=== PATIENT | female | born 1940 | race Caucasian/White ===

== ENCOUNTER 2017-05-07 03:33 | Inpatient (IN) | payer BC, OTHER ==
--- NOTE | 2017-05-07 04:08 | PDOC ---
History of Present Illness <Ladi Pat - Last Filed: 05/07/17 04:48> - General History Source: Patient Exam Limitations: Dementia - History of Present Illness Initial Comments: 05/07/17 04:01 Patient is a 76F with history of COPD on home oxygen, afib on diltiazem and xarelto, and HTN arriving via EMS complaining of anxiety. Her states that she has been getting more anxious, agitated and confused at night time. She states that she has not been confused and just can't sleep overnight. She states that she woke up in the middle of the night feeling short of breath and extremely anxious. EMS reports that she was in afib at the scene. She denies nausea, vomiting, fevers and chills. She denies dysuria and increased frequency in urination. <Doc Jerez - Last Filed: 05/07/17 06:01> - General Chief Complaint: Psychiatric Stated Complaint: ANXIETY Time Seen by Provider: 05/07/17 03:51 Past History <Ladi Pat - Last Filed: 05/07/17 04:48> - Past Medical History COPD: Yes HTN: Yes Hypercholesterolemia: Yes Suicide Attempt (Hx): No - Psycho/Social/Smoking Cessation Hx Anxiety: No Suicidal Ideation: No Smoking History: Former smoker Have you smoked in the past 12 months: No Number of Cigarettes Smoked Daily: 10 If you are a former smoker, when did you quit?: 2 months Information on smoking cessation initiated: No 'Breaking Loose' booklet given: 10/05/14 Hx Alcohol Use: No Drug/Substance Use Hx: No Substance Use Type: None <Doc Jerez - Last Filed: 05/07/17 06:01> - Past Medical History Allergies/Adverse Reactions: Allergies Allergy/AdvReac Type Severity Reaction Status Date / Time codeine Allergy Verified 01/19/15 18:59 diazepam [From Valium] Allergy Verified 01/19/15 18:59 Penicillins Allergy Verified 01/19/15 18:59 Home Medications: Ambulatory Orders Bimatoprost [Lumigan] 1 drop IO DAILY 01/19/15 Diltiazem Cd [Cardizem Cd -] 120 mg PO DAILY 01/19/15 Dorzolamide HCl [Trusopt 2% -] 1 drop OU DAILY 01/19/15 Levothyroxine [Synthroid -] 25 mg PO DAILY 01/19/15 Pravastatin Sodium [Pravachol -] 20 mg PO DAILY 01/19/15 Rivaroxaban [Xarelto -] 20 mg PO DAILY 01/19/15 Albuterol 0.083% Nebulizer Michelle [Ventolin 0.083% Nebulizer Soln -] 1 neb NEB Q6H #60 vial 01/21/15 Budesonide/Formeterol Fumarate [SYMBICORT 80/4.5mcg -] 2 inh IH BID #1 inhaler 01/21/15 Meclizine HCl [Antivert -] 25 mg PO TID #90 tablet 01/21/15 Review of Systems - Review of Systems Comments:: 05/07/17 04:08 GENERAL/CONSTITUTIONAL: No fever or chills. No weakness. HEAD, EYES, EARS, NOSE AND THROAT: No change in vision. No sore throat. CARDIOVASCULAR: No chest pain. Positive for shortness of breath RESPIRATORY: No cough, wheezing GASTROINTESTINAL: No nausea, vomiting, diarrhea or constipation. GENITOURINARY: No dysuria, frequency, or change in urination. MUSCULOSKELETAL: No joint or muscle swelling or pain. No neck or back pain. SKIN: No rash NEUROLOGIC: No headache, vertigo, loss of consciousness, or change in strength/ sensation. Positive for increased confusion <Doc Jerez - Last Filed: 05/07/17 06:01> *Physical Exam - Vital Signs Last Vital Signs Temp Pulse Resp BP Pulse Ox 98.6 F 106 H 15 123/78 100 05/07/17 03:49 05/07/17 03:49 05/07/17 03:49 05/07/17 03:49 05/07/17 03:49 <Ladi Pat - Last Filed: 05/07/17 04:48> - Vital Signs Last Vital Signs Temp Pulse Resp BP Pulse Ox 98.6 F 106 H 15 123/78 100 05/07/17 03:49 05/07/17 03:49 05/07/17 03:49 05/07/17 03:49 05/07/17 03:49 - Physical Exam Comments: 05/07/17 04:10 GENERAL: Awake, alert, and oriented x 4, frail, elderly, anxious HEAD: No signs of trauma, normocephalic, atraumatic EYES: PERRLA, EOMI, sclera anicteric, conjunctiva clear ENT: Auricles normal inspection, hearing grossly normal, nares patent. Moist mucosa LUNGS: In moderate distress, speaks full sentences, decreased breath sounds in bases, less sounds right base HEART: Regular rate, irregular rhythm, normal S1 and S2, no murmurs, rubs or gallops ABDOMEN: Soft, nontender, normoactive bowel sounds. No guarding, no rebound. No masses EXTREMITIES: Normal inspection, Normal range of motion, no edema. Small bruising in legs bilaterally. No clubbing or cyanosis. NEUROLOGICAL: Cranial nerves II through XII grossly intact. Normal speech, no focal sensorimotor deficits SKIN: Warm, Dry, normal turgor, no rashes or lesions noted. <Doc Jerez - Last Filed: 05/07/17 06:01> ED Treatment Course - LABORATORY CBC & Chemistry Diagram: 05/07/17 04:10 05/07/17 04:10 - ADDITIONAL ORDERS Additional order review: Laboratory Results 05/07/17 04:10 INR 1.73 H D 05/07/17 04:10 RBC 3.33 L MCV 63.0 L D MCHC 27.1 L RDW 19.2 H D MPV 7.7 Neutrophils % 76.7 D Lymphocytes % 13.7 D Monocytes % 8.3 Eosinophils % 0.1 D Basophils % 1.2 - Medications Given in the ED: ED Medications Discontinued Medications Generic Name Dose Route Start Last Admin Trade Name Freq PRN Reason Stop Dose Admin Albuterol/Ipratropium 1 amp 05/07/17 04:23 05/07/17 04:36 Duoneb - NEB 05/07/17 04:24 1 amp ONCE ONE Administration <Ladi Pat - Last Filed: 05/07/17 04:48> - LABORATORY CBC & Chemistry Diagram: 05/07/17 04:10 05/07/17 04:10 - RADIOLOGY Radiology Studies Ordered: Category Date Time Status CHEST X-RAY PORTABLE* [RAD] Stat Radiology 05/07/17 03:53 Ordered <Doc Jerez - Last Filed: 05/07/17 06:01> Medical Decision Making - Medical Decision Making Paged Dr. High @ 4:48. Awaiting call back. <Ladi Pat - Last Filed: 05/07/17 04:48> - Medical Decision Making 05/07/17 04:12 Patient is a 76F with history of COPD, aFib, HTN here today complaining of anxiety. Tachycardic, satting 100% on 5L. Differential diagnosis includes, but is not limited to: anxiety, afib, UTI, dementia, COPD exacerbation 05/07/17 04:54 Patient's respiratory status declined, with a desat down to 82%. Patient put on non-rebreather, which was not tolerated well. Patient put on BIPAP, status improved until no longer tolerated. Given duoneb inhaler, oxygen status improved to 98-100%. Physical exam now shows markedly decreased breath sounds bilaterally, patient not able to speak in full sentences. Hgb 5.7, 2 units ordered. ICU consulted. 05/07/17 05:35 Trop positive to 1.38. Rectal exam showed no maya blood. With increased RDW and decreased MCV believe anemia is the result of a chronic process, not an acute bleed. Given aspirin 162 and plavix 300. 05/07/17 06:01 Patient discussed with ICU and Dr High. Accepted for admission to ICU. <Doc Jerez - Last Filed: 05/07/17 06:01> *DC/Admit/Observation/Transfer <Ladi Pat - Last Filed: 05/07/17 04:48> - Discharge Dispostion Admit: Yes - Transfer to Acute Care Facility Accepting Physician:: Lennox - Attestations Physician Attestion: 05/07/17 05:43 I, Dr. Doc Jerez, attest that this document has been prepared under my direction and personally reviewed by me in its entirety. I further attest, that it accurately reflects all work, treatment, procedures and medical decision -making performed by me. <Doc Jerez - Last Filed: 05/07/17 06:01> Diagnosis at time of Disposition: NSTEMI (non-ST elevated myocardial infarction), COPD (chronic obstructive pulmonary disease) - Discharge Dispostion Condition at time of disposition: Critical - Referrals Referrals: Lux Littlejohn MD [Primary Care Provider] -
[2017-05-07] MEDS ORDERED: ALBUTEROL SO4 2.5/IPRATROPIUM 0.5 INH SOL 3 ML VIAL.NEB. NEB ONE (04:23)
[2017-05-07 04:28] LABS: INR 1.73 (0.82-1.09); PROTHROMBIN TIME (PATIENT) 19.2 SEC (9.98-11.88)
[2017-05-07 04:30] LABS: BASOPHIL 1.2 % (0-2.0); EOSINOPHIL 0.1 % (0-4.5); MCHC 27.1 g/dl (32.0-36.0); MEAN PLT VOLUME 7.7 fl (7.5-11.1); NEUTROPHILS 76.7 % (42.8-82.8); PLATELET COUNT 418 K/MM3 (134-434); RDW 19.2 % (11.6-15.6)
[2017-05-07 04:31] LABS: MCH 17.1 pg (25.7-33.7)
[2017-05-07] MEDS ORDERED: methylPREDNISolone NA SUCC 125 MG/2 ML VIAL ONE ×2 (04:31→12:12)
[2017-05-07 04:41] LABS: ALBUMIN 3.2 g/dl (3.4-5.0); ANION GAP 7 (8-16); BILIRUBIN,TOTAL 0.5 mg/dL (0.2-1.0); CO2 28 mmol/L (21-32); CREATININE 0.4 mg/dL (0.55-1.02); GLUCOSE,RANDOM 114 mg/dL (74-106); SGOT/AST 18 U/L (15-37); SGPT/ALT 11 U/L (12-78); TOT PROT 6.8 g/dl (6.4-8.2)
[2017-05-07 04:49] LABS: ALK PHOS 63 U/L (45-117); THYROID STIMULATING HORMONE 2.29 uIU/ml (0.358-3.74)
[2017-05-07 05:10] LABS: TROPONIN I 1.38 ng/ml (0.00-0.05)
[2017-05-07] MEDS ORDERED: ENOXAPARIN NA (PORCINE) 40 MG/0.4 ML DISP.SYRIN SQ ONE (05:10)
[2017-05-07] MEDS ORDERED: CLOPIDOGREL BISULFATE 300 MG TABLET PO ONE (05:12)
[2017-05-07] MEDS ORDERED: ASPIRIN 81 MG CHEWABLE TABLETS PO ONE (05:12)
[2017-05-07] MEDS ORDERED: morphine CARPU-JECT 2 MG/1 ML DISP.SYRIN IVPUSH ONE (05:21)
[2017-05-07] MEDS ORDERED: morphine CARPU-JECT 4 MG/1 ML DISP.SYRIN ONE (05:33)
[2017-05-07] MEDS ORDERED: ASPIRIN 81 MG CHEWABLE TABLETS ONE (05:34)
[2017-05-07] MEDS ORDERED: CLOPIDOGREL BISULFATE 300 MG TABLET ONE (05:34)
--- NOTE | 2017-05-07 06:17 | PDOC ---
Attending Attestation - Resident Resident Name: Doc Jerez - HPI HPI: 05/07/17 06:19 Pt can't breathe; anxious and hx of COPD emphysema. - Physicial Exam PE: 05/07/17 06:19 Pale and thin and anxious. No pulsox registering, as her hands are thin and cold. Once NRB was on, she had pulsox of 100% Pt is afebrile. Stool guaiac negative. Abd soft. Lungs decreased Breath sounds bilaterally. Pt has rales at the bases. - Critical Care Time Total Critical Care Time: 45 Critical Care Statement: The care of this patient involved high complexity decision making to prevent further life threatening deterioration of the patient 's condition and/or to evalute & treat vital organ system(s) failure or risk of failure. - Medical Decision Making 05/07/17 06:21 Pt has decreased Hb 5.7; down from 11 two years ago (last one on file here) Pt has pleural effusion. Pt refusing BiPAP, so she was given duonebs as well as NRB 100% Pt has positive troponin, so she was treated with asa and plavix, She is on xarelto so we will not give lovenox. Pt given morphine 1g for anxiety and for CP. EKG poor baseline, but no tachycardia. Pt admitted to Dr. High who is covering Dr. Vazquez.
[2017-05-07 06:50] VITALS: BMI 17.9
[2017-05-07 07:13] LABS: ANISOCYTOSIS 2+; HYPOCHROMIA 3+; MICROCYTOSIS 2+
--- NOTE | 2017-05-07 09:50 | EKG ---
Test Reason : Blood Pressure : / mmHG Vent. Rate : 100 BPM Atrial Rate : 100 BPM P-R Int : 176 ms QRS Dur : 090 ms QT Int : 350 ms P-R-T Axes : 074 -11 047 degrees QTc Int : 451 ms SINUS RHYTHM WITH PREMATURE VENTRICULAR COMPLEXES WITH ABERRANT CONDUCTION CANNOT RULE OUT SEPTAL INFARCT (CITED ON OR BEFORE 19-JAN-2015) ABNORMAL ECG WHEN COMPARED WITH ECG OF 19-JAN-2015 17:37, ABERRANT CONDUCTION IS NOW PRESENT Confirmed by EMIL VANCE MD ([id number]) on 05/07/2017 9:49:35 AM Referred By: Confirmed By:EMIL VANCE MD
--- NOTE | 2017-05-07 11:11 | HP ---
Admitting History and Physical - Primary Care Physician PCP: Edmundo Hendrix - Admission Chief Complaint: I couldnt breathe History of Present Illness: Ms Carmona is a pleasant 76 year old female who comes in with anxiety and shortness of breath. I obtained the history from both her and her who is at the bedside. Per her , she has been having difficulty breathing for about two weeks. It mainly occurred on exertion and she was having anxiety associated with it. Per her, she says that she was feeling fine until last night. She said she went to bed and woke up with acute shortness of breath and anxiety. Because of this she came in. She says she has fatigue for the past two weeks. She denies lightheadedness, dizziness, passing out, chest pain, abdominal pain, nausea, vomiting, diarrhea, constipation, melena, hematochezia, pain or difficulty urinating, blood in the urine, or swelling. History Source: Patient Limitations to Obtaining History: No Limitations - Past Medical History Cardiovascular: Yes: HTN, Hyperlipdemia - Past Surgical History Past Surgical History: Yes: None - Smoking History Smoking history: Former smoker Have you smoked in the past 12 months: No Aproximately how many cigarettes per day: 10 If you are a former smoker, when did you quit?: 2 months - Alcohol/Substance Use Hx Alcohol Use: No History of Substance Use: reports: None - Social History Usual Living Arrangement: Yes: With Spouse ADL: Independent History of Recent Travel: No Home Medications - Allergies Allergies/Adverse Reactions: Allergies Allergy/AdvReac Type Severity Reaction Status Date / Time codeine Allergy Verified 01/19/15 18:59 diazepam [From Valium] Allergy Verified 01/19/15 18:59 Penicillins Allergy Verified 01/19/15 18:59 - Home Medications Home Medications: Ambulatory Orders Bimatoprost [Lumigan] 1 drop IO DAILY 01/19/15 Diltiazem Cd [Cardizem Cd -] 120 mg PO DAILY 01/19/15 Dorzolamide HCl [Trusopt 2% -] 1 drop OU DAILY 01/19/15 Levothyroxine [Synthroid -] 25 mg PO DAILY 01/19/15 Pravastatin Sodium [Pravachol -] 20 mg PO DAILY 01/19/15 Rivaroxaban [Xarelto -] 20 mg PO DAILY 01/19/15 Albuterol 0.083% Nebulizer Michelle [Ventolin 0.083% Nebulizer Soln -] 1 neb NEB Q6H #60 vial 01/21/15 Budesonide/Formeterol Fumarate [SYMBICORT 80/4.5mcg -] 2 inh IH BID #1 inhaler 01/21/15 Meclizine HCl [Antivert -] 25 mg PO TID #90 tablet 01/21/15 Family Disease History - Family Disease History Family History: Unremarkable Review of Systems Findings/Remarks: Full review of systems obtained, as per HPI and otherwise negative Physical Examination Vital Signs: Vital Signs Temperature 98.5 F 05/07/17 08:00 Pulse Rate 90 05/07/17 08:00 Respiratory Rate 24 05/07/17 08:00 Blood Pressure 107/52 05/07/17 08:00 O2 Sat by Pulse Oximetry (%) 97 05/07/17 09:00 Constitutional: Yes: No Distress, Pallor Eyes: Yes: Conjunctiva Clear, EOM Intact, PERRL HENT: Yes: Atraumatic, Normocephalic Cardiovascular: Yes: Tachycardia. No: Gallop, Murmur, Rub Respiratory: Yes: CTA Bilaterally, On Nasal O2, Tachypnea. No: Rales, Rhonchi, Wheezes Gastrointestinal: Yes: Normal Bowel Sounds, Soft. No: Distention, Tenderness Extremities: Yes: WNL Edema: No Labs: Laboratory Results - last 24 hr 05/07/17 05/07/17 05/07/17 04:10 04:10 04:10 WBC 7.0 RBC 3.33 L Hgb 5.7 L* D Hct 21.0 L D MCV 63.0 L D MCH 17.1 L MCHC 27.1 L RDW 19.2 H D Plt Count 418 D MPV 7.7 Neutrophils % 76.7 D Lymphocytes % 13.7 D Monocytes % 8.3 Eosinophils % 0.1 D Basophils % 1.2 Differential Comment Slide scanned Hypochromic-Microcytic 3+ Anisocytosis 2+ Microcytosis 2+ Retic Count INR Sodium 136 Potassium 3.6 Chloride 101 Carbon Dioxide 28 Anion Gap 7 L BUN 9 Creatinine 0.4 L D Creat Clearance w eGFR > 60 Random Glucose 114 H Lactic Acid Calcium 9.0 Ferritin Total Bilirubin 0.5 D AST 18 D ALT 11 L Alkaline Phosphatase 63 D LD Total Creatine Kinase 63 Troponin I 1.38 H* B-Natriuretic Peptide Total Protein 6.8 Albumin 3.2 L Vitamin B12 Serum Folate TSH 2.29 Stool Occult Blood Blood Type Antibody Screen Crossmatch 05/07/17 05/07/17 05/07/17 04:10 04:10 05:05 WBC RBC Hgb Hct MCV MCH MCHC RDW Plt Count MPV Neutrophils % Lymphocytes % Monocytes % Eosinophils % Basophils % Differential Comment Hypochromic-Microcytic Anisocytosis Microcytosis Retic Count INR 1.73 H D Sodium Potassium Chloride Carbon Dioxide Anion Gap BUN Creatinine Creat Clearance w eGFR Random Glucose Lactic Acid Calcium Ferritin 6.047 L Total Bilirubin AST ALT Alkaline Phosphatase LD Total 167 Creatine Kinase Troponin I B-Natriuretic Peptide 4912.88 H Total Protein Albumin Vitamin B12 586 Serum Folate 13 TSH 2.20 D Stool Occult Blood Blood Type O POSITIVE Antibody Screen Negative Crossmatch See Detail 05/07/17 05/07/17 05/07/17 05:05 05:18 05:30 WBC RBC Hgb Hct MCV MCH MCHC RDW Plt Count MPV Neutrophils % Lymphocytes % Monocytes % Eosinophils % Basophils % Differential Comment Hypochromic-Microcytic Anisocytosis Microcytosis Retic Count INR Sodium Potassium Chloride Carbon Dioxide Anion Gap BUN Creatinine Creat Clearance w eGFR Random Glucose Lactic Acid 6.1 H* Calcium Ferritin Total Bilirubin AST ALT Alkaline Phosphatase LD Total Creatine Kinase Troponin I B-Natriuretic Peptide Total Protein Albumin Vitamin B12 Serum Folate TSH Stool Occult Blood Negative Blood Type O POSITIVE Antibody Screen Crossmatch 05/07/17 05/07/17 16:00 16:00 WBC 12.8 H D RBC 4.51 D Hgb 9.7 L D Hct 31.9 L D MCV 70.7 L MCH 21.5 L MCHC 30.4 L RDW 25.5 H Plt Count 325 D MPV 7.6 Neutrophils % 90.2 H Lymphocytes % 2.2 L D Monocytes % 7.5 Eosinophils % 0.0 D Basophils % 0.1 Differential Comment Hypochromic-Microcytic Anisocytosis Microcytosis Retic Count 1.80 H INR Sodium Potassium Chloride Carbon Dioxide Anion Gap BUN Creatinine Creat Clearance w eGFR Random Glucose Lactic Acid Calcium Ferritin Total Bilirubin AST ALT Alkaline Phosphatase LD Total Creatine Kinase Troponin I B-Natriuretic Peptide Total Protein Albumin Vitamin B12 Serum Folate TSH Stool Occult Blood Blood Type Antibody Screen Crossmatch Imaging - Results Chest X-ray: Report Reviewed, Image Reviewed Problem List - Problems (1) Anemia Assessment/Plan: -patient presents with symptomatic anemia -reviewed ER note, concerned that low MCV and high RDW is more from iron deficiency -while iron deficiency can be chronic, must consider acute GI bleed even with negative occult stool x1 -will not give further anticoagulation, hold xarelto -agree with transfusion -check anemia labs including haptoglobin and LDH for possible destruction -consult hematology for anemia -consult GI for possible GI bleed Code(s): D64.9 - ANEMIA, UNSPECIFIED (2) NSTEMI (non-ST elevated myocardial infarction) Assessment/Plan: -with elevated troponin -cardiology not consulted in ICU, consult placed upon seeing -possible stress induced but still concerning considering symptoms -given aspirin 162mg and plavix 300mg in the ED -will not continue this secondary to severe anemia -order second set of cardiac enzymes Code(s): I21.4 - NON-ST ELEVATION (NSTEMI) MYOCARDIAL INFARCTION (3) COPD (chronic obstructive pulmonary disease) Assessment/Plan: -pulmonary following -suspect shortness of breath secondary to anemia -will continue home regimen -if does not improve, may need intubation -continue ICU management Code(s): J44.9 - CHRONIC OBSTRUCTIVE PULMONARY DISEASE, UNSPECIFIED (4) Hyperlipidemia Assessment/Plan: -continue statin Code(s): E78.5 - HYPERLIPIDEMIA, UNSPECIFIED (5) Hypertension Assessment/Plan: -low normal -monitor Code(s): I10 - ESSENTIAL (PRIMARY) HYPERTENSION (6) Paroxysmal atrial fibrillation Assessment/Plan: -cardiology consulted -holding anticoagulation Code(s): I48.0 - PAROXYSMAL ATRIAL FIBRILLATION Assessment/Plan 62 minutes in critical care time spent in care of this patient
[2017-05-07] MEDS ORDERED: ALBUTEROL SO4 2.5/IPRATROPIUM 0.5 INH SOL 3 ML VIAL.NEB. NEB PRN (11:42)
[2017-05-07] MEDS ORDERED: methylPREDNISolone NA SUCC 125 MG/2 ML VIAL IVPB ONE (11:46)
[2017-05-07] MEDS: ALBUTEROL SO4 0.083% IH SOL 2.5 MG/3 ML VIAL.NEB. NEB SCH ×2 (11:50→18:43)
--- NOTE | 2017-05-07 11:58 | CON.CARD ---
Consult Consult Specialty:: cardio Referred by:: royal Reason for Consultation:: MD - History of Present Illness Chief Complaint: weak, sob History of Present Illness: pt cannot communicate at length due to severe sob and FM oxygen on. states she felt extremely weak yest and today so came to ER. says she's been noticing incr sob past 2 wks but became severe last night, felt like could not catch her breath, so came to ER. denies any c/o chest pain/pressure/heaviness/tightness (pt confirms as well, shakes head "no"). pt and deny melena or BRBPR denies wheezing says no prior h/o anemia, PUD or GIB--sees schirripa regularly PMH: copd AFib HTN - Past Medical History Cardio/Vascular: Yes: HTN, Hyperlipdemia - Alcohol/Substance Use Hx Alcohol Use: No - Smoking History Smoking history: Former smoker Have you smoked in the past 12 months: No Aproximately how many cigarettes per day: 10 If you are a former smoker, when did you quit?: 2 months Home Medications - Allergies Allergies/Adverse Reactions: Allergies Allergy/AdvReac Type Severity Reaction Status Date / Time codeine Allergy Verified 01/19/15 18:59 diazepam [From Valium] Allergy Verified 01/19/15 18:59 Penicillins Allergy Verified 01/19/15 18:59 - Home Medications Home Medications: Ambulatory Orders Bimatoprost [Lumigan] 1 drop IO DAILY 01/19/15 Diltiazem Cd [Cardizem Cd -] 120 mg PO DAILY 01/19/15 Dorzolamide HCl [Trusopt 2% -] 1 drop OU DAILY 01/19/15 Levothyroxine [Synthroid -] 25 mg PO DAILY 01/19/15 Pravastatin Sodium [Pravachol -] 20 mg PO DAILY 01/19/15 Rivaroxaban [Xarelto -] 20 mg PO DAILY 01/19/15 Albuterol 0.083% Nebulizer Michelle [Ventolin 0.083% Nebulizer Soln -] 1 neb NEB Q6H #60 vial 01/21/15 Budesonide/Formeterol Fumarate [SYMBICORT 80/4.5mcg -] 2 inh IH BID #1 inhaler 01/21/15 Meclizine HCl [Antivert -] 25 mg PO TID #90 tablet 01/21/15 Family Disease History - Family Disease History Family History: Denies (no cmp) Review of Systems - Review of Systems Constitutional: reports: Weakness. denies: Chills, Fever Eyes: denies: Eye Pain HENT: denies: Nasal Congestion Neck: denies: Stiffness Cardiovascular: denies: Palpitations Respiratory: denies: Orthopnea, PND Gastrointestinal: denies: Diarrhea, Rectal Bleeding Genitourinary: denies: Burning, Hematuria Musculoskeletal: denies: Muscle Pain Integumentary: denies: Rash Neurological: denies: Numbness, Seizure, Syncope Endocrine: denies: Excessive Sweating Hematology/Lymphatic: denies: Excessive Bleeding Vital Signs: Vital Signs Temperature 98.5 F 05/07/17 08:00 Pulse Rate 90 05/07/17 08:00 Respiratory Rate 24 05/07/17 08:00 Blood Pressure 107/52 05/07/17 08:00 O2 Sat by Pulse Oximetry (%) 97 05/07/17 09:00 Constitutional: Yes: Well Nourished, No Distress Eyes: No: Sclera Icterus HENT: No: Nasal Congestion Neck: No: Decreased ROM Respiratory: Yes: Diminished (diffusely), Wheezes (bilat). No: Accessory Muscle Use Gastrointestinal: Yes: Normal Bowel Sounds. No: Distention, Hepatomegaly, Palpable Mass, Tenderness Cardiovascular: Yes: Regular Rate and Rhythm JVD: No Carotid Bruit: No PMI: Non-Displaced Heart Sounds: Yes: S1, S2. No: Gallop Murmur: No: Systolic Murmur, Diastolic Murmur Musculoskeletal: Yes: Other (No kyphosis) Extremities: No: Cold, Cyanosis Edema: No Peripheral Pulses: 2+ Left Carotid, 2+ Right Carotid, 2+ Left Doralis Pedis, 2+ Right Dorsalis Pedis Integumentary: No: Jaundice Neurological: Yes: Alert. No: Seizure Psychiatric: No: Agitated - Other Data Labs, Other Data: INR, PTT INR 1.73 (0.82-1.09) H D 05/07/17 04:10 Laboratory Tests 01/19/15 05/07/17 05/07/17 18:05 04:10 04:10 WBC 7.0 Hgb 11.1 D 5.7 L* D Plt Count 418 D INR Sodium 136 Potassium 3.6 Carbon Dioxide 28 BUN 9 Creatinine 0.4 L D Lactic Acid AST 18 D ALT 11 L Creatine Kinase Troponin I B-Natriuretic Peptide TSH 2.29 05/07/17 05/07/17 05/07/17 04:10 04:10 04:10 WBC Hgb Plt Count INR 1.73 H D Sodium Potassium Carbon Dioxide BUN Creatinine Lactic Acid AST ALT Creatine Kinase 63 Troponin I 1.38 H* B-Natriuretic Peptide 4912.88 H TSH 05/07/17 05:05 WBC Hgb Plt Count INR Sodium Potassium Carbon Dioxide BUN Creatinine Lactic Acid 6.1 H* AST ALT Creatine Kinase Troponin I B-Natriuretic Peptide TSH tele: NSR Assessment/Plan Echo 2013: nl lv, nl rv, mild mr, mild tr, rvsp 30-40 Dobut mibi 2014: no ischemia ECG: sinus tach (100 bpm), + PVC; normal axis; ? old ASMI (no change vs 2015 prior); nonsp STs lateral leads new vs prior CXR: new effusions and chf findings--reviewed by me: vs 2014, there are small effusions and vascular redistribution anemia: -hgb 5.7 here, was 11 when here 2015, ? recent outpt values -? GIB--will hold xarelto for now -rec PRBCs transufsion -await GI eval NSTEMI: -ck normal, trop 1.3 in ER-->2nd set pending -ecg nonspecific though changed vs prior -this could all be secondary to acute anemia given severity of reduced Hgb, gil if underlying fixed obstructive CAD -will check echo for LV fxn -will defer stress testing for now, but will need this for risk stratification prior to discharge, once clinically stabilized -will not be a candidate for invasive treatment strategy (i.e. cath/PCI) regardless until etiology of anemia is clarified, and risk-stratified as low risk for bleed on DAPT with premature discontinuation) -defer ASA, plavix, heparin -defer BB until observe BP trend given ? acute bleeding (lactate very elevated) -on pravastatin at home-atorva 10 here, per formulary (defer intensive statin unless becomes evident this was Type I MD) acute CHF: -no prior hx, echo WNL 2013. -CXR c/w chf, BNP 4K -pt with severe respiratory compromise at present--IV lasix 40mg x 1 now -ICU monitoring with supportive care +/- intubation consideration per critical care afib: -episode here when admitted 2014 with a.e. copd/resp failure -CHADS VASC 4--started on xarelto 20 at that time -holding AC at present given severe anemia -has not f/u'd with us since (sees dr larsen PMD)--remains on xarelto per home med list COPD: -h/o acute resp failure 2015 here -? a.e.--per pulm/crit care htn: -well controlled -hold home diltiazem for now while observe BP trend (? acute bleeding--as disc' d above) lactic acidosis: -? acute anemia with hypoperfusion -? sec to MD -? sec to chf est'd time in mgmt of this critically ill pt with mult life-threatening medical problems = 35-40min prognosis guarded
[2017-05-07] MEDS ORDERED: FUROSEMIDE 40 MG/4 ML INJECTABLE VIAL IVPUSH ONE (12:38)
[2017-05-07] MEDS ORDERED: FUROSEMIDE 40 MG/4 ML INJECTABLE VIAL ONE (12:43)
--- NOTE | 2017-05-07 12:55 | CONSULT ---
Consult Consult Specialty:: ICU Referred by:: ED Reason for Consultation:: Symptomatic anemia - History of Present Illness Chief Complaint: anxiety insomnia History of Present Illness: 76F history of A fib on xarelto HTN HLD presents to the ED with her . Per she has been getting anxious and agitated especially at night along with insomnia. Patient was noted to be in A fib with RVR at the scene by EMS. In the ED she was noted to have a Hb of 5.7. She denies halley tarry stools or GI bleed. Stool for hemoccult blood was negative. She deneis ever having a GI bleed. Patient states she does not have a history of anemia but upon further questioning she states she was on iron 3 times a day but cold not tolerate the constipation and stopped it a long time ago. She denies nausea vomiting fevers chills chest pain or shortness of breath. Denies any urinary symptoms. Patient also noted to have troponinemia without EKG changes. - History Source History Provided By: Patient, Significant Other Limitations to Obtaining History: Clinical Condition - Past Medical History Cardio/Vascular: Yes: AFIB, HTN, Hyperlipdemia Pulmonary: Yes: COPD, O2 Dependent (2L NC at home ) Endocrine: Yes: Hypothyroidism - Past Surgical History Past Surgical History: Yes: Carotid Endarterectomy - Alcohol/Substance Use Hx Alcohol Use: No - Smoking History Smoking history: Former smoker Have you smoked in the past 12 months: No Aproximately how many cigarettes per day: 10 If you are a former smoker, when did you quit?: 2 months - Social History Usual Living Arrangement: With Spouse Home Medications - Allergies Allergies/Adverse Reactions: Allergies Allergy/AdvReac Type Severity Reaction Status Date / Time codeine Allergy Verified 01/19/15 18:59 diazepam [From Valium] Allergy Verified 01/19/15 18:59 Penicillins Allergy Verified 01/19/15 18:59 - Home Medications Home Medications: Ambulatory Orders Bimatoprost [Lumigan] 1 drop IO DAILY 01/19/15 Diltiazem Cd [Cardizem Cd -] 120 mg PO DAILY 01/19/15 Dorzolamide HCl [Trusopt 2% -] 1 drop OU DAILY 01/19/15 Levothyroxine [Synthroid -] 25 mg PO DAILY 01/19/15 Pravastatin Sodium [Pravachol -] 20 mg PO DAILY 01/19/15 Rivaroxaban [Xarelto -] 20 mg PO DAILY 01/19/15 Albuterol 0.083% Nebulizer Michelle [Ventolin 0.083% Nebulizer Soln -] 1 neb NEB Q6H #60 vial 01/21/15 Budesonide/Formeterol Fumarate [SYMBICORT 80/4.5mcg -] 2 inh IH BID #1 inhaler 01/21/15 Meclizine HCl [Antivert -] 25 mg PO TID #90 tablet 01/21/15 Review of Systems - Review of Systems Constitutional: reports: No Symptoms Eyes: reports: No Symptoms HENT: reports: No Symptoms Neck: reports: No Symptoms Cardiovascular: reports: No Symptoms Respiratory: reports: SOB (occasional), Wheezing Gastrointestinal: reports: No Symptoms, Vomiting Blood Musculoskeletal: reports: No Symptoms Psychiatric: reports: Anxiety, Other (agitation at night insomnia) Physical Exam Vital Signs: Vital Signs Temperature 98.5 F 05/07/17 08:00 Pulse Rate 90 05/07/17 08:00 Respiratory Rate 24 05/07/17 08:00 Blood Pressure 107/52 05/07/17 08:00 O2 Sat by Pulse Oximetry (%) 97 05/07/17 09:00 Constitutional: Yes: No Distress, Calm, Cachectic, Thin Eyes: Yes: Conjunctiva Clear HENT: Yes: Atraumatic, Normocephalic Neck: Yes: Supple, Trachea Midline Cardiovascular: Yes: Tachycardia, Pulse Irregular, S1, S2 Respiratory: Yes: Diminished, Wheezes Gastrointestinal: Yes: Normal Bowel Sounds, Soft ...Rectal Exam: Yes: Deferred (patient refused stated was done already in ED) Extremities: Yes: WNL Edema: No Neurological: Yes: Alert, Oriented Psychiatric: Yes: Alert, Oriented Imaging - Results Chest X-ray: Report Reviewed, Image Reviewed Assessment/Plan 76F with multiple medical problems presented to the ED with non sepcific complaints of anxiety, agitation, and insomnia found to be severely anemia. symptomatic anemia: patient was tachycardic. this is likely a chronic process which has progressively worsened sine she has stopped taking iron pills. patient denies GI bleeding history hold xarelto for now transfuse 2 units PRBCs and trend CBC post transfusion CBC transfuse for Hb <7 GI consult Hematology consult lactic acidosis:likely from hypovolemia from blood loss lactate 6.1 will repeat and trend Troponinemia: NSTEMI unlikely. troponin leak likely from demand ischemia from hypovolemia gievn plavix 300mg and aspirin 162mg in ED Cardiology consulted Echo Shortness of breath: could be from CHF-like symptoms from high output cardiac failure cardiology consult appreciated symptoms improved with 40mg IV lasix repeat CXR in AM COPD: on Home O2 put back on 2L NC with venti mask PRN Duonebs albuterol CXR Given solu-medrol for an episode of respiratory distress with wheezing Afib: Needs better rate control currently in 110's which is improved will likely improve with transfusion as she was likely tachycardic from hypovolemia continue cardizem Hold Xarelto for now given anemia cardiology consult Hypothyroidism: continue synthroid HLD: continue statin FEN: no IVF will give fluids PRN no electrolyte issues NPO for now pending GI consult PPx: SCDs no GI PPx needed at this time PT consult when able to participate Case discussed with attending and patient and her family at bedside
[2017-05-07 15:15] LABS: FERRITIN 6.047 ng/ml (6.9-282.5); THYROID STIMULATING HORMONE 2.2 uIU/ml (0.358-3.74)
--- NOTE | 2017-05-07 15:58 | PN ---
Teaching Attending Note Name of Resident: Truman Pitt ATTENDING PHYSICIAN STATEMENT I saw and evaluated the patient. I reviewed the resident's note and discussed the case with the resident. I agree with the resident's findings and plan as documented. SUBJECTIVE: Patient seen and examined in the ICU. Awake and alert. Anxious about her condition. Receiving pRBCs. Denies CP or SOB, but tachypneic at rest. Intake & Output 05/04/17 05/05/17 05/06/17 05/07/17 23:59 23:59 23:59 23:59 Weight 92 lb Last Vital Signs Temp Pulse Resp BP Pulse Ox 98.5 F 90 24 107/52 97 05/07/17 08:00 05/07/17 08:00 05/07/17 08:00 05/07/17 08:00 05/07/17 09:00 Active Medications Albuterol Sulfate (Ventolin 0.083% Nebulizer Soln -) 1 amp NEB QIDR [facility] Last Admin: 05/07/17 11:50 Dose: 1 amp Albuterol/Ipratropium (Duoneb -) 1 amp NEB Q6H PRN PRN Reason: SHORTNESS OF BREATH Atorvastatin Calcium (Lipitor -) 10 mg PO HS [facility] Brimonidine Tartrate (Alphagan 0.2% -) 1 drop OU BID [facility] Diltiazem HCl (Cardizem Cd -) 120 mg PO DAILY [facility] Levothyroxine Sodium (Synthroid -) 25 mcg PO DAILY@0700 [facility] Constitutional: Yes: Awake and alert, Mildly tachypneic at rest Eyes: No: Sclera Icterus HENT: No: Nasal Congestion Neck: No: Decreased ROM Respiratory: Yes: Diminished at the bases, Mild scattered expiratory wheezes. No: Accessory Muscle Use Gastrointestinal: Yes: Normal Bowel Sounds. No: Distention, Hepatomegaly, Palpable Mass, Tenderness Cardiovascular: Yes: Regular Rate and Rhythm JVD: No Carotid Bruit: No PMI: Non-Displaced Heart Sounds: Yes: S1, S2. No: Gallop Murmur: No: Systolic Murmur, Diastolic Murmur Musculoskeletal: Yes: Other (No kyphosis) Extremities: No: Cold, Cyanosis Edema: No Peripheral Pulses: 2+ Left Carotid, 2+ Right Carotid, 2+ Left Doralis Pedis, 2+ Right Dorsalis Pedis Integumentary: No: Jaundice Neurological: Yes: Alert. No: Seizure Psychiatric: No: Agitated Laboratory Results - last 24 hr 05/07/17 05/07/17 05/07/17 04:10 04:10 04:10 WBC 7.0 RBC 3.33 L Hgb 5.7 L* D Hct 21.0 L D MCV 63.0 L D MCH 17.1 L MCHC 27.1 L RDW 19.2 H D Plt Count 418 D MPV 7.7 Neutrophils % 76.7 D Lymphocytes % 13.7 D Monocytes % 8.3 Eosinophils % 0.1 D Basophils % 1.2 Differential Comment Slide scanned Hypochromic-Microcytic 3+ Anisocytosis 2+ Microcytosis 2+ INR Sodium 136 Potassium 3.6 Chloride 101 Carbon Dioxide 28 Anion Gap 7 L BUN 9 Creatinine 0.4 L D Creat Clearance w eGFR > 60 Random Glucose 114 H Lactic Acid Calcium 9.0 Ferritin Total Bilirubin 0.5 D AST 18 D ALT 11 L Alkaline Phosphatase 63 D LD Total Creatine Kinase 63 Troponin I 1.38 H* B-Natriuretic Peptide Total Protein 6.8 Albumin 3.2 L Vitamin B12 Serum Folate TSH 2.29 Stool Occult Blood Blood Type Antibody Screen Crossmatch 05/07/17 05/07/17 05/07/17 04:10 04:10 05:05 WBC RBC Hgb Hct MCV MCH MCHC RDW Plt Count MPV Neutrophils % Lymphocytes % Monocytes % Eosinophils % Basophils % Differential Comment Hypochromic-Microcytic Anisocytosis Microcytosis INR 1.73 H D Sodium Potassium Chloride Carbon Dioxide Anion Gap BUN Creatinine Creat Clearance w eGFR Random Glucose Lactic Acid Calcium Ferritin 6.047 L Total Bilirubin AST ALT Alkaline Phosphatase LD Total 167 Creatine Kinase Troponin I B-Natriuretic Peptide 4912.88 H Total Protein Albumin Vitamin B12 586 Serum Folate 13 TSH 2.20 D Stool Occult Blood Blood Type O POSITIVE Antibody Screen Negative Crossmatch See Detail 05/07/17 05/07/17 05/07/17 05:05 05:18 05:30 WBC RBC Hgb Hct MCV MCH MCHC RDW Plt Count MPV Neutrophils % Lymphocytes % Monocytes % Eosinophils % Basophils % Differential Comment Hypochromic-Microcytic Anisocytosis Microcytosis INR Sodium Potassium Chloride Carbon Dioxide Anion Gap BUN Creatinine Creat Clearance w eGFR Random Glucose Lactic Acid 6.1 H* Calcium Ferritin Total Bilirubin AST ALT Alkaline Phosphatase LD Total Creatine Kinase Troponin I B-Natriuretic Peptide Total Protein Albumin Vitamin B12 Serum Folate TSH Stool Occult Blood Negative Blood Type O POSITIVE Antibody Screen Crossmatch Assessment/Plan Severe symptomatic anemia (?) GI Bleed Lactic acidosis Severe/Advanced COPD (?) component of high output failure Pleural effusions Suspected demand ischemia Hold AC Transfusional support O2 as needed Hold on ASA/Plavix Follow lactic acid Low threshold for intubation Rate control BD TX ICU monitoring Dr Arreaga Critical Care Time/MDM Note Total Critical Care Time: 35 Critical Care Statement: The care of this patient involved high complexity decision making to prevent further life threatening deterioration of the patient 's condition and/or to evalute & treat vital organ system(s) failure or risk of failure.
[2017-05-07 16:18] LABS: BASOPHIL 0.1 % (0-2.0); MCH 21.5 pg (25.7-33.7); MCHC 30.4 g/dl (32.0-36.0); MEAN CELL VOLUME 70.7 fl (80-96); MEAN PLT VOLUME 7.6 fl (7.5-11.1); NEUTROPHILS 90.2 % (42.8-82.8); PLATELET COUNT 325 K/MM3 (134-434); RDW 25.5 % (11.6-15.6); WHITE BLOOD COUNT 12.8 K/mm3 (4.0-10.0)
--- NOTE | 2017-05-07 18:06 | CONSULT ---
Consult Consult Specialty:: Hematology/Oncology Reason for Consultation:: anemia - History of Present Illness Chief Complaint: difficulty breathing History of Present Illness: Most of the history obtained from /Chart: Seen and examined in the ICU. Ms. Carmona is a 76 year old white woman who is now admitted in ICU for severe anemia , SOB , AMS. Patient with history of Iron deficiency as per and she was prescribed iron pills three times a day , she stopped taking them as they were causing severe constipation. As per her from the past few days , she was complaing of not able to breathe, and which was worse yesterday and was brought to the ER. She denies lightheadedness, dizziness, passing out, chest pain, abdominal pain, nausea, vomiting, diarrhea, constipation, melena, hematochezia, pain or difficulty urinating, blood in the urine, or swelling. - History Source History Provided By: Family Member Limitations to Obtaining History: Clinical Condition - Past Medical History Cardio/Vascular: Yes: HTN, Hyperlipdemia Pulmonary: Yes: COPD, O2 Dependent (2L NC at home ) Endocrine: Yes: Hypothyroidism - Past Surgical History Past Surgical History: Yes: None - Alcohol/Substance Use Hx Alcohol Use: No History of Substance Use: reports: None - Smoking History Smoking history: Former smoker Have you smoked in the past 12 months: No Aproximately how many cigarettes per day: 10 If you are a former smoker, when did you quit?: 2 months - Social History Usual Living Arrangement: With Spouse ADL: Independent History of Recent Travel: No Home Medications - Allergies Allergies/Adverse Reactions: Allergies Allergy/AdvReac Type Severity Reaction Status Date / Time codeine Allergy Verified 01/19/15 18:59 diazepam [From Valium] Allergy Verified 01/19/15 18:59 Penicillins Allergy Verified 01/19/15 18:59 - Home Medications Home Medications: Ambulatory Orders Bimatoprost [Lumigan] 1 drop IO DAILY 01/19/15 Diltiazem Cd [Cardizem Cd -] 120 mg PO DAILY 01/19/15 Dorzolamide HCl [Trusopt 2% -] 1 drop OU DAILY 01/19/15 Levothyroxine [Synthroid -] 25 mg PO DAILY 01/19/15 Pravastatin Sodium [Pravachol -] 20 mg PO DAILY 01/19/15 Rivaroxaban [Xarelto -] 20 mg PO DAILY 01/19/15 Albuterol 0.083% Nebulizer Michelle [Ventolin 0.083% Nebulizer Soln -] 1 neb NEB Q6H #60 vial 01/21/15 Budesonide/Formeterol Fumarate [SYMBICORT 80/4.5mcg -] 2 inh IH BID #1 inhaler 01/21/15 Meclizine HCl [Antivert -] 25 mg PO TID #90 tablet 01/21/15 Family Disease History - Family Disease History Family History: Denies Review of Systems - Review of Systems Constitutional: reports: Diaphoresis. denies: Fever, Lethargy, Loss of Appetite , Night Sweats, Unintentional Wgt. Loss Neck: denies: Lumps Cardiovascular: reports: Palpitations, Shortness of Breath Respiratory: reports: SOB, SOB on Exertion Gastrointestinal: denies: Abdominal Pain, Melena, Nausea, Vomiting Blood Genitourinary: denies: Burning, Discharge Musculoskeletal: denies: Back Pain, Decreased ROM, Muscle Pain, Muscle Cramps Neurological: reports: Confusion, Dizziness, Weakness Psychiatric: reports: Anxiety Physical Exam Vital Signs: Vital Signs Temperature 98.5 F 05/07/17 08:00 Pulse Rate 90 05/07/17 08:00 Respiratory Rate 24 05/07/17 08:00 Blood Pressure 107/52 05/07/17 08:00 O2 Sat by Pulse Oximetry (%) 97 05/07/17 09:00 Constitutional: Yes: Moderate Distress, Thin Eyes: Yes: Other (sub conjunctoval hemorrhage seen in the right eye.) Neck: Yes: Supple, Trachea Midline. No: Lymphadenopathy Cardiovascular: Yes: Regular Rate and Rhythm Respiratory: Yes: Diminished, On Venti-Mask, Other Gastrointestinal: Yes: Normal Bowel Sounds, Soft. No: Tenderness Edema: No Integumentary: Yes: Bruising, Other (right forearm) Psychiatric: Yes: Alert Labs: CBC, BMP 05/07/17 16:00 Imaging - Results Chest X-ray: Report Reviewed Problem List - Problems (1) Anemia Code(s): D64.9 - ANEMIA, UNSPECIFIED Qualifiers: Anemia type: iron deficiency Iron deficiency anemia type: unspecified iron deficiency Qualified Code(s): D50.9 - Iron deficiency anemia, unspecified (2) COPD (chronic obstructive pulmonary disease) Code(s): J44.9 - CHRONIC OBSTRUCTIVE PULMONARY DISEASE, UNSPECIFIED (3) NSTEMI (non-ST elevated myocardial infarction) Code(s): I21.4 - NON-ST ELEVATION (NSTEMI) MYOCARDIAL INFARCTION (4) Paroxysmal atrial fibrillation Code(s): I48.0 - PAROXYSMAL ATRIAL FIBRILLATION (5) Altered mental status Code(s): R41.82 - ALTERED MENTAL STATUS, UNSPECIFIED Assessment/Plan is a 76 year old White female who is admitted with AMS/SOB. hematology consulted for anemia. Severe Microcytic anemia: -patient with very low MCGV, high RDW, likely chronic Fe deficiency, but Now causing multi-organ involvement (demand ischemia/Hypoxemia/AMS ) -?Etiology: ??Chronic GI loss ( eg: AVMs) vs Hemolysis ( less likely). -screening anemia w/u ordered -s/p 2 U of PRBC -active type/screen -repeat CBC q6-8 hours -GI f/u -can consider IV iron . Paroxysmal afib:(High CHADSVASC score) -continue holding ac due to suspicion of bleeding. NSTEMI -troponinemia likely in the setting of low Hgb -cardiology consultation noted. Will follow Discussed with and also the resident team taking care of . Patient in ICU. Critically ill.
[2017-05-07] MEDS: BRIMONIDINE TARTRATE 0.2% OPHTHALMIC 5 ML BOTTLE OU SCH ×2 (18:15→21:25)
[2017-05-07 21:25] LABS: TROPONIN I 2.72 ng/ml (0.00-0.05)
[2017-05-08] MEDS: ALBUTEROL SO4 0.083% IH SOL 2.5 MG/3 ML VIAL.NEB. NEB SCH ×5 (00:29→23:04)
[2017-05-08 06:06] LABS: HAPTOGLOBIN 215 mg/dL (34-200); SERUM IRON 10 ug/dL (27-139); TOTAL IRON BINDING CAPACITY 398 ug/dL (250-450); TRANSFERRIN 343 mg/dL (200-370); UIBC 388 ug/dL (118-369)
[2017-05-08] MEDS: LEVOTHYROXINE NA 25 MCG TABLET (FP) PO SCH (06:27)
[2017-05-08 06:28] LABS: MCH 21.4 pg (25.7-33.7); MCHC 30.9 g/dl (32.0-36.0); MEAN CELL VOLUME 69.2 fl (80-96); MEAN PLT VOLUME 8.1 fl (7.5-11.1); PLATELET COUNT 305 K/MM3 (134-434)
[2017-05-08 06:36] LABS: INR 1.62 (0.82-1.09)
[2017-05-08 06:38] LABS: ACTIVATED PTT 29.9 SECONDS (26.9-34.4)
[2017-05-08 06:53] LABS: ALBUMIN 2.8 g/dl (3.4-5.0); ANION GAP 11 (8-16); CALCIUM 8.9 mg/dL (8.5-10.1); CO2 32 mmol/L (21-32); CREATININE 0.4 mg/dL (0.55-1.02); GLUCOSE,RANDOM 106 mg/dL (74-106); MAGNESIUM 1.8 mg/dL (1.8-2.4); PHOSPHOROUS 2.5 mg/dL (2.5-4.9); SGOT/AST 48 U/L (15-37); SGPT/ALT 21 U/L (12-78)
[2017-05-08 06:55] LABS: ALK PHOS 58 U/L (45-117); TOT PROT 5.6 g/dl (6.4-8.2)
[2017-05-08 08:42] LABS: CPK 182 IU/L (26-192)
[2017-05-08 09:03] LABS: TROPONIN I 4.56 ng/ml (0.00-0.05)
[2017-05-08] MEDS: POTASSIUM CHLORIDE ORAL LIQUID 20 MEQ/15 ML PO SCH ×2 (09:05→21:18)
[2017-05-08] MEDS: BRIMONIDINE TARTRATE 0.2% OPHTHALMIC 5 ML BOTTLE OU SCH ×2 (09:36→21:18)
--- NOTE | 2017-05-08 11:09 | PN ---
Progress Note, Physician Chief Complaint: Mrs Carmona says she is feeling much better. Says her breathing is improved and she is not feeling anxious. No cp or n/v. - Current Medication List Current Medications: Active Medications Albuterol Sulfate (Ventolin 0.083% Nebulizer Soln -) 1 amp NEB QIDR [facility] Last Admin: 05/08/17 06:15 Dose: 1 amp Albuterol/Ipratropium (Duoneb -) 1 amp NEB Q6H PRN PRN Reason: SHORTNESS OF BREATH Atorvastatin Calcium (Lipitor -) 10 mg PO HS [facility] Brimonidine Tartrate (Alphagan 0.2% -) 1 drop OU BID [facility] Last Admin: 05/08/17 09:36 Dose: 1 drop Diltiazem HCl (Cardizem Cd -) 120 mg PO DAILY [facility] Last Admin: 05/08/17 09:23 Dose: 120 mg Levothyroxine Sodium (Synthroid -) 25 mcg PO DAILY@0700 [facility] Last Admin: 05/08/17 06:27 Dose: 25 mcg Potassium Chloride (Potassium Chloride Oral Liquid) 40 meq PO BID [facility] Stop: 05/08/17 22:01 Last Admin: 05/08/17 09:05 Dose: 40 meq - Objective Vital Signs: Vital Signs Temperature 98.7 F 05/08/17 06:00 Pulse Rate 86 05/08/17 09:15 Respiratory Rate 20 05/08/17 09:15 Blood Pressure 105/52 05/08/17 09:15 O2 Sat by Pulse Oximetry (%) 96 05/07/17 20:06 Constitutional: Yes: Well Nourished, No Distress, Calm, Pallor (improving) Cardiovascular: Yes: Regular Rate and Rhythm. No: Gallop, Murmur, Rub Respiratory: Yes: Regular, CTA Bilaterally. No: Rales, Rhonchi, Wheezes Gastrointestinal: Yes: Normal Bowel Sounds, Soft. No: Distention, Tenderness Extremities: Yes: WNL Edema: No Labs: CBC, BMP 05/08/17 05:20 05/08/17 05:20 INR, PTT INR 1.62 (0.82-1.09) H 05/08/17 05:20 Problem List - Problems (1) Anemia Code(s): D64.9 - ANEMIA, UNSPECIFIED Qualifiers: Anemia type: iron deficiency Iron deficiency anemia type: unspecified iron deficiency Qualified Code(s): D50.9 - Iron deficiency anemia, unspecified (2) NSTEMI (non-ST elevated myocardial infarction) Code(s): I21.4 - NON-ST ELEVATION (NSTEMI) MYOCARDIAL INFARCTION (3) COPD (chronic obstructive pulmonary disease) Code(s): J44.9 - CHRONIC OBSTRUCTIVE PULMONARY DISEASE, UNSPECIFIED (4) Hyperlipidemia Code(s): E78.5 - HYPERLIPIDEMIA, UNSPECIFIED (5) Hypertension Code(s): I10 - ESSENTIAL (PRIMARY) HYPERTENSION (6) Paroxysmal atrial fibrillation Code(s): I48.0 - PAROXYSMAL ATRIAL FIBRILLATION Assessment/Plan (1) Anemia Assessment/Plan: -patient s/p 3 units pRBCs -decreased from post transfusion cbc, but up from original -severely iron deficient -case d/w hematology, may benefit from IV iron -continue to monitor H/H -low suspicion for GI bleed but awaiting GI recommendations Code(s): D64.9 - ANEMIA, UNSPECIFIED (2) NSTEMI (non-ST elevated myocardial infarction) Assessment/Plan: -troponin continues to elevate -cardiology following -? if anemia caused global hypoxia vs localized lesion -cardiology to see and decide best medical treatment and possibility of cardiac catheterization (if needed) Code(s): I21.4 - NON-ST ELEVATION (NSTEMI) MYOCARDIAL INFARCTION (3) COPD (chronic obstructive pulmonary disease) Assessment/Plan: -much improved with transfusion -agree with stopping steroids -continue bronchdilators Code(s): J44.9 - CHRONIC OBSTRUCTIVE PULMONARY DISEASE, UNSPECIFIED (4) Hyperlipidemia Assessment/Plan: -continue statin Code(s): E78.5 - HYPERLIPIDEMIA, UNSPECIFIED (5) Hypertension Assessment/Plan: -low normal -monitor Code(s): I10 - ESSENTIAL (PRIMARY) HYPERTENSION (6) Paroxysmal atrial fibrillation Assessment/Plan: -sounds in sinus rhythm -holding anticoagulation until anemia fully worked up Code(s): I48.0 - PAROXYSMAL ATRIAL FIBRILLATION
--- NOTE | 2017-05-08 12:02 | PN ---
Progress Note (short form) - Note Progress Note: CC: nstemi S: SOB significnatly improved. no cp, palps, dizziness. HR has gradually normalized. Echo results reviewed. Former smoker Current Medications Albuterol Sulfate (Ventolin 0.083% Nebulizer Soln -) 1 amp NEB QIDR [facility] Last Admin: 05/08/17 06:15 Dose: 1 amp Albuterol/Ipratropium (Duoneb -) 1 amp NEB Q6H PRN PRN Reason: SHORTNESS OF BREATH Atorvastatin Calcium (Lipitor -) 10 mg PO [facility] Brimonidine Tartrate (Alphagan 0.2% -) 1 drop OU BID [facility] Last Admin: 05/08/17 09:36 Dose: 1 drop Diltiazem HCl (Cardizem Cd -) 120 mg PO DAILY [facility] Last Admin: 05/08/17 09:23 Dose: 120 mg Levothyroxine Sodium (Synthroid -) 25 mcg PO DAILY@0700 [facility] Last Admin: 05/08/17 06:27 Dose: 25 mcg Potassium Chloride (Potassium Chloride Oral Liquid) 40 meq PO BID [facility] Stop: 05/08/17 22:01 Last Admin: 05/08/17 09:05 Dose: 40 meq Vital Signs - 24 hr 05/07/17 05/07/17 05/07/17 12:15 13:00 14:00 Temperature 98 F Pulse Rate 122 H 120 H Respiratory 28 H 26 H Rate Blood Pressure 164/98 128/79 O2 Sat by Pulse 99 Oximetry (%) 05/07/17 05/07/17 05/07/17 16:00 18:00 19:42 Temperature 98.6 F 98.8 F Pulse Rate 108 H 105 H Respiratory 24 20 Rate Blood Pressure 118/67 107/64 O2 Sat by Pulse 94 L Oximetry (%) 05/07/17 05/07/17 05/07/17 20:00 20:06 22:00 Temperature Pulse Rate 97 H 87 Respiratory 18 17 Rate Blood Pressure 99/50 115/75 O2 Sat by Pulse 96 Oximetry (%) 05/08/17 05/08/17 05/08/17 00:00 02:00 04:00 Temperature 98.8 F Pulse Rate 86 86 84 Respiratory 18 14 13 Rate Blood Pressure 92/45 100/52 105/50 O2 Sat by Pulse Oximetry (%) 0805/08/17 05/08/17 06:00 09:00 09:15 Temperature 98.7 F Pulse Rate 85 86 Respiratory 20 20 Rate Blood Pressure 105/53 105/52 O2 Sat by Pulse 97 Oximetry (%) Intake & Output 05/06/17 05/07/17 05/08/17 05/09/17 07:59 07:59 07:59 07:59 Intake Total 900 Output Total 400 Balance 500 Weight 92 lb Constitutional: Yes: Well Nourished, No Distress Eyes: No: Sclera Icterus HENT: No: Nasal Congestion Neck: No: Decreased ROM Respiratory: Yes: Diminished (diffusely), bibasilar crackles. No: Accessory Muscle Use Gastrointestinal: Yes: Normal Bowel Sounds. No: Distention, Hepatomegaly, Palpable Mass, Tenderness Cardiovascular: Yes: Regular Rate and Rhythm JVD: No Carotid Bruit: No PMI: Non-Displaced Heart Sounds: Yes: S1, S2. No: Gallop Murmur: No: Systolic Murmur, Diastolic Murmur Musculoskeletal: Yes: Other (No kyphosis) Extremities: No: Cold, Cyanosis Edema: No Peripheral Pulses: 2+ Left Carotid, 2+ Right Carotid, 2+ Left Doralis Pedis, 2+ Right Dorsalis Pedis Integumentary: No: Jaundice Neurological: Yes: Alert. No: Seizure Psychiatric: No: Agitated - Other Data Labs, Other Data: CBC, BMP 05/08/17 05:20 05/08/17 05:20 Laboratory Tests 05/08/17 05/08/17 05:20 14:05 Magnesium 1.8 Creatine Kinase 182 173 Creatine Kinase Index 8.6 H* 6.7 H* CK-MB (CK-2) 15.672 H 11.728 H Troponin I 4.56 H* 4.47 H* Albumin 2.8 L tele: NSR, occ pvc's Assessment/Plan Echo 05/2017: Mildly reduced LV function. (No RWMA described). RV not well seen 1+ lae. mod mr, mod tr Echo 2013: nl lv, nl rv, mild mr, mild tr, rvsp 30-40 Dobut mibi 2014: no ischemia ECG: sinus tach (100 bpm), + PVC; normal axis; ? old ASMI (no change vs 2015 prior); nonsp STs lateral leads new vs prior CXR: new effusions and chf findings--reviewed by me: vs 2015, there are small effusions and vascular redistribution 76 yo with h/o afib on xarelto, htn, hl,l copd p/w sob and noted to have anemia (hgb 5.7), hospital course complicated by nstemi. anemia: -hgb 5.7 on admit. Hgb 12.1 at office in October 2016. Has known iron deficiency on iron supplementation. -? GIB--will hold xarelto for now -rec PRBCs transufsion -await GI eval NSTEMI: -ck normal, trop elevated with peak today at 4.5. -ecg nonspecific though changed vs prior -this could all be secondary to acute anemia given severity of reduced Hgb, gil if underlying fixed obstructive CAD -will check echo for LV fxn --> mildy reduced EF, but no comment made on regional wall motion. -will defer stress testing for now, but will need this for risk stratification prior to discharge, once clinically stabilized. -will not be a candidate for invasive treatment strategy (i.e. cath/PCI) regardless until etiology of anemia is clarified, and risk-stratified as low risk for bleed on DAPT with premature discontinuation). If no high risk findings on stress than can proceed with GI evaluation as outpatient in a few weeks while on medical management. -defer ASA, plavix, heparin -defer BB until observe BP trend given ? acute bleeding (lactate very elevated) . BP remains low. -on pravastatin at home-atorva 10 here, per formulary (defer intensive statin unless becomes evident this was Type I CO) acute CHF: -no prior hx, echo WNL 2013. -CXR c/w chf, BNP 4K -pt with severe respiratory compromise on eval which responded to transfusion and IV lasix 40mg. - 05/08 IV BP low after IV lasix. respiratory status improved, will hold off on further diuresis for now. echo with some degree of increase in mr/tr, unclear if acute or chronic. con't to monitor volume status.. afib: -episode here when admitted 2014 with a.e. copd/resp failure -CHADS VASC 4--started on xarelto 20 at that time -holding AC at present given severe anemia. Per GI notes anemia may be due to non-compliance with iron supplementation. will need to discuss with them regarding whether safe to resume AC prior to endocsopy and whether patient would ultimately be a candidate for additional anti-platelet (? brief ASA monotherapy) COPD: -h/o acute resp failure 2015 here -? a.e.--per pulm/crit care htn: -well controlled -hold home diltiazem for now while observe BP trend (? acute bleeding--as disc' d above) lactic acidosis: -? acute anemia with hypoperfusion -? sec to CO -? sec to chf - 05/08: now resolved. cct: 35 minutes.
--- NOTE | 2017-05-08 13:04 | PN ---
Progress Note, Physician History of Present Illness: patient seen and examined at bedside no complaints feels better - Current Medication List Current Medications: Active Medications Albuterol Sulfate (Ventolin 0.083% Nebulizer Soln -) 1 amp NEB QIDR [facility] Last Admin: 05/08/17 06:15 Dose: 1 amp Albuterol/Ipratropium (Duoneb -) 1 amp NEB Q6H PRN PRN Reason: SHORTNESS OF BREATH Atorvastatin Calcium (Lipitor -) 10 mg PO HS [facility] Brimonidine Tartrate (Alphagan 0.2% -) 1 drop OU BID [facility] Last Admin: 05/08/17 09:36 Dose: 1 drop Diltiazem HCl (Cardizem Cd -) 120 mg PO DAILY [facility] Last Admin: 05/08/17 09:23 Dose: 120 mg Levothyroxine Sodium (Synthroid -) 25 mcg PO DAILY@0700 [facility] Last Admin: 05/08/17 06:27 Dose: 25 mcg Potassium Chloride (Potassium Chloride Oral Liquid) 40 meq PO BID [facility] Stop: 05/08/17 22:01 Last Admin: 05/08/17 09:05 Dose: 40 meq - Objective Vital Signs: Vital Signs Temperature 98.7 F 05/08/17 06:00 Pulse Rate 86 05/08/17 09:15 Respiratory Rate 20 05/08/17 09:15 Blood Pressure 105/52 05/08/17 09:15 O2 Sat by Pulse Oximetry (%) 97 05/08/17 11:19 PE: Constitutional: Yes: No Distress, Calm, Cachectic, Thin Eyes: Yes: Conjunctiva Clear HENT: Yes: Atraumatic, Normocephalic Neck: Yes: Supple, Trachea Midline Cardiovascular: Yes: Tachycardia, Pulse Irregular, S1, S2 Respiratory: Yes: Diminished, Wheezes Gastrointestinal: Yes: Normal Bowel Sounds, Soft Extremities: Yes: WNL Edema: No Neurological: Yes: Alert, Oriented Psychiatric: Yes: Alert, Oriented Labs: CBC, BMP 05/08/17 05:20 05/08/17 05:20 INR, PTT INR 1.62 (0.82-1.09) H 05/08/17 05:20 Assessment/Plan 76F with multiple medical problems presented to the ED with non sepcific complaints of anxiety, agitation, and insomnia found to be severely anemia. symptomatic anemia: patient was tachycardic. this is likely a chronic process which has progressively worsened sine she has stopped taking iron pills. patient denies GI bleeding history hold xarelto for now s/p 2 units PRBCs with good response trend CBC transfuse for Hb <7 GI consult Hematology consult appreciated work up i progres follow up as outpatient lactic acidosis:likely from hypovolemia from blood loss resolved Troponinemia: NSTEMI unlikely. troponin leak likely from demand ischemia from hypovolemia gievn plavix 300mg and aspirin 162mg in ED Cardiology consulted Echo reviewed Shortness of breath: could be from CHF-like symptoms from high output cardiac failure cardiology consult appreciated COPD: on Home O2 put back on 2L NC with venti mask PRN Duonebs albuterol CXR Given solu-medrol for an episode of respiratory distress with wheezing Afib: Better controlled continue cardizem Hold Xarelto for now given anemia cardiology consult Hypothyroidism: continue synthroid HLD: continue statin FEN: no IVF will give fluids PRN replete potassium replete phosphorus NPO for now pending GI consult PPx: SCDs no GI PPx needed at this time PT consult when able to participate Case discussed with attending and patient and her family at bedside Transfer to telemetry
--- NOTE | 2017-05-08 14:11 | PN ---
Teaching Attending Note Name of Resident: Truman Pitt ATTENDING PHYSICIAN STATEMENT I saw and evaluated the patient. I reviewed the resident's note and discussed the case with the resident. I agree with the resident's findings and plan as documented. SUBJECTIVE: Patient seen and examined in the ICU. Awake and alert. H&H stable. No CP. Mildly tachypneic at rest. Intake & Output 05/05/17 05/06/17 05/07/17 05/08/17 23:59 23:59 23:59 23:59 Intake Total 850 50 Output Total 400 Balance 450 50 Weight 92 lb Last Vital Signs Temp Pulse Resp BP Pulse Ox 98.7 F 86 20 105/52 97 05/08/17 06:00 05/08/17 09:15 05/08/17 09:15 05/08/17 09:15 05/08/17 11:19 Active Medications Albuterol Sulfate (Ventolin 0.083% Nebulizer Soln -) 1 amp NEB QIDR [facility] Last Admin: 05/08/17 12:05 Dose: 1 amp Albuterol/Ipratropium (Duoneb -) 1 amp NEB Q6H PRN PRN Reason: SHORTNESS OF BREATH Atorvastatin Calcium (Lipitor -) 10 mg PO HS [facility] Brimonidine Tartrate (Alphagan 0.2% -) 1 drop OU BID [facility] Last Admin: 05/08/17 09:36 Dose: 1 drop Diltiazem HCl (Cardizem Cd -) 120 mg PO DAILY [facility] Last Admin: 05/08/17 09:23 Dose: 120 mg Levothyroxine Sodium (Synthroid -) 25 mcg PO DAILY@0700 [facility] Last Admin: 05/08/17 06:27 Dose: 25 mcg Magnesium Oxide (Mag-Ox -) 400 mg PO ONCE ONE Stop: 05/08/17 14:16 Potassium Chloride (Potassium Chloride Oral Liquid) 40 meq PO BID [facility] Stop: 05/08/17 22:01 Last Admin: 05/08/17 09:05 Dose: 40 meq Constitutional: Yes: Awake and alert, Mildly tachypneic at rest Eyes: No: Sclera Icterus HENT: No: Nasal Congestion Neck: No: Decreased ROM Respiratory: Yes: Diminished at the bases, Mild scattered expiratory wheezes. No: Accessory Muscle Use Gastrointestinal: Yes: Normal Bowel Sounds. No: Distention, Hepatomegaly, Palpable Mass, Tenderness Cardiovascular: Yes: Regular Rate and Rhythm JVD: No Carotid Bruit: No PMI: Non-Displaced Heart Sounds: Yes: S1, S2. No: Gallop Murmur: No: Systolic Murmur, Diastolic Murmur Musculoskeletal: Yes: Other (No kyphosis) Extremities: No: Cold, Cyanosis Edema: No Peripheral Pulses: 2+ Left Carotid, 2+ Right Carotid, 2+ Left Doralis Pedis, 2+ Right Dorsalis Pedis Integumentary: No: Jaundice Neurological: Yes: Alert. No: Seizure Psychiatric: No: Agitated Laboratory Results - last 24 hr 05/07/17 05/07/17 05/07/17 04:10 14:59 16:00 WBC RBC Hgb Hct MCV MCH MCHC RDW Plt Count MPV Neutrophils % Lymphocytes % Monocytes % Eosinophils % Basophils % Retic Count 1.80 H Haptoglobin 215 H INR PTT (Actin FS) Sodium Potassium Chloride Carbon Dioxide Anion Gap BUN Creatinine Creat Clearance w eGFR Random Glucose Lactic Acid Calcium Phosphorus Magnesium Iron 10 L TIBC 398 Iron Saturation 3 L Transferrin 343 Ferritin 6.047 L Total Bilirubin AST ALT Alkaline Phosphatase LD Total 167 Creatine Kinase Creatine Kinase Index CK-MB (CK-2) Troponin I B-Natriuretic Peptide 4912.88 H Total Protein Albumin Vitamin B12 586 Serum Folate 13 TSH 2.20 D 05/07/17 05/07/17 05/07/17 16:00 16:00 16:00 WBC 12.8 H D RBC 4.51 D Hgb 9.7 L D Hct 31.9 L D MCV 70.7 L MCH 21.5 L MCHC 30.4 L RDW 25.5 H Plt Count 325 D MPV 7.6 Neutrophils % 90.2 H Lymphocytes % 2.2 L D Monocytes % 7.5 Eosinophils % 0.0 D Basophils % 0.1 Retic Count Haptoglobin INR PTT (Actin FS) Sodium Potassium Chloride Carbon Dioxide Anion Gap BUN Creatinine Creat Clearance w eGFR Random Glucose Lactic Acid 2.2 H* Calcium Phosphorus Magnesium Iron TIBC Iron Saturation Transferrin Ferritin Total Bilirubin AST ALT Alkaline Phosphatase LD Total Creatine Kinase 299 H Creatine Kinase Index 8.0 H* CK-MB (CK-2) 24 H Troponin I 2.72 H* B-Natriuretic Peptide Total Protein Albumin Vitamin B12 Serum Folate TSH 05/07/17 05/08/17 05/08/17 19:26 05:20 05:20 WBC 16.0 H RBC 3.79 Hgb 8.1 L D Hct 26.2 L D MCV 69.2 L MCH 21.4 L MCHC 30.9 L RDW 25.0 H Plt Count 305 MPV 8.1 Neutrophils % Lymphocytes % Monocytes % Eosinophils % Basophils % Retic Count Haptoglobin INR 1.62 H PTT (Actin FS) 29.9 Sodium Potassium Chloride Carbon Dioxide Anion Gap BUN Creatinine Creat Clearance w eGFR Random Glucose Lactic Acid 1.4 Calcium Phosphorus Magnesium Iron TIBC Iron Saturation Transferrin Ferritin Total Bilirubin AST ALT Alkaline Phosphatase LD Total Creatine Kinase Creatine Kinase Index CK-MB (CK-2) Troponin I B-Natriuretic Peptide Total Protein Albumin Vitamin B12 Serum Folate TSH 05/08/17 05:20 WBC RBC Hgb Hct MCV MCH MCHC RDW Plt Count MPV Neutrophils % Lymphocytes % Monocytes % Eosinophils % Basophils % Retic Count Haptoglobin INR PTT (Actin FS) Sodium 143 Potassium 3.1 L Chloride 100 Carbon Dioxide 32 Anion Gap 11 BUN 14 D Creatinine 0.4 L Creat Clearance w eGFR > 60 Random Glucose 106 Lactic Acid Calcium 8.9 Phosphorus 2.5 Magnesium 1.8 Iron TIBC Iron Saturation Transferrin Ferritin Total Bilirubin 1.0 D AST 48 H D ALT 21 D Alkaline Phosphatase 58 LD Total Creatine Kinase 182 Creatine Kinase Index 8.6 H* CK-MB (CK-2) 15.672 H Troponin I 4.56 H* B-Natriuretic Peptide Total Protein 5.6 L Albumin 2.8 L Vitamin B12 Serum Folate TSH Assessment/Plan Severe symptomatic anemia (?) GI Bleed Lactic acidosis Severe/Advanced COPD (?) component of high output failure Pleural effusions Suspected demand ischemia Hold AC Transfusional support O2 as needed Follow lactic acid Rate control BD TX High risk for anesthesia Dr Arreaga Critical Care Time/MDM Note Total Critical Care Time: 35 Critical Care Statement: The care of this patient involved high complexity decision making to prevent further life threatening deterioration of the patient 's condition and/or to evalute & treat vital organ system(s) failure or risk of failure.
[2017-05-08] MEDS ORDERED: MAGNESIUM OXIDE 400 MG TABLET (FP) PO ONE (14:15)
[2017-05-08 14:28] LABS: MCH 21.1 pg (25.7-33.7); MCHC 30.3 g/dl (32.0-36.0); MEAN CELL VOLUME 69.7 fl (80-96); MEAN PLT VOLUME 7.8 fl (7.5-11.1); PLATELET COUNT 319 K/MM3 (134-434); RDW 25.5 % (11.6-15.6); WHITE BLOOD COUNT 22.2 K/mm3 (4.0-10.0)
[2017-05-08 15:08] LABS: TROPONIN I 4.47 ng/ml (0.00-0.05)
[2017-05-08] MEDS ORDERED: IRON SUCROSE INJECTION 100 MG in SODIUM CHLORIDE 95 ML IVPB ONE (15:45)
--- NOTE | 2017-05-08 16:57 | PN ---
Progress Note (short form) - Note Progress Note: Patient seen and examined. Pt is transferred out of the ICU to the floor. at bedside. She mentioned that she feels much better than yesterday. Her breathing is better, no chest pain.She denies any bleeding. O/E: General: In No acute distress, able to talk in full sentences HEENT: +mild improvement in the subconjunctival hge Abdomen: No organomgealy Skin: +bruises present No LE swelling AAOx3 Vitals: Temp Pulse Resp BP Pulse Ox 98.1 F 82 18 107/58 97 05/08/17 15:19 05/08/17 15:19 05/08/17 15:19 05/08/17 15:19 05/08/17 11:19 Current Medications Generic Name Dose Route Start Last Admin Trade Name Freq PRN Reason Stop Dose Admin Albuterol Sulfate 1 amp 05/07/17 11:45 05/08/17 12:05 Ventolin 0.083% Nebulizer Soln - NEB 1 amp QIDR [facility] Administration Albuterol/Ipratropium 1 amp 05/07/17 11:42 Duoneb - NEB Q6H PRN SHORTNESS OF BREATH Atorvastatin Calcium 10 mg 05/08/17 22:00 Lipitor - PO HS [facility] Brimonidine Tartrate 1 drop 05/07/17 11:45 05/08/17 09:36 Alphagan 0.2% - OU 1 drop BID [facility] Administration Diltiazem HCl 120 mg 05/08/17 10:00 05/08/17 09:23 Cardizem Cd - PO 120 mg DAILY [facility] Administration Levothyroxine Sodium 25 mcg 05/08/17 07:00 05/08/17 06:27 Synthroid - PO 25 mcg DAILY@0700 [facility] Administration Potassium Chloride 40 meq 05/08/17 10:00 05/08/17 09:05 Potassium Chloride Oral Liquid PO 05/08/17 22:01 40 meq BID [facility] Administration CBC, BMP 05/08/17 14:05 05/08/17 05:20 Assessment/Plan: is a 76 year old White female who is admitted with AMS/SOB. hematology consulted for anemia. Severe Microcytic anemia in the setting severe Iron deficiency anemia: -?etiology -No evidence of hemolysis -s/p three units of PRBC -Could give IV iron Venofer, Length of stay. 100mg daily, ( her calculated Iron deficit is >1000mg) Leuckocytosis: -likely from the high dose of steroids -no evidence of infection Paroxysmal afib:(High CHADSVASC score) -continue holding ac due to suspicion of bleeding. -need to plan to resume her xarelto once stabilized/bleeding ruled out NSTEMI -troponinemia likely in the setting of low Hgb -cardiology f/u. Will follow Problem List - Problems (1) Anemia Code(s): D64.9 - ANEMIA, UNSPECIFIED Qualifiers: Anemia type: iron deficiency Iron deficiency anemia type: unspecified iron deficiency Qualified Code(s): D50.9 - Iron deficiency anemia, unspecified (2) COPD (chronic obstructive pulmonary disease) Code(s): J44.9 - CHRONIC OBSTRUCTIVE PULMONARY DISEASE, UNSPECIFIED (3) NSTEMI (non-ST elevated myocardial infarction) Code(s): I21.4 - NON-ST ELEVATION (NSTEMI) MYOCARDIAL INFARCTION (4) Paroxysmal atrial fibrillation Code(s): I48.0 - PAROXYSMAL ATRIAL FIBRILLATION
[2017-05-08 18:28] LABS: ANISOCYTOSIS 3+; HYPOCHROMIA 2+; MICROCYTOSIS 1+; OVALOCYTES 2+; TEAR DROP CELLS 1+
--- NOTE | 2017-05-08 18:55 | CON.GI ---
Consult Consult Specialty:: GASTROENTEROLOGY Reason for Consultation:: ANEMIA - History of Present Illness Chief Complaint: SOB ANEMIA History of Present Illness: 76 YEAR OLD FEMALE WITH HISTORY OF IRON DEFICIENCY ANEMIA STOPPED HER IRON AND NOW ADMITTED WITH SEVERE GUAIAC NEGATIVE HYPOCHROMIC/MICROCYTIC ANEMIA. SHE DENIES RECTAL BLEEDING, MELENA, ABDOMINAL PAIN, NAUSEA ND VOMITING. IT APPEARS SHE HASD A COLONOSCOPY IN THE PAST THAT SHE SAYS WAS NEGATIVE. SHE DOES NOT RECALL WHEN IT WAS DONE. I BELIEVE SHE HAS SEEN DR IVEY IN THE PAST. SHE STATES THAT SHE WAS ON IRON SUPPLEMENTS THREE TIMES A DAY BUT GOT CONSTIPATED SO STOPPED. SHE TAKES XARELTO FOR A FIB. SHE WAS TRANSFUSED ON ADMISSION BUT HAS PROGRESSIVELY HAD INCREASING ELEVATIONS IN TROPONINS DESPITE ADEQUATE HGB. SHE GOT A IRON TRANSFUSION TODAY. SHE STILL COMPLAINS OF CONSTIPATION. SHE STATES THAT SHE IS ALLERGIC TO COLONOSCOPY THE LAST TIME SHE TOOK THE PREP SHE GOT SICK AND NEEDED TO COME TO THE HOSPITAL FOR IV FLUIDS. - History Source History Provided By: Patient, Medical Record Limitations to Obtaining History: Other (GUARDED) - Past Medical History Cardio/Vascular: Yes: HTN, Hyperlipdemia Pulmonary: Yes: COPD, O2 Dependent (2L NC at home ) Gastrointestinal: Yes: Other (IRON DEF) Heme/Onc: Yes: Anemia, Other (IRON DEF) Endocrine: Yes: Hypothyroidism - Past Surgical History Past Surgical History: Yes: None, Colonoscopy - Alcohol/Substance Use Hx Alcohol Use: No History of Substance Use: reports: None - Smoking History Smoking history: Former smoker Have you smoked in the past 12 months: No Aproximately how many cigarettes per day: 10 If you are a former smoker, when did you quit?: 2 months - Social History Usual Living Arrangement: With Spouse ADL: Independent History of Recent Travel: No Home Medications - Allergies Allergies/Adverse Reactions: Allergies Allergy/AdvReac Type Severity Reaction Status Date / Time codeine Allergy Verified 01/19/15 18:59 diazepam [From Valium] Allergy Verified 01/19/15 18:59 Penicillins Allergy Verified 01/19/15 18:59 - Home Medications Home Medications: Ambulatory Orders Bimatoprost [Lumigan] 1 drop IO DAILY 01/19/15 Diltiazem Cd [Cardizem Cd -] 120 mg PO DAILY 01/19/15 Dorzolamide HCl [Trusopt 2% -] 1 drop OU DAILY 01/19/15 Levothyroxine [Synthroid -] 25 mg PO DAILY 01/19/15 Pravastatin Sodium [Pravachol -] 20 mg PO DAILY 01/19/15 Rivaroxaban [Xarelto -] 20 mg PO DAILY 01/19/15 Albuterol 0.083% Nebulizer Michelle [Ventolin 0.083% Nebulizer Soln -] 1 neb NEB Q6H #60 vial 01/21/15 Budesonide/Formeterol Fumarate [SYMBICORT 80/4.5mcg -] 2 inh IH BID #1 inhaler 01/21/15 Meclizine HCl [Antivert -] 25 mg PO TID #90 tablet 01/21/15 Family Disease History - Family Disease History Family History: Unable to Obtain Review of Systems - Review of Systems Constitutional: reports: Weakness Eyes: reports: No Symptoms HENT: reports: No Symptoms Neck: reports: No Symptoms Cardiovascular: reports: Palpitations, Shortness of Breath Respiratory: reports: SOB Gastrointestinal: reports: No Symptoms Musculoskeletal: reports: No Symptoms Integumentary: reports: Bruising Neurological: reports: Change in LOC Hematology/Lymphatic: reports: Easily Bruised Physical Exam-GI Vital Signs: Vital Signs Temperature 98.1 F 05/08/17 15:19 Pulse Rate 82 05/08/17 15:19 Respiratory Rate 18 05/08/17 15:19 Blood Pressure 107/58 05/08/17 15:19 O2 Sat by Pulse Oximetry (%) 97 05/08/17 11:19 Constitutional: Yes: Thin Eyes: Yes: Other (CONJUNCTIVITIS) HENT: Yes: WNL Neck: Yes: WNL Cardiovascular: Yes: Pulse Irregular Respiratory: Yes: Regular Gastrointestinal Inspection: Yes: WNL ...Auscultate: Yes: Normoactive Bowel Sounds ...Rectal Exam: Yes: Guaiac Negative Extremities: Yes: WNL Labs: CBC, BMP 05/08/17 14:05 05/08/17 05:20 INR, PTT INR 1.62 (0.82-1.09) H 05/08/17 05:20 Laboratory Tests 05/07/17 05/07/17 05/07/17 04:10 04:10 14:59 WBC 7.0 RBC 3.33 L Hgb 5.7 L* D Hct 21.0 L D MCV 63.0 L D MCH 17.1 L MCHC 27.1 L RDW 19.2 H D Plt Count 418 D MPV Neutrophils % Lymphocytes % Monocytes % Eosinophils % Retic Count Haptoglobin 215 H Sodium Potassium Chloride Anion Gap BUN Creatinine Creat Clearance w eGFR Random Glucose Calcium Phosphorus Magnesium Total Bilirubin AST ALT Alkaline Phosphatase Creatine Kinase Index CK-MB (CK-2) Troponin I Vitamin B12 586 Serum Folate 13 05/07/17 05/07/17 05/08/17 16:00 16:00 05:20 WBC RBC Hgb Hct MCV MCH MCHC RDW Plt Count MPV Neutrophils % Lymphocytes % Monocytes % Eosinophils % Retic Count 1.80 H Haptoglobin Sodium 143 Potassium 3.1 L Chloride 100 Anion Gap 11 BUN 14 D Creatinine 0.4 L Creat Clearance w eGFR > 60 Random Glucose 106 Calcium 8.9 Phosphorus 2.5 Magnesium 1.8 Total Bilirubin 1.0 D AST 48 H D ALT 21 D Alkaline Phosphatase 58 Creatine Kinase Index 8.0 H* 8.6 H* CK-MB (CK-2) 24 H 15.672 H Troponin I 2.72 H* 4.56 H* Vitamin B12 Serum Folate 05/08/17 05/08/17 14:05 14:05 WBC 22.2 H D RBC 4.18 Hgb 8.8 L Hct 29.1 L MCV 69.7 L MCH 21.1 L MCHC 30.3 L RDW 25.5 H Plt Count 319 MPV 7.8 Neutrophils % 91.0 H Lymphocytes % 6.0 L D Monocytes % 3.0 L Eosinophils % 0.0 Retic Count Haptoglobin Sodium Potassium Chloride Anion Gap BUN Creatinine Creat Clearance w eGFR Random Glucose Calcium Phosphorus Magnesium Total Bilirubin AST ALT Alkaline Phosphatase Creatine Kinase Index 6.7 H* CK-MB (CK-2) 11.728 H Troponin I 4.47 H* Vitamin B12 Serum Folate Problem List - Problems (1) Anemia Assessment/Plan: DIAGNOSED BY HEMATOLOGY IRON DEF. THIS IS NOT A NEW DIAGNOSIS. SHE IS NOT BLEEDING. SHE STOPPED TAKING HER MEDS. I WOULD ASSUME THAT SHE HAS HAD SOME KIND OF WORK UP BY GI. I WOULD ASK DR WILLINGHAM TO CHECK OFFICE RECORD OF THE ETIOLOGY OF CHRONIC IRON DEF. AGREE WITH THE IV IRON. INCREASING TROPONOINS DESPITE GOOD HGB PLUS PATIENT MULTIPLE COMORBIDITIES DO NOT MAKE HER IDEAL CANDIDATE FOR INVASIVE PROCEDURES. Code(s): D64.9 - ANEMIA, UNSPECIFIED Qualifiers: Anemia type: iron deficiency Iron deficiency anemia type: unspecified iron deficiency Qualified Code(s): D50.9 - Iron deficiency anemia, unspecified (2) COPD (chronic obstructive pulmonary disease) Code(s): J44.9 - CHRONIC OBSTRUCTIVE PULMONARY DISEASE, UNSPECIFIED (3) NSTEMI (non-ST elevated myocardial infarction) Code(s): I21.4 - NON-ST ELEVATION (NSTEMI) MYOCARDIAL INFARCTION (4) Altered mental status Code(s): R41.82 - ALTERED MENTAL STATUS, UNSPECIFIED (5) Paroxysmal atrial fibrillation Code(s): I48.0 - PAROXYSMAL ATRIAL FIBRILLATION
[2017-05-08] MEDS ORDERED: MAGNESIUM HYDROX 2400MG/30ML ORAL SUSPENSION 30 ML CUP PO ONE (19:06)
[2017-05-08] MEDS: ATORVASTATIN CA 10 MG TABLET (FP) PO SCH (21:17)
[2017-05-08] MEDS ORDERED: ALPRAZolam 0.25 MG TABLET PO ONE (23:45)
[2017-05-09] MEDS: LEVOTHYROXINE NA 25 MCG TABLET (FP) PO SCH (06:04)
[2017-05-09] MEDS: ALBUTEROL SO4 0.083% IH SOL 2.5 MG/3 ML VIAL.NEB. NEB SCH ×2 (06:39→12:14)
[2017-05-09 07:01] LABS: BASOPHIL 0.3 % (0-2.0); MCH 21.2 pg (25.7-33.7); MCHC 30.3 g/dl (32.0-36.0); MEAN CELL VOLUME 70.2 fl (80-96); NEUTROPHILS 89.4 % (42.8-82.8); PLATELET COUNT 282 K/MM3 (134-434); RDW 25.5 % (11.6-15.6); WHITE BLOOD COUNT 20.7 K/mm3 (4.0-10.0)
[2017-05-09 07:25] LABS: ANION GAP 6 (8-16); CALCIUM 9.4 mg/dL (8.5-10.1); CO2 32 mmol/L (21-32); CREATININE 0.5 mg/dL (0.55-1.02); GLUCOSE,RANDOM 94 mg/dL (74-106); MAGNESIUM 2.5 mg/dL (1.8-2.4); PHOSPHOROUS 2.2 mg/dL (2.5-4.9)
[2017-05-09 07:35] LABS: INR 1.5 (0.82-1.09); PROTHROMBIN TIME (PATIENT) 16.6 SEC (9.98-11.88)
[2017-05-09 07:38] LABS: ACTIVATED PTT 29.5 SECONDS (26.9-34.4)
[2017-05-09 08:53] LABS: ANISOCYTOSIS 2+; HYPOCHROMIA 2+; PLATELET ESTIMATE ADEQUATE (NORMAL); POLYCHROMASIA 1+; TARGET CELLS 1+
[2017-05-09] MEDS: BRIMONIDINE TARTRATE 0.2% OPHTHALMIC 5 ML BOTTLE OU SCH ×2 (09:39→22:01)
--- NOTE | 2017-05-09 11:21 | PN ---
Progress Note (short form) - Note Progress Note: CC: nstemi S: no cp, sob, palps, dizziness, no overnight events Former smoker Current Medications Generic Name Dose Route Start Last Admin Trade Name Freq PRN Reason Stop Dose Admin Albuterol Sulfate 1 amp 05/07/17 11:45 05/09/17 06:39 Ventolin 0.083% Nebulizer Soln - NEB 1 amp QIDR [facility] Administration Albuterol/Ipratropium 1 amp 05/07/17 11:42 05/09/17 00:18 Duoneb - NEB 1 amp Q6H PRN Administration SHORTNESS OF BREATH Atorvastatin Calcium 10 mg 05/08/17 22:00 05/08/17 21:17 Lipitor - PO 10 mg HS [facility] Administration Brimonidine Tartrate 1 drop 05/07/17 11:45 05/09/17 09:39 Alphagan 0.2% - OU 1 drop BID [facility] Administration Diltiazem HCl 120 mg 05/08/17 10:00 05/09/17 09:28 Cardizem Cd - PO 120 mg DAILY [facility] Administration Levothyroxine Sodium 25 mcg 05/08/17 07:00 05/09/17 06:04 Synthroid - PO 25 mcg DAILY@0700 [facility] Administration Vital Signs Period Temp Pulse Resp BP Sys/[facility] Pulse Ox Last 24 Hr 98.0 F-99.5 F 82-95 18-18 92-145/50-82 96-97 Constitutional: Yes: Well Nourished, No Distress Eyes: No: Sclera Icterus HENT: No: Nasal Congestion Neck: No: Decreased ROM Respiratory: Yes: Diminished (diffusely), bibasilar crackles. No: Accessory Muscle Use Gastrointestinal: Yes: Normal Bowel Sounds. No: Distention, Hepatomegaly, Palpable Mass, Tenderness Cardiovascular: Yes: Regular Rate and Rhythm JVD: No Heart Sounds: Yes: S1, S2. No: Gallop Murmur: No: Systolic Murmur, Diastolic Murmur Extremities: No: Cold, Cyanosis Edema: No Integumentary: No: Jaundice Neurological: Yes: Alert. No: Seizure Psychiatric: No: Agitated - Other Data Labs, Other Data: CBC, BMP 05/09/17 05:43 05/09/17 05:43 tele: NSR Echo 05/2017: Mildly reduced LV function. (No RWMA described). RV not well seen 1+ lae. mod mr, mod tr Echo 2013: nl lv, nl rv, mild mr, mild tr, rvsp 30-40 Dobut mibi 2014: no ischemia ECG: sinus tach (100 bpm), + PVC; normal axis; ? old ASMI (no change vs 2015 prior); nonsp STs lateral leads new vs prior CXR: new effusions and chf findings--reviewed by me: vs 2015, there are small effusions and vascular redistribution a/p: 76 yo with h/o afib on xarelto, htn, hl,l copd p/w sob and noted to have anemia (hgb 5.7), hospital course complicated by nstemi. anemia: -hgb 5.7 on admit. Hgb 12.1 at office in October 2016. Has known iron deficiency on iron supplementation. -seen by GI, bleeding not suspected, thought to be anemic due to noncompliance with her iron -iron per Heme NSTEMI: -trop peak at 4.5. -ecg nonspecific though changed vs prior -this could all be secondary to acute anemia given severity of reduced Hgb, gil if underlying fixed obstructive CAD -will check echo for LV fxn --> mildy reduced EF, but no comment made on regional wall motion. -will defer stress testing for now, but will need this for risk stratification prior to discharge, once clinically stabilized-->likely sunday -will not be a candidate for invasive treatment strategy (i.e. cath/PCI) regardless until etiology of anemia is clarified, and risk-stratified as low risk for bleed on DAPT with premature discontinuation). If no high risk findings on stress than can proceed with GI evaluation as outpatient in a few weeks while on medical management. -defer ASA, plavix, heparin -cont dilt -cont statin acute diastolic CHF: -no prior hx, echo WNL 2013. -CXR c/w chf, BNP 4K -pt with severe respiratory compromise on eval which responded to transfusion and IV lasix 40mg. - 05/08-05/09: BP low after IV lasix. respiratory status improved, will hold off on further diuresis for now. echo with some degree of increase in mr/tr, unclear if acute or chronic. con't to monitor volume status. afib: -episode here when admitted 2014 with a.e. copd/resp failure -CHADS VASC 4--started on xarelto 20 at that time -holding AC at present given severe anemia. Per GI notes anemia may be due to non-compliance with iron supplementation. Resume ac if acceptable per GI/Heme. COPD: -h/o acute resp failure 2015 here -? a.e.--per pulm htn: -controlled
--- NOTE | 2017-05-09 12:23 | PN ---
Progress Note, Physician History of Present Illness: pulmonary alert,anxious,mildly dyspneic - Current Medication List Current Medications: Active Medications Albuterol Sulfate (Ventolin 0.083% Nebulizer Soln -) 1 amp NEB QIDR [facility] Last Admin: 05/09/17 12:14 Dose: 1 amp Albuterol/Ipratropium (Duoneb -) 1 amp NEB Q6H PRN PRN Reason: SHORTNESS OF BREATH Last Admin: 05/09/17 00:18 Dose: 1 amp Atorvastatin Calcium (Lipitor -) 10 mg PO HS [facility] Last Admin: 05/08/17 21:17 Dose: 10 mg Brimonidine Tartrate (Alphagan 0.2% -) 1 drop OU BID [facility] Last Admin: 05/09/17 09:39 Dose: 1 drop Diltiazem HCl (Cardizem Cd -) 120 mg PO DAILY [facility] Last Admin: 05/09/17 09:28 Dose: 120 mg Levothyroxine Sodium (Synthroid -) 25 mcg PO DAILY@0700 [facility] Last Admin: 05/09/17 06:04 Dose: 25 mcg - Objective Vital Signs: Vital Signs Temperature 98.3 F 05/09/17 09:00 Pulse Rate 93 H 05/09/17 09:00 Respiratory Rate 18 05/09/17 09:00 Blood Pressure 109/71 05/09/17 09:00 O2 Sat by Pulse Oximetry (%) 96 05/09/17 09:00 Constitutional: Yes: Anxious, Thin Eyes: Yes: WNL HENT: Yes: WNL Neck: Yes: WNL Cardiovascular: Yes: Pulse Irregular, S1, S2 Respiratory: Yes: Diminished, Rales (bibasilar crackles) Gastrointestinal: Yes: Normal Bowel Sounds, Soft Extremities: Yes: WNL Edema: No Labs: CBC, BMP 05/09/17 05:43 05/09/17 05:43 INR, PTT INR 1.50 (0.82-1.09) H 05/09/17 05:43 Problem List - Problems (1) Anemia Code(s): D64.9 - ANEMIA, UNSPECIFIED Qualifiers: Anemia type: iron deficiency Iron deficiency anemia type: unspecified iron deficiency Qualified Code(s): D50.9 - Iron deficiency anemia, unspecified (2) COPD (chronic obstructive pulmonary disease) Code(s): J44.9 - CHRONIC OBSTRUCTIVE PULMONARY DISEASE, UNSPECIFIED (3) NSTEMI (non-ST elevated myocardial infarction) Code(s): I21.4 - NON-ST ELEVATION (NSTEMI) MYOCARDIAL INFARCTION (4) Hypertension Code(s): I10 - ESSENTIAL (PRIMARY) HYPERTENSION (5) Paroxysmal atrial fibrillation Code(s): I48.0 - PAROXYSMAL ATRIAL FIBRILLATION Assessment/Plan Assessment/Plan Severe symptomatic anemia (?) GI Bleed Lactic acidosis resolved Severe/Advanced COPD Chf Pleural effusions ASHD Hold AC Transfusional support O2 as needed Rate control BD TX High risk for anesthesia Xanax MONITOR CBC,LYTES DR GUPTA
[2017-05-09 13:38] LABS: CPK 71 IU/L (26-192)
--- NOTE | 2017-05-09 13:48 | PN ---
Progress Note, Physician Chief Complaint: Mrs Carmona complains of being very anxious,had an anxiety attack last night. Denies current anxiety, cp, sob, n/v. - Current Medication List Current Medications: Active Medications Albuterol Sulfate (Ventolin 0.083% Nebulizer Soln -) 1 amp NEB QIDR [facility] Last Admin: 05/09/17 12:14 Dose: 1 amp Albuterol/Ipratropium (Duoneb -) 1 amp NEB Q6H PRN PRN Reason: SHORTNESS OF BREATH Last Admin: 05/09/17 00:18 Dose: 1 amp Alprazolam (Xanax -) 0.25 mg PO Q8H PRN PRN Reason: ANXIETY Atorvastatin Calcium (Lipitor -) 10 mg PO HS [facility] Last Admin: 05/08/17 21:17 Dose: 10 mg Brimonidine Tartrate (Alphagan 0.2% -) 1 drop OU BID [facility] Last Admin: 05/09/17 09:39 Dose: 1 drop Diltiazem HCl (Cardizem Cd -) 120 mg PO DAILY [facility] Last Admin: 05/09/17 09:28 Dose: 120 mg Iron Sucrose 100 mg/ Sodium (Chloride) 100 mls @ 200 mls/hr IVPB ONCE ONE Stop: 05/09/17 14:16 Levothyroxine Sodium (Synthroid -) 25 mcg PO DAILY@0700 [facility] Last Admin: 05/09/17 06:04 Dose: 25 mcg - Objective Vital Signs: Vital Signs Temperature 98.3 F 05/09/17 09:00 Pulse Rate 93 H 05/09/17 09:00 Respiratory Rate 18 05/09/17 09:00 Blood Pressure 109/71 05/09/17 09:00 O2 Sat by Pulse Oximetry (%) 96 05/09/17 09:00 Constitutional: Yes: Anxious, Thin Cardiovascular: Yes: Regular Rate and Rhythm. No: Gallop, Murmur, Rub Respiratory: Yes: Regular, CTA Bilaterally. No: Rales, Rhonchi, Wheezes Gastrointestinal: Yes: Normal Bowel Sounds, Soft. No: Distention, Tenderness Extremities: Yes: WNL Edema: No Labs: CBC, BMP 05/09/17 05:43 05/09/17 05:43 INR, PTT INR 1.50 (0.82-1.09) H 05/09/17 05:43 Problem List - Problems (1) Anemia Code(s): D64.9 - ANEMIA, UNSPECIFIED Qualifiers: Anemia type: iron deficiency Iron deficiency anemia type: unspecified iron deficiency Qualified Code(s): D50.9 - Iron deficiency anemia, unspecified (2) NSTEMI (non-ST elevated myocardial infarction) Code(s): I21.4 - NON-ST ELEVATION (NSTEMI) MYOCARDIAL INFARCTION (3) COPD (chronic obstructive pulmonary disease) Code(s): J44.9 - CHRONIC OBSTRUCTIVE PULMONARY DISEASE, UNSPECIFIED (4) Hyperlipidemia Code(s): E78.5 - HYPERLIPIDEMIA, UNSPECIFIED (5) Hypertension Code(s): I10 - ESSENTIAL (PRIMARY) HYPERTENSION (6) Paroxysmal atrial fibrillation Code(s): I48.0 - PAROXYSMAL ATRIAL FIBRILLATION Assessment/Plan (1) Anemia Assessment/Plan: -patient s/p 3 units pRBCs -H/H stabilized -appreciate GI recommendations, currently does not appear to be a GI bleed -will continue IV iron, day 2/3 Code(s): D64.9 - ANEMIA, UNSPECIFIED (2) NSTEMI (non-ST elevated myocardial infarction) Assessment/Plan: -troponin's decreasing -cardiology following and note reviewed -currently cardiac catheterization is not emergently indicated -will need stress test, possibly sunday -chest pain free Code(s): I21.4 - NON-ST ELEVATION (NSTEMI) MYOCARDIAL INFARCTION (3) COPD (chronic obstructive pulmonary disease) Assessment/Plan: -much improved with transfusion -agree with stopping steroids -continue bronchdilators Code(s): J44.9 - CHRONIC OBSTRUCTIVE PULMONARY DISEASE, UNSPECIFIED (4) Hyperlipidemia Assessment/Plan: -continue statin Code(s): E78.5 - HYPERLIPIDEMIA, UNSPECIFIED (5) Hypertension Assessment/Plan: -low normal -monitor Code(s): I10 - ESSENTIAL (PRIMARY) HYPERTENSION (6) Paroxysmal atrial fibrillation Assessment/Plan: -sounds in sinus rhythm -defer to GI and hematology about timing of restarting xarelto Code(s): I48.0 - PAROXYSMAL ATRIAL FIBRILLATION (7) Depression/anxiety -patient very anxious today upon seeing -has remained anxious this hospital stay -suspect underlying anxiety, unmasked by hospitalization -will start on low dose prn xanax -will need to follow up with Dr Littlejohn as an outpatient for evaluation and treatment (if needed)
[2017-05-09 14:56] LABS: TROPONIN I 3.09 ng/ml (0.00-0.05)
[2017-05-09] MEDS ORDERED: IRON SUCROSE INJECTION 100 MG in SODIUM CHLORIDE 95 ML IVPB ONE (15:00)
--- NOTE | 2017-05-09 17:52 | PN ---
Progress Note (short form) - Note Progress Note: Patient seen and examined. she mentioned to me about the anxiety episode she had last night and she is very worried. now she is being prepared for being catheterized as she was not able to use the bathroom. O/E: General: In No acute distress, resting quietly HEENT: improvement in the subconjunctival hge Abdomen: No organomgealy Skin: +bruises present, well healing. No LE swelling AAOx3 Vitals: Last Vital Signs Temp Pulse Resp BP Pulse Ox 98.0 F 82 18 108/70 96 05/09/17 14:00 05/09/17 14:00 05/09/17 14:00 05/09/17 14:00 05/09/17 09:00 Current Medications Generic Name Dose Route Start Last Admin Trade Name Freq PRN Reason Stop Dose Admin Albuterol Sulfate 1 amp 05/07/17 11:45 05/09/17 12:14 Ventolin 0.083% Nebulizer Soln - NEB 1 amp QIDR [facility] Administration Albuterol/Ipratropium 1 amp 05/07/17 11:42 05/09/17 00:18 Duoneb - NEB 1 amp Q6H PRN Administration SHORTNESS OF BREATH Alprazolam 0.25 mg 05/09/17 13:05 Xanax - PO Q8H PRN ANXIETY Atorvastatin Calcium 10 mg 05/08/17 22:00 05/08/17 21:17 Lipitor - PO 10 mg HS [facility] Administration Brimonidine Tartrate 1 drop 05/07/17 11:45 05/09/17 09:39 Alphagan 0.2% - OU 1 drop BID [facility] Administration Diltiazem HCl 120 mg 05/08/17 10:00 05/09/17 09:28 Cardizem Cd - PO 120 mg DAILY [facility] Administration Enoxaparin Sodium 40 mg 05/10/17 10:00 Lovenox - SQ DAILY [facility] Levothyroxine Sodium 25 mcg 05/08/17 07:00 05/09/17 06:04 Synthroid - PO 25 mcg DAILY@0700 [facility] Administration Potassium Phos/Sodium Phos 1 packet 05/09/17 22:00 Phos-Nak Packet - PO BID [facility] CBC, BMP 05/09/17 05:43 05/09/17 05:43 Assessment/Plan: is a 76 year old White female who is admitted with AMS/SOB. hematology consulted for anemia. Microcytic anemia in the setting severe Iron deficiency anemia: -s/p three units of PRBC, now stable -receiving IV iron Venofer( could be given Length of stay), 100mg daily, ( her calculated Iron deficit is >1000mg). Tolerating well. -seen by GI, felt not to be bleeding. -Out patient follow-up Elevated INR: -likely in the setting of poor PO intake -trending down, will follow-up , repeat in the am. Leuckocytosis: -likely from the high dose of steroids -no evidence of infection -being catheterized for urine analysis, will need to f/u Paroxysmal afib:(High CHADSVASC score) -as no bleeding was suspected, ok per heme to re-start ac ( need to follow the usual guidelines if any invasive procedures being planned) -for Xarelto, no bridging or no loading dose required when resuming. NSTEMI -troponinemia likely in the setting of low Hgb -cardiology f/u , noted. Will follow Problem List - Problems (1) Anemia Code(s): D64.9 - ANEMIA, UNSPECIFIED Qualifiers: Anemia type: iron deficiency Iron deficiency anemia type: unspecified iron deficiency Qualified Code(s): D50.9 - Iron deficiency anemia, unspecified (2) COPD (chronic obstructive pulmonary disease) Code(s): J44.9 - CHRONIC OBSTRUCTIVE PULMONARY DISEASE, UNSPECIFIED (3) NSTEMI (non-ST elevated myocardial infarction) Code(s): I21.4 - NON-ST ELEVATION (NSTEMI) MYOCARDIAL INFARCTION (4) Paroxysmal atrial fibrillation Code(s): I48.0 - PAROXYSMAL ATRIAL FIBRILLATION
[2017-05-09 18:36] LABS: URINE APPEARANCE SLCLOUDY; URINE BILIRUBIN NEGATIVE (NEGATIVE); URINE BLOOD NEGATIVE (NEGATIVE); URINE COLOR YELLOW; URINE GLUCOSE (UA) NEGATIVE (NEGATIVE); URINE KETONE NEGATIVE (NEGATIVE); URINE LEUK ESTERASE NEGATIVE (NEGATIVE); URINE NITRITE NEGATIVE (NEGATIVE); URINE PROTEIN NEGATIVE (NEGATIVE); URINE UROBILINOGEN NEGATIVE mg/dL (0.2-1.0)
[2017-05-09] MEDS ORDERED: PT OWN MED DRAWER 7, Y5N ONE (21:57)
[2017-05-09] MEDS: ATORVASTATIN CA 10 MG TABLET (FP) PO SCH (22:01)
[2017-05-09] MEDS: NAPH,MB-DB/K PH,MBDB POWDER PACKET PO SCH (22:01)
[2017-05-09] MEDS: ALPRAZolam 0.25 MG TABLET PO PRN (22:01)
[2017-05-10 00:08] LABS: A/G RATIO 1.1 (0.7-1.7); ALBUMIN 3.5 g/dL (2.9-4.4); ALPHA-1-GLOBULIN 0.4 g/dL (0.0-0.4); BETA GLOBULIN 1.1 g/dL (0.7-1.3); GAMMA GLOBULIN 1.1 g/dL (0.4-1.8); GLOBULIN, TOTAL 3.3 g/dL (2.2-3.9); M-SPIKE Not Observed g/dL (Not Observed); TOTAL PROTEIN 6.8 g/dL (6.0-8.5)
[2017-05-10] MEDS: ALBUTEROL SO4 0.083% IH SOL 2.5 MG/3 ML VIAL.NEB. NEB SCH ×5 (00:20→23:01)
[2017-05-10] MEDS: LEVOTHYROXINE NA 25 MCG TABLET (FP) PO SCH ×2 (05:42→06:32)
[2017-05-10] MEDS: ALPRAZolam 0.25 MG TABLET PO PRN ×2 (05:42→23:11)
[2017-05-10 07:35] LABS: BASOPHIL 0.1 % (0-2.0); EOSINOPHIL 0.3 % (0-4.5); MCH 21.7 pg (25.7-33.7); MCHC 30.1 g/dl (32.0-36.0); MEAN CELL VOLUME 72.1 fl (80-96); MEAN PLT VOLUME 7.9 fl (7.5-11.1); NEUTROPHILS 85.1 % (42.8-82.8); PLATELET COUNT 260 K/MM3 (134-434); RDW 26.8 % (11.6-15.6); WHITE BLOOD COUNT 10.8 K/mm3 (4.0-10.0)
[2017-05-10 07:37] LABS: INR 1.27 (0.82-1.09)
[2017-05-10] MEDS ORDERED: PT OWN MED DRAWER 7, Y5N ONE (07:42)
[2017-05-10 08:34] LABS: ANION GAP 9 (8-16); CALCIUM 9.4 mg/dL (8.5-10.1); CO2 29 mmol/L (21-32); CREATININE 0.2 mg/dL (0.55-1.02); GLUCOSE,RANDOM 87 mg/dL (74-106); MAGNESIUM 2.2 mg/dL (1.8-2.4); PHOSPHOROUS 3.2 mg/dL (2.5-4.9)
[2017-05-10] MEDS: BRIMONIDINE TARTRATE 0.2% OPHTHALMIC 5 ML BOTTLE OU SCH ×2 (09:51→22:06)
[2017-05-10] MEDS: NAPH,MB-DB/K PH,MBDB POWDER PACKET PO SCH ×2 (09:51→22:06)
--- NOTE | 2017-05-10 09:59 | PN ---
Progress Note (short form) - Note Progress Note: CC: nstemi S: no cp, sob, palps, dizziness, no overnight events Former smoker Current Medications Generic Name Dose Route Start Last Admin Trade Name Freq PRN Reason Stop Dose Admin Albuterol Sulfate 1 amp 05/07/17 11:45 05/10/17 06:44 Ventolin 0.083% Nebulizer Soln - NEB 1 amp QIDR MAHSA Administration Albuterol/Ipratropium 1 amp 05/07/17 11:42 05/09/17 00:18 Duoneb - NEB 1 amp Q6H PRN Administration SHORTNESS OF BREATH Alprazolam 0.25 mg 05/09/17 13:05 05/10/17 05:42 Xanax - PO 0.25 mg Q8H PRN Administration ANXIETY Atorvastatin Calcium 10 mg 05/08/17 22:00 05/09/17 22:01 Lipitor - PO 10 mg HS MAHAS Administration Brimonidine Tartrate 1 drop 05/07/17 11:45 05/10/17 09:51 Alphagan 0.2% - OU 1 drop BID MAHSA Administration Diltiazem HCl 120 mg 05/08/17 10:00 05/09/17 09:28 Cardizem Cd - PO 120 mg DAILY MAHSA Administration Iron Sucrose 100 mg/ Sodium 100 mls @ 200 mls/hr 05/10/17 11:00 Chloride IVPB 05/10/17 11:29 ONCE ONE Levothyroxine Sodium 25 mcg 05/08/17 07:00 05/10/17 06:32 Synthroid - PO Not Given DAILY@0700 MA[facility]SA Potassium Phos/Sodium Phos 1 packet 05/09/17 22:00 05/10/17 09:51 Phos-Nak Packet - PO 1 packet BID MA[facility]SA Administration Rivaroxaban 20 mg 05/10/17 10:00 Xarelto - PO DAILY [facility] Vital Signs Period Temp Pulse Resp BP Sys/[facility] Pulse Ox Last 24 Hr 97.9 F-99.0 F 82-89 16-18 105-119/55-70 98 Constitutional: Yes: Well Nourished, No Distress Eyes: No: Sclera Icterus HENT: No: Nasal Congestion Neck: No: Decreased ROM Respiratory: Yes: Diminished (diffusely), bibasilar crackles. No: Accessory Muscle Use Gastrointestinal: Yes: Normal Bowel Sounds. No: Distention, Hepatomegaly, Palpable Mass, Tenderness Cardiovascular: Yes: Regular Rate and Rhythm JVD: No Heart Sounds: Yes: S1, S2. No: Gallop Murmur: No: Systolic Murmur, Diastolic Murmur Extremities: No: Cold, Cyanosis Edema: No Integumentary: No: Jaundice Neurological: Yes: Alert. No: Seizure Psychiatric: No: Agitated - Other Data Labs, Other Data: CBC, BMP 05/10/17 05:35 05/10/17 05:35 tele: SR Echo 05/2017: Mildly reduced LV function. (No RWMA described). RV not well seen 1+ lae. mod mr, mod tr Echo 2013: nl lv, nl rv, mild mr, mild tr, rvsp 30-40 Dobut mibi 2014: no ischemia ECG: sinus tach (100 bpm), + PVC; normal axis; ? old ASMI (no change vs 2015 prior); nonsp STs lateral leads new vs prior CXR: new effusions and chf findings--reviewed by me: vs 2015, there are small effusions and vascular redistribution a/p: 76 yo with h/o afib on xarelto, htn, hl,l copd p/w sob and noted to have anemia (hgb 5.7), hospital course complicated by nstemi. anemia: -hgb 5.7 on admit. Hgb 12.1 at office in October 2016. Has known iron deficiency on iron supplementation. -seen by GI, bleeding not suspected, thought to be anemic due to noncompliance with her iron -iron per Heme NSTEMI: -trop peak at 4.5. -ecg nonspecific though changed vs prior -this could all be secondary to acute anemia given severity of reduced Hgb, gil if underlying fixed obstructive CAD -will check echo for LV fxn --> mildy reduced EF, but no comment made on regional wall motion. -trops have been trending down. plan for nuclear stress test tomorrow for risk stratification prior to discharge -will not be a candidate for invasive treatment strategy (i.e. cath/PCI) regardless until etiology of anemia is clarified, and risk-stratified as low risk for bleed on DAPT with premature discontinuation). If no high risk findings on stress than can proceed with GI evaluation as outpatient if needed in a few weeks while on medical management. -defer ASA, plavix, heparin -cont dilt -cont statin acute diastolic CHF: -no prior hx, echo WNL 2013. -CXR c/w chf, BNP 4K -pt with severe respiratory compromise on eval which responded to transfusion and IV lasix 40mg. - 05/08-05/10: BP low after IV lasix. respiratory status improved, will hold off on further diuresis for now. echo with some degree of increase in mr/tr, unclear if acute or chronic. con't to monitor volume status. afib: -episode here when admitted 2014 with a.e. copd/resp failure -CHADS VASC 4--started on xarelto 20 at that time -holding AC at present given severe anemia. Per GI notes anemia may be due to non-compliance with iron supplementation. Resume ac if/when acceptable per GI/ Heme. COPD: -h/o acute resp failure 2015 here -? a.e.--per pulm htn: -controlled
[2017-05-10] MEDS ORDERED: ENOXAPARIN NA (PORCINE) 40 MG/0.4 ML DISP.SYRIN SQ SCH (10:00)
[2017-05-10] MEDS ORDERED: IRON SUCROSE INJECTION 100 MG in SODIUM CHLORIDE 95 ML IVPB ONE (11:00)
[2017-05-10] MEDS: RIVAROXABAN 20 MG TABLET PO SCH (11:35)
--- NOTE | 2017-05-10 11:47 | PN ---
Progress Note, Physician Chief Complaint: Mrs Carmona remains anxious but is better controlled. No cp, sob, n/v. - Current Medication List Current Medications: Active Medications Albuterol Sulfate (Ventolin 0.083% Nebulizer Soln -) 1 amp NEB QIDR [facility] Last Admin: 05/10/17 06:44 Dose: 1 amp Albuterol/Ipratropium (Duoneb -) 1 amp NEB Q6H PRN PRN Reason: SHORTNESS OF BREATH Last Admin: 05/09/17 00:18 Dose: 1 amp Alprazolam (Xanax -) 0.25 mg PO Q8H PRN PRN Reason: ANXIETY Last Admin: 05/10/17 05:42 Dose: 0.25 mg Atorvastatin Calcium (Lipitor -) 10 mg PO HS [facility] Last Admin: 05/09/17 22:01 Dose: 10 mg Brimonidine Tartrate (Alphagan 0.2% -) 1 drop OU BID [facility] Last Admin: 05/10/17 09:51 Dose: 1 drop Diltiazem HCl (Cardizem Cd -) 120 mg PO DAILY [facility] Last Admin: 05/10/17 10:06 Dose: 120 mg Levothyroxine Sodium (Synthroid -) 25 mcg PO DAILY@0700 [facility] Last Admin: 05/10/17 06:32 Dose: Not Given Potassium Phos/Sodium Phos (Phos-Nak Packet -) 1 packet PO BID [facility] Last Admin: 05/10/17 09:51 Dose: 1 packet Rivaroxaban (Xarelto -) 20 mg PO DAILY [facility] Last Admin: 05/10/17 11:35 Dose: 20 mg - Objective Vital Signs: Vital Signs Temperature 98.1 F 05/10/17 10:00 Pulse Rate 92 H 05/10/17 10:00 Respiratory Rate 18 05/10/17 10:00 Blood Pressure 97/61 05/10/17 10:00 O2 Sat by Pulse Oximetry (%) 93 L 05/10/17 10:00 Constitutional: Yes: Well Nourished, No Distress, Calm Cardiovascular: Yes: Regular Rate and Rhythm. No: Gallop, Murmur, Rub Respiratory: Yes: Regular, CTA Bilaterally. No: Rales, Rhonchi, Wheezes Gastrointestinal: Yes: Normal Bowel Sounds, Soft. No: Distention, Tenderness Extremities: Yes: WNL Edema: No Labs: CBC, BMP 05/10/17 05:35 05/10/17 05:35 INR, PTT INR 1.27 (0.82-1.09) H 05/10/17 05:35 Problem List - Problems (1) Anemia Code(s): D64.9 - ANEMIA, UNSPECIFIED Qualifiers: Anemia type: iron deficiency Iron deficiency anemia type: unspecified iron deficiency Qualified Code(s): D50.9 - Iron deficiency anemia, unspecified (2) NSTEMI (non-ST elevated myocardial infarction) Code(s): I21.4 - NON-ST ELEVATION (NSTEMI) MYOCARDIAL INFARCTION (3) COPD (chronic obstructive pulmonary disease) Code(s): J44.9 - CHRONIC OBSTRUCTIVE PULMONARY DISEASE, UNSPECIFIED (4) Hyperlipidemia Code(s): E78.5 - HYPERLIPIDEMIA, UNSPECIFIED (5) Hypertension Code(s): I10 - ESSENTIAL (PRIMARY) HYPERTENSION (6) Paroxysmal atrial fibrillation Code(s): I48.0 - PAROXYSMAL ATRIAL FIBRILLATION Assessment/Plan (1) Anemia Assessment/Plan: -patient s/p 3 units pRBCs -H/H improving -continue IV iron, day 3 today -appreciate hematology assistance, may benefit from outpatient IV iron Code(s): D64.9 - ANEMIA, UNSPECIFIED (2) NSTEMI (non-ST elevated myocardial infarction) Assessment/Plan: -cardiology following and note reviewed -planning for stress test, possibly tomorrow Code(s): I21.4 - NON-ST ELEVATION (NSTEMI) MYOCARDIAL INFARCTION (3) COPD (chronic obstructive pulmonary disease) Assessment/Plan: -not in exacerbation -continue bronchodilators Code(s): J44.9 - CHRONIC OBSTRUCTIVE PULMONARY DISEASE, UNSPECIFIED (4) Hyperlipidemia Assessment/Plan: -continue statin Code(s): E78.5 - HYPERLIPIDEMIA, UNSPECIFIED (5) Hypertension Assessment/Plan: -low normal -monitor Code(s): I10 - ESSENTIAL (PRIMARY) HYPERTENSION (6) Paroxysmal atrial fibrillation Assessment/Plan: -sounds in sinus rhythm -restarted xarelto today Code(s): I48.0 - PAROXYSMAL ATRIAL FIBRILLATION (7) Depression/anxiety -improved with low dose prn xanax -will need to follow up with Dr Littlejohn as an outpatient for evaluation and treatment (if needed) Dispo -patient medically stable -if stress test normal, is medically stable for discharge -however walked only 15 feet with PT yesterday and patient is concerned about walking -may need SNF placement, encouraged patient to walk
[2017-05-10] MEDS: ACETAMINOPHEN 325 MG TABLET (FP) PO PRN (13:48)
--- NOTE | 2017-05-10 13:56 | PN ---
Progress Note (short form) - Note Progress Note: PULMONARY Denies shortness of breath. Minimal cough. Receiving IV iron. H/H stable. Last Vital Signs Temp Pulse Resp BP Pulse Ox 98.1 F 92 H 18 97/61 93 L 05/10/17 10:00 05/10/17 10:00 05/10/17 10:00 05/10/17 10:00 05/10/17 10:00 Gen: NAD at rest Heart: RRR Lung: distant breath sounds Abd: soft, nontender Ext: + LUE edema, ecchymoses CBC, BMP 05/10/17 05:35 05/10/17 05:35 Active Medications Acetaminophen (Tylenol -) 650 mg PO Q4H PRN PRN Reason: FEVER OR PAIN Last Admin: 05/10/17 13:48 Dose: 650 mg Albuterol Sulfate (Ventolin 0.083% Nebulizer Soln -) 1 amp NEB QIDR [facility] Last Admin: 05/10/17 06:44 Dose: 1 amp Albuterol/Ipratropium (Duoneb -) 1 amp NEB Q6H PRN PRN Reason: SHORTNESS OF BREATH Last Admin: 05/09/17 00:18 Dose: 1 amp Alprazolam (Xanax -) 0.25 mg PO Q8H PRN PRN Reason: ANXIETY Last Admin: 05/10/17 05:42 Dose: 0.25 mg Atorvastatin Calcium (Lipitor -) 10 mg PO HS [facility] Last Admin: 05/09/17 22:01 Dose: 10 mg Brimonidine Tartrate (Alphagan 0.2% -) 1 drop OU BID [facility] Last Admin: 05/10/17 09:51 Dose: 1 drop Diltiazem HCl (Cardizem Cd -) 120 mg PO DAILY [facility] Last Admin: 05/10/17 10:06 Dose: 120 mg Levothyroxine Sodium (Synthroid -) 25 mcg PO DAILY@0700 [facility] Last Admin: 05/10/17 06:32 Dose: Not Given Potassium Phos/Sodium Phos (Phos-Nak Packet -) 1 packet PO BID [facility] Last Admin: 05/10/17 09:51 Dose: 1 packet Rivaroxaban (Xarelto -) 20 mg PO DAILY [facility] Last Admin: 05/10/17 11:35 Dose: 20 mg A/P Severe Symptomatic Anemia Severe Iron Deficiency Severe COPD Emphysema Acute NSTEMI Atrial Fibrillation LV Diastolic Dysfunction - continue IV iron - monitor H/H - on anticoagulation - inhaled bronchodilators - O2 to keep SpO2 >90%
--- NOTE | 2017-05-10 15:03 | PN ---
Progress Note (short form) - Note Progress Note: Patient seen and examined. Was started on xarelto She feels OK, continues to be anxious. O/E: General: In No acute distress, resting quietly HEENT: improvement in the subconjunctival hge Abdomen: No organomgealy Skin: +bruises present, well healing. No LE swelling LUE: Large bruise present near the site of the IV. AAOx3 Vitals: Last Vital Signs Temp Pulse Resp BP Pulse Ox 98.3 F 91 H 20 87/49 93 L 05/10/17 14:37 05/10/17 14:37 05/10/17 14:37 05/10/17 14:37 05/10/17 10:00 CBC, BMP 05/10/17 05:35 05/10/17 05:35 INR, PTT INR 1.27 (0.82-1.09) H 05/10/17 05:35 Current Medications Generic Name Dose Route Start Last Admin Trade Name Freq PRN Reason Stop Dose Admin Acetaminophen 650 mg 05/10/17 13:38 05/10/17 13:48 Tylenol - PO 650 mg Q4H PRN Administration FEVER OR PAIN Albuterol Sulfate 1 amp 05/07/17 11:45 05/10/17 06:44 Ventolin 0.083% Nebulizer Soln - NEB 1 amp QIDR MAHSA Administration Albuterol/Ipratropium 1 amp 05/07/17 11:42 05/09/17 00:18 Duoneb - NEB 1 amp Q6H PRN Administration SHORTNESS OF BREATH Alprazolam 0.25 mg 05/09/17 13:05 05/10/17 05:42 Xanax - PO 0.25 mg Q8H PRN Administration ANXIETY Atorvastatin Calcium 10 mg 05/08/17 22:00 05/09/17 22:01 Lipitor - PO 10 mg HS MAHSA Administration Brimonidine Tartrate 1 drop 05/07/17 11:45 05/10/17 09:51 Alphagan 0.2% - OU 1 drop BID MAHSA Administration Diltiazem HCl 120 mg 05/08/17 10:00 05/10/17 10:06 Cardizem Cd - PO 120 mg DAILY [facility]SA Administration Levothyroxine Sodium 25 mcg 05/08/17 07:00 05/10/17 06:32 Synthroid - PO Not Given DAILY@0700 [facility]SA Potassium Phos/Sodium Phos 1 packet 05/09/17 22:00 05/10/17 09:51 Phos-Nak Packet - PO 1 packet BID MA[facility]SA Administration Rivaroxaban 20 mg 05/10/17 10:00 05/10/17 11:35 Xarelto - PO 20 mg DAILY [facility]SA Administration Assessment/Plan: is a 76 year old White female who is admitted with AMS/SOB. hematology consulted for anemia. Microcytic anemia in the setting severe Iron deficiency anemia: -Hgb stable -c/w IV iron -OP discharge with PO iron - Suggest Ferrex twice day ( this form has the least side effect of constipation). Hematoma forming: -Cold compression -Tylenol/NSAID if needed -Remove IV -continue to monitor. -discussed wit RN. Elevated INR: -normalized now. Leuckocytosis: -trending down -no infection Paroxysmal afib:(High CHADSVASC score) -on Xarelto NSTEMI -troponinemia likely in the setting of low Hgb -cardiology f/u , noted. -planing for stress test Misc: Encouraged Out of bed. Above plan discussed with RN of the patient. Will follow Problem List - Problems (1) Anemia Code(s): D64.9 - ANEMIA, UNSPECIFIED Qualifiers: Anemia type: iron deficiency Iron deficiency anemia type: unspecified iron deficiency Qualified Code(s): D50.9 - Iron deficiency anemia, unspecified (2) COPD (chronic obstructive pulmonary disease) Code(s): J44.9 - CHRONIC OBSTRUCTIVE PULMONARY DISEASE, UNSPECIFIED (3) NSTEMI (non-ST elevated myocardial infarction) Code(s): I21.4 - NON-ST ELEVATION (NSTEMI) MYOCARDIAL INFARCTION (4) Paroxysmal atrial fibrillation Code(s): I48.0 - PAROXYSMAL ATRIAL FIBRILLATION
[2017-05-10] MEDS: ATORVASTATIN CA 10 MG TABLET (FP) PO SCH (22:06)
[2017-05-11] MEDS: LEVOTHYROXINE NA 25 MCG TABLET (FP) PO SCH ×2 (06:08→11:05)
[2017-05-11 06:33] LABS: BASOPHIL 0.3 % (0-2.0); EOSINOPHIL 0.5 % (0-4.5); MCH 21.7 pg (25.7-33.7); MCHC 29.4 g/dl (32.0-36.0); MEAN CELL VOLUME 73.8 fl (80-96); MEAN PLT VOLUME 7.9 fl (7.5-11.1); NEUTROPHILS 87.9 % (42.8-82.8); PLATELET COUNT 259 K/MM3 (134-434); RDW 28.2 % (11.6-15.6); WHITE BLOOD COUNT 11.1 K/mm3 (4.0-10.0)
[2017-05-11] MEDS: ALBUTEROL SO4 0.083% IH SOL 2.5 MG/3 ML VIAL.NEB. NEB SCH ×4 (06:40→23:28)
[2017-05-11 06:59] LABS: ANION GAP 8 (8-16); CALCIUM 9.2 mg/dL (8.5-10.1); CO2 30 mmol/L (21-32); CREATININE 0.3 mg/dL (0.55-1.02); GLUCOSE,RANDOM 87 mg/dL (74-106); MAGNESIUM 2.2 mg/dL (1.8-2.4); PHOSPHOROUS 3.1 mg/dL (2.5-4.9)
[2017-05-11] MEDS: ALPRAZolam 0.25 MG TABLET PO PRN ×2 (08:45→23:22)
[2017-05-11] MEDS ORDERED: DEXTROSE 5% IVPB ONE (10:00)
[2017-05-11] MEDS ORDERED: WATER IVPB ONE (10:00)
[2017-05-11] MEDS ORDERED: DIPYRIDAMOLE STRESS TEST IVPB ONE (10:00)
[2017-05-11] MEDS ORDERED: PT OWN MED DRAWER 7, Y5N ONE ×2 (10:51→14:52)
[2017-05-11] MEDS: BRIMONIDINE TARTRATE 0.2% OPHTHALMIC 5 ML BOTTLE OU SCH ×2 (11:04→23:22)
[2017-05-11] MEDS: RIVAROXABAN 20 MG TABLET PO SCH (11:05)
[2017-05-11] MEDS: NAPH,MB-DB/K PH,MBDB POWDER PACKET PO SCH ×2 (11:05→23:22)
--- NOTE | 2017-05-11 11:30 | PN ---
Progress Note (short form) - Note Progress Note: GASTROENTEROLOGY STARTED ON XARELTO/NO BLEEDING HGB >9 AWAIT STRESS TESTING ENDOSCOPIC WORKUP CAN BE DONE AN OUTPATIENT IF NEEDED YENNY GARCIA MD Problem List - Problems (1) Anemia Code(s): D64.9 - ANEMIA, UNSPECIFIED Qualifiers: Anemia type: iron deficiency Iron deficiency anemia type: unspecified iron deficiency Qualified Code(s): D50.9 - Iron deficiency anemia, unspecified (2) COPD (chronic obstructive pulmonary disease) Code(s): J44.9 - CHRONIC OBSTRUCTIVE PULMONARY DISEASE, UNSPECIFIED (3) NSTEMI (non-ST elevated myocardial infarction) Code(s): I21.4 - NON-ST ELEVATION (NSTEMI) MYOCARDIAL INFARCTION (4) Altered mental status Code(s): R41.82 - ALTERED MENTAL STATUS, UNSPECIFIED (5) Paroxysmal atrial fibrillation Code(s): I48.0 - PAROXYSMAL ATRIAL FIBRILLATION
--- NOTE | 2017-05-11 13:02 | PN ---
Progress Note, Physician History of Present Illness: pulmonary alert nad,sitting up in chair,-resp distress - Current Medication List Current Medications: Active Medications Acetaminophen (Tylenol -) 650 mg PO Q4H PRN PRN Reason: FEVER OR PAIN Last Admin: 05/10/17 13:48 Dose: 650 mg Albuterol Sulfate (Ventolin 0.083% Nebulizer Soln -) 1 amp NEB QIDR [facility] Last Admin: 05/11/17 11:40 Dose: 1 amp Albuterol/Ipratropium (Duoneb -) 1 amp NEB Q6H PRN PRN Reason: SHORTNESS OF BREATH Last Admin: 05/09/17 00:18 Dose: 1 amp Alprazolam (Xanax -) 0.25 mg PO Q8H PRN PRN Reason: ANXIETY Last Admin: 05/11/17 08:45 Dose: 0.25 mg Atorvastatin Calcium (Lipitor -) 10 mg PO HS [facility] Last Admin: 05/10/17 22:06 Dose: 10 mg Brimonidine Tartrate (Alphagan 0.2% -) 1 drop OU BID [facility] Last Admin: 05/11/17 11:04 Dose: 1 drop Diltiazem HCl (Cardizem Cd -) 120 mg PO DAILY [facility] Last Admin: 05/11/17 11:04 Dose: 120 mg Levothyroxine Sodium (Synthroid -) 25 mcg PO DAILY@0700 [facility] Last Admin: 05/11/17 11:05 Dose: 25 mcg Potassium Phos/Sodium Phos (Phos-Nak Packet -) 1 packet PO BID [facility] Last Admin: 05/11/17 11:05 Dose: 1 packet Rivaroxaban (Xarelto -) 20 mg PO DAILY [facility] Last Admin: 05/11/17 11:05 Dose: 20 mg - Objective Vital Signs: Vital Signs Temperature 98.6 F 05/11/17 11:00 Pulse Rate 97 H 05/11/17 11:00 Respiratory Rate 20 05/11/17 11:00 Blood Pressure 100/50 05/11/17 11:00 O2 Sat by Pulse Oximetry (%) 97 05/10/17 21:00 Constitutional: Yes: Calm, Thin Eyes: Yes: WNL HENT: Yes: WNL Neck: Yes: WNL Cardiovascular: Yes: Regular Rate and Rhythm, S1, S2 Respiratory: Yes: Diminished Gastrointestinal: Yes: Normal Bowel Sounds, Soft Extremities: Yes: WNL Edema: No Labs: CBC, BMP 05/11/17 05:38 05/11/17 05:38 INR, PTT INR 1.27 (0.82-1.09) H 05/10/17 05:35 Problem List - Problems (1) Anemia Code(s): D64.9 - ANEMIA, UNSPECIFIED Qualifiers: Anemia type: iron deficiency Iron deficiency anemia type: unspecified iron deficiency Qualified Code(s): D50.9 - Iron deficiency anemia, unspecified (2) COPD (chronic obstructive pulmonary disease) Code(s): J44.9 - CHRONIC OBSTRUCTIVE PULMONARY DISEASE, UNSPECIFIED (3) NSTEMI (non-ST elevated myocardial infarction) Code(s): I21.4 - NON-ST ELEVATION (NSTEMI) MYOCARDIAL INFARCTION (4) Hypertension Code(s): I10 - ESSENTIAL (PRIMARY) HYPERTENSION (5) Paroxysmal atrial fibrillation Code(s): I48.0 - PAROXYSMAL ATRIAL FIBRILLATION Assessment/Plan Assessment/Plan Severe symptomatic anemia (?) GI Bleed Lactic acidosis resolved Severe/Advanced COPD Chf Pleural effusions ASHD Anxiety Xarelto O2 as needed Rate control BD TX High risk for anesthesia Xanax MONITOR MARIBELLYMELLISA GUPTA
--- NOTE | 2017-05-11 13:48 | PN ---
Progress Note (short form) - Note Progress Note: Patient seen and examined. She complains of cough. She mentioned that she could not do the second part of the stress test. O/E: General: In No acute distress, resting quietly HEENT: NC AT Abdomen: No organomgealy Skin: +bruises present, well healing. No LE swelling LUE: improvement mild seen, not tense. AAOx3 Vitals: Last Vital Signs Temp Pulse Resp BP Pulse Ox 98.6 F 97 H 20 100/50 97 05/11/17 11:00 05/11/17 11:00 05/11/17 11:00 05/11/17 11:00 05/10/17 21:00 CBC, BMP 05/11/17 05:38 05/11/17 05:38 Current Medications Generic Name Dose Route Start Last Admin Trade Name Freq PRN Reason Stop Dose Admin Acetaminophen 650 mg 05/10/17 13:38 05/10/17 13:48 Tylenol - PO 650 mg Q4H PRN Administration FEVER OR PAIN Albuterol Sulfate 1 amp 05/07/17 11:45 05/11/17 11:40 Ventolin 0.083% Nebulizer Soln - NEB 1 amp QIDR MA[facility]SA Administration Albuterol/Ipratropium 1 amp 05/07/17 11:42 05/09/17 00:18 Duoneb - NEB 1 amp Q6H PRN Administration SHORTNESS OF BREATH Alprazolam 0.25 mg 05/09/17 13:05 05/11/17 08:45 Xanax - PO 0.25 mg Q8H PRN Administration ANXIETY Atorvastatin Calcium 10 mg 05/08/17 22:00 05/10/17 22:06 Lipitor - PO 10 mg HS [facility] Administration Brimonidine Tartrate 1 drop 05/07/17 11:45 05/11/17 11:04 Alphagan 0.2% - OU 1 drop BID [facility] Administration Diltiazem HCl 120 mg 05/08/17 10:00 05/11/17 11:04 Cardizem Cd - PO 120 mg DAILY [facility] Administration Levothyroxine Sodium 25 mcg 05/08/17 07:00 05/11/17 11:05 Synthroid - PO 25 mcg DAILY@0700 [facility] Administration Potassium Phos/Sodium Phos 1 packet 05/09/17 22:00 05/11/17 11:05 Phos-Nak Packet - PO 1 packet BID [facility] Administration Rivaroxaban 20 mg 05/10/17 10:00 05/11/17 11:05 Xarelto - PO 20 mg DAILY [facility] Administration Assessment/Plan: is a 76 year old White female who is admitted with AMS/SOB. hematology consulted for anemia. Anemia Leukocytosis COPD CHF NSTEMI echymmoses on the LUE -Hgb stable -OP discharge with PO iron - Suggest Ferrex twice day ( this form has the least side effect of constipation). -Leuckocytosis from steroids is trending down -on Xarelto -stress test today -echymmoses on the LUE, improvement than yesterday, c/w compression cold Will follow Problem List - Problems (1) Anemia Code(s): D64.9 - ANEMIA, UNSPECIFIED Qualifiers: Anemia type: iron deficiency Iron deficiency anemia type: unspecified iron deficiency Qualified Code(s): D50.9 - Iron deficiency anemia, unspecified (2) COPD (chronic obstructive pulmonary disease) Code(s): J44.9 - CHRONIC OBSTRUCTIVE PULMONARY DISEASE, UNSPECIFIED (3) NSTEMI (non-ST elevated myocardial infarction) Code(s): I21.4 - NON-ST ELEVATION (NSTEMI) MYOCARDIAL INFARCTION (4) Paroxysmal atrial fibrillation Code(s): I48.0 - PAROXYSMAL ATRIAL FIBRILLATION
--- NOTE | 2017-05-11 14:56 | PN ---
Progress Note (short form) - Note Progress Note: CC: nstemi S: no cp, sob, palps, dizziness, no overnight events. was unable to complete stress testb/c had rales on exam. Former smoker Current Medications Acetaminophen (Tylenol -) 650 mg PO Q4H PRN PRN Reason: FEVER OR PAIN Last Admin: 05/10/17 13:48 Dose: 650 mg Albuterol Sulfate (Ventolin 0.083% Nebulizer Soln -) 1 amp NEB QIDR [facility] Last Admin: 05/11/17 11:40 Dose: 1 amp Albuterol/Ipratropium (Duoneb -) 1 amp NEB Q6H PRN PRN Reason: SHORTNESS OF BREATH Last Admin: 05/09/17 00:18 Dose: 1 amp Alprazolam (Xanax -) 0.25 mg PO Q8H PRN PRN Reason: ANXIETY Last Admin: 05/11/17 08:45 Dose: 0.25 mg Atorvastatin Calcium (Lipitor -) 10 mg PO HS [facility] Last Admin: 05/10/17 22:06 Dose: 10 mg B12/Folic Ac/Intrin Fact/Iron/Vit C (Niferex-150 Forte -) 1 each PO DAILY [facility] Brimonidine Tartrate (Alphagan 0.2% -) 1 drop OU BID [facility] Last Admin: 05/11/17 11:04 Dose: 1 drop Diltiazem HCl (Cardizem Cd -) 120 mg PO DAILY [facility] Last Admin: 05/11/17 11:04 Dose: 120 mg Levothyroxine Sodium (Synthroid -) 25 mcg PO DAILY@0700 [facility] Last Admin: 05/11/17 11:05 Dose: 25 mcg Potassium Phos/Sodium Phos (Phos-Nak Packet -) 1 packet PO BID [facility] Last Admin: 05/11/17 11:05 Dose: 1 packet Rivaroxaban (Xarelto -) 20 mg PO DAILY [facility] Last Admin: 05/11/17 11:05 Dose: 20 mg Vital Signs - 24 hr 05/10/17 05/10/17 05/10/17 17:49 18:07 21:00 Temperature 98.3 F Pulse Rate 88 88 Respiratory 18 Rate Blood Pressure 99/58 O2 Sat by Pulse 98 97 Oximetry (%) 05/10/17 05/11/17 05/11/17 22:00 02:00 05:49 Temperature 97.9 F 97.5 F L 97.8 F Pulse Rate 84 79 69 Respiratory 18 20 20 Rate Blood Pressure 115/69 103/62 123/69 O2 Sat by Pulse Oximetry (%) 05/11/17 05/11/17 05/11/17 09:30 11:00 14:20 Temperature 98.6 F 99.3 F Pulse Rate 97 H 94 H Respiratory 20 20 Rate Blood Pressure 122/84 100/50 99/56 O2 Sat by Pulse Oximetry (%) Intake & Output 05/09/17 05/10/17 05/11/17 05/12/17 07:59 07:59 07:59 07:59 Intake Total 700 200 300 Output Total 250 Balance 700 -50 300 Weight 90 lb 9.6 oz 90 lb 89 lb 3.2 oz Constitutional: Yes: Well Nourished, No Distress Eyes: No: Sclera Icterus HENT: No: Nasal Congestion Neck: No: Decreased ROM Respiratory: Yes: Diminished (diffusely), bibasilar crackles. No: Accessory Muscle Use Gastrointestinal: Yes: Normal Bowel Sounds. No: Distention, Hepatomegaly, Palpable Mass, Tenderness Cardiovascular: Yes: Regular Rate and Rhythm JVD: No Heart Sounds: Yes: S1, S2. No: Gallop Murmur: No: Systolic Murmur, Diastolic Murmur Extremities: No: Cold, Cyanosis Edema: No Integumentary: No: Jaundice Neurological: Yes: Alert. No: Seizure Psychiatric: No: Agitated - Other Data Labs, Other Data: CBC, BMP 05/11/17 05:38 05/11/17 05:38 Laboratory Tests 05/11/17 05:38 Magnesium 2.2 tele: SR, pacs, pvc Echo 05/2017: Mildly reduced LV function. (No RWMA described). RV not well seen 1+ lae. mod mr, mod tr Echo 2013: nl lv, nl rv, mild mr, mild tr, rvsp 30-40 Dobut mibi 2014: no ischemia ECG: sinus tach (100 bpm), + PVC; normal axis; ? old ASMI (no change vs 2015 prior); nonsp STs lateral leads new vs prior CXR: new effusions and chf findings--reviewed by me: vs 2015, there are small effusions and vascular redistribution a/p: 76 yo with h/o afib on xarelto, htn, hl,l copd p/w sob and noted to have anemia (hgb 5.7), hospital course complicated by nstemi. anemia: -hgb 5.7 on admit. Hgb 12.1 at office in October 2016. Has known iron deficiency on iron supplementation. -seen by GI, bleeding not suspected, thought to be anemic due to noncompliance with her iron -iron per Heme NSTEMI: -trop peak at 4.5. -ecg nonspecific though changed vs prior -this could all be secondary to acute anemia given severity of reduced Hgb, gil if underlying fixed obstructive CAD -will check echo for LV fxn --> mildy reduced EF, but no comment made on regional wall motion. -trops have been trending down. plan for nuclear stress test tomorrow for risk stratification prior to discharge -will not be a candidate for invasive treatment strategy (i.e. cath/PCI) regardless until etiology of anemia is clarified, and risk-stratified as low risk for bleed on DAPT with premature discontinuation). If no high risk findings on stress than can proceed with GI evaluation as outpatient if needed in a few weeks while on medical management. -defer ASA, plavix, heparin -cont dilt -cont statin - 05/11 unable to complete stress portion of stress test b/c of congestion noted on pulm exam. Will give gentle diuresis as mentioned below and retry stress sunday with dobutamine. xarelto now resumed, would benefit from anti-platelet if GI amenable. acute diastolic CHF: -no prior hx, echo WNL 2013. -CXR c/w chf, BNP 4K -pt with severe respiratory compromise on eval which responded to transfusion and IV lasix 40mg. - 05/08-05/10: BP low after IV lasix. respiratory status improved, will hold off on further diuresis for now. echo with some degree of increase in mr/tr, unclear if acute or chronic. con't to monitor volume status. - 05/11: Could not complete stress part of stress test today b/c noted to have congestion on exam. CXR with persistent pleural effusions. BP running low, will give trial of very low dose of lasix and monitor bp carefully. afib: -episode here when admitted 2014 with a.e. copd/resp failure -CHADS VASC 4--started on xarelto 20 at that time -initially held AC given severe anemia. Per GI notes anemia may be due to non -compliance with iron supplementation. Per GI ok to resume xarelto. Resumed ac 05/10. monitor hgb. COPD: -h/o acute resp failure 2015 here -? a.e.--per pulm htn: -controlled, running low - monitor
[2017-05-11] MEDS: ACETAMINOPHEN 325 MG TABLET (FP) PO PRN (14:57)
--- NOTE | 2017-05-11 14:58 | PN ---
Progress Note, Physician Chief Complaint: Mrs Carmona remains anxious, is now concerned because her stress test was cancelled. No cp or n/v. Does not complain of shortness of breath but appears short of breath, but suspect this may be secondary to anxiety. - Current Medication List Current Medications: Active Medications Acetaminophen (Tylenol -) 650 mg PO Q4H PRN PRN Reason: FEVER OR PAIN Last Admin: 05/10/17 13:48 Dose: 650 mg Albuterol Sulfate (Ventolin 0.083% Nebulizer Soln -) 1 amp NEB QIDR [facility] Last Admin: 05/11/17 11:40 Dose: 1 amp Albuterol/Ipratropium (Duoneb -) 1 amp NEB Q6H PRN PRN Reason: SHORTNESS OF BREATH Last Admin: 05/09/17 00:18 Dose: 1 amp Alprazolam (Xanax -) 0.25 mg PO Q8H PRN PRN Reason: ANXIETY Last Admin: 05/11/17 08:45 Dose: 0.25 mg Atorvastatin Calcium (Lipitor -) 10 mg PO HS [facility] Last Admin: 05/10/17 22:06 Dose: 10 mg B12/Folic Ac/Intrin Fact/Iron/Vit C (Niferex-150 Forte -) 1 each PO DAILY [facility] Brimonidine Tartrate (Alphagan 0.2% -) 1 drop OU BID [facility] Last Admin: 05/11/17 11:04 Dose: 1 drop Diltiazem HCl (Cardizem Cd -) 120 mg PO DAILY [facility] Last Admin: 05/11/17 11:04 Dose: 120 mg Levothyroxine Sodium (Synthroid -) 25 mcg PO DAILY@0700 [facility] Last Admin: 05/11/17 11:05 Dose: 25 mcg Potassium Phos/Sodium Phos (Phos-Nak Packet -) 1 packet PO BID [facility] Last Admin: 05/11/17 11:05 Dose: 1 packet Rivaroxaban (Xarelto -) 20 mg PO DAILY [facility] Last Admin: 05/11/17 11:05 Dose: 20 mg - Objective Vital Signs: Vital Signs Temperature 99.3 F 05/11/17 14:20 Pulse Rate 94 H 05/11/17 14:20 Respiratory Rate 20 05/11/17 14:20 Blood Pressure 99/56 05/11/17 14:20 O2 Sat by Pulse Oximetry (%) 97 05/10/17 21:00 Constitutional: Yes: No Distress, Calm, Thin Cardiovascular: Yes: Regular Rate and Rhythm. No: Gallop, Murmur, Rub Respiratory: Yes: Regular, CTA Bilaterally. No: Rales, Rhonchi, Wheezes Gastrointestinal: Yes: Normal Bowel Sounds, Soft. No: Distention, Tenderness Extremities: Yes: WNL Edema: No Labs: CBC, BMP 05/11/17 05:38 05/11/17 05:38 INR, PTT INR 1.27 (0.82-1.09) H 05/10/17 05:35 - ....Imaging Chest X-ray: Report Reviewed, Image Reviewed Problem List - Problems (1) Anemia Code(s): D64.9 - ANEMIA, UNSPECIFIED Qualifiers: Anemia type: iron deficiency Iron deficiency anemia type: unspecified iron deficiency Qualified Code(s): D50.9 - Iron deficiency anemia, unspecified (2) NSTEMI (non-ST elevated myocardial infarction) Code(s): I21.4 - NON-ST ELEVATION (NSTEMI) MYOCARDIAL INFARCTION (3) COPD (chronic obstructive pulmonary disease) Code(s): J44.9 - CHRONIC OBSTRUCTIVE PULMONARY DISEASE, UNSPECIFIED (4) Hyperlipidemia Code(s): E78.5 - HYPERLIPIDEMIA, UNSPECIFIED (5) Hypertension Code(s): I10 - ESSENTIAL (PRIMARY) HYPERTENSION (6) Paroxysmal atrial fibrillation Code(s): I48.0 - PAROXYSMAL ATRIAL FIBRILLATION Assessment/Plan (1) Anemia Assessment/Plan: -patient s/p 3 units pRBCs -s/p 3 days of IV iron -H/H continues to improve -agree with starting po iron per hematology recommendations Code(s): D64.9 - ANEMIA, UNSPECIFIED (2) NSTEMI (non-ST elevated myocardial infarction) Assessment/Plan: -cardiology following and note reviewed -finished first part of stress test but began coughing per patient -? bronchospasm during stress test -plan to finish second part on sunday Code(s): I21.4 - NON-ST ELEVATION (NSTEMI) MYOCARDIAL INFARCTION (3) COPD (chronic obstructive pulmonary disease) Assessment/Plan: -not in exacerbation -continue bronchodilators Code(s): J44.9 - CHRONIC OBSTRUCTIVE PULMONARY DISEASE, UNSPECIFIED (4) Hyperlipidemia Assessment/Plan: -continue statin Code(s): E78.5 - HYPERLIPIDEMIA, UNSPECIFIED (5) Hypertension Assessment/Plan: -low normal -monitor Code(s): I10 - ESSENTIAL (PRIMARY) HYPERTENSION (6) Paroxysmal atrial fibrillation Assessment/Plan: -sounds in sinus rhythm -restarted xarelto today Code(s): I48.0 - PAROXYSMAL ATRIAL FIBRILLATION (7) Depression/anxiety -patient is significantly anxious here in the hospital -says xanax is helping and not currently anxious but appears so still -will continue xanax low dose currently -may benefit from medication like buspar -however, and patient say she is not anxious at home so do not want to start something long acting as anxiety could be situational -monitor over the weekend, PCP to see over the weekend and evaluate need for jail anxiolytic
[2017-05-11] MEDS: FE POLYSAC/CYANOCOBAL/FA COMBO CAPSULE PO SCH (16:16)
[2017-05-11] MEDS ORDERED: FUROSEMIDE 40 MG/4 ML INJECTABLE VIAL IVPUSH ONE (17:57)
[2017-05-11] MEDS: ATORVASTATIN CA 10 MG TABLET (FP) PO SCH (23:22)
[2017-05-12] MEDS: ALBUTEROL SO4 0.083% IH SOL 2.5 MG/3 ML VIAL.NEB. NEB SCH ×3 (06:35→17:14)
[2017-05-12] MEDS: LEVOTHYROXINE NA 25 MCG TABLET (FP) PO SCH (06:44)
[2017-05-12 07:21] LABS: BASOPHIL 0.4 % (0-2.0); EOSINOPHIL 0.9 % (0-4.5); MCH 22.1 pg (25.7-33.7); MCHC 29.1 g/dl (32.0-36.0); MEAN CELL VOLUME 75.9 fl (80-96); MEAN PLT VOLUME 8.1 fl (7.5-11.1); PLATELET COUNT 236 K/MM3 (134-434); RDW 29.5 % (11.6-15.6); WHITE BLOOD COUNT 9.9 K/mm3 (4.0-10.0)
[2017-05-12 07:50] LABS: ANION GAP 7 (8-16); CALCIUM 9.5 mg/dL (8.5-10.1); CO2 33 mmol/L (21-32); CREATININE 0.4 mg/dL (0.55-1.02); GLUCOSE,RANDOM 87 mg/dL (74-106); MAGNESIUM 2.3 mg/dL (1.8-2.4); PHOSPHOROUS 3.5 mg/dL (2.5-4.9)
[2017-05-12 08:07] LABS: IMMUNOGLOBULIN A QN 380 mg/dL (64-422)
--- NOTE | 2017-05-12 08:08 | PN ---
Progress Note (short form) - Note Progress Note: PATIENT BETTER TODAY . DENIES CP / NO SOB. LESS ANXIOUS . DR WILLINGHAM'S NOTE REVIEWED. UNABLE TO COMPLETE STRESS TEST DUE TO COUGH / BRONCHOSPASM. Selected Entries 05/12/17 06:00 Temperature 97.8 F Pulse Rate 78 Respiratory 16 Rate Blood Pressure 112/65 Laboratory Tests 10/08/14 05/12/17 05/12/17 05:35 06:20 06:20 WBC 9.9 RBC 4.29 Hgb 9.5 L Hct 32.6 Plt Count 236 Neutrophils % 95.2 H* Sodium 140 Potassium 4.2 Chloride 100 Carbon Dioxide 33 H Anion Gap 7 L BUN 8 Creatinine 0.4 L D Random Glucose 87 Calcium 9.5 Phosphorus 3.5 Magnesium 2.3 P/E <> AWAKE / ALERT / NO DISTRESS HEENT <> NECK SUPPLE COR <> S 1 S 2 IRREG CHEST <> RHONCHI / CREPS AT BASES. ABD <> SOFT / NONTENDER EXT <> NO EDEMA. IMP : NSTEMI ANEMIA / GERARD / NOT FELT TO BE A GI BLEED COPD HTN PAF MIKE HYPOTHYROIDISM' PLAN <> CONT PO IRON <> CBC NOW AT BASELINE / REPEAT CBC IN AM. CONTINUE CARDIAC MEDS PER CARDIOLOGY XANAX PRN FOR ANXIETY 2 ND PART OF STRESS TEST SUNDAY <>THEN TO DECIDE IF CATH NEEDED.
[2017-05-12] MEDS ORDERED: PT OWN MED DRAWER 7, Y5N ONE ×2 (09:22→22:02)
[2017-05-12] MEDS: BRIMONIDINE TARTRATE 0.2% OPHTHALMIC 5 ML BOTTLE OU SCH ×2 (09:32→22:49)
[2017-05-12] MEDS: FE POLYSAC/CYANOCOBAL/FA COMBO CAPSULE PO SCH (09:33)
[2017-05-12] MEDS: RIVAROXABAN 20 MG TABLET PO SCH (09:33)
[2017-05-12] MEDS: NAPH,MB-DB/K PH,MBDB POWDER PACKET PO SCH ×2 (09:33→22:51)
--- NOTE | 2017-05-12 10:18 | PN ---
Progress Note, Physician History of Present Illness: No events overnight No chest pain or dyspnea UOP 250 overnight recorded Tele: Atrial bigem - Current Medication List Current Medications: Active Medications Acetaminophen (Tylenol -) 650 mg PO Q4H PRN PRN Reason: FEVER OR PAIN Last Admin: 05/11/17 14:57 Dose: 650 mg Albuterol Sulfate (Ventolin 0.083% Nebulizer Soln -) 1 amp NEB QIDR [facility] Last Admin: 05/12/17 06:35 Dose: 1 amp Albuterol/Ipratropium (Duoneb -) 1 amp NEB Q6H PRN PRN Reason: SHORTNESS OF BREATH Last Admin: 05/09/17 00:18 Dose: 1 amp Alprazolam (Xanax -) 0.25 mg PO Q8H PRN PRN Reason: ANXIETY Last Admin: 05/11/17 23:22 Dose: 0.25 mg Atorvastatin Calcium (Lipitor -) 10 mg PO HS [facility] Last Admin: 05/11/17 23:22 Dose: 10 mg B12/Folic Ac/Intrin Fact/Iron/Vit C (Niferex-150 Forte -) 1 each PO DAILY [facility] Last Admin: 05/12/17 09:33 Dose: 1 each Brimonidine Tartrate (Alphagan 0.2% -) 1 drop OU BID [facility] Last Admin: 05/12/17 09:32 Dose: 1 drop Diltiazem HCl (Cardizem Cd -) 120 mg PO DAILY [facility] Last Admin: 05/12/17 09:32 Dose: 120 mg Levothyroxine Sodium (Synthroid -) 25 mcg PO DAILY@0700 [facility] Last Admin: 05/12/17 06:44 Dose: 25 mcg Potassium Phos/Sodium Phos (Phos-Nak Packet -) 1 packet PO BID [facility] Last Admin: 05/12/17 09:33 Dose: 1 packet Rivaroxaban (Xarelto -) 20 mg PO DAILY [facility] Last Admin: 05/12/17 09:33 Dose: 20 mg - Objective Vital Signs: Vital Signs Temperature 97.8 F 05/12/17 06:00 Pulse Rate 78 05/12/17 06:00 Respiratory Rate 16 05/12/17 06:00 Blood Pressure 112/65 05/12/17 06:00 O2 Sat by Pulse Oximetry (%) 97 05/10/17 21:00 Constitutional: Yes: No Distress Eyes: Yes: Conjunctiva Clear HENT: Yes: WNL Neck: Yes: WNL Cardiovascular: Yes: WNL, Regular Rate and Rhythm, Pulse Irregular Respiratory: Yes: CTA Bilaterally Gastrointestinal: Yes: Normal Bowel Sounds Edema: No Labs: CBC, BMP 05/12/17 06:20 05/12/17 06:20 INR, PTT INR 1.27 (0.82-1.09) H 05/10/17 05:35 Assessment/Plan a/p: 76 yo with h/o afib on xarelto, htn, hl,l copd p/w sob and noted to have anemia (hgb 5.7), hospital course complicated by nstemi. anemia: -hgb 5.7 on admit. Hgb 12.1 at office in October 2016. Has known iron deficiency on iron supplementation. -seen by GI, bleeding not suspected, thought to be anemic due to noncompliance with her iron -iron per Heme -05/12: Hgb 9.5, stable NSTEMI: -trop peak at 4.5. -ecg nonspecific though changed vs prior -this could all be secondary to acute anemia given severity of reduced Hgb, gil if underlying fixed obstructive CAD -will check echo for LV fxn --> mildy reduced EF, but no comment made on regional wall motion. -trops have been trending down. plan for nuclear stress test tomorrow for risk stratification prior to discharge -will not be a candidate for invasive treatment strategy (i.e. cath/PCI) regardless until etiology of anemia is clarified, and risk-stratified as low risk for bleed on DAPT with premature discontinuation). If no high risk findings on stress than can proceed with GI evaluation as outpatient if needed in a few weeks while on medical management. -defer ASA, plavix, heparin -cont dilt -cont statin - 05/11 unable to complete stress portion of stress test b/c of congestion noted on pulm exam. Will give gentle diuresis as mentioned below and retry stress sunday with dobutamine. xarelto now resumed, would benefit from anti-platelet if GI amenable. 05/12: Stable from ACS perspective, for completion of stress test Sunday. Tolerating NOAC, would like to add aspirin if GI OK with this. acute diastolic CHF: -no prior hx, echo WNL 2013. -CXR c/w chf, BNP 4K -pt with severe respiratory compromise on eval which responded to transfusion and IV lasix 40mg. - 05/08-05/10: BP low after IV lasix. respiratory status improved, will hold off on further diuresis for now. echo with some degree of increase in mr/tr, unclear if acute or chronic. con't to monitor volume status. - 05/11: Could not complete stress part of stress test today b/c noted to have congestion on exam. CXR with persistent pleural effusions. BP running low, will give trial of very low dose of lasix and monitor bp carefully. 05/12: Lungs are clear today. Hold on Lasix, BP stable afib: -episode here when admitted 2014 with a.e. copd/resp failure -CHADS VASC 4--started on xarelto 20 at that time -initially held AC given severe anemia. Per GI notes anemia may be due to non -compliance with iron supplementation. Per GI ok to resume xarelto. Resumed ac 05/10. monitor hgb. 05/12: Hgb stable on NOAC COPD: -h/o acute resp failure 2015 here -? a.e.--per pulm htn: -controlled, running low - monitor
--- NOTE | 2017-05-12 10:19 | PN ---
Progress Note, Physician History of Present Illness: pulmonary alert,feeling better,-sob,less anxious - Current Medication List Current Medications: Active Medications Acetaminophen (Tylenol -) 650 mg PO Q4H PRN PRN Reason: FEVER OR PAIN Last Admin: 05/11/17 14:57 Dose: 650 mg Albuterol Sulfate (Ventolin 0.083% Nebulizer Soln -) 1 amp NEB QIDR [facility] Last Admin: 05/12/17 06:35 Dose: 1 amp Albuterol/Ipratropium (Duoneb -) 1 amp NEB Q6H PRN PRN Reason: SHORTNESS OF BREATH Last Admin: 05/09/17 00:18 Dose: 1 amp Alprazolam (Xanax -) 0.25 mg PO Q8H PRN PRN Reason: ANXIETY Last Admin: 05/11/17 23:22 Dose: 0.25 mg Atorvastatin Calcium (Lipitor -) 10 mg PO HS [facility] Last Admin: 05/11/17 23:22 Dose: 10 mg B12/Folic Ac/Intrin Fact/Iron/Vit C (Niferex-150 Forte -) 1 each PO DAILY [facility] Last Admin: 05/12/17 09:33 Dose: 1 each Brimonidine Tartrate (Alphagan 0.2% -) 1 drop OU BID [facility] Last Admin: 05/12/17 09:32 Dose: 1 drop Diltiazem HCl (Cardizem Cd -) 120 mg PO DAILY [facility] Last Admin: 05/12/17 09:32 Dose: 120 mg Levothyroxine Sodium (Synthroid -) 25 mcg PO DAILY@0700 [facility] Last Admin: 05/12/17 06:44 Dose: 25 mcg Potassium Phos/Sodium Phos (Phos-Nak Packet -) 1 packet PO BID [facility] Last Admin: 05/12/17 09:33 Dose: 1 packet Rivaroxaban (Xarelto -) 20 mg PO DAILY [facility] Last Admin: 05/12/17 09:33 Dose: 20 mg - Objective Vital Signs: Vital Signs Temperature 97.8 F 05/12/17 06:00 Pulse Rate 78 05/12/17 06:00 Respiratory Rate 16 05/12/17 06:00 Blood Pressure 112/65 05/12/17 06:00 O2 Sat by Pulse Oximetry (%) 97 05/10/17 21:00 Constitutional: Yes: Calm, Thin Eyes: Yes: WNL HENT: Yes: WNL Neck: Yes: WNL Cardiovascular: Yes: Regular Rate and Rhythm, S1, S2 Respiratory: Yes: Diminished Gastrointestinal: Yes: Normal Bowel Sounds, Soft Extremities: Yes: WNL Edema: No Labs: CBC, BMP 05/12/17 06:20 05/12/17 06:20 INR, PTT INR 1.27 (0.82-1.09) H 05/10/17 05:35 Problem List - Problems (1) Anemia Code(s): D64.9 - ANEMIA, UNSPECIFIED Qualifiers: Anemia type: iron deficiency Iron deficiency anemia type: unspecified iron deficiency Qualified Code(s): D50.9 - Iron deficiency anemia, unspecified (2) COPD (chronic obstructive pulmonary disease) Code(s): J44.9 - CHRONIC OBSTRUCTIVE PULMONARY DISEASE, UNSPECIFIED (3) NSTEMI (non-ST elevated myocardial infarction) Code(s): I21.4 - NON-ST ELEVATION (NSTEMI) MYOCARDIAL INFARCTION (4) Hypertension Code(s): I10 - ESSENTIAL (PRIMARY) HYPERTENSION (5) Paroxysmal atrial fibrillation Code(s): I48.0 - PAROXYSMAL ATRIAL FIBRILLATION Assessment/Plan Assessment/Plan Severe symptomatic anemia improved (?) GI Bleed Lactic acidosis resolved Severe/Advanced COPD Chf Pleural effusions ASHD Anxiety Xarelto O2 as needed Rate control BD TX High risk for anesthesia Xanax MONITOR CBC,LYTES stress test DR GUPTA
--- NOTE | 2017-05-12 12:03 | PN ---
Progress Note (short form) - Note Progress Note: Progress Note (short form) - Note Progress Note: Patient seen and examined. She is doing well O/E: General: In No acute distress, sitting out with a nebuliser HEENT: NC AT Abdomen: No organomgealy Skin: +bruises present, well healing. No LE swelling LUE: improvement mild seen, not tense. AAOx3 Vitals: Vital Signs Period Temp Pulse Resp BP Sys/[facility] Pulse Ox Last 24 Hr 97.5 F-99.3 F 68-94 16-20 92-120/45-68 CBC, BMP 05/12/17 06:20 05/12/17 06:20 Assessment/Plan: is a 76 year old White female who is admitted with AMS/SOB. hematology consulted for anemia. Anemia Leukocytosis COPD CHF NSTEMI echymmoses on the LUE -Hgb stable -OP discharge with PO iron - Suggest Ferrex twice day ( this form has the least side effect of constipation). -Leuckocytosis from steroids is trending down -on Xarelto -Will follow Problem List - Problems (1) Anemia Code(s): D64.9 - ANEMIA, UNSPECIFIED Qualifiers: Anemia type: iron deficiency Iron deficiency anemia type: unspecified iron deficiency Qualified Code(s): D50.9 - Iron deficiency anemia, unspecified (2) COPD (chronic obstructive pulmonary disease) Code(s): J44.9 - CHRONIC OBSTRUCTIVE PULMONARY DISEASE, UNSPECIFIED (3) NSTEMI (non-ST elevated myocardial infarction) Code(s): I21.4 - NON-ST ELEVATION (NSTEMI) MYOCARDIAL INFARCTION (4) Paroxysmal atrial fibrillation Code(s): I48.0 - PAROXYSMAL ATRIAL FIBRILLATION
[2017-05-12] MEDS: ACETAMINOPHEN 325 MG TABLET (FP) PO PRN ×2 (14:44→22:54)
[2017-05-12] MEDS: ATORVASTATIN CA 10 MG TABLET (FP) PO SCH (22:50)
[2017-05-12] MEDS: ALPRAZolam 0.25 MG TABLET PO PRN (22:50)
[2017-05-13] MEDS: ALBUTEROL SO4 0.083% IH SOL 2.5 MG/3 ML VIAL.NEB. NEB SCH ×5 (00:15→23:00)
[2017-05-13] MEDS: LEVOTHYROXINE NA 25 MCG TABLET (FP) PO SCH (07:20)
--- NOTE | 2017-05-13 08:37 | PN ---
Progress Note (short form) - Note Progress Note: PATIENT RESTING IN BED. SAYS SHE FEELS " GREAT " . NO COMPLAINTS OF CP / NO SOB / NO ABDOMINAL PAIN. PATIENT CLAIMS DYSURIA. Selected Entries 05/13/17 06:00 Temperature 98.5 F Pulse Rate 75 Respiratory 20 Rate Blood Pressure 111/62 Laboratory Tests P/E <> AWAKE / ALERT . HEENT <> NECK SUPPLE COR <> S 1 S 2 IRREG CHEST <>FEW SCATTERED RHONCHI AT BASES / DECREASED BS AT BASES. ABD <> SOFT / NONTENDER / NO HSM. EXT <>NO CALF TENDERNESS / NO EDEMA. IMP : NSTEMI ANEMIA / GERARD / NOT FELT TO BE A GI BLEED COPD HTN PAF MIKE HYPOTHYROIDISM ? UTI. PLAN <> CARDIOLOGY / HEMATOLOGY CONSULT APPRECIATED CONTINUE SAME MEDS. PART 2 STRESS TEST IN THE AM. CBC STABLE. CONTINUE IRON SUPPLEMENTS. URINE C &S ORDERED FOR DYSURIA.
--- NOTE | 2017-05-13 10:08 | PN ---
Progress Note, Physician History of Present Illness: pulmonary alert,oob-chair,feeling better,-sob,-cp - Current Medication List Current Medications: Active Medications Acetaminophen (Tylenol -) 650 mg PO Q4H PRN PRN Reason: FEVER OR PAIN Last Admin: 05/12/17 22:54 Dose: 650 mg Albuterol Sulfate (Ventolin 0.083% Nebulizer Soln -) 1 amp NEB QIDR [facility] Last Admin: 05/13/17 05:19 Dose: 1 amp Albuterol/Ipratropium (Duoneb -) 1 amp NEB Q6H PRN PRN Reason: SHORTNESS OF BREATH Last Admin: 05/09/17 00:18 Dose: 1 amp Alprazolam (Xanax -) 0.25 mg PO Q8H PRN PRN Reason: ANXIETY Last Admin: 05/12/17 22:50 Dose: 0.25 mg Atorvastatin Calcium (Lipitor -) 10 mg PO HS [facility] Last Admin: 05/12/17 22:50 Dose: 10 mg B12/Folic Ac/Intrin Fact/Iron/Vit C (Niferex-150 Forte -) 1 each PO DAILY [facility] Last Admin: 05/12/17 09:33 Dose: 1 each Brimonidine Tartrate (Alphagan 0.2% -) 1 drop OU BID [facility] Last Admin: 05/12/17 22:49 Dose: 1 drop Diltiazem HCl (Cardizem Cd -) 120 mg PO DAILY [facility] Last Admin: 05/12/17 09:32 Dose: 120 mg Levothyroxine Sodium (Synthroid -) 25 mcg PO DAILY@0700 [facility] Last Admin: 05/13/17 07:20 Dose: 25 mcg Potassium Phos/Sodium Phos (Phos-Nak Packet -) 1 packet PO BID [facility] Last Admin: 05/12/17 22:51 Dose: 1 packet Rivaroxaban (Xarelto -) 20 mg PO DAILY [facility] Last Admin: 05/12/17 09:33 Dose: 20 mg - Objective Vital Signs: Vital Signs Temperature 98.5 F 05/13/17 06:00 Pulse Rate 75 05/13/17 06:00 Respiratory Rate 20 05/13/17 06:00 Blood Pressure 111/62 05/13/17 06:00 O2 Sat by Pulse Oximetry (%) 96 05/12/17 22:00 Constitutional: Yes: Calm, Thin Eyes: Yes: WNL HENT: Yes: WNL Neck: Yes: WNL Cardiovascular: Yes: Regular Rate and Rhythm, S1, S2 Respiratory: Yes: Diminished Gastrointestinal: Yes: Normal Bowel Sounds, Soft Extremities: Yes: WNL Edema: No Labs: CBC, BMP Problem List - Problems (1) Anemia Code(s): D64.9 - ANEMIA, UNSPECIFIED Qualifiers: Anemia type: iron deficiency Iron deficiency anemia type: unspecified iron deficiency Qualified Code(s): D50.9 - Iron deficiency anemia, unspecified (2) COPD (chronic obstructive pulmonary disease) Code(s): J44.9 - CHRONIC OBSTRUCTIVE PULMONARY DISEASE, UNSPECIFIED (3) NSTEMI (non-ST elevated myocardial infarction) Code(s): I21.4 - NON-ST ELEVATION (NSTEMI) MYOCARDIAL INFARCTION (4) Hypertension Code(s): I10 - ESSENTIAL (PRIMARY) HYPERTENSION (5) Paroxysmal atrial fibrillation Code(s): I48.0 - PAROXYSMAL ATRIAL FIBRILLATION Assessment/Plan Assessment/Plan Severe symptomatic anemia improved (?) GI Bleed Lactic acidosis resolved Severe/Advanced COPD Chf Pleural effusions ASHD Anxiety Xarelto O2 as needed Rate control BD TX High risk for anesthesia Xanax MONITOR CBC,LYTES stress test in am DR GUPTA
[2017-05-13] MEDS ORDERED: FUROSEMIDE 40 MG/4 ML INJECTABLE VIAL IVPUSH ONE (10:22)
--- NOTE | 2017-05-13 10:24 | PN ---
Progress Note, Physician History of Present Illness: No complaints No events overnight Tele: NSR at 80s, ventricular triplet with bigemeny - Current Medication List Current Medications: Active Medications Acetaminophen (Tylenol -) 650 mg PO Q4H PRN PRN Reason: FEVER OR PAIN Last Admin: 05/12/17 22:54 Dose: 650 mg Albuterol Sulfate (Ventolin 0.083% Nebulizer Soln -) 1 amp NEB QIDR [facility] Last Admin: 05/13/17 05:19 Dose: 1 amp Albuterol/Ipratropium (Duoneb -) 1 amp NEB Q6H PRN PRN Reason: SHORTNESS OF BREATH Last Admin: 05/09/17 00:18 Dose: 1 amp Alprazolam (Xanax -) 0.25 mg PO Q8H PRN PRN Reason: ANXIETY Last Admin: 05/12/17 22:50 Dose: 0.25 mg Atorvastatin Calcium (Lipitor -) 10 mg PO HS [facility] Last Admin: 05/12/17 22:50 Dose: 10 mg B12/Folic Ac/Intrin Fact/Iron/Vit C (Niferex-150 Forte -) 1 each PO DAILY [facility] Last Admin: 05/12/17 09:33 Dose: 1 each Brimonidine Tartrate (Alphagan 0.2% -) 1 drop OU BID [facility] Last Admin: 05/12/17 22:49 Dose: 1 drop Diltiazem HCl (Cardizem Cd -) 120 mg PO DAILY [facility] Last Admin: 05/12/17 09:32 Dose: 120 mg Furosemide (Lasix Injection -) 20 mg IVPUSH ONCE ONE Stop: 05/13/17 10:23 Levothyroxine Sodium (Synthroid -) 25 mcg PO DAILY@0700 [facility] Last Admin: 05/13/17 07:20 Dose: 25 mcg Potassium Phos/Sodium Phos (Phos-Nak Packet -) 1 packet PO BID [facility] Last Admin: 05/12/17 22:51 Dose: 1 packet Rivaroxaban (Xarelto -) 20 mg PO DAILY [facility] Last Admin: 05/12/17 09:33 Dose: 20 mg - Objective Vital Signs: Vital Signs Temperature 98.5 F 05/13/17 06:00 Pulse Rate 75 05/13/17 06:00 Respiratory Rate 20 05/13/17 06:00 Blood Pressure 111/62 05/13/17 06:00 O2 Sat by Pulse Oximetry (%) 96 05/12/17 22:00 Constitutional: Yes: Well Nourished, No Distress Eyes: Yes: WNL HENT: Yes: WNL Neck: Yes: WNL Cardiovascular: Yes: Regular Rate and Rhythm Respiratory: Yes: Rales (Rales in right base) Musculoskeletal: Yes: WNL Extremities: Yes: WNL Edema: No Labs: CBC, BMP 05/12/17 06:20 05/12/17 06:20 INR, PTT INR 1.27 (0.82-1.09) H 05/10/17 05:35 Assessment/Plan a/p: 76 yo with h/o afib on xarelto, htn, hl,l copd p/w sob and noted to have anemia (hgb 5.7), hospital course complicated by nstemi. anemia: -hgb 5.7 on admit. Hgb 12.1 at office in October 2016. Has known iron deficiency on iron supplementation. -seen by GI, bleeding not suspected, thought to be anemic due to noncompliance with her iron -iron per Heme -05/12: Hgb 9.5, stable NSTEMI: -trop peak at 4.5. -ecg nonspecific though changed vs prior -this could all be secondary to acute anemia given severity of reduced Hgb, gil if underlying fixed obstructive CAD -will check echo for LV fxn --> mildy reduced EF, but no comment made on regional wall motion. -trops have been trending down. plan for nuclear stress test tomorrow for risk stratification prior to discharge -will not be a candidate for invasive treatment strategy (i.e. cath/PCI) regardless until etiology of anemia is clarified, and risk-stratified as low risk for bleed on DAPT with premature discontinuation). If no high risk findings on stress than can proceed with GI evaluation as outpatient if needed in a few weeks while on medical management. -defer ASA, plavix, heparin -cont dilt -cont statin - 05/11 unable to complete stress portion of stress test b/c of congestion noted on pulm exam. Will give gentle diuresis as mentioned below and retry stress sunday with dobutamine. xarelto now resumed, would benefit from anti-platelet if GI amenable. 05/12: Stable from ACS perspective, for completion of stress test Sunday. Tolerating NOAC, would like to add aspirin if GI OK with this. 05/13: Stable. For stress test Sunday. NPO after midnight acute diastolic CHF: -no prior hx, echo WNL 2013. -CXR c/w chf, BNP 4K -pt with severe respiratory compromise on eval which responded to transfusion and IV lasix 40mg. - 05/08-05/10: BP low after IV lasix. respiratory status improved, will hold off on further diuresis for now. echo with some degree of increase in mr/tr, unclear if acute or chronic. con't to monitor volume status. - 05/11: Could not complete stress part of stress test today b/c noted to have congestion on exam. CXR with persistent pleural effusions. BP running low, will give trial of very low dose of lasix and monitor bp carefully. 05/12: Lungs are clear today. Hold on Lasix, BP stable 05/13: (+) crackes on exam today. Will give Lasix 20mg this AM afib: -episode here when admitted 2014 with a.e. copd/resp failure -CHADS VASC 4--started on xarelto 20 at that time -initially held AC given severe anemia. Per GI notes anemia may be due to non -compliance with iron supplementation. Per GI ok to resume xarelto. Resumed ac 05/10. monitor hgb. 05/12: Hgb stable on NOAC 05/13: Continue NOAC, no bleeding, CBC pending this AM
[2017-05-13] MEDS ORDERED: FUROSEMIDE 40 MG/4 ML INJECTABLE VIAL ONE (10:29)
[2017-05-13] MEDS: BRIMONIDINE TARTRATE 0.2% OPHTHALMIC 5 ML BOTTLE OU SCH ×2 (10:34→22:07)
[2017-05-13] MEDS: FE POLYSAC/CYANOCOBAL/FA COMBO CAPSULE PO SCH (10:34)
[2017-05-13] MEDS: NAPH,MB-DB/K PH,MBDB POWDER PACKET PO SCH ×2 (10:35→22:07)
[2017-05-13] MEDS: RIVAROXABAN 20 MG TABLET PO SCH (10:35)
[2017-05-13] MEDS: ACETAMINOPHEN 325 MG TABLET (FP) PO PRN ×2 (10:42→19:04)
[2017-05-13] MEDS ORDERED: FUROSEMIDE 20 MG TABLET (FP) PO ONE (11:00)
--- NOTE | 2017-05-13 11:36 | PN ---
Progress Note (short form) - Note Progress Note: Progress Note (short form) - Note Progress Note: Patient seen and examined. She is doing well. She is going for her Part II of her stress test in AM O/E: General: In No acute distress, sitting out with a nebuliser HEENT: NC AT Abdomen: No organomgealy Skin: +bruises present, well healing. No LE swelling LUE: improvement mild seen, not tense. AAOx3 Vitals: Vital Signs Period Temp Pulse Resp BP Sys/[facility] Pulse Ox Last 24 Hr 97.6 F-99.1 F 61-88 16-20 81-119/49-68 96-96 CBC, BMP 05/12/17 06:20 05/12/17 06:20 Active Medications Generic Name Dose Route Start Last Admin Trade Name Freq PRN Reason Stop Dose Admin Acetaminophen 650 mg 05/10/17 13:38 05/13/17 10:42 Tylenol - PO 650 mg Q4H PRN Administration FEVER OR PAIN Albuterol Sulfate 1 amp 05/07/17 11:45 05/13/17 05:19 Ventolin 0.083% Nebulizer Soln - NEB 1 amp QIDR [facility] Administration Albuterol/Ipratropium 1 amp 05/07/17 11:42 05/09/17 00:18 Duoneb - NEB 1 amp Q6H PRN Administration SHORTNESS OF BREATH Alprazolam 0.25 mg 05/09/17 13:05 05/12/17 22:50 Xanax - PO 0.25 mg Q8H PRN Administration ANXIETY Atorvastatin Calcium 10 mg 05/08/17 22:00 05/12/17 22:50 Lipitor - PO 10 mg HS [facility] Administration B12/Folic Ac/Intrin Fact/Iron/Vit C 1 each 05/11/17 14:00 05/13/17 10:34 Niferex-150 Forte - PO 1 each DAILY [facility] Administration Brimonidine Tartrate 1 drop 05/07/17 11:45 05/13/17 10:34 Alphagan 0.2% - OU 1 drop BID [facility] Administration Diltiazem HCl 120 mg 05/08/17 10:00 05/13/17 10:34 Cardizem Cd - PO 120 mg DAILY [facility] Administration Levothyroxine Sodium 25 mcg 05/08/17 07:00 05/13/17 07:20 Synthroid - PO 25 mcg DAILY@0700 [facility] Administration Potassium Phos/Sodium Phos 1 packet 05/09/17 22:00 05/13/17 10:35 Phos-Nak Packet - PO 1 packet BID [facility] Administration Rivaroxaban 20 mg 05/10/17 10:00 05/13/17 10:35 Xarelto - PO 20 mg DAILY [facility] Administration Assessment/Plan: is a 76 year old White female who is admitted with AMS/SOB. hematology consulted for anemia. Anemia Leukocytosis COPD CHF NSTEMI echymmoses on the LUE -Hgb stable -on niferex- can be discharged on this -on Xarelto -Will follow Problem List - Problems (1) Anemia Code(s): D64.9 - ANEMIA, UNSPECIFIED Qualifiers: Anemia type: iron deficiency Iron deficiency anemia type: unspecified iron deficiency Qualified Code(s): D50.9 - Iron deficiency anemia, unspecified (2) COPD (chronic obstructive pulmonary disease) Code(s): J44.9 - CHRONIC OBSTRUCTIVE PULMONARY DISEASE, UNSPECIFIED (3) NSTEMI (non-ST elevated myocardial infarction) Code(s): I21.4 - NON-ST ELEVATION (NSTEMI) MYOCARDIAL INFARCTION (4) Paroxysmal atrial fibrillation Code(s): I48.0 - PAROXYSMAL ATRIAL FIBRILLATION
[2017-05-13] MEDS ORDERED: PT OWN MED DRAWER 7, Y5N ONE (21:59)
[2017-05-13] MEDS: ATORVASTATIN CA 10 MG TABLET (FP) PO SCH (22:07)
[2017-05-13] MEDS: ALPRAZolam 0.25 MG TABLET PO PRN (22:09)
[2017-05-14] MEDS: LEVOTHYROXINE NA 25 MCG TABLET (FP) PO SCH (06:19)
[2017-05-14] MEDS: ALBUTEROL SO4 0.083% IH SOL 2.5 MG/3 ML VIAL.NEB. NEB SCH ×4 (06:40→23:03)
--- NOTE | 2017-05-14 08:36 | PN ---
Progress Note, Physician Chief Complaint: CO History of Present Illness: denies sob. coughing a little, much better than on sunday no cp/heaviness/pressure no palpit no leg swelling ex cigs - Current Medication List Current Medications: Active Medications Acetaminophen (Tylenol -) 650 mg PO Q4H PRN PRN Reason: FEVER OR PAIN Last Admin: 05/13/17 19:04 Dose: 650 mg Albuterol Sulfate (Ventolin 0.083% Nebulizer Soln -) 1 amp NEB QIDR [facility] Last Admin: 05/14/17 06:40 Dose: 1 amp Albuterol/Ipratropium (Duoneb -) 1 amp NEB Q6H PRN PRN Reason: SHORTNESS OF BREATH Last Admin: 05/09/17 00:18 Dose: 1 amp Alprazolam (Xanax -) 0.25 mg PO Q8H PRN PRN Reason: ANXIETY Last Admin: 05/13/17 22:09 Dose: 0.25 mg Atorvastatin Calcium (Lipitor -) 10 mg PO HS [facility] Last Admin: 05/13/17 22:07 Dose: 10 mg B12/Folic Ac/Intrin Fact/Iron/Vit C (Niferex-150 Forte -) 1 each PO DAILY [facility] Last Admin: 05/13/17 10:34 Dose: 1 each Brimonidine Tartrate (Alphagan 0.2% -) 1 drop OU BID [facility] Last Admin: 05/13/17 22:07 Dose: 1 drop Diltiazem HCl (Cardizem Cd -) 120 mg PO DAILY [facility] Last Admin: 05/13/17 10:34 Dose: 120 mg Levothyroxine Sodium (Synthroid -) 25 mcg PO DAILY@0700 [facility] Last Admin: 05/14/17 06:19 Dose: Not Given Potassium Phos/Sodium Phos (Phos-Nak Packet -) 1 packet PO BID [facility] Last Admin: 05/13/17 22:07 Dose: 1 packet Rivaroxaban (Xarelto -) 20 mg PO DAILY [facility] Last Admin: 05/13/17 10:35 Dose: 20 mg - Objective Vital Signs: Vital Signs Temperature 98.3 F 05/14/17 06:00 Pulse Rate 69 05/14/17 06:00 Respiratory Rate 18 05/14/17 06:00 Blood Pressure 108/59 05/14/17 06:00 O2 Sat by Pulse Oximetry (%) 98 05/13/17 21:00 Constitutional: Yes: No Distress, Calm Eyes: No: Sclera Icterus HENT: No: Nasal Congestion Cardiovascular: Yes: Regular Rate and Rhythm (decr intensity), S1, S2, Other ( PMI non diplaced). No: Gallop, Murmur Respiratory: Yes: CTA Bilaterally (decr diffusely). No: Accessory Muscle Use, Rales, Wheezes Gastrointestinal: Yes: Normal Bowel Sounds, Soft. No: Tenderness Musculoskeletal: Yes: Other (No kyphosis) Extremities: No: Cold Edema: No Integumentary: No: Jaundice Neurological: Yes: Alert, Oriented (x3) Psychiatric: No: Agitated Labs: CBC, BMP 05/12/17 06:20 05/12/17 06:20 INR, PTT INR 1.27 (0.82-1.09) H 05/10/17 05:35 - ....Imaging EKG: Other (tele: NSR) Assessment/Plan Echo 05/2017: Mildly reduced LV function. (No RWMA described). RV not well seen 1+ lae. mod mr, mod tr Echo 2013: nl lv, nl rv, mild mr, mild tr, rvsp 30-40 Dobut mibi 2014: no ischemia ECG: sinus tach (100 bpm), + PVC; normal axis; ? old ASMI (no change vs 2015 prior); nonsp STs lateral leads new vs prior CXR: new effusions and chf findings--reviewed by gitig: vs 2014, there are small effusions and vascular redistribution a/p: 76 yo with h/o afib on xarelto, htn, hl,l copd p/w sob and noted to have anemia (hgb 5.7), hospital course complicated by nstemi. anemia: -hgb 5.7 on admit. Hgb 12.1 at office in October 2016. Has known iron deficiency on iron supplementation. -seen by GI, bleeding not suspected, thought to be anemic due to noncompliance with her iron -iron per Heme -counts continuing to trend up s/p PRBCs, with iron repletion -pt denies every melena/rectal bleeding -cont monitoring counts back on AC NSTEMI: -trop peaked at 4.5. -ecg nonspecific though changed vs prior -this could all be secondary to acute anemia given severity of reduced Hgb, gil if underlying fixed obstructive CAD -echo mildy reduced EF, but no regional wall motion noted -for nuclear stress test today for risk stratification prior to discharge (05/11 unable to complete stress portion of stress test b/c of congestion noted on pulm exam--diuresed after that) -will not be a candidate for invasive treatment strategy (i.e. cath/PCI) regardless until etiology of anemia is clarified, and risk-stratified as low risk for bleed on DAPT with premature discontinuation). If no high risk findings on stress than can proceed with GI evaluation as outpatient if needed ( to allow 4 wks to pass from time of CO, when pt will be considered lower risk for GI scopes). -defer ASA, plavix, heparin -cont dilt -cont statin -holding BB given severity of bronchospasm/wheezing on presentation acute diastolic CHF: -no prior hx, echo WNL 2013. -CXR c/w chf, BNP 4K -pt with severe respiratory compromise on eval which responded to transfusion and IV lasix 40mg. - 05/08-05/10: BP low after IV lasix. respiratory status improved, will hold off on further diuresis for now. echo with some degree of increase in mr/tr, unclear if acute or chronic. con't to monitor volume status. - 05/11: Could not complete stress part of stress test today b/c noted to have congestion on exam. CXR with persistent pleural effusions. BP running low, will give trial of very low dose of lasix and monitor bp carefully. -05/14: no sob, doubt cough is chf sx--observe (off lasix) afib: -episode here when admitted 2014 with a.e. copd/resp failure -CHADS VASC 4--started on xarelto 20 at that time -initially held AC given severe anemia. Per GI notes anemia may be due to non- compliance with iron supplementation. Per GI ok to resume xarelto. Resumed ac 05/10. monitor hgb. -if recurrent GIB on xarelto, would consider change to coumadin (for pts who are relatively stable in therapeutic range, coumadin seems to cause less GIB) vs would have to stop AC +/- consider LA appendage closure (Watchman) if her copd can tolerate sedation/anesthesia for the procedure COPD: -h/o acute resp failure 2015 here -? a.e.--per pulm htn: -controlled, running low - monitor
[2017-05-14] MEDS ORDERED: PT OWN MED DRAWER 7, Y5N ONE ×3 (09:31→23:15)
[2017-05-14] MEDS ORDERED: DEXTROSE 5% IVPB ONE (10:00)
[2017-05-14] MEDS ORDERED: DIPYRIDAMOLE STRESS TEST IVPB ONE (10:00)
[2017-05-14] MEDS ORDERED: WATER IVPB ONE (10:00)
[2017-05-14] MEDS: ALPRAZolam 0.25 MG TABLET PO PRN ×2 (10:11→23:20)
--- NOTE | 2017-05-14 11:54 | PN ---
Progress Note, Physician History of Present Illness: pulmonary alert,oob-chair,comfortable,-sob,-cough - Current Medication List Current Medications: Active Medications Acetaminophen (Tylenol -) 650 mg PO Q4H PRN PRN Reason: FEVER OR PAIN Last Admin: 05/13/17 19:04 Dose: 650 mg Albuterol Sulfate (Ventolin 0.083% Nebulizer Soln -) 1 amp NEB QIDR [facility] Last Admin: 05/14/17 06:40 Dose: 1 amp Albuterol/Ipratropium (Duoneb -) 1 amp NEB Q6H PRN PRN Reason: SHORTNESS OF BREATH Last Admin: 05/09/17 00:18 Dose: 1 amp Alprazolam (Xanax -) 0.25 mg PO Q8H PRN PRN Reason: ANXIETY Last Admin: 05/14/17 10:11 Dose: 0.25 mg Atorvastatin Calcium (Lipitor -) 10 mg PO HS [facility] Last Admin: 05/13/17 22:07 Dose: 10 mg B12/Folic Ac/Intrin Fact/Iron/Vit C (Niferex-150 Forte -) 1 each PO DAILY [facility] Last Admin: 05/13/17 10:34 Dose: 1 each Brimonidine Tartrate (Alphagan 0.2% -) 1 drop OU BID [facility] Last Admin: 05/13/17 22:07 Dose: 1 drop Diltiazem HCl (Cardizem Cd -) 120 mg PO DAILY [facility] Last Admin: 05/13/17 10:34 Dose: 120 mg Levothyroxine Sodium (Synthroid -) 25 mcg PO DAILY@0700 [facility] Last Admin: 05/14/17 06:19 Dose: Not Given Potassium Phos/Sodium Phos (Phos-Nak Packet -) 1 packet PO BID [facility] Last Admin: 05/13/17 22:07 Dose: 1 packet Rivaroxaban (Xarelto -) 20 mg PO DAILY [facility] Last Admin: 05/13/17 10:35 Dose: 20 mg - Objective Vital Signs: Vital Signs Temperature 98.3 F 05/14/17 09:00 Pulse Rate 78 05/14/17 09:00 Respiratory Rate 18 05/14/17 09:00 Blood Pressure 113/45 05/14/17 09:00 O2 Sat by Pulse Oximetry (%) 99 05/14/17 09:00 Constitutional: Yes: Calm, Thin Eyes: Yes: WNL HENT: Yes: WNL Neck: Yes: WNL Cardiovascular: Yes: Pulse Irregular, S1, S2 Respiratory: Yes: Rales (few bibasilar rales) Gastrointestinal: Yes: Normal Bowel Sounds, Soft Extremities: Yes: WNL Edema: No Labs: CBC, BMP Problem List - Problems (1) Anemia Code(s): D64.9 - ANEMIA, UNSPECIFIED Qualifiers: Anemia type: iron deficiency Iron deficiency anemia type: unspecified iron deficiency Qualified Code(s): D50.9 - Iron deficiency anemia, unspecified (2) COPD (chronic obstructive pulmonary disease) Code(s): J44.9 - CHRONIC OBSTRUCTIVE PULMONARY DISEASE, UNSPECIFIED (3) NSTEMI (non-ST elevated myocardial infarction) Code(s): I21.4 - NON-ST ELEVATION (NSTEMI) MYOCARDIAL INFARCTION (4) Hypertension Code(s): I10 - ESSENTIAL (PRIMARY) HYPERTENSION (5) Paroxysmal atrial fibrillation Code(s): I48.0 - PAROXYSMAL ATRIAL FIBRILLATION Assessment/Plan Assessment/Plan Severe symptomatic anemia improved (?) GI Bleed Lactic acidosis resolved Severe/Advanced COPD Chf Pleural effusions ASHD Anxiety Xarelto O2 as needed Rate control BD TX Xanax MONITOR CBC,LYTES DR GUPTA
[2017-05-14] MEDS: ACETAMINOPHEN 325 MG TABLET (FP) PO PRN ×2 (12:49→18:49)
[2017-05-14] MEDS: BRIMONIDINE TARTRATE 0.2% OPHTHALMIC 5 ML BOTTLE OU SCH ×2 (12:56→23:21)
[2017-05-14] MEDS: NAPH,MB-DB/K PH,MBDB POWDER PACKET PO SCH ×2 (12:57→23:21)
[2017-05-14] MEDS: FE POLYSAC/CYANOCOBAL/FA COMBO CAPSULE PO SCH (12:57)
[2017-05-14] MEDS: RIVAROXABAN 20 MG TABLET PO SCH (12:57)
[2017-05-14] MEDS: ATORVASTATIN CA 10 MG TABLET (FP) PO SCH (23:20)
[2017-05-15] MEDS: LEVOTHYROXINE NA 25 MCG TABLET (FP) PO SCH ×2 (05:52→06:03)
[2017-05-15] MEDS: ACETAMINOPHEN 325 MG TABLET (FP) PO PRN (05:52)
[2017-05-15] MEDS: ALBUTEROL SO4 0.083% IH SOL 2.5 MG/3 ML VIAL.NEB. NEB SCH ×2 (06:47→13:00)
[2017-05-15] MEDS ORDERED: PT OWN MED DRAWER 7, Y5N ONE ×4 (08:43→12:35)
[2017-05-15] MEDS: FE POLYSAC/CYANOCOBAL/FA COMBO CAPSULE PO SCH (10:18)
[2017-05-15] MEDS: BRIMONIDINE TARTRATE 0.2% OPHTHALMIC 5 ML BOTTLE OU SCH (10:18)
[2017-05-15] MEDS: NAPH,MB-DB/K PH,MBDB POWDER PACKET PO SCH (10:18)
[2017-05-15] MEDS: RIVAROXABAN 20 MG TABLET PO SCH (10:18)
--- NOTE | 2017-05-15 11:16 | PN ---
Progress Note, Physician Chief Complaint: Mrs Carmona is s/p stress test and says feels well. No cp, sob, n/v. Eager to go home. - Current Medication List Current Medications: Active Medications Acetaminophen (Tylenol -) 650 mg PO Q4H PRN PRN Reason: FEVER OR PAIN Last Admin: 05/15/17 05:52 Dose: 650 mg Albuterol Sulfate (Ventolin 0.083% Nebulizer Soln -) 1 amp NEB QIDR [facility] Last Admin: 05/15/17 06:47 Dose: 1 amp Albuterol/Ipratropium (Duoneb -) 1 amp NEB Q6H PRN PRN Reason: SHORTNESS OF BREATH Last Admin: 05/09/17 00:18 Dose: 1 amp Alprazolam (Xanax -) 0.25 mg PO Q8H PRN PRN Reason: ANXIETY Last Admin: 05/14/17 23:20 Dose: 0.25 mg Atorvastatin Calcium (Lipitor -) 10 mg PO HS [facility] Last Admin: 05/14/17 23:20 Dose: 10 mg B12/Folic Ac/Intrin Fact/Iron/Vit C (Niferex-150 Forte -) 1 each PO DAILY [facility] Last Admin: 05/15/17 10:18 Dose: 1 each Brimonidine Tartrate (Alphagan 0.2% -) 1 drop OU BID [facility] Last Admin: 05/15/17 10:18 Dose: 1 drop Diltiazem HCl (Cardizem Cd -) 120 mg PO DAILY [facility] Last Admin: 05/15/17 10:17 Dose: 120 mg Levothyroxine Sodium (Synthroid -) 25 mcg PO DAILY@0700 [facility] Last Admin: 05/15/17 06:03 Dose: Not Given Potassium Phos/Sodium Phos (Phos-Nak Packet -) 1 packet PO BID [facility] Last Admin: 05/15/17 10:18 Dose: 1 packet Rivaroxaban (Xarelto -) 20 mg PO DAILY [facility] Last Admin: 05/15/17 10:18 Dose: 20 mg - Objective Vital Signs: Vital Signs Temperature 98.9 F 05/15/17 05:56 Pulse Rate 73 05/15/17 05:56 Respiratory Rate 20 05/15/17 05:56 Blood Pressure 104/61 05/15/17 05:56 O2 Sat by Pulse Oximetry (%) 98 05/14/17 22:00 Constitutional: Yes: Well Nourished, No Distress, Calm Cardiovascular: Yes: Regular Rate and Rhythm. No: Gallop, Murmur, Rub Respiratory: Yes: Regular, CTA Bilaterally. No: Rales, Wheezes, Other Gastrointestinal: Yes: Normal Bowel Sounds, Soft. No: Distention, Tenderness Extremities: Yes: WNL Edema: No Labs: CBC, BMP 05/12/17 06:20 05/12/17 06:20 INR, PTT INR 1.27 (0.82-1.09) H 05/10/17 05:35 Problem List - Problems (1) Anemia Code(s): D64.9 - ANEMIA, UNSPECIFIED Qualifiers: Anemia type: iron deficiency Iron deficiency anemia type: unspecified iron deficiency Qualified Code(s): D50.9 - Iron deficiency anemia, unspecified (2) NSTEMI (non-ST elevated myocardial infarction) Code(s): I21.4 - NON-ST ELEVATION (NSTEMI) MYOCARDIAL INFARCTION (3) COPD (chronic obstructive pulmonary disease) Code(s): J44.9 - CHRONIC OBSTRUCTIVE PULMONARY DISEASE, UNSPECIFIED (4) Hyperlipidemia Code(s): E78.5 - HYPERLIPIDEMIA, UNSPECIFIED (5) Hypertension Code(s): I10 - ESSENTIAL (PRIMARY) HYPERTENSION (6) Paroxysmal atrial fibrillation Code(s): I48.0 - PAROXYSMAL ATRIAL FIBRILLATION Assessment/Plan (1) Anemia Assessment/Plan: -patient s/p 3 units pRBCs -s/p 3 days of IV iron -H/H continues to improve -continue oral iron Code(s): D64.9 - ANEMIA, UNSPECIFIED (2) NSTEMI (non-ST elevated myocardial infarction) Assessment/Plan: -s/p stress test -follow up results Code(s): I21.4 - NON-ST ELEVATION (NSTEMI) MYOCARDIAL INFARCTION (3) COPD (chronic obstructive pulmonary disease) Assessment/Plan: -not in exacerbation -continue bronchodilators Code(s): J44.9 - CHRONIC OBSTRUCTIVE PULMONARY DISEASE, UNSPECIFIED (4) Hyperlipidemia Assessment/Plan: -continue statin Code(s): E78.5 - HYPERLIPIDEMIA, UNSPECIFIED (5) Hypertension Assessment/Plan: -low normal -monitor Code(s): I10 - ESSENTIAL (PRIMARY) HYPERTENSION (6) Paroxysmal atrial fibrillation Assessment/Plan: -sounds in sinus rhythm -continue xarelto Code(s): I48.0 - PAROXYSMAL ATRIAL FIBRILLATION (7) Depression/anxiety -much improved -monitor
[2017-05-15 11:25] VITALS: BP 116/52; PULSE 80; TEMP 98.4
--- NOTE | 2017-05-15 11:36 | PN ---
Progress Note (short form) - Note Progress Note: Chief Complaint: MD History of Present Illness: denies sob. coughing a little, much better than on sunday no cp/heaviness/pressure no palpit no leg swelling ex cigs Current Medications Acetaminophen (Tylenol -) 650 mg PO Q4H PRN PRN Reason: FEVER OR PAIN Last Admin: 05/15/17 05:52 Dose: 650 mg Albuterol Sulfate (Ventolin 0.083% Nebulizer Soln -) 1 amp NEB QIDR [facility] Last Admin: 05/15/17 06:47 Dose: 1 amp Albuterol/Ipratropium (Duoneb -) 1 amp NEB Q6H PRN PRN Reason: SHORTNESS OF BREATH Last Admin: 05/09/17 00:18 Dose: 1 amp Alprazolam (Xanax -) 0.25 mg PO Q8H PRN PRN Reason: ANXIETY Last Admin: 05/14/17 23:20 Dose: 0.25 mg Atorvastatin Calcium (Lipitor -) 10 mg PO HS [facility] Last Admin: 05/14/17 23:20 Dose: 10 mg B12/Folic Ac/Intrin Fact/Iron/Vit C (Niferex-150 Forte -) 1 each PO DAILY [facility] Last Admin: 05/15/17 10:18 Dose: 1 each Brimonidine Tartrate (Alphagan 0.2% -) 1 drop OU BID [facility] Last Admin: 05/15/17 10:18 Dose: 1 drop Diltiazem HCl (Cardizem Cd -) 120 mg PO DAILY [facility] Last Admin: 05/15/17 10:17 Dose: 120 mg Levothyroxine Sodium (Synthroid -) 25 mcg PO DAILY@0700 [facility] Last Admin: 05/15/17 06:03 Dose: Not Given Potassium Phos/Sodium Phos (Phos-Nak Packet -) 1 packet PO BID [facility] Last Admin: 05/15/17 10:18 Dose: 1 packet Rivaroxaban (Xarelto -) 20 mg PO DAILY [facility] Last Admin: 05/15/17 10:18 Dose: 20 mg Vital Signs - 24 hr 05/14/17 05/14/17 05/14/17 13:00 17:11 20:16 Temperature 98.8 F 99.8 F H 98.3 F Pulse Rate 86 79 75 Respiratory 18 20 20 Rate Blood Pressure 95/61 94/61 100/50 O2 Sat by Pulse 98 Oximetry (%) 05/14/17 05/15/17 05/15/17 22:00 02:00 05:56 Temperature 98.3 F 97.9 F 98.9 F Pulse Rate 75 67 73 Respiratory 20 20 20 Rate Blood Pressure 100/50 105/54 104/61 O2 Sat by Pulse 98 Oximetry (%) 05/15/17 05/15/17 09:00 10:00 Temperature 98.4 F Pulse Rate 80 Respiratory 20 Rate Blood Pressure 116/52 O2 Sat by Pulse 96 96 Oximetry (%) Intake & Output 05/13/17 05/14/17 05/15/17 05/16/17 07:59 07:59 07:59 07:59 Intake Total 200 350 245 Balance 200 350 245 Weight 86 lb 8 oz 88 lb 3.2 oz Constitutional: Yes: No Distress, Calm Eyes: No: Sclera Icterus HENT: No: Nasal Congestion Cardiovascular: Yes: Regular Rate and Rhythm (decr intensity), S1, S2, Other ( PMI non diplaced). No: Gallop, Murmur Respiratory: Yes: CTA Bilaterally (decr diffusely). No: Accessory Muscle Use, Rales, Wheezes Gastrointestinal: Yes: Normal Bowel Sounds, Soft. No: Tenderness Musculoskeletal: Yes: Other (No kyphosis) Extremities: No: Cold Edema: No Integumentary: No: Jaundice Neurological: Yes: Alert, Oriented (x3) Psychiatric: No: Agitated Labs: no CBC, BMP - ....Imaging EKG: Other (tele: NSR) Assessment/Plan Echo 05/2017: Mildly reduced LV function. (No RWMA described). RV not well seen 1+ lae. mod mr, mod tr Echo 2013: nl lv, nl rv, mild mr, mild tr, rvsp 30-40 stress 05/2017: large area of lateral infarcts with small amount of chris-infarct ischemia of the distal segment and associated lateral wall AK. EF reduced, 36%. Dobut mibi 2014: no ischemia ECG: sinus tach (100 bpm), + PVC; normal axis; ? old ASMI (no change vs 2015 prior); nonsp STs lateral leads new vs prior CXR: new effusions and chf findings--reviewed by gitcristobal: vs 2015, there are small effusions and vascular redistribution a/p: 76 yo with h/o afib on xarelto, htn, hl,l copd p/w sob and noted to have anemia (hgb 5.7), hospital course complicated by nstemi. anemia: -hgb 5.7 on admit. Hgb 12.1 at office in October 2016. Has known iron deficiency on iron supplementation. -seen by GI, bleeding not suspected, thought to be anemic due to noncompliance with her iron -iron per Heme -counts continuing to trend up s/p PRBCs, with iron repletion -pt denies melena/rectal bleeding -cont monitoring counts back on AC. repeat cbc prior to discharge. NSTEMI: -trop peaked at 4.5. -ecg nonspecific though changed vs prior -this could all be secondary to acute anemia given severity of reduced Hgb, gil if underlying fixed obstructive CAD -echo mildy reduced EF, but no regional wall motion noted -for nuclear stress test today for risk stratification prior to discharge (05/11 unable to complete stress portion of stress test b/c of congestion noted on pulm exam--diuresed after that) -will not be a candidate for invasive treatment strategy (i.e. cath/PCI) regardless until etiology of anemia is clarified, and risk-stratified as low risk for bleed on DAPT with premature discontinuation). If no high risk findings on stress than can proceed with GI evaluation as outpatient if needed ( to allow 4 wks to pass from time of MD, when pt will be considered lower risk for GI scopes). -defer ASA, plavix, heparin -cont dilt -cont statin -holding BB given severity of bronchospasm/wheezing on presentation - 05/15: stress test c/w lateral infarct no signs of LM or pLAD ischemia. However , EF reduced to 36% (more than on echo), can't exclude 3vd. will d/w outpatient geomagnetician regarding possibility of coronary cta to rule out signficant 3vd and further risk stratify in light of patient's co-morbidities/ risks for cardiac catheterization. Would perform prior to GI procedure. acute diastolic CHF: -no prior hx, echo WNL 2013. -CXR c/w chf, BNP 4K -pt with severe respiratory compromise on eval which responded to transfusion and IV lasix 40mg. - 05/08-05/10: BP low after IV lasix. respiratory status improved, will hold off on further diuresis for now. echo with some degree of increase in mr/tr, unclear if acute or chronic. con't to monitor volume status. - 05/11: Could not complete stress part of stress test today b/c noted to have congestion on exam. CXR with persistent pleural effusions. BP running low, will give trial of very low dose of lasix and monitor bp carefully. -05/14: no sob, doubt cough is chf sx--observe (off lasix). repeat bmp today. afib: -episode here when admitted 2014 with a.e. copd/resp failure -CHADS VASC 4--started on xarelto 20 at that time -initially held AC given severe anemia. Per GI notes anemia may be due to non- compliance with iron supplementation. Per GI ok to resume xarelto. Resumed ac 05/10. monitor hgb. -if recurrent GIB on xarelto, would consider change to coumadin (for pts who are relatively stable in therapeutic range, coumadin seems to cause less GIB) vs would have to stop AC +/- consider LA appendage closure (Watchman) if her copd can tolerate sedation/anesthesia for the procedure COPD: -h/o acute resp failure 2015 here -? a.e.--per pulm htn: -controlled, runs low - monitor on dilt stable for d/c ?
[2017-05-15 12:36] LABS: BASOPHIL 1.6 % (0-2.0); EOSINOPHIL 2.6 % (0-4.5); MCH 23.1 pg (25.7-33.7); MCHC 29.8 g/dl (32.0-36.0); MEAN CELL VOLUME 77.3 fl (80-96); NEUTROPHILS 71.6 % (42.8-82.8); PLATELET COUNT 237 K/MM3 (134-434); RDW 30.9 % (11.6-15.6); WHITE BLOOD COUNT 7.6 K/mm3 (4.0-10.0)
--- NOTE | 2017-05-15 13:08 | PN ---
Progress Note (short form) - Note Progress Note: Patient seen and examined. She mentioned that she feels good today and she is tolerating the po iron with no issues. O/E: General: In No acute distress, in chair HEENT: NC AT Abdomen: No organomgealy Skin: +bruises present, well healing. No LE swelling LUE: significant improvement in the echymmoses. AAOx3 Vitals: Last Vital Signs Temp Pulse Resp BP Pulse Ox 98.4 F 80 20 116/52 96 05/15/17 09:00 05/15/17 09:00 05/15/17 09:00 05/15/17 09:00 05/15/17 10:00 Current Medications Generic Name Dose Route Start Last Admin Trade Name Freq PRN Reason Stop Dose Admin Acetaminophen 650 mg 05/10/17 13:38 05/15/17 05:52 Tylenol - PO 650 mg Q4H PRN Administration FEVER OR PAIN Albuterol Sulfate 1 amp 05/07/17 11:45 05/15/17 06:47 Ventolin 0.083% Nebulizer Soln - NEB 1 amp QIDR [facility] Administration Albuterol/Ipratropium 1 amp 05/07/17 11:42 05/09/17 00:18 Duoneb - NEB 1 amp Q6H PRN Administration SHORTNESS OF BREATH Alprazolam 0.25 mg 05/14/17 10:05 05/14/17 23:20 Xanax - PO 0.25 mg Q8H PRN Administration ANXIETY Atorvastatin Calcium 10 mg 05/08/17 22:00 05/14/17 23:20 Lipitor - PO 10 mg HS [facility] Administration B12/Folic Ac/Intrin Fact/Iron/Vit C 1 each 05/11/17 14:00 05/15/17 10:18 Niferex-150 Forte - PO 1 each DAILY [facility] Administration Brimonidine Tartrate 1 drop 05/07/17 11:45 05/15/17 10:18 Alphagan 0.2% - OU 1 drop BID [facility] Administration Diltiazem HCl 120 mg 05/08/17 10:00 05/15/17 10:17 Cardizem Cd - PO 120 mg DAILY [facility] Administration Levothyroxine Sodium 25 mcg 05/08/17 07:00 05/15/17 06:03 Synthroid - PO Not Given DAILY@0700 [facility] Potassium Phos/Sodium Phos 1 packet 05/09/17 22:00 05/15/17 10:18 Phos-Nak Packet - PO 1 packet BID [facility] Administration Rivaroxaban 20 mg 05/10/17 10:00 05/15/17 10:18 Xarelto - PO 20 mg DAILY [facility] Administration Assessment/Plan: is a 76 year old White female who is admitted with AMS/SOB. hematology consulted for anemia. Fe-deficiency anemia COPD CHF NSTEMI Afib Pt is doing well in terms of her Hgb, she did like the ferrex forte , advised her to take two, dietary counselling given. Our office information was given. Pt continues to be on xarelto with no issues. Thank you Problem List - Problems (1) Anemia Code(s): D64.9 - ANEMIA, UNSPECIFIED Qualifiers: Anemia type: iron deficiency Iron deficiency anemia type: unspecified iron deficiency Qualified Code(s): D50.9 - Iron deficiency anemia, unspecified (2) COPD (chronic obstructive pulmonary disease) Code(s): J44.9 - CHRONIC OBSTRUCTIVE PULMONARY DISEASE, UNSPECIFIED (3) NSTEMI (non-ST elevated myocardial infarction) Code(s): I21.4 - NON-ST ELEVATION (NSTEMI) MYOCARDIAL INFARCTION (4) Paroxysmal atrial fibrillation Code(s): I48.0 - PAROXYSMAL ATRIAL FIBRILLATION
[2017-05-15 13:10] LABS: ANION GAP 6 (8-16); CALCIUM 10.5 mg/dL (8.5-10.1); CO2 33 mmol/L (21-32); CREATININE 0.4 mg/dL (0.55-1.02); GLUCOSE,RANDOM 110 mg/dL (74-106)
--- NOTE | 2017-05-15 13:43 | PN ---
Progress Note, Physician History of Present Illness: PULMONARY ALERT,NO DISTRESS,-CP,-SOB - Current Medication List Current Medications: Active Medications Acetaminophen (Tylenol -) 650 mg PO Q4H PRN PRN Reason: FEVER OR PAIN Last Admin: 05/15/17 05:52 Dose: 650 mg Albuterol Sulfate (Ventolin 0.083% Nebulizer Soln -) 1 amp NEB QIDR [facility] Last Admin: 05/15/17 06:47 Dose: 1 amp Albuterol/Ipratropium (Duoneb -) 1 amp NEB Q6H PRN PRN Reason: SHORTNESS OF BREATH Last Admin: 05/09/17 00:18 Dose: 1 amp Alprazolam (Xanax -) 0.25 mg PO Q8H PRN PRN Reason: ANXIETY Last Admin: 05/14/17 23:20 Dose: 0.25 mg Atorvastatin Calcium (Lipitor -) 10 mg PO HS [facility] Last Admin: 05/14/17 23:20 Dose: 10 mg B12/Folic Ac/Intrin Fact/Iron/Vit C (Niferex-150 Forte -) 1 each PO DAILY [facility] Last Admin: 05/15/17 10:18 Dose: 1 each Brimonidine Tartrate (Alphagan 0.2% -) 1 drop OU BID [facility] Last Admin: 05/15/17 10:18 Dose: 1 drop Diltiazem HCl (Cardizem Cd -) 120 mg PO DAILY [facility] Last Admin: 05/15/17 10:17 Dose: 120 mg Levothyroxine Sodium (Synthroid -) 25 mcg PO DAILY@0700 [facility] Last Admin: 05/15/17 06:03 Dose: Not Given Potassium Phos/Sodium Phos (Phos-Nak Packet -) 1 packet PO BID [facility] Last Admin: 05/15/17 10:18 Dose: 1 packet Rivaroxaban (Xarelto -) 20 mg PO DAILY [facility] Last Admin: 05/15/17 10:18 Dose: 20 mg - Objective Vital Signs: Vital Signs Temperature 98.4 F 05/15/17 09:00 Pulse Rate 80 05/15/17 09:00 Respiratory Rate 20 05/15/17 09:00 Blood Pressure 116/52 05/15/17 09:00 O2 Sat by Pulse Oximetry (%) 96 05/15/17 10:00 Constitutional: Yes: Well Nourished, Calm Eyes: Yes: WNL HENT: Yes: WNL Neck: Yes: WNL Cardiovascular: Yes: Pulse Irregular, S1, S2 Respiratory: Yes: Diminished Gastrointestinal: Yes: Normal Bowel Sounds, Soft Extremities: Yes: WNL Edema: No Labs: CBC, BMP 05/15/17 12:10 05/15/17 12:10 INR, PTT INR 1.27 (0.82-1.09) H 05/10/17 05:35 Problem List - Problems (1) Anemia Code(s): D64.9 - ANEMIA, UNSPECIFIED Qualifiers: Anemia type: iron deficiency Iron deficiency anemia type: unspecified iron deficiency Qualified Code(s): D50.9 - Iron deficiency anemia, unspecified (2) COPD (chronic obstructive pulmonary disease) Code(s): J44.9 - CHRONIC OBSTRUCTIVE PULMONARY DISEASE, UNSPECIFIED (3) NSTEMI (non-ST elevated myocardial infarction) Code(s): I21.4 - NON-ST ELEVATION (NSTEMI) MYOCARDIAL INFARCTION (4) Hypertension Code(s): I10 - ESSENTIAL (PRIMARY) HYPERTENSION (5) Paroxysmal atrial fibrillation Code(s): I48.0 - PAROXYSMAL ATRIAL FIBRILLATION Assessment/Plan Assessment/Plan Severe symptomatic anemia improved (?) GI Bleed Lactic acidosis resolved Severe/Advanced COPD stable Chf Pleural effusions ASHD Anxiety Xarelto O2 as needed Rate control BD TX Xanax DR GUPTA
--- NOTE | 2017-05-15 14:22 | DS ---
Physical Examination Vital Signs: Vital Signs Temperature 98.4 F 05/15/17 09:00 Pulse Rate 80 05/15/17 09:00 Respiratory Rate 20 05/15/17 09:00 Blood Pressure 116/52 05/15/17 09:00 O2 Sat by Pulse Oximetry (%) 96 05/15/17 10:00 Constitutional: Yes: No Distress, Anxious, Thin Cardiovascular: Yes: Pulse Irregular. No: Tachycardia, Gallop, Murmur, Rub Respiratory: Yes: Regular, CTA Bilaterally, On Nasal O2. No: Rales, Rhonchi, Wheezes Gastrointestinal: Yes: Normal Bowel Sounds, Soft. No: Distention, Tenderness Extremities: Yes: WNL Edema: No Labs: CBC, BMP 05/15/17 12:10 05/15/17 12:10 Discharge Summary Reason For Visit: NSTEMI COPD/ANEMIA/CHRONIC OBSTRUCTIVE PULMONARY Current Active Problems Anemia (Acute) COPD (chronic obstructive pulmonary disease) (Acute) NSTEMI (non-ST elevated myocardial infarction) (Acute) Hospital Course: (1) Anemia Code(s): D64.9 - ANEMIA, UNSPECIFIED (2) NSTEMI (non-ST elevated myocardial infarction) Code(s): I21.4 - NON-ST ELEVATION (NSTEMI) MYOCARDIAL INFARCTION (3) COPD (chronic obstructive pulmonary disease) Code(s): J44.9 - CHRONIC OBSTRUCTIVE PULMONARY DISEASE, UNSPECIFIED (4) Hyperlipidemia Code(s): E78.5 - HYPERLIPIDEMIA, UNSPECIFIED (5) Hypertension Code(s): I10 - ESSENTIAL (PRIMARY) HYPERTENSION (6) Paroxysmal atrial fibrillation Code(s): I48.0 - PAROXYSMAL ATRIAL FIBRILLATION (7) Depression/anxiety Mrs Carmona is a 76 year old female who came in with worsening anxiety and found to have symptomatic anemia and NSTEMI. She was originally admitted to the ICU and transfused. She tolerated the transfusion well. She was seen by GI and felt this was secondary to iron deficiency and not acute bleeding. Negative occult blood in the stool which confirmed this. Because of this it was felt safe to restart her xarelto, she did not have any bleeding. She was given IV iron x3 days and then switched over to oral iron. She was also found to have an NSTEMI and seen by cardiology. She was medically managed without difficulty. Stress test was performed and read reviewed with patient. She will continue to follow up as an outpatient for further treatment and evaluation for interventions. She is currently stable for discharge home. She wears home oxygen and this will be continued as an outpatient. 38 minutes spent in preparation of this discharge Condition: Good - Instructions Diet, Activity, Other Instructions: Resume previous diet and activity Referrals: Lux Littlejohn MD [Primary Care Provider] - Adi Cross MD [Staff Physician] - Madhu Ibrahim MD [Staff Physician] - Disposition: HOME - Home Medications Comprehensive Discharge Medication List: Ambulatory Orders Bimatoprost [Lumigan] 1 drop IO DAILY 01/19/15 Diltiazem Cd [Cardizem Cd -] 120 mg PO DAILY 01/19/15 Dorzolamide HCl [Trusopt 2% -] 1 drop OU DAILY 01/19/15 Levothyroxine [Synthroid -] 25 mg PO DAILY 01/19/15 Pravastatin Sodium [Pravachol -] 20 mg PO DAILY 01/19/15 Rivaroxaban [Xarelto -] 20 mg PO DAILY 01/19/15 Albuterol 0.083% Nebulizer Michelle [Ventolin 0.083% Nebulizer Soln -] 1 neb NEB Q6H #60 vial 01/21/15 Budesonide/Formeterol Fumarate [SYMBICORT 80/4.5mcg -] 2 inh IH BID #1 inhaler 01/21/15 Meclizine HCl [Antivert -] 25 mg PO TID #90 tablet 01/21/15 Fe Polysac/Cyanocobal/FA [Niferex-150 Forte -] 1 each PO BIDAC #60 cap 05/15/17
[2017-05-15 14:28] LABS: ANISOCYTOSIS 2+; HYPOCHROMIA 1+
== END 2017-05-15 15:47 | disposition home or self-care (01) | DRG 280 ==
LOC: JER 03:33 → JERBED 05:43 → UNDOADMIN 05:51 → JERBED 05:51 → JICU 06:13 → J4S 05-08 13:45
PROVIDERS: ADMIT Internal Medicine; ATTEND Internal Medicine
PROC: 30233N1 Transfusion of Nonautologous Red Blood Cells into Peripheral Vein, Percutaneous Approach (ICD-10-PCS; principal; 2017-05-07)
DX: I21.4 Non-ST elevation (NSTEMI) myocardial infarction (principal); I50.31 Acute diastolic (congestive) heart failure; E87.2 Acidosis; R64 Cachexia; Z68.1 Body mass index [BMI] 19.9 or less, adult; J44.9 Chronic obstructive pulmonary disease, unspecified; E78.00 Pure hypercholesterolemia, unspecified; I25.10 Atherosclerotic heart disease of native coronary artery without angina pectoris; E03.9 Hypothyroidism, unspecified; F41.8 Other specified anxiety disorders; I11.0 Hypertensive heart disease with heart failure; R41.82 Altered mental status, unspecified; D50.8 Other iron deficiency anemias; D72.828 Other elevated white blood cell count; G47.09 Other insomnia; I48.0 Paroxysmal atrial fibrillation; E86.1 Hypovolemia; R58 Hemorrhage, not elsewhere classified; R00.0 Tachycardia, unspecified; Z87.891 Personal history of nicotine dependence; Z99.81 Dependence on supplemental oxygen; Z91.14 Patient's other noncompliance with medication regimen; Z88.0 Allergy status to penicillin
CPT/HCPCS: 36415; 36430; 71010-TC; 71020-TC; 78452-TC; 80048; 80053; 81003; 82272; 82553; 82607; 82728; 82746; 82784; 83010; 83516; 83540; 83550; 83605; 83615; 83735; 83880; 84100; 84155; 84165; 84443; 84466; 84484; 85025; 85027; 85044; 85610; 85730; 86334; 86850; 86900; 86901; 86922; 87040; 87081; 87086; 87186; 93005; 93010; 93017; 93306-TC; 94640; 97116-GP; 97161-GP; 99284-25; A9502; J1756; P9038; P9058

== ENCOUNTER 2017-08-31 10:56 | Inpatient (IN) | payer BC, OTHER ==
--- NOTE | 2017-08-31 11:11 | PDOC ---
History of Present Illness - General Chief Complaint: Injury Stated Complaint: HIP PAIN Time Seen by Provider: 08/31/17 11:09 - History of Present Illness Initial Comments: 08/31/17 12:47 77yo woman with PMH of Afib (on Xarelto), COPD (on home 4L NC), HTN, HLD who presents s/p mechanical fall last night. She was walking down a set of stairs, missed a step, and landed on her R side. Maximum impact was on R hip onto a stone walkway; her upper body fell onto the grass. She denies hitting her head or LOC. Denies dizziness or any pre-syncopal symptoms prior to the fall. She was on the ground for less than a minute when her son-in-law helped her off the ground. She was able to walk immediately after falling using her walker, but with significant pain. She took 3xdoses of Tylenol last night. She reports the pain somewhat improved this morning while at rest, but still very painful when ambulating. Past History - Past Medical History Allergies/Adverse Reactions: Allergies Allergy/AdvReac Type Severity Reaction Status Date / Time diazepam [From Valium] Allergy Verified 08/31/17 13:00 Penicillins Allergy Verified 08/31/17 13:00 codeine AdvReac Mild Verified 08/31/17 13:00 morphine AdvReac Verified 08/31/17 13:00 Home Medications: Ambulatory Orders Diltiazem Cd [Cardizem Cd -] 120 mg PO DAILY 01/19/15 Levothyroxine [Synthroid -] 25 mg PO DAILY 01/19/15 Pravastatin Sodium [Pravachol -] 20 mg PO DAILY 01/19/15 Rivaroxaban [Xarelto -] 20 mg PO DAILY 01/19/15 Albuterol 0.083% Nebulizer Michelle [Ventolin 0.083% Nebulizer Soln -] 1 neb NEB Q6H #60 vial 01/21/15 Ascorbic Acid [Vitamin C] 500 mg PO DAILY 08/31/17 Brimonidine Tartrate [Alphagan P] 10 ml OU DAILY 08/31/17 Iron Ps Cmplx/Vit B12/FA [Ferrex 150 Forte Capsule] 1 each PO BID 08/31/17 Sodium Chloride [Vasyl-128] 15 ml OS QID 08/31/17 Cardiac Disorders: Yes (atrial fibrillation) COPD: Yes HTN: Yes Hypercholesterolemia: Yes - Suicide/Smoking/Psychosocial Hx Smoking History: Former smoker Have you smoked in the past 12 months: No Number of Cigarettes Smoked Daily: 10 If you are a former smoker, when did you quit?: 2 months 'Breaking Loose' booklet given: 10/05/14 Hx Alcohol Use: No Drug/Substance Use Hx: No Substance Use Type: None *Physical Exam - Physical Exam General Appearance: Yes: Nourished, Appropriately Dressed Neck: positive: Supple Respiratory/Chest: positive: Lungs Clear, Normal Breath Sounds Cardiovascular: positive: Regular Rhythm, Regular Rate, S1, S2 Vascular Pulses: Dorsalis-Pedis (R): 2+, Doralis-Pedis (L): 2+ Musculoskeletal: positive: Other (R hip ttp, decreased R leg ROM limited by pain ) ED Treatment Course - LABORATORY CBC & Chemistry Diagram: 08/31/17 11:55 08/31/17 11:55 - RADIOLOGY Radiology Studies Ordered: 08/31/17 14:22 AP pelvis/hip revealed impaction of fraction of R femoral neck. CXR revealed no focal consoldations, pleural effusions, or pneumothorax. + cardiomegaly, sclerotic knob, scoliosis and prominent michele. Some minimal atelectatic changes or scarring at the bases. Medical Decision Making - Medical Decision Making 08/31/17 12:59 Will order CBC, CMP, coags. IV Tylenol for pain. RLE radiograph to assess for fracture 08/31/17 14:26 Pelvic radiograph reveals impaction fraction of R femoral neck. Call placed to Dr. Littlejohn and he is aware of the case. Hospitalist group is admitting for him this week. Admission forwarded to [facility] admitting. Will consult Orthopedist admissions officer, Dr Cross for cardiology, and Dr Beckett for pulmonology. *DC/Admit/Observation/Transfer Diagnosis at time of Disposition: Hip fracture - Discharge Dispostion Admit: Yes - Referrals Referrals: Lux Littlejohn MD [Primary Care Provider] - - Patient Instructions - Post Discharge Activity
[2017-08-31 11:14] VITALS: BMI 19.3
[2017-08-31] MEDS ORDERED: ACETAMINOPHEN 1000 MG/100 ML VIAL (NON FORMULARY) IVPB ONE (11:28)
--- NOTE | 2017-08-31 11:57 | PDOC ---
Attending Attestation - Resident Resident Name: Karen Bustillo - ED Attending Attestation I have performed the following: I have examined & evaluated the patient, The case was reviewed & discussed with the resident, I agree w/resident's findings & plan - HPI HPI: 08/31/17 11:57 The patient is a 77 year old female, with a significant past medical history hypertension, hyperlipidemia, chronic obstructive pulmonary disease, and atrial fibrillation, who presents to the emergency department s/p mechanical fall earlier this morning. Pt reports she was walking down the stairs, when she missed a step and landed on her right hip. Pt reports associated right hip pain , but denies any head trauma, LOC, changes in vision, neck or back pain. - Physicial Exam PE: 08/31/17 12:26 Vitals: Triage Vital signs reviewed General Appearance: no acute distress, well nourished well developed, Head: Atraumatic, normocephalic Eyes: Pupils equal reactive round, extraocular movement intact Ears: TM's normal bilaterally; Nose: Nares patent bilaterally;no nasal congestion Throat: Posterior oropharynx without erythema, mucous membranes moist, Neck: Supple;No Nuchal rigidity Chest Wall: Nontender Cardiac: Regular rate and rhythm, no murmurs, no rubs, no gallops, Lungs: Clear to auscultation bilateral, good air movement bilaterally, Abdomen: Soft, nondistended, normal bowel sounds, nontender to palpation Rectal: Exam deferred Extremities: Right hip tenderness. Limited range of motion at the RLE. Full range of motion at the remainder of the extremities, no cyanosis, clubbing, or edema Skin: Warm and dry, no rashes or lesions, no petechiae Neuro: AOX3; Cranial Nerves 2-12 grossly intact, Strength intact to all extremities, Sensation intact to all extremities Psych: normal mood, normal affect - Medical Decision Making 08/31/17 11:58 Pt is a 77 year old female, with pmhx of HTN, HLD, COPD, and AFib(on Xarelto) who presents to the emergency department complaining of right hip pain s/p mechanical fall earlier this morning. Plan: -X-Ray -Labs Documentation prepared by Chhaya Gonsalez, acting as hospitalist medical director for Jason Love MD. <Chhaya Gonsalez - Last Filed: 08/31/17 12:26> - Medical Decision Making 08/31/17 14:16 Right femoral neck fracture pain meds ordered patient to be admitted to hospitalist with orthopedic consultation for further management. <Jason Love - Last Filed: 08/31/17 14:16>
[2017-08-31] MEDS ORDERED: ACETAMINOPHEN INJECTION 100 ML IVPB ONE (12:13)
[2017-08-31 12:25] LABS: EOSINOPHIL 1.2 % (0-4.5); MCH 24.5 pg (25.7-33.7); MCHC 30.1 g/dl (32.0-36.0); MEAN CELL VOLUME 81.3 fl (80-96); MEAN PLT VOLUME 8.9 fl (7.5-11.1); NEUTROPHILS 82.1 % (42.8-82.8); PLATELET COUNT 339 K/MM3 (134-434); RDW 16.9 % (11.6-15.6); WHITE BLOOD COUNT 12.1 K/mm3 (4.0-10.0)
[2017-08-31 12:40] LABS: ANION GAP 8 (8-16); CALCIUM 10.2 mg/dL (8.5-10.1); CO2 27 mmol/L (21-32); CREATININE 0.5 mg/dL (0.55-1.02); GLUCOSE,RANDOM 86 mg/dL (74-106)
[2017-08-31] MEDS ORDERED: ACETAMINOPHEN 325 MG TABLET (FP) ONE (13:14)
[2017-08-31 13:20] LABS: INR 1.34 (0.82-1.09); PROTHROMBIN TIME (PATIENT) 15.1 SEC (9.98-11.88)
--- NOTE | 2017-08-31 16:29 | HP ---
CHIEF COMPLAINT: s/p fall with pain with ambulation PCP: Dr. Edwards HISTORY OF PRESENT ILLNESS: Patient is a 77 year old female with a significant past medical history of Afib (on Xarelto), COPD (home oxygen dependent @ 4 liters), hypertension and. HLD. She presented to the ER today after a mechanical fall earlier this morning. Patient and state that patient was going down the stairs and "mistepped ", and landed on her right side. She denies that she hit her head but her body landed on stone walkway, her upper body landed on the grass. She denies any head trauma or loss of consciousness. Denies dizziness or any pre-syncopal symptoms prior to the fall. After the fall, she reports that her family helped her off the ground and she was able to walk a few stops but had significant pain on her right hip. She took Tylenol with good relief. She decided to come to the ED when her pain continues to persist and it is still too painful to ambulate. On exam, she is resting in her bed in no acute distress. She has a history of COPD but states that her breathing is at her baseline. Pelvic radiograph reveals impaction fraction of R femoral neck. At this time, patient states that she is comfortable and not having any pain. She is refusing an narcotics and wants to try Tylenol only for pain. States narcotics make her feel confused and too out of it. Orthopedist implementation engineer contacted by ED provider. Dr. Cross (cardio) and Dr Beckett ( pulm) also consulted by ED provider. ER course was notable for: (1) K. 5.6, will repeat and give kayexalate if K is still elevated (2) Pelvic radiograph reveals impaction fraction of R femoral neck. (3) hmg/hct 8.6/28.5 Recent Travel: PAST MEDICAL HISTORY: Afib (on Xarelto), COPD (home oxygen dependent @ 4 liters ), hypertension and. HLD. PAST SURGICAL HISTORY: Social History: Smoking: former smoker, quit a few months ago Alcohol: denies Drugs: denies Family History: Allergies diazepam [From Valium] Allergy (Verified 08/31/17 13:00) Penicillins Allergy (Verified 08/31/17 13:00) codeine Adverse Reaction (Mild, Verified 08/31/17 13:00) "spaced out" morphine Adverse Reaction (Verified 08/31/17 13:00) HOME MEDICATIONS: Home Medications Medication Instructions Recorded Diltiazem Cd [Cardizem Cd -] 120 mg PO DAILY 01/19/15 Levothyroxine [Synthroid -] 25 mg PO DAILY 01/19/15 Pravastatin Sodium [Pravachol -] 20 mg PO DAILY 01/19/15 Rivaroxaban [Xarelto -] 20 mg PO DAILY 01/19/15 Albuterol 0.083% Nebulizer Michelle 1 neb NEB Q6H #60 vial 01/21/15 [Ventolin 0.083% Nebulizer Soln -] Ascorbic Acid [Vitamin C] 500 mg PO DAILY 08/31/17 Brimonidine Tartrate [Alphagan P] 10 ml OU DAILY 08/31/17 Iron Ps Cmplx/Vit B12/FA [Ferrex 1 each PO BID 08/31/17 150 Forte Capsule] Sodium Chloride [Vasyl-128] 15 ml OS QID 08/31/17 REVIEW OF SYSTEMS CONSTITUTIONAL: Absent: fever, chills, diaphoresis, generalized weakness, malaise, loss of appetite, weight change HEENT: Absent: rhinorrhea, nasal congestion, throat pain, throat swelling, difficulty swallowing, mouth swelling, ear pain, eye pain, visual changes CARDIOVASCULAR: Absent: chest pain, syncope, palpitations, lightheadedness, peripheral edema RESPIRATORY: Absent: cough, orthopnea, wheezing, stridor, hemoptysis GASTROINTESTINAL: Absent: abdominal pain, abdominal distension, nausea, vomiting, diarrhea, constipation, melena, hematochezia GENITOURINARY: Absent: dysuria, frequency, urgency, hesitancy, hematuria, flank pain, genital pain MUSCULOSKELETAL: Absent: myalgia, arthralgia, joint swelling, back pain, neck pain SKIN: Absent: rash, itching, pallor HEMATOLOGIC/IMMUNOLOGIC: Absent: easy bleeding, easy bruising, lymphadenopathy, frequent infections ENDOCRINE: Absent: unexplained weight gain, unexplained weight loss, heat intolerance, cold intolerance NEUROLOGIC: Absent: headache, focal weakness or paresthesias, dizziness, unsteady gait, seizure, mental status changes, bladder or bowel incontinence PSYCHIATRIC: Absent: anxiety, depression, suicidal or homicidal ideation, hallucinations. PHYSICAL EXAMINATION Vital Signs - 24 hr 08/31/17 08/31/17 11:12 15:55 Temperature 98.6 F Pulse Rate 84 Pulse Rate [ 87 Apical] Respiratory 18 18 Rate Blood Pressure 143/55 Blood Pressure 138/74 [Right Arm] O2 Sat by Pulse 99 95 Oximetry (%) GENERAL: Awake, alert, and fully oriented, in no acute distress. HEAD: Normal with no signs of trauma. EYES: Pupils equal, round and reactive to light, extraocular movements intact, sclera anicteric, conjunctiva clear. No lid lag. EARS, NOSE, THROAT: Ears normal, nares patent, oropharynx clear without exudates. Moist mucous membranes. NECK: Normal range of motion, supple without lymphadenopathy, JVD, or masses. LUNGS: diminished lung sounds bilaterally, no wheezing, oxygen dependent @ 4 liters, no accessory muscle use HEART: Irregular heart rate, hx of afib ABDOMEN: Soft, nontender, not distended, normoactive bowel sounds, no guarding, no rebound, no masses. No hepatomegaly or splenomegaly. MUSCULOSKELETAL: Pelvic radiograph reveals impaction fraction of R femoral neck UPPER EXTREMITIES: 2+ pulses, warm, well-perfused. No cyanosis. No clubbing. No peripheral edema. LOWER EXTREMITIES: 2+ pulses, warm, well-perfused. No calf tenderness. No peripheral edema. NEUROLOGICAL: Normal speech, s/p fall, on bedrest PSYCHIATRIC: Cooperative. Good eye contact. Appropriate mood and affect. SKIN: Warm, dry, normal turgor, no rashes or lesions noted, normal capillary refill. Laboratory Results - last 24 hr 08/31/17 08/31/17 08/31/17 11:55 11:55 11:55 WBC RBC Hgb Hct MCV MCH MCHC RDW Plt Count MPV Neutrophils % Lymphocytes % Monocytes % Eosinophils % Basophils % PT with INR 15.10 H INR 1.34 H PTT (Actin FS) 21.3 L Sodium 138 Potassium 5.6 H D Chloride 103 Carbon Dioxide 27 Anion Gap 8 BUN 13 Creatinine 0.5 L D Random Glucose 86 D Calcium 10.2 H Blood Type Antibody Screen 08/31/17 08/31/17 11:55 11:55 WBC 12.1 H D RBC 3.50 L Hgb 8.6 L Hct 28.5 L MCV 81.3 MCH 24.5 L MCHC 30.1 L RDW 16.9 H D Plt Count 339 D MPV 8.9 D Neutrophils % 82.1 Lymphocytes % 9.9 D Monocytes % 5.8 Eosinophils % 1.2 Basophils % 1.0 PT with INR INR PTT (Actin FS) Sodium Potassium Chloride Carbon Dioxide Anion Gap BUN Creatinine Random Glucose Calcium Blood Type O POSITIVE Antibody Screen Negative ASSESSMENT/PLAN: Patient is a 77 year old female with a significant past medical history of Afib (on Xarelto), COPD (home oxygen dependent @ 4 liters), hypertension and. HLD. She presented to the ER today after a mechanical fall earlier this morning. Patient and state that patient was going down the stairs and "mistepped ", and landed on her right side. She denies that she hit her head but her body landed on stone walkway, her upper body landed on the grass. She denies any head trauma or loss of consciousness. Denies dizziness or any pre-syncopal symptoms prior to the fall. After the fall, she reports that her family helped her off the ground and she was able to walk a few stops but had significant pain on her right hip. She took Tylenol with good relief. She decided to come to the ED when her pain continues to persist and it is still too painful to ambulate. On exam, she is resting in her bed in no acute distress. She has a history of COPD but states that her breathing is at her baseline. Pelvic radiograph reveals impaction fraction of R femoral neck. At this time, patient states that she is comfortable and not having any pain. She is refusing an narcotics and wants to try Tylenol only for pain. States narcotics make her feel confused and too out of it. A pelvic radiograph reveals impaction fraction of R femoral neck. On admission, her serum potassium was 5.6 and her hmg/hct was noted to be 8.6/ 28.5 Imaging: Pelvis and Right hip xray: symmetrical appearing hips with degenerative changes , There may be an impaction fracture of the right femoral neck Chest xray: large heart, sclerotic knob, scoliosis and prominent michele. atelectatic changes or scarring at the bases. Acute chest process is not seen. Muscular/Skeletal: Pelvis xray/Right hip shows impaction fracture of the right femoral neck s/p mechanical fall On bedrest Ortho consulted On Xarelto Pain management with Tylenol for now, pt refusing narcotics at this time Physical therapy when cleared by ortho Hematology: Iron deficiency anemia? Iron studies ordered Stool for occult blood Transfuse if hmg <8 Type and screen ordered Consider hematology consult if continues to down trend Pulmonary: COPD, chronic Pulmonary consulted Patient is home oxygen dependent, states breathing is at baseline Comfortable at rest, dyspnea on exertion On Albuterol PRN Oxygen @ 4 liters Monitor respiratory status Cardiology: Hyperlipidemia, chronic Continue statin Hypertension, above goal Monitor BP May need uptitration of cardiac meds Cardiology consulted Paroxysmal atrial fibrillation, chronic Cardiology consulted On Xarelto, will continue same F.E.N. Fluids: Tolerating PO Electrolytes: monitor potassium with repeat labs now Nutrition: low sodium Prophylaxis: On Xarelto Protonix Disposition. full code. Visit type - Emergency Visit Emergency Visit: Yes ED Registration Date: 08/31/17 Care time: The patient presented to the Emergency Department on the above date and was hospitalized for further evaluation of their emergent condition. - New Patient This patient is new to me today: Yes Date on this admission: 08/31/17 - Critical Care Critical Care patient: No
[2017-08-31] MEDS ORDERED: MELATONIN 5 MG TABLETS PO PRN (16:46)
[2017-08-31] MEDS ORDERED: [UNRECOGNIZED DRUG - OTHER] OS SCH (18:00)
[2017-08-31] MEDS ORDERED: SODIUM CHLORIDE OS SCH (18:00)
[2017-08-31] MEDS ORDERED: ALBUTEROL SO4 0.083% IH SOL 2.5 MG/3 ML VIAL.NEB. NEB SCH (18:00)
[2017-08-31] MEDS: ALBUTEROL SO4 2.5/IPRATROPIUM 0.5 INH SOL 3 ML VIAL.NEB. NEB PRN (20:56)
[2017-08-31] MEDS ORDERED: PT OWN MED DRAWER 7, Y5N ONE (20:59)
[2017-08-31] MEDS: ATORVASTATIN CA 10 MG TABLET (FP) PO SCH (21:08)
[2017-08-31] MEDS: FE POLYSAC/CYANOCOBAL/FA COMBO CAPSULE PO SCH (21:08)
[2017-08-31] MEDS ORDERED: VIT B12 PO SCH (22:00)
[2017-08-31] MEDS ORDERED: [UNRECOGNIZED DRUG - OTHER] PO SCH (22:00)
[2017-08-31] MEDS ORDERED: IRON PS CMPLX PO SCH (22:00)
[2017-08-31] MEDS: ACETAMINOPHEN 1000 MG/100 ML VIAL (NON FORMULARY) IVPB PRN (22:04)
[2017-08-31] MEDS: MELATONIN 1 MG TABLET PO SCH (23:35)
[2017-09-01 02:22] LABS: URINE APPEARANCE CLEAR; URINE BILIRUBIN NEGATIVE (NEGATIVE); URINE BLOOD NEGATIVE (NEGATIVE); URINE COLOR LTYELLOW; URINE GLUCOSE (UA) NEGATIVE (NEGATIVE); URINE KETONE TRACE (NEGATIVE); URINE NITRITE NEGATIVE (NEGATIVE); URINE PROTEIN NEGATIVE (NEGATIVE); URINE UROBILINOGEN NEGATIVE mg/dL (0.2-1.0)
[2017-09-01] MEDS ORDERED: PT OWN MED DRAWER 7, Y5N ONE ×2 (03:34→21:40)
[2017-09-01] MEDS: ACETAMINOPHEN 1000 MG/100 ML VIAL (NON FORMULARY) IVPB PRN ×3 (05:34→20:15)
[2017-09-01] MEDS: LEVOTHYROXINE NA 25 MCG TABLET (FP) PO SCH (06:09)
[2017-09-01 07:43] LABS: BASOPHIL 0.9 % (0-2.0); EOSINOPHIL 4.8 % (0-4.5); MCH 25.3 pg (25.7-33.7); MEAN CELL VOLUME 81.5 fl (80-96); MEAN PLT VOLUME 8.7 fl (7.5-11.1); NEUTROPHILS 74.4 % (42.8-82.8); RDW 16.6 % (11.6-15.6); WHITE BLOOD COUNT 9.1 K/mm3 (4.0-10.0)
--- NOTE | 2017-09-01 08:20 | PN ---
Progress Note (short form) - Note Progress Note: PATIENT S/P FALL / TRIPPED ON STEP. XRAY IMPACTED RT HIP FX . PRESENTLY COMFORTABLE . PATIENT DENIES CP / SOB / PALPITATIONS. MINIMAL RT HIP PAIN. SHE IS ANXIOUS ABOUT UNDERGOING SURGERY. Selected Entries 09/01/17 05:55 Temperature 98.1 F Respiratory 18 Rate Blood Pressure 110/8 Laboratory Tests 08/31/17 08/31/17 08/31/17 11:55 11:55 17:45 WBC RBC Hgb Hct PT with INR 15.10 H INR 1.34 H Sodium 138 Potassium 3.6 D Chloride 103 Carbon Dioxide 27 Anion Gap 8 BUN 13 Creatinine 0.5 L D Random Glucose 86 D Calcium 10.2 H 09/01/17 05:17 WBC 9.1 RBC 3.06 L Hgb 7.7 L D Hct 25.0 L PT with INR INR Sodium Potassium Chloride Carbon Dioxide Anion Gap BUN Creatinine Random Glucose Calcium P/E <> AWAKE / ALERT / IN NO DISTRESS / O [address] HEENT<> CAROTID BRUIT RT / NECK SUPPLE COR <> S 1 S 2 / IRREGULAR CHEST <> DECREASED BS AT BASES ABD <> SOFT / NONTENDER EXT <> SHORTENING RT LEG / NO CALF TENDERNESS / NO EDEMA IMP <>RT HIP FX AFIB HY OF SEVERE GERARD ON ORAL RX CAD / HY OF NSTEMI HTN HYPOTHYROIDISM OSTEOPOROSIS O 2 DEP COPD B 12 DEF HYPERLIPIDEMIA PRIMARY HYPERPARATHYROIDISM OSTEOARTHRITIS RT CAROTID ARTERY STENOSIS PLAN :WILL AWAIT RISK ASSESSMENT BY CARDIOLOGY / PULMONARY / HEMATOLOGY PRIOR TO SURGERY. DROP H/H <> TRANSFUSE 2 UNITS OF PRBC WITH O 2 DEPENDENT COPD & CAD . CONTINUE CARDIAC MEDS ORDERED. HOLD XARELTO IN ANTICIPATION OF SURGERY.
[2017-09-01 08:55] LABS: ALBUMIN 3.1 g/dl (3.4-5.0); ALK PHOS 60 U/L (45-117); ANION GAP 9 (8-16); BILIRUBIN,TOTAL 0.5 mg/dL (0.2-1.0); CALCIUM 9.1 mg/dL (8.5-10.1); CO2 25 mmol/L (21-32); CREATININE 0.4 mg/dL (0.55-1.02); FERRITIN 17.588 ng/ml (6.9-282.5); GLUCOSE,RANDOM 79 mg/dL (74-106); SGOT/AST 12 U/L (15-37); SGPT/ALT 13 U/L (12-78); TOT PROT 6.3 g/dl (6.4-8.2)
--- NOTE | 2017-09-01 09:20 | CON.CARD ---
Consult Consult Specialty:: cardio Referred by:: leo Reason for Consultation:: preop - History of Present Illness Chief Complaint: fall, hip fracture History of Present Illness: 77 yo female here with seen by us in hosp 04/23 when was in ICU with severe resp distress related to a.e. copd and diast chf. had severe Fe-def anemia then, AC for afib was cautiously resumed. also had NSTEMI then ? type II AL related to supply side from anemia, could not complete nuclear stress test then. did not f/u with us as outpt--saw dr singleton ([facility]) instead. no invasive w/u for CAD was rec'd in light of her rf's for premature DAPT discontinuation, and given she had no suspeted angina sx's. she appeared euvolemic then. lisinopril 5mg added. prior plan to defer BB given severe bronchospastic dz was continued. was rec'd to change to eliquis 2.5mg bid, but pt states she continued xarelto due to copay costs. Watchman deferred while observe for evidence of GIB at baseline states she does not have stairs to walk, would likely stop for sob. she's had no sob of late at routine activity level, no cp. denies palpitations, syncope feels close to USOH at moment, without severe hip pain PMH: COPD, severe--on home O2 diast chf (04/23) afib Fe def anemia ? CAD ex cigs HTN hPL - Past Medical History Cardio/Vascular: Yes: HTN, Hyperlipdemia Pulmonary: Yes: COPD, O2 Dependent (2L NC at home ) Gastrointestinal: Yes: Other (IRON DEF) ...: No Endocrine: Yes: Hypothyroidism - Past Surgical History Past Surgical History: Yes: None, Colonoscopy - Alcohol/Substance Use Hx Alcohol Use: No History of Substance Use: reports: None - Smoking History Smoking history: Former smoker Have you smoked in the past 12 months: No Aproximately how many cigarettes per day: 10 If you are a former smoker, when did you quit?: 1 year - Social History Usual Living Arrangement: With Spouse ADL: Independent History of Recent Travel: No Home Medications - Allergies Allergies/Adverse Reactions: Allergies Allergy/AdvReac Type Severity Reaction Status Date / Time diazepam [From Valium] Allergy Verified 08/31/17 13:00 Penicillins Allergy Verified 08/31/17 13:00 codeine AdvReac Mild Verified 08/31/17 13:00 morphine AdvReac Verified 08/31/17 13:00 - Home Medications Home Medications: Ambulatory Orders Diltiazem Cd [Cardizem Cd -] 120 mg PO DAILY 01/19/15 Levothyroxine [Synthroid -] 25 mg PO DAILY 01/19/15 Pravastatin Sodium [Pravachol -] 20 mg PO DAILY 01/19/15 Rivaroxaban [Xarelto -] 20 mg PO HS 01/19/15 Albuterol 0.083% Nebulizer Michelle [Ventolin 0.083% Nebulizer Soln -] 1 neb NEB Q6H #60 vial 01/21/15 Ascorbic Acid [Vitamin C] 500 mg PO BID 08/31/17 Brimonidine Tartrate [Alphagan P] 10 ml OU BID 08/31/17 Iron Ps Cmplx/Vit B12/FA [Ferrex 150 Forte Capsule] 1 each PO BID 08/31/17 Lisinopril [Prinivil] 5 mg PO DAILY 08/31/17 Sodium Chloride [Vasyl-128] 15 ml OS QID 08/31/17 Melatonin/Pyridoxine HCl (B6) [Melatonin 3 mg Tablet] 3 each PO HS 09/01/17 Family Disease History - Family Disease History Family History: Denies (no known cmp) Review of Systems - Review of Systems Constitutional: denies: Chills, Fever Eyes: denies: Eye Pain HENT: denies: Nasal Congestion Neck: denies: Stiffness Cardiovascular: denies: Palpitations Respiratory: denies: Orthopnea, PND Gastrointestinal: denies: Diarrhea, Rectal Bleeding Genitourinary: denies: Burning, Hematuria Musculoskeletal: denies: Muscle Pain Integumentary: denies: Rash Neurological: denies: Numbness, Seizure, Syncope Endocrine: denies: Excessive Sweating Hematology/Lymphatic: denies: Excessive Bleeding Vital Signs: Vital Signs Temperature 98.1 F 09/01/17 05:55 Pulse Rate 7 L 09/01/17 05:55 Respiratory Rate 18 09/01/17 05:55 Blood Pressure 110/8 09/01/17 05:55 O2 Sat by Pulse Oximetry (%) 94 L 08/31/17 21:00 Constitutional: Yes: No Distress, Calm, Thin Eyes: No: Sclera Icterus HENT: No: Nasal Congestion Neck: No: Decreased ROM Respiratory: Yes: CTA Bilaterally (decr diffusely). No: Accessory Muscle Use, Rales, Wheezes Gastrointestinal: Yes: Normal Bowel Sounds. No: Distention, Hepatomegaly, Palpable Mass, Tenderness Cardiovascular: Yes: Regular Rate and Rhythm JVD: No Carotid Bruit: No PMI: Non-Displaced Heart Sounds: Yes: S1, S2. No: Gallop Murmur: No: Systolic Murmur, Diastolic Murmur Musculoskeletal: Yes: Other (No kyphosis) Extremities: No: Cold, Cyanosis Edema: No Peripheral Pulses: 2+ Left Carotid, 2+ Right Carotid, 2+ Left Doralis Pedis, 2+ Right Dorsalis Pedis Integumentary: No: Jaundice Neurological: Yes: Alert, Oriented (x3) Psychiatric: No: Agitated - Other Data Labs, Other Data: CBC, BMP 09/01/17 05:17 INR, PTT INR 1.34 (0.82-1.09) H 08/31/17 11:55 Laboratory Tests 08/31/17 09/01/17 09/01/17 11:55 05:17 05:17 WBC 9.1 Hgb 7.7 L D Plt Count 339 D Sodium 140 Potassium 3.9 Carbon Dioxide 25 BUN 9 D Creatinine 0.4 L AST 12 L D ALT 13 D Assessment/Plan Echo 05/2017: Mildly reduced LV function. (No RWMA described). RV not well seen 1+ lae. mod mr, mod tr Echo 2013: nl lv, nl rv, mild mr, mild tr, rvsp 30-40 MPI (pers) 05/24: no STs. large fixed defect lateral wall; lateral wall akinesis with overall sev decr EF (36%). No LV cavity dilation or TID reported ECG: NSR; no path q's; ST depressions lateral leads ? ischemic (change vs 04/23) CXR: clear lungs/pleura s/p mechanical fall (tripped on step), hip frx/preop CV eval: -Revised CV Risk Index = 2, decr functional capacity -no s/sx of active CAD or chf -hi risk for periop CV events (i.e. >1%), but no high risk clinical predictors. -no preop mgmt changes or testing is warranted here. -rec holding xarelto x 24 hrs prior to surgery (d/c'd...no dose given 09/01) -no need for bridging heparin as pt with no prior CVA/embolic events -resume AC postop as soon as no active bleeding risks per ortho anemia: -hgb 5.7 when here 04/23, from 12.1 at office in October 2016. Has known iron deficiency on iron supplementation. -seen by GI, no definite bleeding hx and no active bleeding suspected at that time. -noncompliance with her iron supplements was felt to be contributing then -counts trended up s/p PRBCs, with iron repletion, with hgb 9s on discharge -has been maintained on AC as outpt -currently hgb 7s, ? bleeding from hip fracture site -observe trend, rec routine PRBC transfusion if hgb remains <8 CAD s/p NSTEMI: -trop peaked at 4.5 when here 04/23 with a.e. copd and anemia with ekg changes then. -had acute CHF then with new decline in LVEF -nuclear scans suggestive of lateral infarct with no residual ischemia, no high risk findings per report; -given no demonstrable ischemia, no angina (at low level activity), and hi risk for premature discontinuation of DAPT post PCI, agree with prior cardio plan to defer cath -no ASA (pt on AC) -no BB given severity of wheezing on prior presentation with a.e. copd here -cont home statin -currently with potentially ischemic ST changes on admitting ekg--troponin negative. no angina. observe for sx's chronic systolic CHF: -acute decompensation 04/23, in setting of severe anemia and a.e. copd -mild LV dysfunction reported on echo, EF 36% on MPI. -appears clinically euvolemic here. -home meds need reconcilitation--if taking lisin 5mg qd (per outpt cardio note ), rec resuming here if bp remains stable -outpt consideration of BB per dr singleton (previously deferred given severe wheezing when here 04/23--if remains without wheezing as outpatient, could consider trial of low dose metoprolol 12.5-25mg for LV fxn indication) paroxysmal afib: -episode here when admitted 2014 with a.e. copd/resp failure -CHADS VASC 4--started on xarelto 20 at that time -she remains on xarelto at home, has been tolerating this apparently with no acute anemia or overt GI bleeding -AC stopped given pt requires hip surgery--resume xarelto postop as disc'd above COPD: -on O2 at home -no signs a.e. htn: -controlled -cont prior treatment plan
[2017-09-01] MEDS: FE POLYSAC/CYANOCOBAL/FA COMBO CAPSULE PO SCH ×2 (09:51→23:04)
[2017-09-01] MEDS: ASCORBIC ACID 500 MG TABLET (FP) PO SCH (09:51)
[2017-09-01] MEDS ORDERED: BRIMONIDINE TARTRATE 0.15% OPHTHALMIC 5 ML BOTTLE OU SCH (10:00)
[2017-09-01] MEDS ORDERED: RIVAROXABAN 20 MG TABLET PO SCH (10:00)
[2017-09-01] MEDS ORDERED: PATIENT'S OWN MEDICATION (NON-FORMULARY) (Ascorbic Acid [Vitamin C] 500 MG) PO SCH (10:00)
[2017-09-01] MEDS ORDERED: PATIENT'S OWN MEDICATION (NON-FORMULARY) (Pravastatin Sodium 20 MG) PO SCH (10:00)
[2017-09-01] MEDS ORDERED: FE POLYSAC/CYANOCOBAL/FA COMBO CAPSULE PO SCH (10:00)
[2017-09-01] MEDS: ALBUTEROL SO4 2.5/IPRATROPIUM 0.5 INH SOL 3 ML VIAL.NEB. NEB PRN ×2 (10:36→20:44)
[2017-09-01 11:08] LABS: URINE LEUK ESTERASE Negative (NEGATIVE)
[2017-09-01 11:10] LABS: CPK 55 IU/L (26-192); TROPONIN I < 0.02 ng/ml (0.00-0.05)
--- NOTE | 2017-09-01 12:04 | CON.PULM ---
Consult Consult Specialty:: PULM/CCM Referred by:: GULSHAN Reason for Consultation:: COPD - Pre-op - History of Present Illness Chief Complaint: S/P Fall History of Present Illness: 77 F, known advanced COPD due to previous smoking on 4 L NC O2 since April 2017 and previously was on 2 L NC, Afib on Xarelto, hypertension, and. HLD. S/P mechanical fall after missing a step leaving her daughters house. No LOC. No head injury. Breathing feels at baseline. No snoring or clear history consistent with OSAS. CXR: Chronic changes, no acute process - History Source History Provided By: Patient Limitations to Obtaining History: No Limitations - Past Medical History Cardio/Vascular: Yes: HTN, Hyperlipdemia Pulmonary: Yes: COPD, O2 Dependent (2L NC at home ) Gastrointestinal: Yes: Other (IRON DEF) ...: No Endocrine: Yes: Hypothyroidism - Past Surgical History Past Surgical History: Yes: None, Colonoscopy - Alcohol/Substance Use Hx Alcohol Use: No History of Substance Use: reports: None - Smoking History Smoking history: Former smoker Have you smoked in the past 12 months: No Aproximately how many cigarettes per day: 10 If you are a former smoker, when did you quit?: 1 year - Social History Usual Living Arrangement: With Spouse ADL: Independent History of Recent Travel: No Home Medications - Allergies Allergies/Adverse Reactions: Allergies Allergy/AdvReac Type Severity Reaction Status Date / Time diazepam [From Valium] Allergy Verified 08/31/17 13:00 Penicillins Allergy Verified 08/31/17 13:00 codeine AdvReac Mild Verified 08/31/17 13:00 morphine AdvReac Verified 08/31/17 13:00 - Home Medications Home Medications: Ambulatory Orders Diltiazem Cd [Cardizem Cd -] 120 mg PO DAILY 01/19/15 Levothyroxine [Synthroid -] 25 mg PO DAILY 01/19/15 Pravastatin Sodium [Pravachol -] 20 mg PO DAILY 01/19/15 Rivaroxaban [Xarelto -] 20 mg PO HS 01/19/15 Albuterol 0.083% Nebulizer Michelle [Ventolin 0.083% Nebulizer Soln -] 1 neb NEB Q6H #60 vial 01/21/15 Ascorbic Acid [Vitamin C] 500 mg PO BID 08/31/17 Brimonidine Tartrate [Alphagan P] 10 ml OU BID 08/31/17 Iron Ps Cmplx/Vit B12/FA [Ferrex 150 Forte Capsule] 1 each PO BID 08/31/17 Lisinopril [Prinivil] 5 mg PO DAILY 08/31/17 Sodium Chloride [Vasyl-128] 15 ml OS QID 08/31/17 Melatonin/Pyridoxine HCl (B6) [Melatonin 3 mg Tablet] 3 each PO HS 09/01/17 Review of Systems - Review of Systems Constitutional: denies: Chills, Fever, Lethargy, Loss of Appetite, Malaise, Night Sweats, Unintentional Wgt. Loss, Weakness Eyes: reports: No Symptoms HENT: reports: No Symptoms Neck: reports: No Symptoms Cardiovascular: reports: No Symptoms. denies: Chest Pain, Edema, Palpitations, Shortness of Breath Respiratory: denies: Cough, Exercise Intolerance, Hemoptysis, Orthopnea, Snoring , SOB, SOB on Exertion, Wheezing Gastrointestinal: reports: No Symptoms Genitourinary: reports: No Symptoms Breasts: reports: No Symptoms Reported Musculoskeletal: reports: Decreased ROM, Extremity Pain, Joint Pain, Muscle Pain Integumentary: reports: No Symptoms Neurological: reports: No Symptoms Endocrine: reports: No Symptoms Hematology/Lymphatic: reports: No Symptoms Psychiatric: reports: No Symptoms Physical Exam Vital Sings: Vital Signs Temperature 98.1 F 09/01/17 05:55 Pulse Rate 7 L 09/01/17 05:55 Respiratory Rate 18 09/01/17 05:55 Blood Pressure 110/8 09/01/17 05:55 O2 Sat by Pulse Oximetry (%) 94 L 08/31/17 21:00 Constitutional: Yes: No Distress, Anxious Eyes: Yes: Conjunctiva Clear, EOM Intact HENT: Yes: Atraumatic, Normocephalic Neck: Yes: Supple, Trachea Midline Cardiovascular: Yes: Pulse Irregular Respiratory: Yes: Diminished, On Nasal O2. No: Accessory Muscle Use, SOB, Stridor, Tachypnea, Wheezes ...Inspection: Yes: WNL ...Clubbing: No Gastrointestinal: Yes: Normal Bowel Sounds, Soft Renal/: Yes: WNL Musculoskeletal: Yes: Joint Stiffness Extremities: Yes: External Rotation Edema: No Peripheral Pulses WNL: Yes Integumentary: Yes: WNL Neurological: Yes: WNL, Alert, Oriented ...Motor Strength: WNL Psychiatric: Yes: WNL, Alert, Oriented Labs: CBC, BMP 09/01/17 05:17 09/01/17 05:17 Imaging - Results Chest X-ray: Report Reviewed, Image Reviewed Problem List - Problems (1) Hip fracture Code(s): S72.009A - FRACTURE OF UNSP PART OF NECK OF UNSP FEMUR, INIT (2) Anemia Code(s): D64.9 - ANEMIA, UNSPECIFIED Qualifiers: Anemia type: iron deficiency Iron deficiency anemia type: unspecified iron deficiency Qualified Code(s): D50.9 - Iron deficiency anemia, unspecified (3) COPD (chronic obstructive pulmonary disease) Code(s): J44.9 - CHRONIC OBSTRUCTIVE PULMONARY DISEASE, UNSPECIFIED (4) Hyperlipidemia Code(s): E78.5 - HYPERLIPIDEMIA, UNSPECIFIED (5) Hypertension Code(s): I10 - ESSENTIAL (PRIMARY) HYPERTENSION (6) Paroxysmal atrial fibrillation Code(s): I48.0 - PAROXYSMAL ATRIAL FIBRILLATION Assessment/Plan Patient appears to be at her baseline , but has severe COPD on 4 L NC O2. No clear risks for OSAS. She is at an increased (ASA class 3) but reasonable risk for OR. Preop medrol x1 dose BD TX PRN O2 as needed VTE prophylaxis Check ABG Would observe in monitored setting post-op Will follow Thank you. Dr Arreaga
[2017-09-01 13:33] LABS: ARTERIAL BLOOD GAS BASE EXCESS 2.2 meq/l (-2-2); ARTERIAL BLOOD GAS HCO3 25.9 meq/L (22-26); ARTERIAL BLOOD GAS PO2 67.9 mmHg (70-100); ARTERIAL BLOOD GAS pH 7.44 (7.35-7.45)
[2017-09-01 13:37] LABS: ALLENS TEST POSITIVE; ART PUNCT SITE LEFT RADIAL; LPM/O2% 4L; PT. ON O2? 0
[2017-09-01 13:38] LABS: TYPE OF O2 NASAL CANULA
--- NOTE | 2017-09-01 15:53 | CONSULT ---
Consult - text type - Consultation Consultation Note: Patient is a 77 year old female with a significant past medical history of Afib (on Xarelto), COPD (home oxygen dependent @ 4 liters), hypertension and. HLD. She presented to the ER today after a mechanical fall earlier this morning. She was going down the stairs and "mistepped", and landed on her right side. She denies that she hit her head but her body landed on stone walkway, her upper body landed on the grass. She denies any head trauma or loss of consciousness. Denies dizziness or any pre-syncopal symptoms prior to the fall. After the fall, she reports that her family helped her off the ground and she was able to walk a few stops but had significant pain on her right hip. She took Tylenol with good relief. She decided to come to the ED when her pain continues to persist and it is still too painful to ambulate. On exam, she is resting in her bed in no acute distress. She has a history of COPD but states that her breathing is at her baseline. Pelvic radiograph reveals impaction fraction of R femoral neck. At this time, patient states that she is comfortable and not having any pain. She is refusing an narcotics and wants to try Tylenol only for pain. States narcotics make her feel confused and too out of it. PAST MEDICAL HISTORY: Afib (on Xarelto), COPD (home oxygen dependent @ 4 liters ), hypertension and. HLD. PAST SURGICAL HISTORY: Social History: Smoking: former smoker, quit a few months ago Alcohol: denies Drugs: denies Family History: Allergies diazepam [From Valium] Allergy (Verified 08/31/17 13:00) Penicillins Allergy (Verified 08/31/17 13:00) codeine Adverse Reaction (Mild, Verified 08/31/17 13:00) "spaced out" morphine Adverse Reaction (Verified 08/31/17 13:00) HOME MEDICATIONS: Home Medications Medication Instructions Recorded Diltiazem Cd [Cardizem Cd -] 120 mg PO DAILY 01/19/15 Levothyroxine [Synthroid -] 25 mg PO DAILY 01/19/15 Pravastatin Sodium [Pravachol -] 20 mg PO DAILY 01/19/15 Rivaroxaban [Xarelto -] 20 mg PO DAILY 01/19/15 Albuterol 0.083% Nebulizer Michelle 1 neb NEB Q6H #60 vial 01/21/15 [Ventolin 0.083% Nebulizer Soln -] Ascorbic Acid [Vitamin C] 500 mg PO DAILY 08/31/17 Brimonidine Tartrate [Alphagan P] 10 ml OU DAILY 08/31/17 Iron Ps Cmplx/Vit B12/FA [Ferrex 1 each PO BID 08/31/17 150 Forte Capsule] Sodium Chloride [Vasyl-128] 15 ml OS QID 08/31/17 Active Medications Generic Name Dose Route Start Last Admin Trade Name Freq PRN Reason Stop Dose Admin Acetaminophen 1,000 mg 08/31/17 21:32 09/01/17 11:57 Ofirmev Injection - IVPB 1,000 mg Q6H PRN Administration FEVER OR PAIN Albuterol/Ipratropium 1 amp 08/31/17 16:47 09/01/17 10:36 Duoneb - NEB 1 amp Q6H PRN Administration SHORTNESS OF BREATH Ascorbic Acid 500 mg 09/01/17 10:00 09/01/17 09:51 Vitamin C - PO 500 mg DAILY MAHSA Administration Atorvastatin Calcium 10 mg 08/31/17 22:00 08/31/17 21:08 Lipitor - PO 10 mg HS MAHSA Administration B12/Folic Ac/Intrin Fact/Iron/Vit C 1 each 08/31/17 22:00 09/01/17 09:51 Niferex-150 Forte - PO 1 each BID MA[facility]SA Administration Brimonidine Tartrate 1 drop 09/01/17 10:00 09/01/17 09:50 Alphagan 0.15% - OU 1 drop DAILY [facility]SA Administration Diltiazem HCl 120 mg 09/01/17 10:00 09/01/17 09:51 Cardizem Cd - PO 120 mg DAILY [facility]SA Administration Levothyroxine Sodium 25 mcg 09/01/17 07:00 09/01/17 06:09 Synthroid - PO 25 mcg ACBK [facility]SA Administration Melatonin 3 mg 08/31/17 23:30 08/31/17 23:35 Melatonin PO 3 mg HS [facility]SA Administration Non-Formulary Medication 15 ml 08/31/17 18:00 Sodium Chloride [Vasyl-128] OS QID [facility] PHYSICAL EXAMINATION Last Vital Signs Temp Pulse Resp BP Pulse Ox 97.9 F 8 L 18 110/56 94 L 09/01/17 13:47 09/01/17 13:47 09/01/17 13:47 09/01/17 13:47 09/01/17 09:00 Cor: RSR, No murmurs, No gallops Lungs: Clear to P&A Abd: Soft, Normal bowel sounds, No organomegaly Ext:No significant edema Skin: No rashes, Integument intact ASSESSMENT/PLAN: Patient is a 77 year old female with a significant past medical history of Afib (on Xarelto), COPD (home oxygen dependent @ 4 liters), hypertension and. HLD. , presents s/p fall. Muscular/Skeletal: Pelvis xray/Right hip shows impaction fracture of the right femoral neck s/p mechanical fall PAtients last dose xeralto was 08/31 at night [place] Xeralto 1-3days prior t procedure ( Cr cl> 50ml/min. ) Not on NSAIDS checl Pt/PTT/INR Anemia--? iron deficiency/? blood loss at fx suite Getting PRBC transfusionf for Hgb 7.7 pre op. check screening tests will follow
--- NOTE | 2017-09-01 18:51 | CONSULT ---
Consult - text type - Consultation Consultation Note: FULL CONSULT DICTATED IMP: RIGHT IMPACTED FEMORAL NECK FX PLAN: ---> OR ON SUNDAY FOR CANNULATED SCREWS
[2017-09-01] MEDS ORDERED: MAG HYDROX/AL HYDROX/SIMETH 30 ML UNIT-DOSE CUP PO PRN (19:29)
[2017-09-01] MEDS: ATORVASTATIN CA 10 MG TABLET (FP) PO SCH (22:18)
[2017-09-01] MEDS: MELATONIN 1 MG TABLET PO SCH (22:20)
[2017-09-02] MEDS: LEVOTHYROXINE NA 25 MCG TABLET (FP) PO SCH (06:08)
[2017-09-02] MEDS: ALBUTEROL SO4 2.5/IPRATROPIUM 0.5 INH SOL 3 ML VIAL.NEB. NEB PRN ×3 (06:22→20:43)
--- NOTE | 2017-09-02 08:02 | PN ---
Progress Note (short form) - Note Progress Note: PATIENT COMFORTABLE . PATIENT SEEN BY CARDIOLOGY & PULMONARY. PATIENT CLEARED FOR SURGERY. ( REVIEWED DR GONSALES'S NOTE REGARDING ADMITTING EKG WITH ? LATERAL LEAD ISCHEMIC CHANGES BUT TROPONIN NEGATIVE / NO ANGINA <> OBSERVE & MONITOR ON TELEMETRY POST OP ) PATIENT DENIES ANY CP / SOB / PALPITATIONS . SHE HAS NO ABDOMINAL PAIN. SHE HAS MILD / MODERATE RT HIP PAIN. ORTHO EVALUATED PATIENT YESTERDAY. SURGERY SCHEDULED FOR SUNDAY. Laboratory Tests Selected Entries 09/02/17 05:48 Temperature 98.6 F Pulse Rate 88 Respiratory 20 Rate Blood Pressure 100/64 Laboratory Tests 09/01/17 09/01/17 09/01/17 05:17 10:00 13:25 ABG pH 7.44 ABG pCO2 at Pt Temp 38.7 ABG pO2 at Pt Temp 67.9 L D ABG HCO3 25.9 ABG O2 Sat (Measured) 95.0 Oxygen Flow Rate 4l Sodium 140 Potassium 3.9 Chloride 106 Carbon Dioxide 25 Anion Gap 9 BUN 9 D Creatinine 0.4 L Creat Clearance w eGFR > 60 Random Glucose 79 Calcium 9.1 Ferritin 17.588 Total Bilirubin 0.5 D Creatine Kinase 55 Troponin I < 0.02 P/E <> AWAKE / ALERT / NO DISTRESS / O [address] HEENT<> CAROTID BRUIT RT / NECK SUPPLE COR <> S 1 S 2 / IRREGULAR CHEST <>FEW SCATTERED RHONCHI / DECREASED BS AT BASES ABD <> SOFT / NONTENDER / NO REBOUND / NO GUARDING . EXT <> SHORTENING RT LEG / NO CALF TENDERNESS / NO EDEMA IMP <>RT HIP FX AFIB HY OF SEVERE GERARD ON ORAL RX CAD / HY OF NSTEMI HTN HYPOTHYROIDISM OSTEOPOROSIS O 2 DEP COPD B 12 DEF HYPERLIPIDEMIA PRIMARY HYPERPARATHYROIDISM OSTEOARTHRITIS RT CAROTID ARTERY STENOSIS PLAN :MEDICALLY STABLE FOR SURGERY. RECEIVED 1 UNIT OF PRBC YESTERDAY . CBC PENDING TODAY. PER CARDIOLOGY & PULMONARY PATIENT TO BE MONITORED POST OP ON TELEMETRY. BP 100 / 64 <> HOLD ON ADDITION OF LISINOPRIL AT THIS TIME. HEMATOLOGY CONSULT REVIEWED . CONTINUE PO IRON. XARELTO REMAINS ON HOLD PRE-OP.
--- NOTE | 2017-09-02 08:03 | CONS ---
DATE OF CONSULTATION: 09/01/2017 The patient is a 77-year-old female complaining of right hip pain, status post mechanical fall today. The patient is on Xarelto for atrial fibrillation. PHYSICAL EXAMINATION: She has painless internal and external rotation of her right hip, able to straight leg raise, but with a great deal of pain. No leg length discrepancy; otherwise, neurovascularly intact. X-RAY: Impacted femoral neck fracture of the right hip. IMPRESSION: Right femoral neck fracture. Risks, benefits, alternatives discussed with patient and in great detail. The patient will be booked for cannulated screws come this Sunday. We will wait 3 days for the effects of the Xarelto to wear off prior to performing the surgery. SONNY GUZMAN M.D. [facility]NDO/[id number]
[2017-09-02 08:21] LABS: BASOPHIL 0.5 % (0-2.0); EOSINOPHIL 0.4 % (0-4.5); MCH 25.9 pg (25.7-33.7); MCHC 31.8 g/dl (32.0-36.0); MEAN CELL VOLUME 81.4 fl (80-96); MEAN PLT VOLUME 7.7 fl (7.5-11.1); NEUTROPHILS 87.9 % (42.8-82.8); PLATELET COUNT 289 K/MM3 (134-434); RDW 16.1 % (11.6-15.6); WHITE BLOOD COUNT 17.3 K/mm3 (4.0-10.0)
[2017-09-02 08:33] LABS: INR 1.22 (0.82-1.09); PROTHROMBIN TIME (PATIENT) 13.8 SEC (9.98-11.88)
[2017-09-02 08:35] LABS: ACTIVATED PTT 27.8 SECONDS (26.9-34.4)
[2017-09-02 09:03] LABS: FERRITIN 41.377 ng/ml (6.9-282.5); FREE T4 1.25 ng/dl (0.76-1.46); THYROID STIMULATING HORMONE 1.32 uIU/ml (0.358-3.74)
[2017-09-02] MEDS ORDERED: PT OWN MED DRAWER 7, Y5N ONE ×2 (09:11→21:53)
[2017-09-02] MEDS: BRIMONIDINE TARTRATE 0.15% OPHTHALMIC 5 ML BOTTLE OU SCH ×2 (09:15→21:54)
[2017-09-02] MEDS: ACETAMINOPHEN 325 MG TABLET (FP) PO PRN ×3 (09:17→21:55)
[2017-09-02] MEDS: ASCORBIC ACID 500 MG TABLET (FP) PO SCH (09:18)
[2017-09-02] MEDS: FE POLYSAC/CYANOCOBAL/FA COMBO CAPSULE PO SCH ×2 (09:19→21:54)
--- NOTE | 2017-09-02 12:11 | PN ---
Progress Note (short form) - Note Progress Note: Breathing feels OK today. No hypercapnia on ABG yesterday. Intake & Output 08/30/17 08/31/17 09/01/17 09/02/17 23:59 23:59 23:59 23:59 Intake Total 600 850 200 Output Total 400 Balance 600 450 200 Weight 96 lb Last Vital Signs Temp Pulse Resp BP Pulse Ox 98.3 F 91 H 20 108/58 94 L 09/02/17 08:19 09/02/17 08:19 09/02/17 08:19 09/02/17 08:19 09/02/17 09:00 Active Medications Acetaminophen (Tylenol -) 650 mg PO Q4H PRN PRN Reason: FEVER OR PAIN Last Admin: 09/02/17 09:17 Dose: 650 mg Al Hydroxide/Mg Hydroxide (Mylanta Oral Suspension -) 30 ml PO Q6H PRN PRN Reason: INDIGESTION Last Admin: 09/01/17 20:15 Dose: 30 ml Albuterol/Ipratropium (Duoneb -) 1 amp NEB Q6H PRN PRN Reason: SHORTNESS OF BREATH Last Admin: 09/02/17 06:22 Dose: 1 amp Ascorbic Acid (Vitamin C -) 500 mg PO DAILY [facility] Last Admin: 09/02/17 09:18 Dose: 500 mg Atorvastatin Calcium (Lipitor -) 10 mg PO HS [facility] Last Admin: 09/01/17 22:18 Dose: 10 mg B12/Folic Ac/Intrin Fact/Iron/Vit C (Niferex-150 Forte -) 1 each PO BID [facility] Last Admin: 09/02/17 09:19 Dose: 1 each Brimonidine Tartrate (Alphagan 0.15% -) 1 drop OU BID [facility] Last Admin: 09/02/17 09:15 Dose: 1 drop Diltiazem HCl (Cardizem Cd -) 120 mg PO DAILY [facility] Last Admin: 09/02/17 09:18 Dose: 120 mg Levothyroxine Sodium (Synthroid -) 25 mcg PO ACBK [facility] Last Admin: 09/02/17 06:08 Dose: 25 mcg Melatonin (Melatonin) 3 mg PO HS [facility] Last Admin: 09/01/17 22:20 Dose: 3 mg Non-Formulary Medication (Sodium Chloride [Vasyl-128]) 15 ml OS QID [facility] Constitutional: Yes: No Distress, Anxious Eyes: Yes: Conjunctiva Clear, EOM Intact HENT: Yes: Atraumatic, Normocephalic Neck: Yes: Supple, Trachea Midline Cardiovascular: Yes: Pulse Irregular Respiratory: Yes: Diminished, On Nasal O2. No: Accessory Muscle Use, SOB, Stridor, Tachypnea, Wheezes ...Inspection: Yes: WNL ...Clubbing: No Gastrointestinal: Yes: Normal Bowel Sounds, Soft Renal/: Yes: WNL Musculoskeletal: Yes: Joint Stiffness Extremities: Yes: External Rotation Edema: No Peripheral Pulses WNL: Yes Integumentary: Yes: WNL Neurological: Yes: WNL, Alert, Oriented ...Motor Strength: WNL Psychiatric: Yes: WNL, Alert, Oriented Labs: Laboratory Results - last 24 hr 08/31/17 09/01/17 09/01/17 18:30 05:17 13:25 WBC RBC Hgb Hct MCV MCH MCHC RDW Plt Count MPV Neutrophils % Lymphocytes % Monocytes % Eosinophils % Basophils % PT with INR INR PTT (Actin FS) Fibrinogen Puncture Site Left radial ABG pH 7.44 ABG pCO2 at Pt Temp 38.7 ABG pO2 at Pt Temp 67.9 L D ABG HCO3 25.9 ABG O2 Sat (Measured) 95.0 ABG O2 Content 9.3 L* ABG Base Excess 2.2 H Hesham Test Positive O2 Delivery Device Nasal canula Oxygen Flow Rate 4l Iron 16 L Ferritin TSH Free T4 Blood Type O POSITIVE Antibody Screen Negative Crossmatch See Detail 09/02/17 09/02/17 09/02/17 07:30 07:30 07:30 WBC 17.3 H D RBC 3.88 D Hgb 10.0 L D Hct 31.6 L D MCV 81.4 MCH 25.9 MCHC 31.8 L RDW 16.1 H Plt Count 289 MPV 7.7 D Neutrophils % 87.9 H Lymphocytes % 6.3 L D Monocytes % 4.9 Eosinophils % 0.4 D Basophils % 0.5 PT with INR 13.80 H INR 1.22 H PTT (Actin FS) 27.8 D Fibrinogen 413.0 Puncture Site ABG pH ABG pCO2 at Pt Temp ABG pO2 at Pt Temp ABG HCO3 ABG O2 Sat (Measured) ABG O2 Content ABG Base Excess Hesham Test O2 Delivery Device Oxygen Flow Rate Iron Ferritin 41.377 TSH 1.32 D Free T4 1.25 Blood Type Antibody Screen Crossmatch Problem List - Problems (1) Hip fracture Code(s): S72.009A - FRACTURE OF UNSP PART OF NECK OF UNSP FEMUR, INIT (2) Anemia Code(s): D64.9 - ANEMIA, UNSPECIFIED Qualifiers: Anemia type: iron deficiency Iron deficiency anemia type: unspecified iron deficiency Qualified Code(s): D50.9 - Iron deficiency anemia, unspecified (3) COPD (chronic obstructive pulmonary disease) Code(s): J44.9 - CHRONIC OBSTRUCTIVE PULMONARY DISEASE, UNSPECIFIED (4) Hyperlipidemia Code(s): E78.5 - HYPERLIPIDEMIA, UNSPECIFIED (5) Hypertension Code(s): I10 - ESSENTIAL (PRIMARY) HYPERTENSION (6) Paroxysmal atrial fibrillation Code(s): I48.0 - PAROXYSMAL ATRIAL FIBRILLATION Assessment/Plan Patient appears to be at her baseline , but has severe COPD on 4 L NC O2. No clear risks for OSAS. She is at an increased (ASA class 3) but reasonable risk for OR. Preop medrol x1 dose BD TX PRN O2 as needed VTE prophylaxis May need to observe in monitored setting post-op Will follow Dr Arreaga Problem List - Problems (1) Hip fracture Code(s): S72.009A - FRACTURE OF UNSP PART OF NECK OF UNSP FEMUR, INIT (2) Anemia Code(s): D64.9 - ANEMIA, UNSPECIFIED Qualifiers: Anemia type: iron deficiency Iron deficiency anemia type: unspecified iron deficiency Qualified Code(s): D50.9 - Iron deficiency anemia, unspecified (3) COPD (chronic obstructive pulmonary disease) Code(s): J44.9 - CHRONIC OBSTRUCTIVE PULMONARY DISEASE, UNSPECIFIED (4) Hyperlipidemia Code(s): E78.5 - HYPERLIPIDEMIA, UNSPECIFIED (5) Hypertension Code(s): I10 - ESSENTIAL (PRIMARY) HYPERTENSION (6) Paroxysmal atrial fibrillation Code(s): I48.0 - PAROXYSMAL ATRIAL FIBRILLATION
[2017-09-02] MEDS: MELATONIN 1 MG TABLET PO SCH (21:54)
[2017-09-02] MEDS: ATORVASTATIN CA 10 MG TABLET (FP) PO SCH (21:54)
[2017-09-03] MEDS: LEVOTHYROXINE NA 25 MCG TABLET (FP) PO SCH (06:07)
[2017-09-03] MEDS: ALBUTEROL SO4 2.5/IPRATROPIUM 0.5 INH SOL 3 ML VIAL.NEB. NEB PRN ×2 (06:37→22:33)
[2017-09-03 06:49] LABS: MCH 26.2 pg (25.7-33.7); MCHC 32.1 g/dl (32.0-36.0); MEAN CELL VOLUME 81.5 fl (80-96); MEAN PLT VOLUME 8.1 fl (7.5-11.1); PLATELET COUNT 298 K/MM3 (134-434); RDW 16.6 % (11.6-15.6); WHITE BLOOD COUNT 12.8 K/mm3 (4.0-10.0)
[2017-09-03] MEDS ORDERED: methylPREDNISolone NA SUCC 40 MG/1 ML VIAL IVPUSH ONE (08:00)
[2017-09-03] MEDS: ASCORBIC ACID 500 MG TABLET (FP) PO SCH (09:10)
[2017-09-03] MEDS: FE POLYSAC/CYANOCOBAL/FA COMBO CAPSULE PO SCH ×2 (09:10→22:30)
[2017-09-03] MEDS: BRIMONIDINE TARTRATE 0.15% OPHTHALMIC 5 ML BOTTLE OU SCH (09:14)
--- NOTE | 2017-09-03 11:44 | PN ---
Physical Exam: SUBJECTIVE: Patient seen and examined Patient appears extremely anxious Inquiring about surgery Denies pain NPO OBJECTIVE: Vital Signs Period Temp Pulse Resp BP Sys/Kaiser Pulse Ox Last 24 Hr 98.1 F-99.5 F 79-94 18-20 113-129/60-71 94-99 GENERAL: The patient is awake, alert, and fully oriented, in no acute distress. HEAD: Normal with no signs of trauma. EYES: PERRL, extraocular movements intact,dry mucous membranes ENT: Ears normal, nares patent, oropharynx clear without exudates, moist mucous membranes. NECK: Trachea midline, full range of motion, supple. LUNGS: Breath sounds equal, clear to auscultation bilaterally, no wheezes, no crackles, no accessory muscle use. HEART: Regular rate and rhythm, S1, S2 without murmur, rub or gallop. ABDOMEN: Soft, nontender, nondistended, normoactive bowel sounds, no guarding, no rebound, no hepatosplenomegaly, no masses. EXT - no edema, R ext rotated , no pain . ROM not tested due to fx Laboratory Results - last 24 hr 09/02/17 09/02/17 09/03/17 07:30 07:30 06:20 WBC 12.8 H RBC 3.79 Hgb 9.9 L Hct 30.9 L MCV 81.5 MCH 26.2 MCHC 32.1 RDW 16.6 H Plt Count 298 MPV 8.1 Manual Slide Review No Result Required. Iron 11 L TIBC 349 Iron Saturation 3 L Vitamin B12 1062 H Active Medications Generic Name Dose Route Start Last Admin Trade Name Kelechi PRN Reason Stop Dose Admin Acetaminophen 650 mg 09/02/17 07:50 09/02/17 21:55 Tylenol - PO 650 mg Q4H PRN Administration FEVER OR PAIN Al Hydroxide/Mg Hydroxide 30 ml 09/01/17 19:29 09/01/17 20:15 Mylanta Oral Suspension - PO 30 ml Q6H PRN Administration INDIGESTION Albuterol/Ipratropium 1 amp 08/31/17 16:47 09/03/17 06:37 Duoneb - NEB 1 amp Q6H PRN Administration SHORTNESS OF BREATH Ascorbic Acid 500 mg 09/01/17 10:00 09/03/17 09:10 Vitamin C - PO Not Given DAILY [facility] Atorvastatin Calcium 10 mg 08/31/17 22:00 09/02/17 21:54 Lipitor - PO 10 mg HS [facility]SA Administration B12/Folic Ac/Intrin Fact/Iron/Vit C 1 each 08/31/17 22:00 09/03/17 09:10 Niferex-150 Forte - PO Not Given BID [facility]SA Brimonidine Tartrate 1 drop 09/02/17 10:00 09/03/17 09:14 Alphagan 0.15% - OU 1 drop BID [facility] Administration Diltiazem HCl 120 mg 09/01/17 10:00 09/03/17 09:14 Cardizem Cd - PO 120 mg DAILY [facility]SA Administration Levothyroxine Sodium 25 mcg 09/01/17 07:00 09/03/17 06:07 Synthroid - PO Not Given ACBK [facility] Melatonin 3 mg 08/31/17 23:30 09/02/17 21:54 Melatonin PO 3 mg HS [facility] Administration Non-Formulary Medication 15 ml 08/31/17 18:00 Sodium Chloride [Vasyl-128] OS QID [facility] ASSESSMENT/PLAN: 1. Right impacted femoral neck fracture - s/p fall. Medically optimized for planned procedure . - plan for OR today - early mobilization if stable - PRBC transfusion PRN - pain control with IV morphine PRN - briefcase sewer consult for d/c planning to rehab 2. AFIB - rate controlled . - continue holding Xarelto - c/w cardizem - tele monitoring post op 3. COPD - stable . O2 dependent 4L NC at baseline - PRN duoneb - Preop IV steroids 4. Iron defficiency anemia - s/p PRBC transfusion - monitor cbc postop - transfuse as needed Visit type - Emergency Visit Emergency Visit: Yes ED Registration Date: 08/31/17 Care time: The patient presented to the Emergency Department on the above date and was hospitalized for further evaluation of their emergent condition. - New Patient This patient is new to me today: Yes Date on this admission: 09/03/17 - Critical Care Critical Care patient: No - Discharge Referral Referred to [facility] Med P.C.: No
[2017-09-03] MEDS ORDERED: methylPREDNISolone NA SUCC 125 MG/2 ML VIAL ONE (13:56)
--- NOTE | 2017-09-03 14:31 | PN ---
Progress Note (short form) - Note Progress Note: PULMONARY Reports her breathing is at baseline. No cough or wheezing. Last Vital Signs Temp Pulse Resp BP Pulse Ox 98.1 F 86 20 112/62 99 09/03/17 14:00 09/03/17 14:00 09/03/17 14:00 09/03/17 14:00 09/03/17 09:00 Gen: NAD at rest Heart: RRR Lung: distant breath sounds, no wheezes Abd: soft, nontender Ext: no edema CBC, BMP 09/03/17 06:20 09/01/17 05:17 Active Medications Acetaminophen (Tylenol -) 650 mg PO Q4H PRN PRN Reason: FEVER OR PAIN Last Admin: 09/02/17 21:55 Dose: 650 mg Al Hydroxide/Mg Hydroxide (Mylanta Oral Suspension -) 30 ml PO Q6H PRN PRN Reason: INDIGESTION Last Admin: 09/01/17 20:15 Dose: 30 ml Albuterol/Ipratropium (Duoneb -) 1 amp NEB Q6H PRN PRN Reason: SHORTNESS OF BREATH Last Admin: 09/03/17 06:37 Dose: 1 amp Ascorbic Acid (Vitamin C -) 500 mg PO DAILY [facility] Last Admin: 09/03/17 09:10 Dose: Not Given Atorvastatin Calcium (Lipitor -) 10 mg PO HS [facility] Last Admin: 09/02/17 21:54 Dose: 10 mg B12/Folic Ac/Intrin Fact/Iron/Vit C (Niferex-150 Forte -) 1 each PO BID [facility] Last Admin: 09/03/17 09:10 Dose: Not Given Brimonidine Tartrate (Alphagan 0.15% -) 1 drop OU BID [facility] Last Admin: 09/03/17 09:14 Dose: 1 drop Diltiazem HCl (Cardizem Cd -) 120 mg PO DAILY [facility] Last Admin: 09/03/17 09:14 Dose: 120 mg Levothyroxine Sodium (Synthroid -) 25 mcg PO ACBK [facility] Last Admin: 09/03/17 06:07 Dose: Not Given Melatonin (Melatonin) 3 mg PO HS [facility] Last Admin: 09/02/17 21:54 Dose: 3 mg Non-Formulary Medication (Sodium Chloride [Vasyl-128]) 15 ml OS QID [facility] A/P s/p Fall Right Hip Fracture Severe COPD/Emphysema Chronic Hypoxic Respiratory Failure CAD LV Systolic Dysfunction Paroxysmal Atrial Fibrillation - inhaled bronchodilators as needed - O2 to keep SpO2 >90% - rate controlled - holding anticoagulation - DVT prophylaxis - pt at increased but acceptable risk for planned surgery
--- NOTE | 2017-09-03 14:38 | EKG ---
Test Reason : Blood Pressure : / mmHG Vent. Rate : 108 BPM Atrial Rate : 091 BPM P-R Int : 000 ms QRS Dur : 084 ms QT Int : 294 ms P-R-T Axes : 000 -18 082 degrees QTc Int : 393 ms ATRIAL FIBRILLATION WITH RAPID VENTRICULAR RESPONSE LOW VOLTAGE QRS SEPTAL INFARCT (CITED ON OR BEFORE 19-JAN-2015) ABNORMAL ECG WHEN COMPARED WITH ECG OF 31-AUG-2017 15:58, ATRIAL FIBRILLATION HAS REPLACED SINUS RHYTHM T WAVE VARIATION VENT. RATE HAS INCREASED Confirmed by EMIL VANCE MD ([id number]) on 09/03/2017 2:38:37 PM Referred By: Confirmed By:EMIL VANCE MD
[2017-09-03] MEDS ORDERED: PHENYLEPHRINE HCL 10 MG/1 ML SINGLE DOSE VIAL ONE (15:09)
[2017-09-03] MEDS ORDERED: ceFAZolin SODIUM 1 GM VIAL ONE (15:53)
[2017-09-03] MEDS ORDERED: LACTATED RINGERS SOLUTION 1,000 ML IV SCH ×3 (16:45→17:24)
--- NOTE | 2017-09-03 17:02 | OP ---
Operative Note - Note: Operative Date: 09/03/17 Pre-Operative Diagnosis: right femoral neck hip fx Operation: cannulated screws right femoral neck Post-Operative Diagnosis: Same as Pre-op Surgeon: Jose Jeronimo Anesthesia: Spinal Estimated Blood Loss (mls): 0 Operative Report Dictated: Yes
[2017-09-03] MEDS ORDERED: MAG HYDROX/AL HYDROX/SIMETH 30 ML UNIT-DOSE CUP PO PRN (17:24)
[2017-09-03] MEDS ORDERED: ACETAMINOPHEN 325 MG TABLET (FP) PO PRN (21:16)
[2017-09-03] MEDS ORDERED: oxyCODONE HCL 5 MG TABLET PO PRN (21:16)
[2017-09-03] MEDS ORDERED: traMADol HCL 50 MG TABLET PO PRN ×2 (21:24)
[2017-09-03] MEDS ORDERED: CEFAZOLIN 1 GM PUSH 1 GM/10 ML DISP.SYRIN IVPUSH SCH (22:00)
[2017-09-03] MEDS: ACETAMINOPHEN 325 MG TABLET (FP) PO PRN (22:28)
--- NOTE | 2017-09-03 23:09 | EKG ---
Test Reason : Blood Pressure : / mmHG Vent. Rate : 091 BPM Atrial Rate : 091 BPM P-R Int : 202 ms QRS Dur : 086 ms QT Int : 374 ms P-R-T Axes : 079 -26 086 degrees QTc Int : 460 ms NORMAL SINUS RHYTHM POSSIBLE ANTERIOR INFARCT (CITED ON OR BEFORE 19-JAN-2015) ABNORMAL ECG WHEN COMPARED WITH ECG OF 07-MAY-2017 04:03, PREMATURE VENTRICULAR COMPLEXES ARE NO LONGER PRESENT T WAVE VARIATION Confirmed by EMIL VANCE MD ([id number]) on 09/03/2017 11:09:38 PM Referred By: Confirmed By:EMIL VANCE MD
[2017-09-04] MEDS: ATORVASTATIN CA 10 MG TABLET (FP) PO SCH ×2 (00:01→21:35)
[2017-09-04] MEDS: CEFAZOLIN 1 GM PUSH 1 GM/10 ML DISP.SYRIN IVPUSH SCH ×2 (00:01→07:03)
[2017-09-04] MEDS: MELATONIN 1 MG TABLET PO SCH ×2 (00:01→22:04)
[2017-09-04] MEDS: BRIMONIDINE TARTRATE 0.15% OPHTHALMIC 5 ML BOTTLE OU SCH ×3 (00:02→22:05)
[2017-09-04] MEDS: LEVOTHYROXINE NA 25 MCG TABLET (FP) PO SCH (07:03)
[2017-09-04 07:17] LABS: ANION GAP 9 (8-16); CALCIUM 9.3 mg/dL (8.5-10.1); CO2 27 mmol/L (21-32); CREATININE 0.3 mg/dL (0.55-1.02); GLUCOSE,RANDOM 130 mg/dL (74-106)
[2017-09-04 07:27] LABS: BASOPHIL 0.1 % (0-2.0); MCH 26.8 pg (25.7-33.7); MCHC 32.3 g/dl (32.0-36.0); MEAN CELL VOLUME 82.8 fl (80-96); MEAN PLT VOLUME 8.8 fl (7.5-11.1); NEUTROPHILS 93.6 % (42.8-82.8); PLATELET COUNT 247 K/MM3 (134-434); WHITE BLOOD COUNT 10.3 K/mm3 (4.0-10.0)
--- NOTE | 2017-09-04 08:50 | OP ---
DATE OF OPERATION: 09/03/2017 PREOPERATIVE DIAGNOSIS: Right femoral neck fracture. POSTOPERATIVE DIAGNOSIS: Right femoral neck fracture. PROCEDURE: Right hip cannulated screws. SURGICAL ATTENDING: Jose Jeronimo MD MANAGER UROLOGY: None. ANESTHESIA: Spinal. CLOSURE: Three 6.5 cannulated screws from [place], 2-0 Vicryl for subcutaneous, Steri-Strips for skin. ESTIMATED BLOOD LOSS: Negligible. COMPLICATIONS: None. CONDITION: Recovery room in stable condition. DESCRIPTION OF OPERATIVE PROCEDURE: Patient taken to the operating room on September 03, 2017. Spinal anesthesia was administered by the anesthesiologist. IV Kefzol was administered prophylactically prior to the case. Patient was passed onto the fracture table with all prominences well padded. Excellent reduction was confirmed by use of fluoroscopy. The right hip area was prepped and draped in the usual sterile fashion using a shower curtain. A small, 1-cm incision was made over the lateral aspect of the thigh, through the fascia. Three guidewires from the [place] 6.5 cannulated screw set were drilled in parallel fashion in an L formation from the lateral aspect of the femur, through the femoral neck, into the femoral head. Proper placement was confirmed in the AP and lateral plane by using the image intensifier. The screws were measured and then scored to the appropriate size, 6.5 screws. The screws were compressed once the traction was removed, achieving excellent compression of the fracture. The guidewires were removed. Excellent position was confirmed in the AP and lateral plane by using the image intensifier. The subcutaneous was closed using 2-0 Vicryl and Steri-Strips for the skin. A sterile pressure dressing was applied. The patient was awakened from anesthesia and transferred to recovery in stable condition. No complications. Estimated blood loss: Negligible. Lise [id number]
[2017-09-04] MEDS ORDERED: PT OWN MED DRAWER 7, Y5N ONE ×2 (09:13→21:57)
[2017-09-04] MEDS: ASCORBIC ACID 500 MG TABLET (FP) PO SCH (09:22)
[2017-09-04] MEDS: FE POLYSAC/CYANOCOBAL/FA COMBO CAPSULE PO SCH ×2 (09:23→22:04)
[2017-09-04] MEDS: ASPIRIN 325 MG TABLET PO SCH (09:24)
[2017-09-04] MEDS ORDERED: ASPIRIN 325 MG TABLET PO SCH (10:00)
--- NOTE | 2017-09-04 10:21 | PN ---
Progress Note (short form) - Note Progress Note: Anesthesia Post op Pt seen and examined S:alert and awake O: Vital Signs Temperature 99.1 F 09/04/17 08:49 Pulse Rate 77 09/04/17 08:49 Respiratory Rate 20 09/04/17 08:49 Blood Pressure 125/86 09/04/17 08:49 O2 Sat by Pulse Oximetry (%) 98 09/04/17 08:31 CBC, BMP 09/04/17 06:30 09/04/17 06:30 A/P:s/p orif r hip Doing well post op Continue current care Bowen Rapp MD Vital Signs
[2017-09-04] MEDS: ALBUTEROL SO4 2.5/IPRATROPIUM 0.5 INH SOL 3 ML VIAL.NEB. NEB PRN ×2 (10:26→22:00)
--- NOTE | 2017-09-04 11:52 | PN ---
Progress Note, Physician History of Present Illness: PULMONARY ALERT,COMFORTABLE,NAD, POD 1,PT TOLERATED PROCEDURE WELL W/O COMPLICATIONS - Current Medication List Current Medications: Active Medications Acetaminophen (Tylenol -) 650 mg PO Q4H PRN PRN Reason: FEVER OR PAIN Last Admin: 09/03/17 22:28 Dose: 650 mg Al Hydroxide/Mg Hydroxide (Mylanta Oral Suspension -) 30 ml PO Q6H PRN PRN Reason: INDIGESTION Last Admin: 09/04/17 01:31 Dose: 30 ml Albuterol/Ipratropium (Duoneb -) 1 amp NEB Q6H PRN PRN Reason: SHORTNESS OF BREATH Last Admin: 09/04/17 10:26 Dose: 1 amp Ascorbic Acid (Vitamin C -) 500 mg PO DAILY [facility] Last Admin: 09/04/17 09:22 Dose: 500 mg Aspirin (Asa -) 325 mg PO DAILY [facility] Last Admin: 09/04/17 09:24 Dose: Not Given Atorvastatin Calcium (Lipitor -) 10 mg PO HS [facility] Last Admin: 09/04/17 00:01 Dose: 10 mg B12/Folic Ac/Intrin Fact/Iron/Vit C (Niferex-150 Forte -) 1 each PO BID [facility] Last Admin: 09/04/17 09:23 Dose: 1 each Brimonidine Tartrate (Alphagan 0.15% -) 1 drop OU BID [facility] Last Admin: 09/04/17 09:24 Dose: 1 drop Diltiazem HCl (Cardizem Cd -) 120 mg PO DAILY [facility] Last Admin: 09/04/17 09:22 Dose: 120 mg Levothyroxine Sodium (Synthroid -) 25 mcg PO ACBK [facility] Last Admin: 09/04/17 07:03 Dose: 25 mcg Melatonin (Melatonin) 3 mg PO HS [facility] Last Admin: 09/04/17 00:01 Dose: 3 mg Tramadol HCl (Ultram -) 50 mg PO Q6H PRN PRN Reason: SEVERE PAIN Tramadol HCl (Ultram -) 100 mg PO Q6H PRN PRN Reason: SEVERE PAIN - Objective Vital Signs: Vital Signs Temperature 99.1 F 09/04/17 08:49 Pulse Rate 80 09/04/17 10:26 Respiratory Rate 20 09/04/17 08:49 Blood Pressure 125/86 09/04/17 08:49 O2 Sat by Pulse Oximetry (%) 94 L 09/04/17 10:26 Constitutional: Yes: No Distress, Calm, Thin Eyes: Yes: WNL HENT: Yes: WNL Neck: Yes: WNL Cardiovascular: Yes: Pulse Irregular, S1, S2 Respiratory: Yes: Diminished Gastrointestinal: Yes: Normal Bowel Sounds, Soft Extremities: Yes: WNL Edema: No Labs: CBC, BMP 09/04/17 06:30 09/04/17 06:30 INR, PTT INR 1.22 (0.82-1.09) H 09/02/17 07:30 Fibrinogen 413.0 mg/dL (238-498) 09/02/17 07:30 Problem List - Problems (1) Hip fracture Code(s): S72.009A - FRACTURE OF UNSP PART OF NECK OF UNSP FEMUR, INIT (2) COPD (chronic obstructive pulmonary disease) Code(s): J44.9 - CHRONIC OBSTRUCTIVE PULMONARY DISEASE, UNSPECIFIED (3) Hyperlipidemia Code(s): E78.5 - HYPERLIPIDEMIA, UNSPECIFIED (4) Hypertension Code(s): I10 - ESSENTIAL (PRIMARY) HYPERTENSION (5) Paroxysmal atrial fibrillation Code(s): I48.0 - PAROXYSMAL ATRIAL FIBRILLATION Assessment/Plan A/P s/p Fall Right Hip Fracture S/P Cannulated screws R femoral neck Severe COPD/Emphysema Chronic Hypoxic Respiratory Failure stable CAD LV Systolic Dysfunction Paroxysmal Atrial Fibrillation - inhaled bronchodilators as needed - O2 to keep SpO2 >90% - rate control - anticoagulation as per Ortho - DVT prophylaxis - incentive spirometer DR GUPTA
--- NOTE | 2017-09-04 14:32 | PN ---
Progress Note (short form) - Note Progress Note: Ortho Pt seen and examined s/p right hip cannulated screws pod #1 Selected Entries 09/04/17 08:49 Temperature 99.1 F Pulse Rate 77 Respiratory 20 Rate Blood Pressure 125/86 Laboratory Tests 09/04/17 06:30 WBC 10.3 H Hgb 9.6 L Hct 29.7 L Plt Count 247 dressing c/d/i, calf soft, nt nvi a/p PT dvt ppx pain control d/c planning
--- NOTE | 2017-09-04 15:19 | PN ---
Progress Note, Physician Chief Complaint: Ms Carmona says she feels much better. Says she is no longer having pain. Denies cp, sob, n/v. - Current Medication List Current Medications: Active Medications Acetaminophen (Tylenol -) 650 mg PO Q4H PRN PRN Reason: FEVER OR PAIN Last Admin: 09/03/17 22:28 Dose: 650 mg Al Hydroxide/Mg Hydroxide (Mylanta Oral Suspension -) 30 ml PO Q6H PRN PRN Reason: INDIGESTION Last Admin: 09/04/17 01:31 Dose: 30 ml Albuterol/Ipratropium (Duoneb -) 1 amp NEB Q6H PRN PRN Reason: SHORTNESS OF BREATH Last Admin: 09/04/17 10:26 Dose: 1 amp Ascorbic Acid (Vitamin C -) 500 mg PO DAILY [facility] Last Admin: 09/04/17 09:22 Dose: 500 mg Aspirin (Asa -) 325 mg PO DAILY [facility] Last Admin: 09/04/17 09:24 Dose: Not Given Atorvastatin Calcium (Lipitor -) 10 mg PO HS [facility] Last Admin: 09/04/17 00:01 Dose: 10 mg B12/Folic Ac/Intrin Fact/Iron/Vit C (Niferex-150 Forte -) 1 each PO BID [facility] Last Admin: 09/04/17 09:23 Dose: 1 each Brimonidine Tartrate (Alphagan 0.15% -) 1 drop OU BID [facility] Last Admin: 09/04/17 09:24 Dose: 1 drop Diltiazem HCl (Cardizem Cd -) 120 mg PO DAILY [facility] Last Admin: 09/04/17 09:22 Dose: 120 mg Levothyroxine Sodium (Synthroid -) 25 mcg PO ACBK [facility] Last Admin: 09/04/17 07:03 Dose: 25 mcg Melatonin (Melatonin) 3 mg PO HS [facility] Last Admin: 09/04/17 00:01 Dose: 3 mg Tramadol HCl (Ultram -) 50 mg PO Q6H PRN PRN Reason: SEVERE PAIN Tramadol HCl (Ultram -) 100 mg PO Q6H PRN PRN Reason: SEVERE PAIN - Objective Vital Signs: Vital Signs Temperature 37.3 C 09/04/17 08:49 Pulse Rate 80 09/04/17 10:26 Respiratory Rate 20 09/04/17 08:49 Blood Pressure 125/86 09/04/17 08:49 O2 Sat by Pulse Oximetry (%) 94 L 09/04/17 10:26 Constitutional: Yes: No Distress, Calm, Thin Cardiovascular: Yes: Regular Rate and Rhythm. No: Gallop, Murmur, Rub Respiratory: Yes: Regular, CTA Bilaterally. No: Rales, Rhonchi, Wheezes Gastrointestinal: Yes: Normal Bowel Sounds, Soft. No: Distention, Tenderness Extremities: Yes: WNL Edema: No Labs: CBC, BMP 09/04/17 06:30 09/04/17 06:30 INR, PTT INR 1.22 (0.82-1.09) H 09/02/17 07:30 Fibrinogen 413.0 mg/dL (238-498) 09/02/17 07:30 Problem List - Problems (1) Hip fracture Assessment/Plan: -s/p surgical screws R femoral neck -appreciate ortho assistance -defer anticoagulation resumption to ortho -PT to see -patient would benefit from SNF placement Code(s): S72.009A - FRACTURE OF UNSP PART OF NECK OF UNSP FEMUR, INIT (2) Anemia Assessment/Plan: -appreciate hematology assistance -s/p transfusion -monitor Code(s): D64.9 - ANEMIA, UNSPECIFIED Qualifiers: Anemia type: iron deficiency Iron deficiency anemia type: unspecified iron deficiency Qualified Code(s): D50.9 - Iron deficiency anemia, unspecified (3) COPD (chronic obstructive pulmonary disease) Assessment/Plan: -controlled -continue current management Code(s): J44.9 - CHRONIC OBSTRUCTIVE PULMONARY DISEASE, UNSPECIFIED (4) Hyperlipidemia Assessment/Plan: -continue statin Code(s): E78.5 - HYPERLIPIDEMIA, UNSPECIFIED (5) Hypertension Assessment/Plan: -continue cardizem Code(s): I10 - ESSENTIAL (PRIMARY) HYPERTENSION (6) Paroxysmal atrial fibrillation Assessment/Plan: -continue cardizem -anticoagulation currently on hold Code(s): I48.0 - PAROXYSMAL ATRIAL FIBRILLATION
--- NOTE | 2017-09-04 17:42 | PN ---
Progress Note (short form) - Note Progress Note: Chief Complaint: fall, hip fracture History of Present Illness: S: ambulated today without hip pain. but + foot pain. no cp, palps, dizziness , sob. Current Medications Acetaminophen (Tylenol -) 650 mg PO Q4H PRN PRN Reason: FEVER OR PAIN Last Admin: 09/03/17 22:28 Dose: 650 mg Al Hydroxide/Mg Hydroxide (Mylanta Oral Suspension -) 30 ml PO Q6H PRN PRN Reason: INDIGESTION Last Admin: 09/04/17 01:31 Dose: 30 ml Albuterol/Ipratropium (Duoneb -) 1 amp NEB Q6H PRN PRN Reason: SHORTNESS OF BREATH Last Admin: 09/04/17 10:26 Dose: 1 amp Ascorbic Acid (Vitamin C -) 500 mg PO DAILY [facility] Last Admin: 09/04/17 09:22 Dose: 500 mg Aspirin (Asa -) 325 mg PO DAILY [facility] Last Admin: 09/04/17 09:24 Dose: Not Given Atorvastatin Calcium (Lipitor -) 10 mg PO HS [facility] Last Admin: 09/04/17 00:01 Dose: 10 mg B12/Folic Ac/Intrin Fact/Iron/Vit C (Niferex-150 Forte -) 1 each PO BID [facility] Last Admin: 09/04/17 09:23 Dose: 1 each Brimonidine Tartrate (Alphagan 0.15% -) 1 drop OU BID [facility] Last Admin: 09/04/17 09:24 Dose: 1 drop Diltiazem HCl (Cardizem Cd -) 120 mg PO DAILY [facility] Last Admin: 09/04/17 09:22 Dose: 120 mg Levothyroxine Sodium (Synthroid -) 25 mcg PO ACBK [facility] Last Admin: 09/04/17 07:03 Dose: 25 mcg Melatonin (Melatonin) 3 mg PO HS [facility] Last Admin: 09/04/17 00:01 Dose: 3 mg Tramadol HCl (Ultram -) 50 mg PO Q6H PRN PRN Reason: SEVERE PAIN Tramadol HCl (Ultram -) 100 mg PO Q6H PRN PRN Reason: SEVERE PAIN Vital Signs - 24 hr 09/03/17 09/03/17 09/03/17 17:55 18:10 18:25 Temperature 97.6 F Pulse Rate 77 81 75 Respiratory 18 18 18 Rate Blood Pressure 125/56 124/54 120/51 O2 Sat by Pulse 98 98 99 Oximetry (%) 09/03/17 09/03/17 09/03/17 21:00 21:03 22:00 Temperature 98.5 F 98.5 F 98.5 F Pulse Rate 94 H 94 H 94 H Respiratory 20 20 20 Rate Blood Pressure 123/78 123/78 O2 Sat by Pulse 97 Oximetry (%) 09/04/17 09/04/17 09/04/17 02:00 05:55 08:31 Temperature 98.4 F 98.8 F 99.1 F Pulse Rate 76 74 77 Respiratory 20 20 20 Rate Blood Pressure 108/58 112/64 125/86 O2 Sat by Pulse 98 Oximetry (%) 09/04/17 09/04/17 09/04/17 08:49 10:26 15:00 Temperature 99.1 F 98.8 F Pulse Rate 77 80 86 Respiratory 20 18 Rate Blood Pressure 125/86 109/57 O2 Sat by Pulse 94 L Oximetry (%) Intake & Output 09/02/17 09/03/17 09/04/17 09/05/17 07:59 07:59 07:59 07:59 Intake Total 950 500 700 10 Output Total 125 200 Balance 950 375 700 -190 Constitutional: Yes: No Distress, Calm, Thin Eyes: No: Sclera Icterus HENT: No: Nasal Congestion Neck: No: Decreased ROM Respiratory: Yes: CTA Bilaterally (decr diffusely). No: Accessory Muscle Use, Rales, Wheezes Gastrointestinal: Yes: Normal Bowel Sounds. No: Distention, Hepatomegaly, Palpable Mass, Tenderness Cardiovascular: Yes: Regular Rate and Rhythm JVD: No Carotid Bruit: No PMI: Non-Displaced Heart Sounds: Yes: S1, S2. No: Gallop Murmur: No: Systolic Murmur, Diastolic Murmur Musculoskeletal: Yes: Other (No kyphosis) Extremities: No: Cold, Cyanosis Edema: No Peripheral Pulses: 2+ Left Carotid, 2+ Right Carotid, 2+ Left Doralis Pedis, 2+ Right Dorsalis Pedis Integumentary: No: Jaundice Neurological: Yes: Alert, Oriented (x3) Psychiatric: No: Agitated - Other Data Labs, Other Data: Assessment/Plan Echo 05/2017: Mildly reduced LV function. (No RWMA described). RV not well seen 1+ lae. mod mr, mod tr Echo 2013: nl lv, nl rv, mild mr, mild tr, rvsp 30-40 MPI (pers) 05/24: no STs. large fixed defect lateral wall; lateral wall akinesis with overall sev decr EF (36%). No LV cavity dilation or TID reported ECG: NSR; no path q's; ST depressions lateral leads ? ischemic (change vs 04/23) CXR: clear lungs/pleura CBC, BMP 09/04/17 06:30 09/04/17 06:30 s/p mechanical fall (tripped on step), hip frx/preop CV eval: -Revised CV Risk Index = 2, decr functional capacity -no s/sx of active CAD or chf -hi risk for periop CV events (i.e. >1%), but no high risk clinical predictors. -no preop mgmt changes or testing is warranted here. -rec holding xarelto x 24 hrs prior to surgery (d/c'd...no dose given 09/01) -no need for bridging heparin as pt with no prior CVA/embolic events -resume AC postop as soon as no active bleeding risks per ortho anemia: -hgb 5.7 when here 04/23, from 12.1 at office in October 2016. Has known iron deficiency on iron supplementation. -seen by GI, no definite bleeding hx and no active bleeding suspected at that time. -noncompliance with her iron supplements was felt to be contributing then -counts trended up s/p PRBCs, with iron repletion, with hgb 9s on discharge -has been maintained on AC as outpt -initially hgb 7s, ? bleeding from hip fracture site --> s/p transfusion. routine PRBC transfusion for hgb <8 CAD s/p NSTEMI: -trop peaked at 4.5 when here 04/23 with a.e. copd and anemia with ekg changes then. -had acute CHF then with new decline in LVEF -nuclear scans suggestive of lateral infarct with no residual ischemia, no high risk findings per report; -given no demonstrable ischemia, no angina (at low level activity), and hi risk for premature discontinuation of DAPT post PCI, agree with prior cardio plan to defer cath -no ASA (pt on AC) -no BB given severity of wheezing on prior presentation with a.e. copd here -cont home statin -currently with potentially ischemic ST changes on admitting ekg--troponin negative. no angina. observe for sx's chronic systolic CHF: -acute decompensation 04/23, in setting of severe anemia and a.e. copd -mild LV dysfunction reported on echo, EF 36% on MPI. -appears clinically euvolemic here. -home meds need reconcilitation--if taking lisin 5mg qd (per outpt cardio note ), rec resuming here if bp remains stable -outpt consideration of BB per dr singleton (previously deferred given severe wheezing when here 04/23--if remains without wheezing as outpatient, could consider trial of low dose metoprolol 12.5-25mg for LV fxn indication) paroxysmal afib: -episode here when admitted 2014 with a.e. copd/resp failure -CHADS VASC 4--started on xarelto 20 at that time -she remains on xarelto at home, has been tolerating this apparently with no acute anemia or overt GI bleeding -AC stopped given pt requires hip surgery--resume xarelto postop as disc'd above COPD: -on O2 at home -no signs a.e. htn: -controlled -cont prior treatment plan
--- NOTE | 2017-09-04 17:46 | PN ---
Progress Note (short form) - Note Progress Note: Seen and examined. tolerated procedure well no pain now. Cor: RSR, No murmurs, No gallops Lungs: Clear to P&A Abd: Soft, Normal bowel sounds, No organomegaly Ext:No significant edema Skin: No rashes, Integument intact Last Vital Signs Temp Pulse Resp BP Pulse Ox 98.8 F 86 18 109/57 94 L 09/04/17 15:00 09/04/17 15:00 09/04/17 15:00 09/04/17 15:00 09/04/17 10:26 CBC, BMP 09/04/17 06:30 09/04/17 06:30 Current Medications Generic Name Dose Route Start Last Admin Trade Name Freq PRN Reason Stop Dose Admin Acetaminophen 650 mg 09/03/17 17:24 09/03/17 22:28 Tylenol - PO 650 mg Q4H PRN Administration FEVER OR PAIN Al Hydroxide/Mg Hydroxide 30 ml 09/03/17 17:24 09/04/17 01:31 Mylanta Oral Suspension - PO 30 ml Q6H PRN Administration INDIGESTION Albuterol/Ipratropium 1 amp 09/03/17 17:24 09/04/17 10:26 Duoneb - NEB 1 amp Q6H PRN Administration SHORTNESS OF BREATH Ascorbic Acid 500 mg 09/04/17 10:00 09/04/17 09:22 Vitamin C - PO 500 mg DAILY [facility] Administration Aspirin 325 mg 09/04/17 10:00 09/04/17 09:24 Asa - PO Not Given DAILY [facility] Atorvastatin Calcium 10 mg 09/03/17 22:00 09/04/17 00:01 Lipitor - PO 10 mg HS [facility] Administration B12/Folic Ac/Intrin Fact/Iron/Vit C 1 each 09/03/17 22:00 09/04/17 09:23 Niferex-150 Forte - PO 1 each BID [facility] Administration Brimonidine Tartrate 1 drop 09/03/17 22:00 09/04/17 09:24 Alphagan 0.15% - OU 1 drop BID [facility] Administration Diltiazem HCl 120 mg 09/04/17 10:00 09/04/17 09:22 Cardizem Cd - PO 120 mg DAILY [facility] Administration Levothyroxine Sodium 25 mcg 09/04/17 07:00 09/04/17 07:03 Synthroid - PO 25 mcg ACBK [facility] Administration Melatonin 3 mg 09/03/17 22:00 09/04/17 00:01 Melatonin PO 3 mg HS [facility] Administration Tramadol HCl 50 mg 09/03/17 21:24 Ultram - PO Q6H PRN SEVERE PAIN Tramadol HCl 100 mg 09/03/17 21:24 Ultram - PO Q6H PRN SEVERE PAIN Fe deficiency anemia Afib (on Xarelto) COPD (home oxygen dependent @ 4 liters), s/p mechanical fall impaction fracture of the right femoral neck s/p mechanical fall Resume xarelto post procedure as per surgery Give IV iron LOS. c/w PO iron Iron studies still with significant deficit. for foot xray
[2017-09-04] MEDS ORDERED: IRON SUCROSE INJECTION 100 MG in SODIUM CHLORIDE 95 ML IVPB ONE (18:30)
[2017-09-04] MEDS: ACETAMINOPHEN 325 MG TABLET (FP) PO PRN (21:36)
[2017-09-04] MEDS ORDERED: MELATONIN 3 MG PO SCH (22:45)
[2017-09-05] MEDS: LEVOTHYROXINE NA 25 MCG TABLET (FP) PO SCH (06:01)
[2017-09-05 07:50] LABS: MCH 26.6 pg (25.7-33.7); MCHC 32.3 g/dl (32.0-36.0); MEAN CELL VOLUME 82.6 fl (80-96); MEAN PLT VOLUME 7.8 fl (7.5-11.1); PLATELET COUNT 330 K/MM3 (134-434); RDW 17.7 % (11.6-15.6); WHITE BLOOD COUNT 10.5 K/mm3 (4.0-10.0)
[2017-09-05 08:07] LABS: HEMATOCRIT 31.6 % (34.0-46.6)
[2017-09-05 08:31] LABS: ANION GAP 6 (8-16); CALCIUM 9.5 mg/dL (8.5-10.1); CO2 31 mmol/L (21-32); CREATININE 0.3 mg/dL (0.55-1.02); GLUCOSE,RANDOM 91 mg/dL (74-106); MAGNESIUM 2.1 mg/dL (1.8-2.4); PHOSPHOROUS 2.5 mg/dL (2.5-4.9)
[2017-09-05] MEDS ORDERED: PT OWN MED DRAWER 7, Y5N ONE ×2 (09:36→12:58)
--- NOTE | 2017-09-05 09:36 | PN ---
Progress Note (short form) - Note Progress Note: Pt see and examined. She has no hip pain, but c/o pain in the right foot with weight bearing. No known specific history of trauma to the right foot. PE Right foot looks fine, no swelling, ecchymosis, or abrasions. Right foot and ankle have good ROM, but she is tender over the anteromedial ankle ligaments, and she has pain in this area with ankle and foot eversion. Xrays Right foot and ankle show no acute bony pathology, no fx Imp Right foot and ankle sprain. Rec No restrictions, WBAT, ambulate with P.T. Patient did not want a brace, shoe, or boot of any kind.
[2017-09-05] MEDS: ASPIRIN 325 MG TABLET PO SCH ×2 (09:42→10:18)
[2017-09-05] MEDS: BRIMONIDINE TARTRATE 0.15% OPHTHALMIC 5 ML BOTTLE OU SCH (09:42)
[2017-09-05] MEDS: ASCORBIC ACID 500 MG TABLET (FP) PO SCH (09:42)
[2017-09-05] MEDS: FE POLYSAC/CYANOCOBAL/FA COMBO CAPSULE PO SCH (10:08)
[2017-09-05] MEDS: ALBUTEROL SO4 2.5/IPRATROPIUM 0.5 INH SOL 3 ML VIAL.NEB. NEB PRN (10:18)
--- NOTE | 2017-09-05 11:13 | DS ---
Physical Examination Vital Signs: Vital Signs Temperature 37.1 C 09/05/17 06:00 Pulse Rate 69 09/05/17 06:00 Respiratory Rate 20 09/05/17 06:00 Blood Pressure 101/50 09/05/17 06:00 O2 Sat by Pulse Oximetry (%) 97 09/04/17 20:37 Constitutional: Yes: Well Nourished, No Distress, Calm Cardiovascular: Yes: Regular Rate and Rhythm. No: Gallop, Murmur, Rub Respiratory: Yes: Regular, CTA Bilaterally. No: Rales, Rhonchi, Wheezes Gastrointestinal: Yes: Normal Bowel Sounds, Soft. No: Distention, Tenderness Extremities: Yes: WNL Edema: No Labs: CBC, BMP 09/05/17 06:00 09/05/17 06:00 Discharge Summary Reason For Visit: FRACTURE OF HIP Current Active Problems Hip fracture (Acute) Hospital Course: (1) Hip fracture Code(s): S72.009A - FRACTURE OF UNSP PART OF NECK OF UNSP FEMUR, INIT (2) Anemia Code(s): D64.9 - ANEMIA, UNSPECIFIED Qualifiers: Anemia type: iron deficiency Iron deficiency anemia type: unspecified iron deficiency Qualified Code(s): D50.9 - Iron deficiency anemia, unspecified (3) COPD (chronic obstructive pulmonary disease) Code(s): J44.9 - CHRONIC OBSTRUCTIVE PULMONARY DISEASE, UNSPECIFIED (4) Hyperlipidemia Code(s): E78.5 - HYPERLIPIDEMIA, UNSPECIFIED (5) Hypertension Code(s): I10 - ESSENTIAL (PRIMARY) HYPERTENSION (6) Paroxysmal atrial fibrillation Code(s): I48.0 - PAROXYSMAL ATRIAL FIBRILLATION Mrs Carmona is a 77 year old female who came in with hip fracture after mechanical fall and anemia. She was admitted to the hospital and transfused. Her xarelto was held. She was seen by ortho and taken to the OR. She tolerated the procedure well. She is up walking with PT today and did well. SNF was recommended, however patient was adamant on going home. She understands the risks of going home vs going to SNF and states she won't fall and has help at home. [facility]NS was ordered for HHPT. Currently she is stable for discharge home. Her xarelto will be restarted with close follow up. 33 minutes spent in preparation for this discharge Condition: Stable - Instructions Diet, Activity, Other Instructions: resume previous diet. Ambulate with walker, further instructions per home PT Referrals: Lux Littlejohn MD [Primary Care Provider] - Froilan Murry MD [Staff Physician] - Constanza Busch MD [Staff Physician] - Adi Cross MD [Staff Physician] - Disposition: VNS/HOME HEALTH CARE - Home Medications Comprehensive Discharge Medication List: Ambulatory Orders Diltiazem Cd [Cardizem Cd -] 120 mg PO DAILY 01/19/15 Levothyroxine [Synthroid -] 25 mg PO DAILY 01/19/15 Pravastatin Sodium [Pravachol -] 20 mg PO DAILY 01/19/15 Rivaroxaban [Xarelto -] 20 mg PO HS 01/19/15 Albuterol 0.083% Nebulizer Michelle [Ventolin 0.083% Nebulizer Soln -] 1 neb NEB Q6H #60 vial 01/21/15 Ascorbic Acid [Vitamin C] 500 mg PO BID 08/31/17 Brimonidine Tartrate [Alphagan P] 10 ml OU BID 08/31/17 Iron Ps Cmplx/Vit B12/FA [Ferrex 150 Forte Capsule] 1 each PO BID 08/31/17 Lisinopril [Prinivil] 5 mg PO DAILY 08/31/17 Sodium Chloride [Vasyl-128] 15 ml OS QID 08/31/17 Melatonin/Pyridoxine HCl (B6) [Melatonin 3 mg Tablet] 3 each PO HS 09/01/17 Acetaminophen [Tylenol .Regular Strength -] 650 mg PO Q4H PRN tablet 09/05/17 Tramadol HCl [Ultram -] 100 mg PO Q6H PRN #30 tablet MDD 400 09/05/17
[2017-09-05 12:43] VITALS: BP 124/64; PULSE 82; TEMP 99.5
== END 2017-09-05 13:34 | disposition home health service (06) | DRG 481 ==
LOC: JER 10:56 → JERBED 14:58 → J6S 16:16 → J6W 09-03 19:29 → J4W 09-03 19:37 → J6S 09-04 21:20
PROVIDERS: ADMIT Internal Medicine; ATTEND Internal Medicine
PROC: 3E0F7GC Introduction of Other Therapeutic Substance into Respiratory Tract, Via Natural or Artificial Opening (ICD-10-PCS; 2017-08-31)
PROC: 30233N1 Transfusion of Nonautologous Red Blood Cells into Peripheral Vein, Percutaneous Approach (ICD-10-PCS; 2017-09-01)
PROC: 0QS604Z Reposition Right Upper Femur with Internal Fixation Device, Open Approach (ICD-10-PCS; principal; 2017-09-03 14:30)
DX: S72.001A Fracture of unspecified part of neck of right femur, initial encounter for closed fracture (principal); J98.11 Atelectasis; J96.11 Chronic respiratory failure with hypoxia; I50.22 Chronic systolic (congestive) heart failure; W19.XXXA Unspecified fall, initial encounter; Y93.9 Activity, unspecified; Y92.89 Other specified places as the place of occurrence of the external cause; Y99.9 Unspecified external cause status; I48.0 Paroxysmal atrial fibrillation; D64.9 Anemia, unspecified; J44.9 Chronic obstructive pulmonary disease, unspecified; E78.5 Hyperlipidemia, unspecified; I25.10 Atherosclerotic heart disease of native coronary artery without angina pectoris; D50.9 Iron deficiency anemia, unspecified; E03.9 Hypothyroidism, unspecified; M81.0 Age-related osteoporosis without current pathological fracture; I11.0 Hypertensive heart disease with heart failure; Z99.81 Dependence on supplemental oxygen
CPT/HCPCS: 36415; 36430; 36600; 71010-TC; 73523-TC; 73630-TC-RT; 76000-TC; 80048; 80053; 81003; 82550; 82607; 82728; 82747; 82803; 83540; 83550; 83735; 84100; 84132; 84439; 84443; 84484; 85014; 85025; 85027; 85384; 85610; 85730; 86850; 86900; 86901; 86922; 87040; 93005; 93010; 94010; 94640; 94760; 97116-GP; 97162-GP; 99283-25; J1756; P9038; P9058

== ENCOUNTER 2019-09-20 08:59 | Inpatient (IN) | payer BC, OTHER ==
--- NOTE | 2019-09-20 09:13 | PDOC ---
History of Present Illness - General Chief Complaint: Weakness Stated Complaint: WEAKNESS Time Seen by Provider: 09/20/19 09:13 Past History - Past Medical History Allergies/Adverse Reactions: Allergies Allergy/AdvReac Type Severity Reaction Status Date / Time diazepam [From Valium] Allergy Verified 08/31/17 13:00 Penicillins Allergy Verified 08/31/17 13:00 codeine AdvReac Mild Verified 08/31/17 13:00 morphine AdvReac Verified 08/31/17 13:00 Home Medications: Ambulatory Orders Diltiazem Cd [Cardizem Cd -] 120 mg PO DAILY 01/19/15 Levothyroxine [Synthroid -] 25 mg PO DAILY 01/19/15 Pravastatin Sodium [Pravachol -] 20 mg PO DAILY 01/19/15 Rivaroxaban [Xarelto -] 20 mg PO HS 01/19/15 Albuterol 0.083% Nebulizer Michelle [Ventolin 0.083% Nebulizer Soln -] 1 neb NEB Q6H #60 vial 01/21/15 Ascorbic Acid [Vitamin C] 500 mg PO BID 08/31/17 Brimonidine Tartrate [Alphagan P] 10 ml OU BID 08/31/17 Iron Ps Complex/B12/Folic Acid [Ferrex 150 Forte Capsule] 1 each PO BID Lisinopril [Prinivil] 5 mg PO DAILY 08/31/17 Sodium Chloride [Vasyl-128] 15 ml OS QID 08/31/17 Melatonin/Pyridoxine HCl (B6) [Melatonin 3 mg Tablet] 3 each PO HS 09/01/17 Acetaminophen [Tylenol .Regular Strength -] 650 mg PO Q4H PRN tablet 09/05/17 traMADol HCL [Ultram -] 100 mg PO Q6H PRN #30 tablet MDD 400 09/05/17 Anemia: Yes Asthma: No Cancer: No Cardiac Disorders: Yes (atrial fibrillation) CVA: No COPD: Yes CHF: No Dementia: No Diabetes: No GI Disorders: No Disorders: No HTN: Yes Hypercholesterolemia: Yes Liver Disease: No Seizures: No Thyroid Disease: Yes - Surgical History Abdominal Surgery: No Appendectomy: No Cardiac Surgery: Yes Cholecystectomy: No Lung Surgery: No Neurologic Surgery: No - Psycho Social/Smoking Cessation Hx Smoking History: Former smoker Have you smoked in the past 12 months: No Number of Cigarettes Smoked Daily: 10 If you are a former smoker, when did you quit?: 2 months 'Breaking Loose' booklet given: 10/05/14 Hx Alcohol Use: No Drug/Substance Use Hx: No Substance Use Type: None
[2019-09-20] MEDS ORDERED: SODIUM CHLORIDE 1,361 ML IV ONE (09:51)
--- NOTE | 2019-09-20 09:57 | PDOC ---
Attending Attestation - Resident Resident Name: More Tim - HPI HPI: 09/20/19 09:53 79yo F hx Afib (not on AC), COPD (home oxygen dependent), hypertension, HLD, hypothyroid, anemia on iron supplements presents with generalized weakness, poor appetite, feeling jittery x 4 days. Relates her symptoms to having her iron supplements changed 4 days ago. Was on iferex 150, but pharmacy ran out so she was switched by Dr. Williamson for ferrous sulfate. Pt sleeps in recliner, states she always does. Now having difficulty getting to the bathroom from recliner which is new, reports she has almost fallen while going to the bathroom several times. Pt notably SOB during interview, admits that she has not been using her nebs at home for 3 days because she believes it is contributing to her symptoms. Denies F/C, dizziness, headache, focal weakness/numbness, CP, abd pain, N/V/D, urinary sxs, LE edema - Physicial Exam PE: 09/20/19 11:06 GENERAL: Awake, alert, and fully oriented, in no acute distress HEAD: No signs of trauma EYES: EOMI, sclera anicteric, conjunctiva clear ENT: Nares patent, oropharynx clear without exudates. Moist mucosa NECK: Normal ROM, supple, no lymphadenopathy, JVD, or masses LUNGS: Diminished throughout, mild wheezes on R, poor air movement, no crackles. +mild increased WOB HEART: Regular rate and rhythm, normal S1 and S2, no murmurs, rubs or gallops ABDOMEN: Soft, nontender, normoactive bowel sounds. No guarding, no rebound. No masses EXTREMITIES: Normal range of motion, no edema. No clubbing or cyanosis. No cords, erythema, or tenderness NEUROLOGICAL: Normal speech, cranial nerves intact, negative pronator drift, 5/ 5 strength in all 4 extremities, normal sensation to light touch in all 4 extremities, normal cerebellar exam, normal shuffling with some unsteadiness w/ o assistance SKIN: Warm, Dry, normal turgor, no rashes or lesions noted. Heart Score/ECG Review #1 09/20/19 11:53 Twelve-lead EKG was performed and reviewed by me. Normal sinus rhythm, rate 98. Left axis deviation. No ST elevations or T wave inversions.
[2019-09-20] MEDS ORDERED: methylPREDNISolone NA SUCC 125 MG/2 ML VIAL IVPUSH ONE (10:42)
[2019-09-20 10:50] LABS: BASO % 0.1 % (0-2.0); HEMATOCRIT 39.9 % (32.4-45.2); HEMOGLOBIN 12.6 GM/dL (10.7-15.3); LYMPH % 3.2 % (8-40); MCH 30.1 pg (25.7-33.7); MCHC 31.6 g/dl (32.0-36.0); MEAN CELL VOLUME 95.2 fl (80-96); MEAN PLT VOLUME 9.1 fl (7.5-11.1); MONO % 3.9 % (3.8-10.2); NEUT % 92.8 % (42.8-82.8); PLATELET COUNT 259 K/MM3 (134-434); RDW 13.9 % (11.6-15.6); WHITE BLOOD COUNT 17.8 K/mm3 (4.0-10.0)
[2019-09-20 10:55] LABS: VENOUS PC02 54.3 mmHg (38-52); VENOUS PO2 < 49 mmHg (28-48)
[2019-09-20] MEDS ORDERED: ALBUTEROL SO4 2.5/IPRATROPIUM 0.5 INH SOL 3 ML VIAL.NEB. NEB ONE (10:56)
[2019-09-20] MEDS ORDERED: methylPREDNISolone NA SUCC 125 MG/2 ML VIAL ONE (10:56)
[2019-09-20 11:02] LABS: INR 1.15 (0.83-1.09); PROTHROMBIN TIME (PATIENT) 13.6 SEC (9.7-13.0)
[2019-09-20 11:05] LABS: ACTIVATED PTT 33.1 SECONDS (25.2-36.5)
[2019-09-20 11:07] LABS: ALBUMIN 3.6 g/dl (3.4-5.0); BILIRUBIN,TOTAL 0.4 mg/dL (0.2-1); BLOOD UREA NITROGEN 11.4 mg/dL (7-18); CALCIUM 10.6 mg/dL (8.5-10.1); CREATININE 0.4 mg/dL (0.55-1.3); N-TERMINAL BNP 1507.1 pg/ml (5-450); POTASSIUM 3.4 mmol/L (3.5-5.1); TOT PROT 7.7 g/dl (6.4-8.2)
[2019-09-20] MEDS: ALBUTEROL SO4 2.5/IPRATROPIUM 0.5 INH SOL 3 ML VIAL.NEB. NEB SCH ×3 (11:07→13:30)
--- NOTE | 2019-09-20 11:55 | PDOC ---
History of Present Illness - General Chief Complaint: Weakness Stated Complaint: WEAKNESS Time Seen by Provider: 09/20/19 09:13 - History of Present Illness Initial Comments: 09/20/19 11:55 79yo F hx Afib (not on AC), COPD (home oxygen dependent), hypertension, HLD, hypothyroid, anemia on iron supplements presents with generalized weakness, poor appetite, feeling jittery x 4 days. Relates her symptoms to having her iron supplements changed 4 days ago. Was on iferex 150, but pharmacy ran out so she was switched by Dr. Williamson for ferrous sulfate. Pt sleeps in recliner, states she always does. Now having difficulty getting to the bathroom from recliner which is new, reports she has almost fallen while going to the bathroom several times. Pt notably SOB during interview, admits that she has not been using her nebs at home for 3 days because she believes it is contributing to her symptoms. Denies F/C, dizziness, headache, focal weakness/numbness, CP, abd pain, N/V/D, urinary sxs, LE edema Past History - Past Medical History Allergies/Adverse Reactions: Allergies Allergy/AdvReac Type Severity Reaction Status Date / Time diazepam [From Valium] Allergy Verified 08/31/17 13:00 Penicillins Allergy Verified 08/31/17 13:00 codeine AdvReac Mild Verified 08/31/17 13:00 morphine AdvReac Verified 08/31/17 13:00 Home Medications: Ambulatory Orders Diltiazem Cd [Cardizem Cd -] 120 mg PO DAILY 01/19/15 Levothyroxine [Synthroid -] 25 mg PO DAILY 01/19/15 Pravastatin Sodium [Pravachol -] 20 mg PO DAILY 01/19/15 Rivaroxaban [Xarelto -] 20 mg PO HS 01/19/15 Albuterol 0.083% Nebulizer Michelle [Ventolin 0.083% Nebulizer Soln -] 1 neb NEB Q6H #60 vial 01/21/15 Ascorbic Acid [Vitamin C] 500 mg PO BID 08/31/17 Brimonidine Tartrate [Alphagan P] 10 ml OU BID 08/31/17 Iron Ps Complex/B12/Folic Acid [Ferrex 150 Forte Capsule] 1 each PO BID Lisinopril [Prinivil] 5 mg PO DAILY 08/31/17 Sodium Chloride [Vasyl-128] 15 ml OS QID 08/31/17 Melatonin/Pyridoxine HCl (B6) [Melatonin 3 mg Tablet] 3 each PO HS 09/01/17 Acetaminophen [Tylenol .Regular Strength -] 650 mg PO Q4H PRN tablet 09/05/17 traMADol HCL [Ultram -] 100 mg PO Q6H PRN #30 tablet MDD 400 09/05/17 Anemia: Yes Asthma: No Cancer: No Cardiac Disorders: Yes (atrial fibrillation) CVA: No COPD: Yes CHF: No Dementia: No Diabetes: No GI Disorders: No Disorders: No HTN: Yes Hypercholesterolemia: Yes Liver Disease: No Seizures: No Thyroid Disease: Yes - Surgical History Abdominal Surgery: No Appendectomy: No Cardiac Surgery: Yes Cholecystectomy: No Lung Surgery: No Neurologic Surgery: No - Psycho Social/Smoking Cessation Hx Smoking History: Never smoked Have you smoked in the past 12 months: No Number of Cigarettes Smoked Daily: 10 If you are a former smoker, when did you quit?: 2 months 'Breaking Loose' booklet given: 10/05/14 Hx Alcohol Use: No Drug/Substance Use Hx: No Substance Use Type: None Review of Systems - Review of Systems Comments:: 09/20/19 11:55 GENERAL/CONSTITUTIONAL: No fever or chills. +weakness. HEAD, EYES, EARS, NOSE AND THROAT: No change in vision. No ear pain or discharge. No sore throat. GASTROINTESTINAL: No nausea, vomiting, diarrhea or constipation. GENITOURINARY: No dysuria, frequency, or change in urination. CARDIOVASCULAR: No chest pain +shortness of breath. RESPIRATORY: No cough, wheezing, or hemoptysis. MUSCULOSKELETAL: No joint or muscle swelling or pain. No neck or back pain. SKIN: No rash NEUROLOGIC: No headache, vertigo, loss of consciousness, or change in strength/ sensation. ENDOCRINE: No increased thirst. No abnormal weight change. HEMATOLOGIC/LYMPHATIC: No anemia, easy bleeding, or history of blood clots. ALLERGIC/IMMUNOLOGIC: No hives or skin allergy. *Physical Exam - Vital Signs Last Vital Signs Temp Pulse Resp BP Pulse Ox 99.2 F 106 H 24 H 128/98 97 09/20/19 09:51 09/20/19 09:26 09/20/19 09:26 09/20/19 09:26 09/20/19 09:26 - Physical Exam 09/20/19 11:06 GENERAL: Awake, alert, and fully oriented, in no acute distress HEAD: No signs of trauma EYES: EOMI, sclera anicteric, conjunctiva clear ENT: Nares patent, oropharynx clear without exudates. Moist mucosa NECK: Normal ROM, supple, no lymphadenopathy, JVD, or masses LUNGS: Diminished throughout, mild wheezes on R, poor air movement, no crackles. +mild increased WOB HEART: Regular rate and rhythm, normal S1 and S2, no murmurs, rubs or gallops ABDOMEN: Soft, nontender, normoactive bowel sounds. No guarding, no rebound. No masses EXTREMITIES: Normal range of motion, no edema. No clubbing or cyanosis. No cords, erythema, or tenderness NEUROLOGICAL: Normal speech, cranial nerves intact, negative pronator drift, 5/ 5 strength in all 4 extremities, normal sensation to light touch in all 4 extremities, normal cerebellar exam, normal shuffling with some unsteadiness w/ o assistance SKIN: Warm, Dry, normal turgor, no rashes or lesions noted. Heart Score/ECG Review #1 09/20/19 11:56 Twelve-lead EKG was performed and reviewed by me. Normal sinus rhythm, rate 98. Left axis deviation. No ST elevations or T wave inversions. ED Treatment Course - LABORATORY CBC & Chemistry Diagram: 09/20/19 10:15 09/20/19 10:15 - ADDITIONAL ORDERS Additional order review: Laboratory Results 09/20/19 09/20/19 09/20/19 10:15 10:15 10:15 PT with INR INR PTT (Actin FS) VBG pH 7.40 POC VBG pCO2 54.3 H POC VBG pO2 < 49 H VBG HCO3 32.7 H VBG O2 Sat (Sheldon) 81.2 H VBG Base Excess 6.9 H Sodium Potassium Chloride Carbon Dioxide Anion Gap BUN Creatinine Est GFR (CKD-EPI)AfAm Est GFR (CKD-EPI)NonAf Random Glucose Lactic Acid 1.2 Calcium Total Bilirubin AST ALT Alkaline Phosphatase Troponin I B-Natriuretic Peptide Total Protein Albumin Blood Type O POSITIVE Antibody Screen Negative 09/20/19 09/20/19 09/20/19 10:15 10:15 10:15 PT with INR 13.60 H INR 1.15 H PTT (Actin FS) 33.1 VBG pH POC VBG pCO2 POC VBG pO2 VBG HCO3 VBG O2 Sat (Sheldon) VBG Base Excess Sodium 139 Potassium 3.4 L Chloride 99 Carbon Dioxide 33 H Anion Gap 7 L BUN 11.4 Creatinine 0.4 L Est GFR (CKD-EPI)AfAm 114.01 Est GFR (CKD-EPI)NonAf 98.37 Random Glucose 107 H Lactic Acid Calcium 10.6 H Total Bilirubin 0.4 AST 16 ALT 18 Alkaline Phosphatase 80 Troponin I 0.15 H B-Natriuretic Peptide 1507.1 H Total Protein 7.7 Albumin 3.6 Blood Type Antibody Screen 09/20/19 10:15 RBC 4.20 MCV 95.2 MCHC 31.6 L RDW 13.9 D MPV 9.1 D Neutrophils % 92.8 H Lymphocytes % 3.2 L D Monocytes % 3.9 D Eosinophils % 0.0 Basophils % 0.1 - RADIOLOGY Radiology Studies Ordered: Category Date Time Status CHEST CT WITHOUT CONTRAST [CT] Stat CT Scan 09/20/19 11:41 Ordered CHEST X-RAY PORTABLE* [RAD] Stat Radiology 09/20/19 09:51 Completed - Medications Given in the ED: ED Medications Discontinued Medications Generic Name Dose Route Start Last Admin Trade Name Freq PRN Reason Stop Dose Admin Albuterol/Ipratropium 1 amp 09/20/19 10:45 09/20/19 11:07 Duoneb - NEB 09/20/19 11:31 1 amp Q15M MAHSA Administration Sodium Chloride 1,361 mls @ 680.5 mls/hr 09/20/19 09:51 09/20/19 10:31 Normal Saline - 30 ml/kg infuse over 2 hr (1361 ml) 09/20/19 11:50 Not Given IV ONCE ONE Methylprednisolone Sodium Succinate 125 mg 09/20/19 10:42 09/20/19 11:07 Solu-Medrol - IVPUSH 09/20/19 10:43 125 mg ONCE ONE Administration Medical Decision Making - Medical Decision Making 09/20/19 11:56 79-year-old female presents the emergency department with 4 days of generalized weakness, anorexia, jitteriness and later admitting to shortness of breath after not using her home nebulizers for the last 3 days. Vitals remarkable for low-grade temp of 99.8, tachycardia to 106, and tachypnea to 24. Exam with diminished breath sounds diffusely and mild wheezing on the right and poor air movement consistent with likely COPD exacerbation. Low-grade temp and weakness also possibly concerning for infectious process such as pneumonia or UTI. Work-up remarkable thus far for leukocytosis to 18, troponin leak to 0.15 and elevated BNP. Impression is COPD exacerbation with possible pneumonia. At this time will obtain CT chest to evaluate for infiltrates. Patient covered with ceftriaxone and azithro. Penicillin allergy noted in the EMR, however patient has safely received cefepime in the past. Anticipate admission. 09/20/19 12:19 Case discussed w ED Pascal pt accepted to Dr Pineda's service Case discussed in detail with admitting physician including history, physical exam and ancillary studies. Admitting physician has assumed care for the patient, will follow all pending diagnostics and will complete the evaluation and treatment. Discharge - Discharge Information Problems reviewed: Yes Clinical Impression/Diagnosis: Generalized weakness, COPD (chronic obstructive pulmonary disease), PNA ( pneumonia) Condition: Stable - Admission Yes - Follow up/Referral Referrals: Lux Littlejohn MD [Primary Care Provider] - - Patient Discharge Instructions - Post Discharge Activity
[2019-09-20 11:59] LABS: PLATELET ESTIMATE ADEQUATE
[2019-09-20] MEDS ORDERED: CEFTRIAXONE 1,000 MG in DEXTROSE 5%-WATER - 50 ML IVPB ONE (12:02)
[2019-09-20] MEDS ORDERED: AZITHROMYCIN IVPB 500 MG in DEXTROSE 5%-WATER - 250 ML IVPB ONE (12:02)
--- NOTE | 2019-09-20 14:01 | HP ---
CHIEF COMPLAINT: worsening shortness of breath x 3 days, loss of appetite, weakness PCP: Dr. Newsome, PCp Dr. Gallardo, stri[facility] HISTORY OF PRESENT ILLNESS: Patient is an 79 year old female with a significant past medical history of Afib (no longer on anticoagulation - per patient, she was taken off all anticoagulation by her PCP and [facility] white for anemia?), COPD (home oxygen dependent @ 4 liters), hypertension, HLD, right hip fracture s/p fall and anemia. She presented to the ER today with weakness, poor appetite for 3 days, feeling jittery for 3 days. She attributes her generalzed weakness and poor appeite to having her iron supplements changed 4 days ago. Patient was on iron supplmenets of Iferex 150mg but pharmacy ran out and was switched to ferrous sulfate. Since then, reports lower ext weakness and almost fell at home when attempting to ambulate to the bathroom. Patient reports that she is on her oxygen at 4 liters 24 hours per day, does not use Cpap. She is being admitted for acute exacerbation of COPD and acute on chronic hypoxemic respiratory failure. She was evaluated by pulmonary and a CT scan of chest was ordered to rule out pneumonia. ER course notable for: (1) trop 0.15, 0.11 (2) potassium 3.4 (3) chest ct non contrast 09/20/2019: moderately severe copd changes mainly on upper lobes, slightly worsened since prior exam. chronic consolidation/ atelectsis with air broncospasm in the right mid lobe, trace bilateral pleural effusion suggestive of pneumonia, stable slight enlarged pretracheal lymph node measuring 1.2 cm. (4) wbc 17 (5) vitals in ED: low grade temp 99.8, tachycardia 106, tachypnea on 4 liters @ 24 (6) ceftriaxone and azithromycin Recent Travel: none PAST MEDICAL/SURGICAL HISTORY: Afib (no longer on anticoagulation - per patient , she was taken off all anticoagulation by her PCP and [facility]), COPD ( home oxygen dependent @ 4 liters), hypertension, HLD, right hip fracture s/p fall and anemia. : Social History: Smoking: smoked for 60 years total but has not smoked for a few years Alcohol: occasional Drugs: denies Allergies diazepam [From Valium] Allergy (Verified 08/31/17 13:00) Penicillins Allergy (Verified 08/31/17 13:00) codeine Adverse Reaction (Mild, Verified 08/31/17 13:00) "spaced out" morphine Adverse Reaction (Verified 08/31/17 13:00) HOME MEDICATIONS: Home Medications Medication Instructions Recorded Diltiazem Cd [Cardizem Cd -] 120 mg PO DAILY 01/19/15 Levothyroxine [Synthroid -] 25 mg PO DAILY 01/19/15 Pravastatin Sodium [Pravachol -] 20 mg PO DAILY 01/19/15 Rivaroxaban [Xarelto -] 20 mg PO HS 01/19/15 Albuterol 0.083% Nebulizer Michelle 1 neb NEB Q6H #60 vial 01/21/15 [Ventolin 0.083% Nebulizer Soln -] Ascorbic Acid [Vitamin C] 500 mg PO BID 08/31/17 Brimonidine Tartrate [Alphagan P] 10 ml OU BID 08/31/17 Iron Ps Complex/B12/Folic Acid 1 each PO BID 08/31/17 [Ferrex 150 Forte Capsule] Lisinopril [Prinivil] 5 mg PO DAILY 08/31/17 Sodium Chloride [Vasyl-128] 15 ml OS QID 08/31/17 Melatonin/Pyridoxine HCl (B6) 3 each PO HS 09/01/17 [Melatonin 3 mg Tablet] Acetaminophen [Tylenol .Regular 650 mg PO Q4H PRN tablet 09/05/17 Strength -] traMADol HCL [Ultram -] 100 mg PO Q6H PRN #30 tablet MDD 09/05/17 400 PHYSICAL EXAMINATION Vital Signs - 24 hr 09/20/19 09/20/19 09:26 09:51 Temperature 99.8 F H 99.2 F Pulse Rate 106 H Respiratory 24 H Rate Blood Pressure 128/98 O2 Sat by Pulse 97 Oximetry (%) GENERAL: Awake, alert, thin frail appearing HEAD: Normal with no signs of trauma. EYES: Pupils equal, round and reactive to light, extraocular movements intact, sclera anicteric, conjunctiva clear. No lid lag. EARS, NOSE, THROAT: Ears normal, nares patent, oropharynx clear without exudates. Moist mucous membranes. NECK: Normal range of motion, supple without lymphadenopathy, JVD, or masses. LUNGS: poor airway entry, accessory muscle use. diffusely and mild wheezing on the right and poor air movement. on 4 liters of home oxygen x 24 hours per day HEART: Regular rate and rhythm ABDOMEN: Soft, nontender, not distended, normoactive bowel sounds, no guarding, no rebound, no masses. No hepatomegaly or splenomegaly. MUSCULOSKELETAL: Normal range of motion at all joints. No bony deformities or tenderness. No CVA tenderness. UPPER EXTREMITIES: No peripheral edema. LOWER EXTREMITIES: No peripheral edema. NEUROLOGICAL: Normal speech. Normal gait. PSYCHIATRIC: Cooperative. Good eye contact. Appropriate mood and affect. SKIN: Warm, dry, normal turgor, no rashes or lesions noted, normal capillary refill. Laboratory Results - last 24 hr 09/20/19 09/20/19 09/20/19 10:15 10:15 10:15 WBC 17.8 H RBC 4.20 Hgb 12.6 Hct 39.9 D MCV 95.2 MCH 30.1 D MCHC 31.6 L RDW 13.9 D Plt Count 259 D MPV 9.1 D Absolute Neuts (auto) 16.5 H Neutrophils % 92.8 H Neutrophils % (Manual) 90.0 H Band Neutrophils % 3.0 Lymphocytes % 3.2 L D Lymphocytes % (Manual) 4.0 L Monocytes % 3.9 D Monocytes % (Manual) 3 L Eosinophils % 0.0 Eosinophils % (Manual) 0.0 Basophils % 0.1 Basophils % (Manual) 0.0 Nucleated RBC % 0 Platelet Estimate Adequate PT with INR 13.60 H INR 1.15 H PTT (Actin FS) 33.1 VBG pH POC VBG pCO2 POC VBG pO2 VBG HCO3 VBG O2 Sat (Sheldon) VBG Base Excess Sodium Potassium Chloride Carbon Dioxide Anion Gap BUN Creatinine Est GFR (CKD-EPI)AfAm Est GFR (CKD-EPI)NonAf Random Glucose Lactic Acid Calcium Total Bilirubin AST ALT Alkaline Phosphatase Troponin I 0.15 H B-Natriuretic Peptide Total Protein Albumin Blood Type Antibody Screen 09/20/19 09/20/19 09/20/19 10:15 10:15 10:15 WBC RBC Hgb Hct MCV MCH MCHC RDW Plt Count MPV Absolute Neuts (auto) Neutrophils % Neutrophils % (Manual) Band Neutrophils % Lymphocytes % Lymphocytes % (Manual) Monocytes % Monocytes % (Manual) Eosinophils % Eosinophils % (Manual) Basophils % Basophils % (Manual) Nucleated RBC % Platelet Estimate PT with INR INR PTT (Actin FS) VBG pH POC VBG pCO2 POC VBG pO2 VBG HCO3 VBG O2 Sat (Sheldon) VBG Base Excess Sodium 139 Potassium 3.4 L Chloride 99 Carbon Dioxide 33 H Anion Gap 7 L BUN 11.4 Creatinine 0.4 L Est GFR (CKD-EPI)AfAm 114.01 Est GFR (CKD-EPI)NonAf 98.37 Random Glucose 107 H Lactic Acid 1.2 Calcium 10.6 H Total Bilirubin 0.4 AST 16 ALT 18 Alkaline Phosphatase 80 Troponin I B-Natriuretic Peptide 1507.1 H Total Protein 7.7 Albumin 3.6 Blood Type O POSITIVE Antibody Screen Negative 09/20/19 10:15 WBC RBC Hgb Hct MCV MCH MCHC RDW Plt Count MPV Absolute Neuts (auto) Neutrophils % Neutrophils % (Manual) Band Neutrophils % Lymphocytes % Lymphocytes % (Manual) Monocytes % Monocytes % (Manual) Eosinophils % Eosinophils % (Manual) Basophils % Basophils % (Manual) Nucleated RBC % Platelet Estimate PT with INR INR PTT (Actin FS) VBG pH 7.40 POC VBG pCO2 54.3 H POC VBG pO2 < 49 H VBG HCO3 32.7 H VBG O2 Sat (Sheldon) 81.2 H VBG Base Excess 6.9 H Sodium Potassium Chloride Carbon Dioxide Anion Gap BUN Creatinine Est GFR (CKD-EPI)AfAm Est GFR (CKD-EPI)NonAf Random Glucose Lactic Acid Calcium Total Bilirubin AST ALT Alkaline Phosphatase Troponin I B-Natriuretic Peptide Total Protein Albumin Blood Type Antibody Screen ASSESSMENT/PLAN: Problem List - Problem (1) Acute on chronic respiratory failure with hypoxia Assessment/Plan: patient presents with worsening shortness of breath than her usual baseline She is usually home oxygen dependent at 4 liters continuously non contrast ct chest shows moderately severe copd with bilateral pleural effusion suggestive of pneumonia on solumedrol 40mg q8 on ceftriaxone duonebs pulmonary following Code(s): J96.21 - ACUTE AND CHRONIC RESPIRATORY FAILURE WITH HYPOXIA (2) COPD (chronic obstructive pulmonary disease) Assessment/Plan: patient presents with worsening shortness of breath than her usual baseline She is usually home oxygen dependent at 4 liters continuously non contrast ct chest shows moderately severe copd with bilateral pleural effusion suggestive of pneumonia on solumedrol 40mg q8 on ceftriaxone duonebs pulmonary following Code(s): J44.9 - CHRONIC OBSTRUCTIVE PULMONARY DISEASE, UNSPECIFIED (3) Generalized weakness Assessment/Plan: reports weakness at home, and a near fall will order physical therapy once her respiratory status more stable Code(s): R53.1 - WEAKNESS (4) PNA (pneumonia) Assessment/Plan: per chest ct, possible pneumonia on ceftriaxone duonebs pulmonary following Code(s): J18.9 - PNEUMONIA, UNSPECIFIED ORGANISM (5) Anemia Assessment/Plan: monitor with daily labs Code(s): D64.9 - ANEMIA, UNSPECIFIED Qualifiers: Anemia type: iron deficiency Iron deficiency anemia type: unspecified iron deficiency Qualified Code(s): D50.9 - Iron deficiency anemia, unspecified (6) Paroxysmal atrial fibrillation Assessment/Plan: per patient and , patient was taken off xarelto and eliquis by her stri[facility] and PCP ekg shows nsr 98s on cardizem 120mg daily on lisinopril 10 Code(s): I48.0 - PAROXYSMAL ATRIAL FIBRILLATION (7) Unsteady gait Assessment/Plan: for PT eval s/p right hip fracture 2016 Code(s): R26.81 - UNSTEADINESS ON FEET Visit type - Emergency Visit Emergency Visit: Yes ED Registration Date: 09/20/19 Care time: The patient presented to the Emergency Department on the above date and was hospitalized for further evaluation of their emergent condition. - New Patient This patient is new to me today: Yes Date on this admission: 09/20/19 - Critical Care Critical Care patient: No
[2019-09-20] MEDS ORDERED: CEFTRIAXONE 1 GM/50 ML BAG ONE (14:21)
--- NOTE | 2019-09-20 14:53 | PN ---
Progress Note (short form) - Note Progress Note: PULMONARY CONSULTATION DICTATED 09/20/19 IMP ACUTE ON CHRONIC HYPOXEMIC/HYPERCAPNEIC RESPIRATORY FAILURE DYSPNEA COPD O2 DEPENDENT WITH EXACERBATION BIBASILAR CONSOLIDATIONS ATELECTASIS,?INFECTIOUS ? CHF AFIB HTN HLD ANEMIA WEAKNESS + TROPONINS HYPERCALCEMIA PLAN ABX O2 INHALED BRONCHODILATORS ABG ECHO TREND TROPONINS MONITOR LYTES, CA LEVEL DR GUPTA
[2019-09-20] MEDS ORDERED: LEVALBUTEROL HCL 0.31 MG/3 ML VIAL.NEB IH PRN (15:57)
[2019-09-20] MEDS ORDERED: AZITHROMYCIN IVPB 500 MG/250 ML BAG IVPB ONE (16:07)
[2019-09-20] MEDS ORDERED: methylPREDNISolone NA SUCC 40 MG/1 ML VIAL ONE (16:08)
[2019-09-20] MEDS: methylPREDNISolone NA SUCC 40 MG/1 ML VIAL IVPUSH SCH ×2 (18:53→19:30)
[2019-09-20] MEDS: PANTOPRAZOLE 40 MG TABLET (FP) PO SCH (18:53)
[2019-09-20 19:48] LABS: EPI CELLS 3.9 /HPF (0-5/HPF); HYALINE CASTS 7 /lpf (0-8); PH,URINE 5.5 (5.0-8.0); URINE APPEARANCE CLEAR; URINE BACTERIA 77.4 /hpf (NEGATIVE); URINE BILIRUBIN NEGATIVE (NEGATIVE); URINE COLOR YELLOW; URINE GLUCOSE (UA) NEGATIVE (NEGATIVE); URINE KETONE 1+ (NEGATIVE); URINE LEUK ESTERASE TRACE (NEGATIVE); URINE NITRITE NEGATIVE (NEGATIVE); URINE PROTEIN 2+ (NEGATIVE); URINE WBC 8 /hpf (0-5)
[2019-09-20] MEDS ORDERED: PATIENT'S OWN MEDICATION (NON-FORMULARY) (Melatonin/Pyridoxine Hcl (B6) [Melatonin 3 Mg Ta PO SCH (22:00)
[2019-09-20] MEDS ORDERED: MELATONIN 5 MG TABLETS ONE (22:32)
[2019-09-20] MEDS: MELATONIN 1 MG TABLET PO SCH (22:35)
[2019-09-21] MEDS: methylPREDNISolone NA SUCC 40 MG/1 ML VIAL IVPUSH SCH ×3 (01:46→18:10)
[2019-09-21] MEDS: TIOTROPIUM BROMIDE 2.5 MCG (SPIRIVA) RESPIMAT INHALER IH SCH ×2 (01:46→17:07)
[2019-09-21] MEDS: LEVOTHYROXINE NA 25 MCG TABLET (FP) PO SCH (06:09)
[2019-09-21 06:49] LABS: HEMATOCRIT 33.2 % (32.4-45.2); HEMOGLOBIN 10.8 GM/dL (10.7-15.3); LYMPH % 5.2 % (8-40); MCHC 32.6 g/dl (32.0-36.0); MEAN CELL VOLUME 94.9 fl (80-96); MEAN PLT VOLUME 9.2 fl (7.5-11.1); MONO % 1.1 % (3.8-10.2); NEUT % 93.7 % (42.8-82.8); PLATELET COUNT 208 K/MM3 (134-434); RDW 14.3 % (11.6-15.6); WHITE BLOOD COUNT 7.2 K/mm3 (4.0-10.0)
[2019-09-21 07:16] LABS: ALBUMIN 2.8 g/dl (3.4-5.0); BILIRUBIN,TOTAL 0.4 mg/dL (0.2-1); BLOOD UREA NITROGEN 16.8 mg/dL (7-18); CREATININE 0.4 mg/dL (0.55-1.3); MAGNESIUM 2.1 mg/dL (1.8-2.4); TOT PROT 6.4 g/dl (6.4-8.2)
--- NOTE | 2019-09-21 08:12 | CONS ---
DATE OF CONSULTATION: 09/20/2019 PULMONARY CONSULTATION REFERRING PHYSICIAN: HISTORY OF PRESENT ILLNESS: Patient is an 79-year-old female with a past medical history of atrial fibrillation not on anticoagulation, advanced COPD, O2 dependent on four liters of nasal cannula, hypertension, hyperlipidemia, hypothyroid, anemia, admitted to [facility] on September 20 with a complaint of generalized weakness, decreased p.o. intake and feeling jittery for approximately four days. Patient states that she has been having increasing shortness of breath for the past couple days and a cough that is nonproductive. She denies any fever or chills, denies any chest pains or palpitations. She states that she has not been using her nebulizer at home because it makes her feel it is contributing to her symptoms. She has a history of tobacco use, quit 5 years ago. There is no history of occupational exposure to chemicals or fumes. On admission, she was also noted to have elevated troponin levels and BNP of 1507. She had a chest ct performed which revealed bibasilar consolidations, left greater than right, with some chronic consolidation in the right perihilar region with air bronchograms that were unchanged from previous in 2017. PAST MEDICAL HISTORY: Again, includes atrial fibrillation, COPD, O2 dependent, hypertension, hyperlipidemia, hypothyroidism, and anemia. REVIEW OF SYSTEMS: Positive for mild dyspnea, no chest pain, positive moist cough, no fevers, no chills, no hemoptysis, no abdominal pain, positive weakness. MEDICATIONS ADMINISTERED IN THE EMERGENCY ROOM: Solu-Medrol, Zithromax, ceftriaxone. PHYSICAL EXAMINATION: General: Patient is an elderly female, awake and alert, mildly dyspneic. Vital Signs: Temp is 99.8, heart rate is 106, respiratory rate is 24, O2 saturation is 97% on 4 liters nasal cannula. HEENT: Exam is normocephalic, atraumatic. Neck: Supple. Heart: Irregularly irregular, S1, S2. Chest: Bibasilar crackles. Abdomen: Soft. Bowel sounds are positive. Extremities: No cyanosis or edema. LABORATORY: Potassium is 3.4, BUN 11.4, creatinine 0.4, calcium 10.6, troponin 0.15. BNP is 1507. WBC 17.8, hemoglobin 12.6, hematocrit 39.9 with a platelet count of 259,000. Venous blood gas 7.40, PCO2 is 54; PO2 is less than 49, a bicarb of 32 , and saturation of 81. IMPRESSION: 1. [id number] hypoxic hypercapnic respiratory failure, likely secondary to advanced chronic obstructive pulmonary disease, O2 dependent, with acute exacerbation. 2. Bibasilar consolidation, increased from previous, likely secondary to atelectasis; cannot exclude possible underlying infectious etiology. 3. Possible mild congestive heart failure as noted by elevated BNP. 4. Atrial fibrillation. 5. Hypertension. 6. Hyperlipidemia. 7. Anemia. 8. Weakness. 9. Positive troponins. 10. Hypercalcemia. PLAN: 1. Antibiotics. 2. Supplemental O2. 3. Inhaled bronchodilators. 4. Short course of Medrol. 5. ABG 6. Obtain echocardiogram. 7. Trend troponins. 8. Monitor electrolytes. 9. Monitor Calcium level. ELVIRA GUPTA M.D. JUAN [id number] MTDD
[2019-09-21] MEDS ORDERED: cefTRIAXone SODIUM 1 GM VIAL ONE (08:50)
[2019-09-21] MEDS ORDERED: DEXTROSE 5%-WATER - 50 ML IVPB ONE (08:50)
[2019-09-21] MEDS: PANTOPRAZOLE 40 MG TABLET (FP) PO SCH (09:16)
[2019-09-21] MEDS: CEFTRIAXONE 1 GM in DEXTROSE 5%-WATER - 50 ML IVPB SCH (09:16)
[2019-09-21] MEDS: LISINOPRIL 5 MG TABLET (FP) PO SCH (09:16)
[2019-09-21] MEDS: BRIMONIDINE TARTRATE OU SCH ×2 (09:18→23:08)
[2019-09-21 09:26] LABS: PLATELET ESTIMATE ADEQUATE
--- NOTE | 2019-09-21 10:09 | CON.CARD ---
Cardiology Consult (text) - Consultation Consultation Note: Chief Complaint: sob History of Present Illness: 79 yo female here with sob. Past few days with sob, weakness, decreased appetite. No cp palps dizzy loc pnd orthopnea le edema. PMH: COPD, severe--on home O2 diast chf (04/23) afib Fe def anemia ex cigs HTN hPL - Past Medical History Cardio/Vascular: Yes: HTN, Hyperlipdemia Pulmonary: Yes: COPD, O2 Dependent (2L NC at home ) Gastrointestinal: Yes: Other (IRON DEF) ...: No Endocrine: Yes: Hypothyroidism - Past Surgical History Past Surgical History: Yes: None, Colonoscopy - Alcohol/Substance Use Hx Alcohol Use: No History of Substance Use: reports: None - Smoking History Smoking history: Former smoker - Social History Usual Living Arrangement: With Spouse ADL: Independent History of Recent Travel: No Home Medications - Allergies Allergies/Adverse Reactions: Allergies Allergy/AdvReac Type Severity Reaction Status Date / Time diazepam [From Valium] Allergy Verified 08/31/17 13:00 Penicillins Allergy Verified 08/31/17 13:00 codeine AdvReac Mild Verified 08/31/17 13:00 morphine AdvReac Verified 08/31/17 13:00 Ambulatory Orders Diltiazem Cd [Cardizem Cd -] 120 mg PO DAILY 01/19/15 Levothyroxine [Synthroid -] 25 mcg PO DAILY 01/19/15 Pravastatin Sodium [Pravachol -] 20 mg PO DAILY 01/19/15 Ascorbic Acid [Vitamin C] 500 mg PO BID 08/31/17 Brimonidine Tartrate [Alphagan P] 1 drop OU BID 08/31/17 Iron Ps Complex/B12/Folic Acid [Ferrex 150 Forte Capsule] 1 each PO BID Lisinopril [Prinivil] 10 mg PO DAILY 08/31/17 Sodium Chloride [Vasyl-128] 1 drop OS QID 08/31/17 Albuterol 0.083% Nebulizer Michelle [Ventolin 0.083% Nebulizer Soln -] 1 neb NEB Q6H PRN 09/21/19 Melatonin 3 mg PO HS 09/21/19 Family Disease History - Family Disease History Family History: Denies (no known cmp) Review of Systems - Review of Systems Constitutional: denies: Chills, Fever Eyes: denies: Eye Pain HENT: denies: Nasal Congestion Neck: denies: Stiffness Cardiovascular: denies: Palpitations Respiratory: denies: Orthopnea, PND Gastrointestinal: denies: Diarrhea, Rectal Bleeding Genitourinary: denies: Burning, Hematuria Musculoskeletal: denies: Muscle Pain Integumentary: denies: Rash Neurological: denies: Numbness, Seizure, Syncope Endocrine: denies: Excessive Sweating Hematology/Lymphatic: denies: Excessive Bleeding Vital Signs: Vital Signs Period Temp Pulse Resp BP Sys/Kaiser Pulse Ox Last 24 Hr 98.4 F-98.7 F 72-86 17-24 116-155/67-86 95-96 Constitutional: Yes: No Distress, Calm, Thin Eyes: No: Sclera Icterus HENT: No: Nasal Congestion Neck: No: Decreased ROM Respiratory: Yes: CTA Bilaterally (decr diffusely). No: Accessory Muscle Use, Rales, Wheezes Gastrointestinal: Yes: Normal Bowel Sounds. No: Distention, Hepatomegaly, Palpable Mass, Tenderness Cardiovascular: Yes: Regular Rate and Rhythm JVD: No Carotid Bruit: No PMI: Non-Displaced Heart Sounds: Yes: S1, S2. No: Gallop Murmur: No: Systolic Murmur, Diastolic Murmur Extremities: No: Cold, Cyanosis Edema: No Peripheral Pulses: 2+ Left Carotid, 2+ Right Carotid, 2+ Left Doralis Pedis, 2+ Right Dorsalis Pedis Integumentary: No: Jaundice diaphoresis Neurological: Yes: Alert, Oriented (x3) Psychiatric: No: Agitated - Other Data Labs, Other Data: Laboratory Last Values WBC 7.2 K/mm3 (4.0-10.0) 09/21/19 05:35 RBC 3.50 M/mm3 (3.60-5.2) L 09/21/19 05:35 Hgb 10.8 GM/dL (10.7-15.3) 09/21/19 05:35 Hct 33.2 % (32.4-45.2) D 09/21/19 05:35 MCV 94.9 fl (80-96) 09/21/19 05:35 MCH 31.0 pg (25.7-33.7) 09/21/19 05:35 MCHC 32.6 g/dl (32.0-36.0) 09/21/19 05:35 RDW 14.3 % (11.6-15.6) 09/21/19 05:35 Plt Count 208 K/MM3 (134-434) 09/21/19 05:35 MPV 9.2 fl (7.5-11.1) 09/21/19 05:35 Absolute Neuts (auto) 6.8 K/mm3 (1.5-8.0) 09/21/19 05:35 Neutrophils % 93.7 % (42.8-82.8) H 09/21/19 05:35 Neutrophils % (Manual) 87.0 % (42.8-82.8) H 09/21/19 05:35 Band Neutrophils % 1.0 % 09/21/19 05:35 Lymphocytes % 5.2 % (8-40) L D 09/21/19 05:35 Lymphocytes % (Manual) 12.0 % (8-40) D 09/21/19 05:35 Monocytes % 1.1 % (3.8-10.2) L 09/21/19 05:35 Monocytes % (Manual) 0 % (3.8-10.2) L D 09/21/19 05:35 Eosinophils % 0.0 % (0-4.5) 09/21/19 05:35 Eosinophils % (Manual) 0.0 % (0-4.5) 09/21/19 05:35 Basophils % 0.0 % (0-2.0) 09/21/19 05:35 Basophils % (Manual) 0.0 % (0-2.0) 09/21/19 05:35 Nucleated RBC % 0 % (0-0) 09/21/19 05:35 Platelet Estimate Adequate 09/21/19 05:35 PT with INR 13.60 SEC (9.7-13.0) H 09/20/19 10:15 INR 1.15 (0.83-1.09) H 09/20/19 10:15 PTT (Actin FS) 33.1 SECONDS (25.2-36.5) 09/20/19 10:15 VBG pH 7.40 (7.31-7.41) 09/20/19 10:15 POC VBG pCO2 54.3 mmHg (38-52) H 09/20/19 10:15 POC VBG pO2 < 49 mmHg (28-48) H 09/20/19 10:15 VBG HCO3 32.7 mmol/L (23-29) H 09/20/19 10:15 VBG O2 Sat ([place]) 81.2 % (70-80) H 09/20/19 10:15 VBG Base Excess 6.9 meq/l (-2-2) H 09/20/19 10:15 Sodium 141 mmol/L (136-145) 09/21/19 05:35 Potassium 4.0 mmol/L (3.5-5.1) 09/21/19 05:35 Chloride 103 mmol/L (98-107) 09/21/19 05:35 Carbon Dioxide 30 mmol/L (21-32) 09/21/19 05:35 Anion Gap 8 MMOL/L (8-16) 09/21/19 05:35 BUN 16.8 mg/dL (7-18) 09/21/19 05:35 Creatinine 0.4 mg/dL (0.55-1.3) L 09/21/19 05:35 Est GFR (CKD-EPI)AfAm 114.01 09/21/19 05:35 Est GFR (CKD-EPI)NonAf 98.37 09/21/19 05:35 Random Glucose 122 mg/dL (74-106) H 09/21/19 05:35 Lactic Acid 1.2 mmol/L (0.4-2.0) 09/20/19 10:15 Calcium 10.0 mg/dL (8.5-10.1) 09/21/19 05:35 Magnesium 2.1 mg/dL (1.8-2.4) 09/21/19 05:35 Total Bilirubin 0.4 mg/dL (0.2-1) 09/21/19 05:35 AST 11 U/L (15-37) L 09/21/19 05:35 ALT 10 U/L (13-61) L 09/21/19 05:35 Alkaline Phosphatase 58 U/L (45-117) 09/21/19 05:35 Troponin I 0.07 ng/ml (0.00-0.05) H 09/20/19 20:57 B-Natriuretic Peptide 1507.1 pg/ml (5-450) H 09/20/19 10:15 Total Protein 6.4 g/dl (6.4-8.2) 09/21/19 05:35 Albumin 2.8 g/dl (3.4-5.0) L 09/21/19 05:35 TSH 0.37 uIU/ml (0.358-3.74) 09/21/19 05:35 Thyroxine (T4) 7.4 ug/dl (4.5-13.9) 09/21/19 05:35 Urine Color Yellow 09/20/19 19:10 Urine Appearance Clear 09/20/19 19:10 Urine pH 5.5 (5.0-8.0) 09/20/19 19:10 Ur Specific [place] 1.022 (1.010-1.035) 09/20/19 19:10 Urine Protein 2+ (NEGATIVE) H 09/20/19 19:10 Urine Glucose (UA) Negative (NEGATIVE) 09/20/19 19:10 Urine Ketones 1+ (NEGATIVE) H 09/20/19 19:10 Urine Blood Negative (NEGATIVE) 09/20/19 19:10 Urine Nitrite Negative (NEGATIVE) 09/20/19 19:10 Urine Bilirubin Negative (NEGATIVE) 09/20/19 19:10 Urine Urobilinogen 1.0 mg/dL (0.2-1.0) 09/20/19 19:10 Ur Leukocyte Esterase Trace (NEGATIVE) 09/20/19 19:10 Urine WBC (Auto) 8 /hpf (0-5) 09/20/19 19:10 Urine Casts (Auto) 7 /lpf (0-8) 09/20/19 19:10 U Epithel Cells (Auto) 3.9 /HPF (0-5/HPF) 09/20/19 19:10 Urine Crystals (Auto) /hpf 09/20/19 19:10 Urine Bacteria (Auto) 77.4 /hpf (NEGATIVE) 09/20/19 19:10 Blood Type O POSITIVE 09/20/19 10:15 Antibody Screen Negative 09/20/19 10:15 Assessment/Plan Echo 05/2017: Mildly reduced LV function. (No RWMA described). RV not well seen 1+ lae. mod mr, mod tr Echo 2013: nl lv, nl rv, mild mr, mild tr, rvsp 30-40 MPI (pers) 8/17: no STs. large fixed defect lateral wall; lateral wall akinesis with overall sev decr EF (36%). No LV cavity dilation or TID reported ECG: sr, nl intervals no ischemic changes tele: sr, occ pvcs ct chest: copd, pna, no sig chf sob, pna,COPD: -abx, steroids per pulm CAD s/p NSTEMI: -trop peaked at 4.5 when here 04/23 with a.e. copd and anemia with ekg changes then. -had acute CHF then with new decline in LVEF -nuclear scans suggestive of lateral infarct with no residual ischemia, no high risk findings per report; -given no demonstrable ischemia, no angina (at low level activity), and hi risk for premature discontinuation of DAPT post PCI, cont med rx then -cont asa -no BB given severity of wheezing on prior presentation with a.e. copd here -cont home statin, fouzia-i -borderline trops x3, flat trend, not c/w acs chronic systolic CHF: -acute decompensation 04/23, in setting of severe anemia and a.e. copd -mild LV dysfunction reported on echo, EF 36% on MPI. -appears clinically euvolemic here. -cont fouzia. no bb 2/2 copd. paroxysmal afib: -episode here when admitted 2014 with a.e. copd/resp failure -CHADS VASC 4--started on xarelto 20 at that time but was stopped at some point due to anemia and pt has remained on asa, follows with cardio dr singleton. htn: -cont current meds
--- NOTE | 2019-09-21 10:10 | EKG ---
Test Reason : Blood Pressure : / mmHG Vent. Rate : 098 BPM Atrial Rate : 098 BPM P-R Int : 194 ms QRS Dur : 098 ms QT Int : 344 ms P-R-T Axes : 077 -42 079 degrees QTc Int : 439 ms POOR DATA QUALITY, INTERPRETATION MAY BE ADVERSELY AFFECTED NORMAL SINUS RHYTHM RIGHT ATRIAL ENLARGEMENT LEFT AXIS DEVIATION SEPTAL INFARCT (CITED ON OR BEFORE 19-JAN-2015) ABNORMAL ECG WHEN COMPARED WITH ECG OF 01-SEP-2017 19:10, SINUS RHYTHM HAS REPLACED ATRIAL FIBRILLATION NONSPECIFIC T WAVE ABNORMALITY NO LONGER EVIDENT IN INFERIOR LEADS Confirmed by YUDI VERDUGO MD ([id number]) on 09/21/2019 10:10:08 AM Referred By: Confirmed By:YUDI VERDUGO MD
--- NOTE | 2019-09-21 12:20 | PN ---
Progress Note, Physician History of Present Illness: PULMONARY ALERT,FEELING BETTER,LESS DYSPNEIC,+ COUGH - Current Medication List Current Medications: Active Medications Diltiazem HCl (Cardizem Cd -) 120 mg PO DAILY [facility] Last Admin: 09/21/19 09:16 Dose: 120 mg Ceftriaxone Sodium 1 gm/ (Dextrose) 50 mls @ 200 mls/hr IVPB DAILY [facility]; Protocol Last Admin: 09/21/19 09:16 Dose: 200 mls/hr Levalbuterol HCl (Xopenex) 0.31 mg IH Q8H PRN PRN Reason: ASTHMA Last Admin: 09/21/19 03:23 Dose: 0.31 mg Levothyroxine Sodium (Synthroid -) 25 mcg PO DAILY@0700 [facility] Last Admin: 09/21/19 06:09 Dose: 25 mcg Lisinopril (Prinivil) 10 mg PO DAILY [facility] Last Admin: 09/21/19 09:16 Dose: 10 mg Melatonin (Melatonin) 3 mg PO HS [facility] Last Admin: 09/20/19 22:35 Dose: 3 mg Methylprednisolone Sodium Succinate (Solu-Medrol -) 40 mg IVPUSH Q8H-IV [facility] Last Admin: 09/21/19 09:16 Dose: 40 mg Brimonidine Tartrate [Alphagan P] Opthalmic Drops 0 ml OU BID [facility] Last Admin: 09/21/19 09:18 Dose: 1 ml Pantoprazole Sodium (Protonix -) 40 mg PO DAILY [facility] Last Admin: 09/21/19 09:16 Dose: 40 mg Tiotropium [place] (Spiriva Respimat) 2 puff IH DAILY [facility] Last Admin: 09/21/19 01:46 Dose: Not Given - Objective Vital Signs: Vital Signs Temperature 98.4 F 09/21/19 06:39 Pulse Rate 86 09/21/19 06:39 Respiratory Rate 20 09/21/19 06:39 Blood Pressure 122/86 09/21/19 06:39 O2 Sat by Pulse Oximetry (%) 95 09/21/19 01:00 Constitutional: Yes: Calm, Cachectic Eyes: Yes: WNL HENT: Yes: WNL Neck: Yes: WNL Cardiovascular: Yes: Regular Rate and Rhythm, S1, S2 Respiratory: Yes: Rales (BIBASILAR CRACKLES) Gastrointestinal: Yes: Normal Bowel Sounds, Soft Extremities: Yes: WNL Edema: No Labs: CBC, BMP 09/21/19 05:35 09/21/19 05:35 INR, PTT INR 1.15 (0.83-1.09) H 09/20/19 10:15 Assessment/Plan IMP ACUTE ON CHRONIC HYPOXEMIC/HYPERCAPNEIC RESPIRATORY FAILURE DYSPNEA COPD O2 DEPENDENT WITH EXACERBATION BIBASILAR CONSOLIDATIONS ATELECTASIS,?INFECTIOUS ? CHF AFIB HTN HLD ANEMIA WEAKNESS + TROPONINS ? DEMAND ISCHEMIA,? NSTEMI HYPERCALCEMIA IMPROVING PLAN CONTINUE ABX O2 INHALED BRONCHODILATORS ABG ECHO TREND TROPONINS MONITOR LYTES, CA LEVEL DR GUPTA
--- NOTE | 2019-09-21 14:08 | PN ---
Physical Exam: SUBJECTIVE: Patient seen and examined, refusing repeat ABG. 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 She presented to the ED with weakness, poor appetite for 3 days, feeling jittery for 3 days and was found to be in acute on chronic COPD exacerbation with and a chest CT confirmed moderately severe copd with trace bilateral pleural effusion suggestive of pneumonia. Period Temp Pulse Resp BP Sys/Kaiser Pulse Ox Last 24 Hr 98.4 F-98.7 F 72-95 17-24 116-155/67-86 95-96 GENERAL: Awake, alert, thin frail appearing HEAD: Normal with no signs of trauma. EYES: Pupils equal, round and reactive to light, extraocular movements intact, sclera anicteric, conjunctiva clear. No lid lag. EARS, NOSE, THROAT: Ears normal, nares patent, oropharynx clear without exudates. Moist mucous membranes. NECK: Normal range of motion, supple without lymphadenopathy, JVD, or masses. LUNGS: poor airway entry, accessory muscle use. diffusely and mild wheezing on the right and poor air movement. on 4 liters of home oxygen x 24 hours per day HEART: Regular rate and rhythm ABDOMEN: Soft, nontender, not distended, normoactive bowel sounds, no guarding, no rebound, no masses. No hepatomegaly or splenomegaly. MUSCULOSKELETAL: Normal range of motion at all joints. No bony deformities or tenderness. No CVA tenderness. UPPER EXTREMITIES: No peripheral edema. LOWER EXTREMITIES: No peripheral edema. NEUROLOGICAL: Normal speech. Normal gait. PSYCHIATRIC: Cooperative. Good eye contact. Appropriate mood and affect. SKIN: Warm, dry, normal turgor, no rashes or lesions noted, normal capillary refill. Laboratory Results - last 24 hr 09/20/19 09/20/19 09/20/19 16:20 19:10 20:57 WBC RBC Hgb Hct MCV MCH MCHC RDW Plt Count MPV Absolute Neuts (auto) Neutrophils % Neutrophils % (Manual) Band Neutrophils % Lymphocytes % Lymphocytes % (Manual) Monocytes % Monocytes % (Manual) Eosinophils % Eosinophils % (Manual) Basophils % Basophils % (Manual) Nucleated RBC % Platelet Estimate Sodium Potassium Chloride Carbon Dioxide Anion Gap BUN Creatinine Est GFR (CKD-EPI)AfAm Est GFR (CKD-EPI)NonAf Random Glucose Calcium Magnesium Total Bilirubin AST ALT Alkaline Phosphatase Troponin I 0.11 H 0.07 H Total Protein Albumin TSH Thyroxine (T4) Urine Color Yellow Urine Appearance Clear Urine pH 5.5 Ur Specific [place] 1.022 Urine Protein 2+ H Urine Glucose (UA) Negative Urine Ketones 1+ H Urine Blood Negative Urine Nitrite Negative Urine Bilirubin Negative Urine Urobilinogen 1.0 Ur Leukocyte Esterase Trace Urine WBC (Auto) 8 Urine Casts (Auto) 7 U Epithel Cells (Auto) 3.9 Urine Crystals (Auto) Urine Bacteria (Auto) 77.4 09/21/19 09/21/19 05:35 05:35 WBC 7.2 RBC 3.50 L Hgb 10.8 Hct 33.2 D MCV 94.9 MCH 31.0 MCHC 32.6 RDW 14.3 Plt Count 208 MPV 9.2 Absolute Neuts (auto) 6.8 Neutrophils % 93.7 H Neutrophils % (Manual) 87.0 H Band Neutrophils % 1.0 Lymphocytes % 5.2 L D Lymphocytes % (Manual) 12.0 D Monocytes % 1.1 L Monocytes % (Manual) 0 L D Eosinophils % 0.0 Eosinophils % (Manual) 0.0 Basophils % 0.0 Basophils % (Manual) 0.0 Nucleated RBC % 0 Platelet Estimate Adequate Sodium 141 Potassium 4.0 Chloride 103 Carbon Dioxide 30 Anion Gap 8 BUN 16.8 Creatinine 0.4 L Est GFR (CKD-EPI)AfAm 114.01 Est GFR (CKD-EPI)NonAf 98.37 Random Glucose 122 H Calcium 10.0 Magnesium 2.1 Total Bilirubin 0.4 AST 11 L ALT 10 L Alkaline Phosphatase 58 Troponin I Total Protein 6.4 Albumin 2.8 L TSH 0.37 Thyroxine (T4) 7.4 Urine Color Urine Appearance Urine pH Ur Specific [place] Urine Protein Urine Glucose (UA) Urine Ketones Urine Blood Urine Nitrite Urine Bilirubin Urine Urobilinogen Ur Leukocyte Esterase Urine WBC (Auto) Urine Casts (Auto) U Epithel Cells (Auto) Urine Crystals (Auto) Urine Bacteria (Auto) Active Medications Generic Name Dose Route Start Last Admin Trade Name Freq PRN Reason Stop Dose Admin Albuterol/Ipratropium 1 amp 09/21/19 14:15 Duoneb - NEB Q6H [facility] Diltiazem HCl 120 mg 09/21/19 10:00 09/21/19 09:16 Cardizem Cd - PO 120 mg DAILY [facility] Administration Ceftriaxone Sodium 1 gm/ 50 mls @ 200 mls/hr 09/21/19 10:00 09/21/19 09:16 Dextrose IVPB 200 mls/hr DAILY [facility] Administration Protocol Levalbuterol HCl 0.31 mg 09/20/19 15:57 09/21/19 03:23 Xopenex IH 0.31 mg Q8H PRN Administration ASTHMA Levothyroxine Sodium 25 mcg 09/21/19 07:00 09/21/19 06:09 Synthroid - PO 25 mcg DAILY@0700 [facility] Administration Lisinopril 10 mg 09/21/19 10:00 09/21/19 09:16 Prinivil PO 10 mg DAILY [facility] Administration Melatonin 3 mg 09/20/19 22:00 09/20/19 22:35 Melatonin PO 3 mg HS [facility] Administration Methylprednisolone Sodium Succinate 40 mg 09/20/19 16:00 09/21/19 09:16 Solu-Medrol - IVPUSH 40 mg Q8H-IV [facility] Administration Brimonidine Tartrate 0 ml 09/21/19 10:00 09/21/19 09:18 [Alphagan P] OU 1 ml Opthalmic Drops BID [facility] Administration Pantoprazole Sodium 40 mg 09/20/19 16:30 09/21/19 09:16 Protonix - PO 40 mg DAILY [facility] Administration Tiotropium [place] 2 puff 09/20/19 16:00 09/21/19 01:46 Spiriva Respimat IH Not Given DAILY [facility] ASSESSMENT/PLAN: Problem List - Problems (1) Acute on chronic respiratory failure with hypoxia Assessment/Plan: patient presents with worsening shortness of breath than her usual baseline She is usually home oxygen dependent at 4 liters continuously non contrast ct chest shows moderately severe copd with bilateral pleural effusion suggestive of pneumonia on solumedrol 40mg q8 on ceftriaxone duonebs pulmonary following Code(s): J96.21 - ACUTE AND CHRONIC RESPIRATORY FAILURE WITH HYPOXIA (2) COPD (chronic obstructive pulmonary disease) Assessment/Plan: patient presents with worsening shortness of breath than her usual baseline She is usually home oxygen dependent at 4 liters continuously non contrast ct chest shows moderately severe copd with bilateral pleural effusion suggestive of pneumonia on solumedrol 40mg q8 on ceftriaxone duonebs pulmonary following Code(s): J44.9 - CHRONIC OBSTRUCTIVE PULMONARY DISEASE, UNSPECIFIED (3) Generalized weakness Assessment/Plan: reports weakness at home, and a near fall will order physical therapy once her respiratory status more stable Code(s): R53.1 - WEAKNESS (4) PNA (pneumonia) Assessment/Plan: per chest ct, possible pneumonia on ceftriaxone duonebs pulmonary following Code(s): J18.9 - PNEUMONIA, UNSPECIFIED ORGANISM (5) Anemia Assessment/Plan: monitor with daily labs Code(s): D64.9 - ANEMIA, UNSPECIFIED Qualifiers: Anemia type: iron deficiency Iron deficiency anemia type: unspecified iron deficiency Qualified Code(s): D50.9 - Iron deficiency anemia, unspecified (6) Paroxysmal atrial fibrillation Assessment/Plan: per patient and , patient was taken off xarelto and eliquis by her manufacturing associate and PCP ekg shows nsr 98s on cardizem 120mg daily on lisinopril 10 Code(s): I48.0 - PAROXYSMAL ATRIAL FIBRILLATION (7) Unsteady gait Assessment/Plan: for PT eval s/p right hip fracture 2017 Code(s): R26.81 - UNSTEADINESS ON FEET Visit type - Emergency Visit Emergency Visit: Yes ED Registration Date: 09/20/19 Care time: The patient presented to the Emergency Department on the above date and was hospitalized for further evaluation of their emergent condition. - New Patient This patient is new to me today: No - Critical Care Critical Care patient: No - Discharge Referral Referred to [facility] Med P.C.: No
[2019-09-21] MEDS: ALBUTEROL SO4 2.5/IPRATROPIUM 0.5 INH SOL 3 ML VIAL.NEB. NEB SCH ×2 (16:02→20:35)
[2019-09-21] MEDS ORDERED: ACETAMINOPHEN 325 MG TABLET (FP) PO PRN (20:34)
[2019-09-21] MEDS ORDERED: PATIENT'S OWN MEDICATION (NON-FORMULARY) (Pravastatin Sodium 20 MG) PO SCH (22:00)
[2019-09-21] MEDS: MELATONIN 1 MG TABLET PO SCH (23:08)
[2019-09-21] MEDS: ATORVASTATIN CA 10 MG TABLET (FP) PO SCH (23:08)
[2019-09-22] MEDS: methylPREDNISolone NA SUCC 40 MG/1 ML VIAL IVPUSH SCH ×3 (02:45→22:10)
[2019-09-22] MEDS: LEVOTHYROXINE NA 25 MCG TABLET (FP) PO SCH (06:08)
[2019-09-22 07:07] LABS: BASO % 0.1 % (0-2.0); HEMATOCRIT 33.3 % (32.4-45.2); LYMPH % 2.3 % (8-40); MCH 30.8 pg (25.7-33.7); MCHC 32.9 g/dl (32.0-36.0); MEAN CELL VOLUME 93.7 fl (80-96); MEAN PLT VOLUME 8.9 fl (7.5-11.1); MONO % 1.4 % (3.8-10.2); NEUT % 96.2 % (42.8-82.8); PLATELET COUNT 253 K/MM3 (134-434); RBC 3.56 M/mm3 (3.60-5.2); RDW 14.8 % (11.6-15.6); WHITE BLOOD COUNT 12.5 K/mm3 (4.0-10.0)
[2019-09-22 07:28] LABS: BILIRUBIN,TOTAL 0.3 mg/dL (0.2-1); BLOOD UREA NITROGEN 23.2 mg/dL (7-18); CALCIUM 10.3 mg/dL (8.5-10.1); CREATININE 0.5 mg/dL (0.55-1.3); MAGNESIUM 2.2 mg/dL (1.8-2.4); POTASSIUM 3.8 mmol/L (3.5-5.1); TOT PROT 6.3 g/dl (6.4-8.2)
[2019-09-22] MEDS: ALBUTEROL SO4 2.5/IPRATROPIUM 0.5 INH SOL 3 ML VIAL.NEB. NEB SCH ×2 (08:02→11:42)
[2019-09-22] MEDS ORDERED: cefTRIAXone SODIUM 1 GM VIAL ONE (08:55)
[2019-09-22] MEDS ORDERED: DEXTROSE 5%-WATER - 50 ML IVPB ONE (08:55)
--- NOTE | 2019-09-22 09:40 | PN ---
Progress Note, Physician Chief Complaint: sob History of Present Illness: sob much better no cp, palp, swelling - Current Medication List Current Medications: Active Medications Acetaminophen (Tylenol -) 650 mg PO Q6H PRN PRN Reason: PAIN LEVEL 1-5 Albuterol/Ipratropium (Duoneb -) 1 amp NEB RQID [facility] Last Admin: 09/22/19 08:02 Dose: 1 amp Atorvastatin Calcium (Lipitor -) 10 mg PO HS [facility] Last Admin: 09/21/19 23:08 Dose: 10 mg Diltiazem HCl (Cardizem Cd -) 120 mg PO DAILY [facility] Last Admin: 09/22/19 09:05 Dose: 120 mg Ceftriaxone Sodium 1 gm/ (Dextrose) 50 mls @ 200 mls/hr IVPB DAILY [facility]; Protocol Last Admin: 09/21/19 09:16 Dose: 200 mls/hr Levalbuterol HCl (Xopenex) 0.31 mg IH Q8H PRN PRN Reason: ASTHMA Last Admin: 09/21/19 03:23 Dose: 0.31 mg Levothyroxine Sodium (Synthroid -) 25 mcg PO DAILY@0700 [facility] Last Admin: 09/22/19 06:08 Dose: 25 mcg Lisinopril (Prinivil) 10 mg PO DAILY [facility] Last Admin: 09/21/19 09:16 Dose: 10 mg Melatonin (Melatonin) 3 mg PO HS [facility] Last Admin: 09/21/19 23:08 Dose: 3 mg Methylprednisolone Sodium Succinate (Solu-Medrol -) 40 mg IVPUSH Q8H-IV [facility] Last Admin: 09/22/19 02:45 Dose: 40 mg Brimonidine Tartrate [Alphagan P] Opthalmic Drops 0 ml OU BID [facility] Last Admin: 09/21/19 23:08 Dose: 1 ml Pantoprazole Sodium (Protonix -) 40 mg PO DAILY [facility] Last Admin: 09/21/19 09:16 Dose: 40 mg Tiotropium [place] (Spiriva Respimat) 2 puff IH DAILY [facility] Last Admin: 09/21/19 17:07 Dose: Not Given - Objective Vital Signs: Vital Signs Temperature 98.0 F 09/22/19 06:00 Pulse Rate 87 09/22/19 06:00 Respiratory Rate 20 09/22/19 06:00 Blood Pressure 108/43 L 09/22/19 06:00 O2 Sat by Pulse Oximetry (%) 99 09/21/19 21:00 Constitutional: Yes: Well Nourished, No Distress, Calm Cardiovascular: Yes: Pulse Irregular, S1, S2. No: Gallop, Murmur Respiratory: Yes: Regular, CTA Bilaterally. No: Accessory Muscle Use, Rales, Wheezes Extremities: No: Cold Edema: No Neurological: Yes: Alert, Oriented Psychiatric: No: Agitated Labs: CBC, BMP 09/22/19 06:05 09/22/19 06:05 INR, PTT INR 1.15 (0.83-1.09) H 09/20/19 10:15 Assessment/Plan Echo 05/2017: Mildly reduced LV function. (No RWMA described). RV not well seen 1+ lae. mod mr, mod tr Echo 2013: nl lv, nl rv, mild mr, mild tr, rvsp 30-40 MPI (pers) 05/24: no STs. large fixed defect lateral wall; lateral wall akinesis with overall sev decr EF (36%). No LV cavity dilation or TID reported ECG: sr, nl intervals no ischemic changes ct chest: copd, pna, no sig chf tele: SR-->AF rates mostly controlled (briefly to 130s) pna, a.e. COPD: -abx, steroids per pulm -BNP 1K (prior range 4K-17K) CAD s/p NSTEMI: -s/p NSTEMI 2016, with low risk nuclear scans suggestive of lateral infarct with no residual ischemia. treated medically given ? benefits of cath, gil in light of hi risk for premature discontinuation of DAPT post PCI -presently with borderline trops x3, flat trend, not c/w acs -no angina -cont asa, statin, CARL per home regimen -BB has been deferred given severity of wheezing on prior presentation with a.e. copd here chronic systolic CHF: -acute decompensation 2017, in setting of severe anemia and a.e. copd -mild LV dysfunction reported on echo then, however measured EF 36% on MPI. -appears clinically euvolemic here. -rpt echo for LVEF paroxysmal afib: -went into AF here, rates mostly controlled. cont dilt as doing, monitor tele -CHADS VASC 4--started on xarelto 20 at that time but was stopped at some point due to anemia and pt has remained on asa, follows with outside cardio dr singleton-- defer continued treatment to him htn: -bp controlled -cont current meds hypercalcemia: -per primary
[2019-09-22] MEDS: LISINOPRIL 5 MG TABLET (FP) PO SCH (10:01)
[2019-09-22] MEDS: CEFTRIAXONE 1 GM in DEXTROSE 5%-WATER - 50 ML IVPB SCH (10:01)
[2019-09-22] MEDS: TIOTROPIUM BROMIDE 2.5 MCG (SPIRIVA) RESPIMAT INHALER IH SCH (10:02)
[2019-09-22] MEDS: PANTOPRAZOLE 40 MG TABLET (FP) PO SCH (10:02)
[2019-09-22] MEDS: BRIMONIDINE TARTRATE OU SCH ×2 (10:04→22:12)
[2019-09-22 11:36] LABS: ANISOCYTOSIS 1+; MACROCYTOSIS 1+
[2019-09-22 11:37] LABS: PLATELET ESTIMATE ADEQUATE
--- NOTE | 2019-09-22 13:23 | EKG ---
Test Reason : Blood Pressure : / mmHG Vent. Rate : 117 BPM Atrial Rate : 156 BPM P-R Int : 000 ms QRS Dur : 094 ms QT Int : 294 ms P-R-T Axes : 000 -30 076 degrees QTc Int : 410 ms ATRIAL FIBRILLATION WITH RAPID VENTRICULAR RESPONSE LEFT AXIS DEVIATION SEPTAL INFARCT (CITED ON OR BEFORE 19-JAN-2015) ABNORMAL ECG WHEN COMPARED WITH ECG OF 20-SEP-2019 09:18, ATRIAL FIBRILLATION HAS REPLACED SINUS RHYTHM Confirmed by EMIL VANCE MD ([id number]) on 09/22/2019 1:23:03 PM Referred By: Confirmed By:EMIL VANCE MD
--- NOTE | 2019-09-22 14:27 | PN ---
Physical Exam: SUBJECTIVE: Patient seen and examined at the bedside. On a medrol taper, feels better and more improved. OBJECTIVE: medrol taper per pulmonary, discharge once cleared by pulmonary ------- Patient is an 79 year old female with a significant past medical history of Afib (no longer on anticoagulation - per patient, she was taken off all anticoagulation by her PCP and cobol developer for anemia), COPD (home oxygen dependent @ 4 liters), hypertension, HLD, right hip fracture s/p fall and anemia. She presented to the ED with weakness, poor appetite for 3 days, feeling jittery for 3 days and was found to be in acute on chronic COPD exacerbation with and a chest CT confirmed moderately severe copd with trace bilateral pleural effusion suggestive of pneumonia. ------- Patient is awake alert and improving since admission. She is refusing follow up ABGs. episodes of afib with rvr 130s this morning, improved after cardizem given. will monitor closely. cardiology notes reviewed. Vital Signs Period Temp Pulse Resp BP Sys/[facility] Pulse Ox Last 24 Hr 98.0 F-98.8 F 61-128 18-20 104-120/43-83 98-99 GENERAL: Awake, alert, thin frail appearing HEAD: Normal with no signs of trauma. EYES: Pupils equal, round and reactive to light, extraocular movements intact, sclera anicteric, conjunctiva clear. No lid lag. EARS, NOSE, THROAT: Ears normal, nares patent, oropharynx clear without exudates. Moist mucous membranes. NECK: Normal range of motion, supple without lymphadenopathy, JVD, or masses. LUNGS: poor airway entry, accessory muscle use. diffusely and mild wheezing on the right and poor air movement. on 4 liters of home oxygen x 24 hours per day HEART: Regular rate and rhythm ABDOMEN: Soft, nontender, not distended, normoactive bowel sounds, no guarding, no rebound, no masses. No hepatomegaly or splenomegaly. MUSCULOSKELETAL: Normal range of motion at all joints. No bony deformities or tenderness. No CVA tenderness. UPPER EXTREMITIES: No peripheral edema. LOWER EXTREMITIES: No peripheral edema. NEUROLOGICAL: Normal speech. Normal gait. PSYCHIATRIC: Cooperative. Good eye contact. Appropriate mood and affect. SKIN: Warm, dry, normal turgor, no rashes or lesions noted, normal capillary refill. Laboratory Results - last 24 hr 09/22/19 09/22/19 06:05 06:05 WBC 12.5 H RBC 3.56 L Hgb 11.0 Hct 33.3 MCV 93.7 MCH 30.8 MCHC 32.9 RDW 14.8 Plt Count 253 D MPV 8.9 Absolute Neuts (auto) 12.0 H Total Counted 100 Neutrophils % 96.2 H Neutrophils % (Manual) 94.0 H Lymphocytes % 2.3 L D Lymphocytes % (Manual) 4.0 L D Monocytes % 1.4 L Monocytes % (Manual) 2 L D Eosinophils % 0.0 Basophils % 0.1 D Nucleated RBC % 0 Platelet Estimate Adequate Platelet Comment No clumping noted Anisocytosis 1+ Macrocytosis 1+ Sodium 141 Potassium 3.8 Chloride 103 Carbon Dioxide 33 H Anion Gap 6 L BUN 23.2 H Creatinine 0.5 L Est GFR (CKD-EPI)AfAm 105.94 Est GFR (CKD-EPI)NonAf 91.41 Random Glucose 137 H Calcium 10.3 H Magnesium 2.2 Total Bilirubin 0.3 AST 12 L ALT 15 Alkaline Phosphatase 54 Total Protein 6.3 L Albumin 3.0 L Active Medications Generic Name Dose Route Start Last Admin Trade Name Freq PRN Reason Stop Dose Admin Acetaminophen 650 mg 09/21/19 20:34 Tylenol - PO Q6H PRN PAIN LEVEL 1-5 Albuterol/Ipratropium 1 amp 09/21/19 16:00 09/22/19 11:42 Duoneb - NEB 1 amp RQID [facility] Administration Atorvastatin Calcium 10 mg 09/21/19 22:00 09/21/19 23:08 Lipitor - PO 10 mg HS [facility] Administration Diltiazem HCl 120 mg 09/21/19 10:00 09/22/19 09:05 Cardizem Cd - PO 120 mg DAILY [facility] Administration Ceftriaxone Sodium 1 gm/ 50 mls @ 200 mls/hr 09/21/19 10:00 09/22/19 10:01 Dextrose IVPB 200 mls/hr DAILY [facility] Administration Protocol Levalbuterol HCl 0.31 mg 09/20/19 15:57 09/21/19 03:23 Xopenex IH 0.31 mg Q8H PRN Administration ASTHMA Levothyroxine Sodium 25 mcg 09/21/19 07:00 09/22/19 06:08 Synthroid - PO 25 mcg DAILY@0700 [facility] Administration Lisinopril 10 mg 09/21/19 10:00 09/22/19 10:01 Prinivil PO 10 mg DAILY [facility] Administration Melatonin 3 mg 09/20/19 22:00 09/21/19 23:08 Melatonin PO 3 mg HS [facility] Administration Methylprednisolone Sodium Succinate 40 mg 09/20/19 16:00 09/22/19 10:01 Solu-Medrol - IVPUSH 40 mg Q8H-IV [facility] Administration Brimonidine Tartrate 0 ml 09/21/19 10:00 09/22/19 10:04 [Alphagan P] OU 1 ml Opthalmic Drops BID [facility] Administration Pantoprazole Sodium 40 mg 09/20/19 16:30 09/22/19 10:02 Protonix - PO 40 mg DAILY [facility] Administration Tiotropium [place] 2 puff 09/20/19 16:00 09/22/19 10:02 Spiriva Respimat IH 2 puff DAILY [facility] Administration ASSESSMENT/PLAN: Problem List - Problems (1) Acute on chronic respiratory failure with hypoxia Assessment/Plan: patient presents with worsening shortness of breath than her usual baseline she is overall improving since admission, lungs with improved airway entry She is usually home oxygen dependent at 4 liters continuously non contrast ct chest shows moderately severe copd with bilateral pleural effusion suggestive of pneumonia on solumedrol 40mg taper on ceftriaxone duonebs pulmonary following Code(s): J96.21 - ACUTE AND CHRONIC RESPIRATORY FAILURE WITH HYPOXIA (2) COPD (chronic obstructive pulmonary disease) Assessment/Plan: see above Code(s): J44.9 - CHRONIC OBSTRUCTIVE PULMONARY DISEASE, UNSPECIFIED (3) Generalized weakness Assessment/Plan: reports weakness at home, and a near fall will order physical therapy Code(s): R53.1 - WEAKNESS (4) PNA (pneumonia) Assessment/Plan: per chest ct, possible pneumonia on ceftriaxone duonebs pulmonary following Code(s): J18.9 - PNEUMONIA, UNSPECIFIED ORGANISM (5) Anemia Assessment/Plan: monitor with daily labs Code(s): D64.9 - ANEMIA, UNSPECIFIED Qualifiers: Anemia type: iron deficiency Iron deficiency anemia type: unspecified iron deficiency Qualified Code(s): D50.9 - Iron deficiency anemia, unspecified (6) Paroxysmal atrial fibrillation Assessment/Plan: per patient and , patient was taken off xarelto and eliquis by her cobol developer and PCP ekg shows nsr 98s with episodes of afib with rvr this a.m. on cardizem 120mg daily on lisinopril 10 Code(s): I48.0 - PAROXYSMAL ATRIAL FIBRILLATION (7) Unsteady gait Assessment/Plan: for PT eval s/p right hip fracture 2016 Code(s): R26.81 - UNSTEADINESS ON FEET Visit type - Emergency Visit Emergency Visit: Yes ED Registration Date: 09/20/19 Care time: The patient presented to the Emergency Department on the above date and was hospitalized for further evaluation of their emergent condition. - New Patient This patient is new to me today: No - Critical Care Critical Care patient: No - Discharge Referral Referred to [facility] Med P.C.: No
--- NOTE | 2019-09-22 14:44 | PN ---
Progress Note (short form) - Note Progress Note: PULMONARY Breathing improving. Less cough and wheezing. Vital Signs Period Temp Pulse Resp BP Sys/[facility] Pulse Ox Last 24 Hr 98.0 F-98.8 F 61-128 18-20 98-120/43-83 98-99 Gen: NAD at rest Heart: RRR Lung: distant breath sounds Abd: soft, nontender Ext: no edema CBC, BMP 09/22/19 06:05 09/22/19 06:05 Active Medications Acetaminophen (Tylenol -) 650 mg PO Q6H PRN PRN Reason: PAIN LEVEL 1-5 Albuterol/Ipratropium (Duoneb -) 1 amp NEB RQID [facility] Last Admin: 09/22/19 11:42 Dose: 1 amp Atorvastatin Calcium (Lipitor -) 10 mg PO HS [facility] Last Admin: 09/21/19 23:08 Dose: 10 mg Diltiazem HCl (Cardizem Cd -) 120 mg PO DAILY [facility] Last Admin: 09/22/19 09:05 Dose: 120 mg Ceftriaxone Sodium 1 gm/ (Dextrose) 50 mls @ 200 mls/hr IVPB DAILY [facility]; Protocol Last Admin: 09/22/19 10:01 Dose: 200 mls/hr Levalbuterol HCl (Xopenex) 0.31 mg IH Q8H PRN PRN Reason: ASTHMA Last Admin: 09/21/19 03:23 Dose: 0.31 mg Levothyroxine Sodium (Synthroid -) 25 mcg PO DAILY@0700 [facility] Last Admin: 09/22/19 06:08 Dose: 25 mcg Lisinopril (Prinivil) 10 mg PO DAILY [facility] Last Admin: 09/22/19 10:01 Dose: 10 mg Melatonin (Melatonin) 3 mg PO HS [facility] Last Admin: 09/21/19 23:08 Dose: 3 mg Methylprednisolone Sodium Succinate (Solu-Medrol -) 40 mg IVPUSH Q8H-IV [facility] Last Admin: 09/22/19 10:01 Dose: 40 mg Brimonidine Tartrate [Alphagan P] Opthalmic Drops 0 ml OU BID [facility] Last Admin: 09/22/19 10:04 Dose: 1 ml Pantoprazole Sodium (Protonix -) 40 mg PO DAILY [facility] Last Admin: 09/22/19 10:02 Dose: 40 mg Tiotropium [place] (Spiriva Respimat) 2 puff IH DAILY [facility] Last Admin: 09/22/19 10:02 Dose: 2 puff A/P Acute on Chronic Hypoxic and Hypercapneic Respiratory Failure improving Acute COPD Exaceration Pneumonia Atrial Fibrillation +Troponins likely Demand Ischemia LV Systolic Dysfunction HTN Hyperlipidemia Hypothyroidism Anemia - medrol taper - inhaled bronchodilators - O2 to keep SpO2 >90% - continue antibiotics - rate control - DVT prophylaxis
[2019-09-22 15:18] VITALS: BMI 15.1
[2019-09-22] MEDS: ALBUTEROL SO4 0.042% IH SOL 1.25 MG/3 ML VIAL.NEB NEB SCH ×2 (16:35→19:56)
[2019-09-23] MEDS ORDERED: PT OWN MED DRAWER 7, Y5N ONE (00:09)
[2019-09-23] MEDS: MELATONIN 1 MG TABLET PO SCH (00:10)
[2019-09-23] MEDS: ATORVASTATIN CA 10 MG TABLET (FP) PO SCH (00:10)
[2019-09-23] MEDS: LEVOTHYROXINE NA 25 MCG TABLET (FP) PO SCH (06:10)
[2019-09-23 07:03] LABS: BASO % 0.5 % (0-2.0); HEMATOCRIT 33.2 % (32.4-45.2); HEMOGLOBIN 10.7 GM/dL (10.7-15.3); LYMPH % 2.2 % (8-40); MCH 30.5 pg (25.7-33.7); MCHC 32.3 g/dl (32.0-36.0); MEAN CELL VOLUME 94.5 fl (80-96); MEAN PLT VOLUME 8.7 fl (7.5-11.1); MONO % 1.8 % (3.8-10.2); NEUT % 95.5 % (42.8-82.8); PLATELET COUNT 232 K/MM3 (134-434); RBC 3.51 M/mm3 (3.60-5.2); RDW 14.5 % (11.6-15.6); WHITE BLOOD COUNT 10.4 K/mm3 (4.0-10.0)
[2019-09-23 07:05] LABS: ALBUMIN 2.9 g/dl (3.4-5.0); BILIRUBIN,TOTAL 0.3 mg/dL (0.2-1); BLOOD UREA NITROGEN 32.4 mg/dL (7-18); CALCIUM 10.5 mg/dL (8.5-10.1); CREATININE 0.5 mg/dL (0.55-1.3); MAGNESIUM 2.4 mg/dL (1.8-2.4); POTASSIUM 3.9 mmol/L (3.5-5.1); TOT PROT 6.1 g/dl (6.4-8.2)
--- NOTE | 2019-09-23 07:36 | PN ---
Progress Note, Physician Chief Complaint: States she feels better today breathing is improved History of Present Illness: Patient is an 79 year old female with a significant past medical history of Afib (no longer on anticoagulation - per patient, she was taken off all anticoagulation by her PCP and pocket creaser for anemia), COPD (home oxygen dependent @ 4 liters), hypertension, HLD, right hip fracture s/p fall and anemia. She presented to the ED with weakness, poor appetite for 3 days, feeling jittery for 3 days and was found to be in acute on chronic COPD exacerbation with and a chest CT confirmed moderately severe copd with trace bilateral pleural effusion suggestive of pneumonia. - Current Medication List Current Medications: Active Medications Acetaminophen (Tylenol -) 650 mg PO Q6H PRN PRN Reason: PAIN LEVEL 1-5 Albuterol Sulfate (Ventolin 0.042trength) -) 1 amp NEB RQID [facility] Last Admin: 09/22/19 19:56 Dose: 1 amp Atorvastatin Calcium (Lipitor -) 10 mg PO HS [facility] Last Admin: 09/23/19 00:10 Dose: 10 mg Diltiazem HCl (Cardizem Cd -) 120 mg PO DAILY [facility] Last Admin: 09/22/19 09:05 Dose: 120 mg Ceftriaxone Sodium 1 gm/ (Dextrose) 50 mls @ 200 mls/hr IVPB DAILY [facility]; Protocol Last Admin: 09/22/19 10:01 Dose: 200 mls/hr Levothyroxine Sodium (Synthroid -) 25 mcg PO DAILY@0700 [facility] Last Admin: 09/23/19 06:10 Dose: 25 mcg Lisinopril (Prinivil) 10 mg PO DAILY [facility] Last Admin: 09/22/19 10:01 Dose: 10 mg Melatonin (Melatonin) 3 mg PO HS [facility] Last Admin: 09/23/19 00:10 Dose: 3 mg Methylprednisolone Sodium Succinate (Solu-Medrol -) 40 mg IVPUSH BID [facility] Last Admin: 09/22/19 22:10 Dose: 40 mg Brimonidine Tartrate [Alphagan P] Opthalmic Drops 0 ml OU BID [facility] Last Admin: 09/22/19 22:12 Dose: 1 ml Pantoprazole Sodium (Protonix -) 40 mg PO DAILY [facility] Last Admin: 09/22/19 10:02 Dose: 40 mg Tiotropium [place] (Spiriva Respimat) 2 puff IH DAILY [facility] Last Admin: 09/22/19 10:02 Dose: 2 puff - Objective Vital Signs: Vital Signs Temperature 97.9 F 09/23/19 02:00 Pulse Rate 66 09/23/19 06:00 Respiratory Rate 16 09/23/19 06:00 Blood Pressure 137/70 09/23/19 06:00 O2 Sat by Pulse Oximetry (%) 94 L 09/22/19 21:00 Constitutional: Yes: No Distress, Calm, Thin Eyes: Yes: WNL, Conjunctiva Clear HENT: Yes: WNL, Atraumatic, Normocephalic Neck: Yes: WNL, Supple, Trachea Midline Cardiovascular: Yes: WNL, Regular Rate and Rhythm Respiratory: Yes: Regular, CTA Bilaterally, Diminished (at bases) Gastrointestinal: Yes: WNL, Normal Bowel Sounds ...Rectal Exam: Yes: Deferred Genitourinary: Yes: WNL Breast(s): Yes: WNL Musculoskeletal: Yes: WNL Extremities: Yes: WNL Edema: No Peripheral Pulses WNL: Yes Peripheral Pulses: Left Radial: 2+, Right Radial: 2+, Left Doralis Pedis: 2+, Right Dorsalis Pedis: 2+, Left Femoral: 2+, Right Femoral: 2+ Integumentary: Yes: WNL Neurological: Yes: WNL, Alert, Oriented ...Motor Strength: WNL Psychiatric: Yes: WNL Labs: CBC, BMP 09/23/19 06:05 09/23/19 06:05 INR, PTT INR 1.15 (0.83-1.09) H 09/20/19 10:15 Problem List - Problems (1) Prophylactic measure Assessment/Plan: FEN low sodium diet dietary supplements PO intake improving monitor electrolytes DVT no chemical AC Dispo maintain as inpatient full code discharge planning Problems reviewed: No Code(s): Z29.9 - ENCOUNTER FOR PROPHYLACTIC MEASURES, UNSPECIFIED (2) Acute on chronic respiratory failure with hypoxia Assessment/Plan: supplemental O@ to maintain SPo2 > 88% c/w inhaled broncholdilators c/w solumedrol taper c/w ceftrixone Home O2 in place for discharge Code(s): J96.21 - ACUTE AND CHRONIC RESPIRATORY FAILURE WITH HYPOXIA (3) COPD (chronic obstructive pulmonary disease) Assessment/Plan: appreciated pulm consultation c/w spiriva, duo nebs Code(s): J44.9 - CHRONIC OBSTRUCTIVE PULMONARY DISEASE, UNSPECIFIED (4) Generalized weakness Assessment/Plan: reports weakness at home, and a near fall c/w physical therapy Code(s): R53.1 - WEAKNESS (5) PNA (pneumonia) Assessment/Plan: per chest ct, possible pneumonia on ceftriaxone duonebs pulmonary following Code(s): J18.9 - PNEUMONIA, UNSPECIFIED ORGANISM (6) Altered mental status Assessment/Plan: mental status back to baseline Code(s): R41.82 - ALTERED MENTAL STATUS, UNSPECIFIED (7) Anemia Assessment/Plan: H/H cont to monitor daily cbc Code(s): D64.9 - ANEMIA, UNSPECIFIED Qualifiers: Anemia type: iron deficiency Iron deficiency anemia type: unspecified iron deficiency Qualified Code(s): D50.9 - Iron deficiency anemia, unspecified (8) Paroxysmal atrial fibrillation Assessment/Plan: per patient and , patient was taken off xarelto and eliquis by her pocket creaser and PCP ekg shows nsr 98s with episodes of afib with rvr this a.m. c/w cardizem 120mg daily c/w lisinopril 10 tele monitoring Code(s): I48.0 - PAROXYSMAL ATRIAL FIBRILLATION (9) Unsteady gait Assessment/Plan: PT following s/p right hip fracture 2017 Code(s): R26.81 - UNSTEADINESS ON FEET (10) CAD (coronary artery disease) Assessment/Plan: s/p NSTEMI 2017 presently with borderline trops x3, flat trend, not c/w acs c/w asa, statin, CARL per home regimen BB currently on hold secondary to pulm status Code(s): I25.10 - ATHSCL HEART DISEASE OF [place] CORONARY ARTERY W/O ANG PCTRS (11) Systolic CHF Assessment/Plan: acute decompensation 2017, in setting of severe anemia and a.e. copd mild LV dysfunction reported on echo then, however measured EF 36% on MPI. repeat TTE now with nl LV function appears clinically euvolemic here. appreciate card consultations Code(s): I50.20 - UNSPECIFIED SYSTOLIC (CONGESTIVE) HEART FAILURE (12) Severe protein-calorie malnutrition Assessment/Plan: Malnutririon as evidenced by BMI 15, muscle wasting/fat depletion small frwuent meals with supplements tester sound consultation appreciated Code(s): E43 - UNSPECIFIED SEVERE PROTEIN-CALORIE MALNUTRITION Visit type - Emergency Visit Emergency Visit: Yes ED Registration Date: 09/20/19 Care time: The patient presented to the Emergency Department on the above date and was hospitalized for further evaluation of their emergent condition. - New Patient This patient is new to me today: Yes Date on this admission: 09/23/19 - Critical Care Critical Care patient: No - Discharge Referral Referred to [facility] Med P.C.: No
[2019-09-23] MEDS ORDERED: cefTRIAXone SODIUM 1 GM VIAL ONE (08:44)
[2019-09-23] MEDS ORDERED: DEXTROSE 5%-WATER - 50 ML IVPB ONE (08:44)
[2019-09-23] MEDS: PANTOPRAZOLE 40 MG TABLET (FP) PO SCH (08:59)
[2019-09-23] MEDS: LISINOPRIL 5 MG TABLET (FP) PO SCH (08:59)
[2019-09-23] MEDS: ALBUTEROL SO4 0.042% IH SOL 1.25 MG/3 ML VIAL.NEB NEB SCH ×4 (09:00→21:31)
[2019-09-23] MEDS: BRIMONIDINE TARTRATE OU SCH ×2 (09:01→21:40)
[2019-09-23] MEDS: methylPREDNISolone NA SUCC 40 MG/1 ML VIAL IVPUSH SCH ×2 (09:02→21:39)
[2019-09-23] MEDS: CEFTRIAXONE 1 GM in DEXTROSE 5%-WATER - 50 ML IVPB SCH (09:02)
[2019-09-23] MEDS: TIOTROPIUM BROMIDE 2.5 MCG (SPIRIVA) RESPIMAT INHALER IH SCH (09:16)
[2019-09-23 09:52] LABS: ANISOCYTOSIS 1+
--- NOTE | 2019-09-23 10:30 | ECHO ---
Version: 1 Name: AMINTA BHARDWAJ Exam: Adult Echocardiogram Study Date: 09/23/2019, 8:05 AM Age: 79 Years MMode/2D Measurements & Calculations IVSd: 0.82 cm LVIDs: 3.1 cm LVIDd: 4.0 cm LVPWd: 0.90 cm LAV (MOD-bp): 49.7 ml LVOT diam: 1.96 cm Ao root diam: 2.37 cm LA dimension: 2.12 cm Doppler Measurements & Calculations MV E max tito: 96.5 cm/sec Med E/e': 20.6 MV A max tito: 122.7 cm/sec Med Peak E' Tito: 4.7 cm/sec MV E/A: 0.79 Lat E/e': 15.3 Lat Peak E' Tito: 6.3 cm/sec Ao max P.5 mmHg EVAN(I,D): 1.31 cm Ao mean P.6 mmHg LV V1 mean: 59.0 cm/sec Ao V2 max: 203.2 cm/sec LV V1 mean P.65 mmHg TR max tito: 261.6 cm/sec TR max P.6 mmHg Procedure A complete two-dimensional transthoracic echocardiogram was performed (2D, M-mode, Doppler and color flow Doppler). Left Ventricle The left ventricular size, thickness and function are normal. Ejection Fraction = 60%. E/A reversal consistent with but not diagnostic of poor LV compliance. The left ventricular wall motion is normal . Right Ventricle The right ventricle is normal in size and function. Atria Normal left and right atrial size and function. Mitral Valve There is mild mitral valve thickening. There is trace mitral regurgitation. Tricuspid Valve The tricuspid valve is normal in structure and function. There is mild tricuspid regurgitation. Righ t ventricular systolic pressure is 33 mmhg. Aortic Valve There is moderate to severe aortic valve thickening. Mild valvular aortic stenosis. The calculated a ortic valve area using the continuity equation is 1.3 cm2. Pulmonic Valve The pulmonic valve is normal in structure and function. Great Vessels The aortic root is normal size. Pericardium/Pleura There is no pericardial effusion. There is no pleural effusion. Summary Statements The left ventricular size, thickness and function are normal Ejection Fraction = 60%. The right ventricle is normal in size and function. There is mild mitral valve thickening. There is trace mitral regurgitation. There is mild tricuspid regurgitation. Right ventricular systolic pressure is 33 mmhg. There is moderate to severe aortic valve thickening. Mild valvular aortic stenosis. The calculated aortic valve area using the continuity equation is 1.3 cm2. MD Brad Duran 09/23/2019, 10:30 AM Ordering Physician: Jason Ferreira Performed By: Mandy Payton
[2019-09-23 10:50] LABS: MACROCYTOSIS 1+; PLATELET ESTIMATE ADEQUATE
--- NOTE | 2019-09-23 11:37 | PN ---
Progress Note (short form) - Note Progress Note: s: sob improving, no chest pain, palps dizziness Current Medications Acetaminophen (Tylenol -) 650 mg PO Q6H PRN PRN Reason: PAIN LEVEL 1-5 Albuterol Sulfate (Ventolin 0.042trength) -) 1 amp NEB RQID [facility] Last Admin: 09/22/19 19:56 Dose: 1 amp Atorvastatin Calcium (Lipitor -) 10 mg PO HS [facility] Last Admin: 09/23/19 00:10 Dose: 10 mg Diltiazem HCl (Cardizem Cd -) 120 mg PO DAILY [facility] Last Admin: 09/23/19 08:59 Dose: 120 mg Ceftriaxone Sodium 1 gm/ (Dextrose) 50 mls @ 200 mls/hr IVPB DAILY [facility]; Protocol Last Admin: 09/23/19 09:02 Dose: 200 mls/hr Levothyroxine Sodium (Synthroid -) 25 mcg PO DAILY@0700 [facility] Last Admin: 09/23/19 06:10 Dose: 25 mcg Lisinopril (Prinivil) 10 mg PO DAILY [facility] Last Admin: 09/23/19 08:59 Dose: 10 mg Melatonin (Melatonin) 3 mg PO HS [facility] Last Admin: 09/23/19 00:10 Dose: 3 mg Methylprednisolone Sodium Succinate (Solu-Medrol -) 40 mg IVPUSH BID [facility] Last Admin: 09/23/19 09:02 Dose: 40 mg Brimonidine Tartrate [Alphagan P] Opthalmic Drops 0 ml OU BID [facility] Last Admin: 09/23/19 09:01 Dose: 1 ml Pantoprazole Sodium (Protonix -) 40 mg PO DAILY [facility] Last Admin: 09/23/19 08:59 Dose: 40 mg Tiotropium [place] (Spiriva Respimat) 2 puff IH DAILY [facility] Last Admin: 09/23/19 09:16 Dose: 2 puff Vital Signs Period Temp Pulse Resp BP Sys/[facility] Pulse Ox Last 24 Hr 97.9 F-98.5 F 66-97 16-20 98-137/57-78 94-95 Constitutional: Yes: Well Nourished, No Distress, Calm Cardiovascular: Yes: Pulse Irregular, S1, S2. No: Gallop, Murmur Respiratory: Yes: Regular, CTA Bilaterally. No: Accessory Muscle Use, Rales, Wheezes Extremities: No: Cold Edema: No Neurological: Yes: Alert, Oriented Psychiatric: No: Agitated Assessment/Plan Echo 05/2017: Mildly reduced LV function. (No RWMA described). RV not well seen 1+ lae. mod mr, mod tr Echo 2013: nl lv, nl rv, mild mr, mild tr, rvsp 30-40 MPI (pers) 05/24: no STs. large fixed defect lateral wall; lateral wall akinesis with overall sev decr EF (36%). No LV cavity dilation or TID reported ECG: sr, nl intervals no ischemic changes ct chest: copd, pna, no sig chf echo 09/2019 nl LV/RV function, tr MR, mild TR, RVSP 33 mmHg, mild EVAN 1.3 cm2 tele: AF, sinus, PVCs pna, a.e. COPD: -abx, steroids per pulm -BNP 1K (prior range 4K-17K) CAD s/p NSTEMI: -s/p NSTEMI 2016, with low risk nuclear scans suggestive of lateral infarct with no residual ischemia. treated medically given ? benefits of cath, gil in light of hi risk for premature discontinuation of DAPT post PCI -presently with borderline trops x3, flat trend, not c/w acs -no angina -cont asa, statin, CARL per home regimen -BB has been deferred given severity of wheezing on prior presentation with a.e. copd here chronic systolic CHF: -acute decompensation 2017, in setting of severe anemia and a.e. copd -mild LV dysfunction reported on echo then, however measured EF 36% on MPI. -appears clinically euvolemic here. -repeat echo with nl LV function paroxysmal afib: -went into AF here, rates mostly controlled. cont dilt as doing, monitor tele -CHA VASC 4--started on xarelto 20 at that time but was stopped at some point due to anemia and pt has remained on asa, follows with outside cardio dr singleton-- defer continued treatment to him htn: -bp controlled -cont current meds hypercalcemia: -per primary
--- NOTE | 2019-09-23 13:06 | PN ---
Progress Note (short form) - Note Progress Note: PULMONARY Breathing continues to improve. Less cough and wheezing. Vital Signs Period Temp Pulse Resp BP Sys/[facility] Pulse Ox Last 24 Hr 97.9 F-98.5 F 66-97 16-20 98-137/57-78 94-95 Gen: NAD at rest Heart: RRR Lung: distant breath sounds Abd: soft, nontender Ext: no edema CBC, BMP 09/23/19 06:05 09/23/19 06:05 Active Medications Acetaminophen (Tylenol -) 650 mg PO Q6H PRN PRN Reason: PAIN LEVEL 1-5 Albuterol Sulfate (Ventolin 0.042trength) -) 1 amp NEB RQID [facility] Last Admin: 09/23/19 11:54 Dose: 1 amp Atorvastatin Calcium (Lipitor -) 10 mg PO HS [facility] Last Admin: 09/23/19 00:10 Dose: 10 mg Diltiazem HCl (Cardizem Cd -) 120 mg PO DAILY [facility] Last Admin: 09/23/19 08:59 Dose: 120 mg Ceftriaxone Sodium 1 gm/ (Dextrose) 50 mls @ 200 mls/hr IVPB DAILY [facility]; Protocol Last Admin: 09/23/19 09:02 Dose: 200 mls/hr Levothyroxine Sodium (Synthroid -) 25 mcg PO DAILY@0700 [facility] Last Admin: 09/23/19 06:10 Dose: 25 mcg Lisinopril (Prinivil) 10 mg PO DAILY [facility] Last Admin: 09/23/19 08:59 Dose: 10 mg Melatonin (Melatonin) 3 mg PO HS [facility] Last Admin: 09/23/19 00:10 Dose: 3 mg Methylprednisolone Sodium Succinate (Solu-Medrol -) 40 mg IVPUSH BID [facility] Last Admin: 09/23/19 09:02 Dose: 40 mg Multivitamins/Minerals/Vitamin C (Tab-A-Vit -) 1 tab PO DAILY [facility] Brimonidine Tartrate [Alphagan P] Opthalmic Drops 0 ml OU BID [facility] Last Admin: 09/23/19 09:01 Dose: 1 ml Pantoprazole Sodium (Protonix -) 40 mg PO DAILY [facility] Last Admin: 09/23/19 08:59 Dose: 40 mg Tiotropium [place] (Spiriva Respimat) 2 puff IH DAILY [facility] Last Admin: 09/23/19 09:16 Dose: 2 puff A/P Acute on Chronic Hypoxic and Hypercapneic Respiratory Failure improving Acute COPD Exaceration Pneumonia Atrial Fibrillation +Troponins likely Demand Ischemia LV Systolic Dysfunction HTN Hyperlipidemia Hypothyroidism Anemia - medrol taper, can change to PO prednisone 40mg daily in AM if continues to improve - inhaled bronchodilators - O2 to keep SpO2 >90% - complete antibiotics - rate control - DVT prophylaxis
[2019-09-24] MEDS ORDERED: PT OWN MED DRAWER 7, Y5N ONE ×2 (00:08→09:09)
[2019-09-24] MEDS: ATORVASTATIN CA 10 MG TABLET (FP) PO SCH (00:09)
[2019-09-24] MEDS: MELATONIN 1 MG TABLET PO SCH (00:09)
[2019-09-24] MEDS: LEVOTHYROXINE NA 25 MCG TABLET (FP) PO SCH (06:21)
[2019-09-24 06:56] LABS: HEMOGLOBIN 11.1 GM/dL (10.7-15.3); MCH 30.9 pg (25.7-33.7); MCHC 32.7 g/dl (32.0-36.0); MEAN CELL VOLUME 94.7 fl (80-96); MEAN PLT VOLUME 9.1 fl (7.5-11.1); MONO % 2.3 % (3.8-10.2); NEUT % 95.7 % (42.8-82.8); PLATELET COUNT 225 K/MM3 (134-434); RBC 3.59 M/mm3 (3.60-5.2); RDW 14.6 % (11.6-15.6); WHITE BLOOD COUNT 8.5 K/mm3 (4.0-10.0)
[2019-09-24 07:13] LABS: ALBUMIN 2.8 g/dl (3.4-5.0); BILIRUBIN,TOTAL 0.3 mg/dL (0.2-1); BLOOD UREA NITROGEN 26.4 mg/dL (7-18); CALCIUM 10.1 mg/dL (8.5-10.1); CREATININE 0.5 mg/dL (0.55-1.3); MAGNESIUM 2.2 mg/dL (1.8-2.4); POTASSIUM 4.1 mmol/L (3.5-5.1); TOT PROT 6.1 g/dl (6.4-8.2)
--- NOTE | 2019-09-24 07:27 | PN ---
Progress Note, Physician Chief Complaint: Examined sitting on edge of bed with PT. Less SOB and minimal wheezing. 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 She presented to the ED with weakness, poor appetite for 3 days, feeling jittery for 3 days and was found to be in acute on chronic COPD exacerbation with and a chest CT confirmed moderately severe copd with trace bilateral pleural effusion suggestive of pneumonia. - Current Medication List Current Medications: Active Medications Acetaminophen (Tylenol -) 650 mg PO Q6H PRN PRN Reason: PAIN LEVEL 1-5 Albuterol Sulfate (Ventolin 0.042trength) -) 1 amp NEB RQID [facility] Last Admin: 09/23/19 21:31 Dose: 1 amp Atorvastatin Calcium (Lipitor -) 10 mg PO [facility] Last Admin: 09/24/19 00:09 Dose: 10 mg Diltiazem HCl (Cardizem Cd -) 120 mg PO DAILY [facility] Last Admin: 09/23/19 08:59 Dose: 120 mg Ceftriaxone Sodium 1 gm/ (Dextrose) 50 mls @ 200 mls/hr IVPB DAILY [facility]; Protocol Last Admin: 09/23/19 09:02 Dose: 200 mls/hr Levothyroxine Sodium (Synthroid -) 25 mcg PO DAILY@0700 [facility] Last Admin: 09/24/19 06:21 Dose: 25 mcg Lisinopril (Prinivil) 10 mg PO DAILY [facility] Last Admin: 09/23/19 08:59 Dose: 10 mg Melatonin (Melatonin) 3 mg PO [facility] Last Admin: 09/24/19 00:09 Dose: 3 mg Methylprednisolone Sodium Succinate (Solu-Medrol -) 40 mg IVPUSH BID [facility] Last Admin: 09/23/19 21:39 Dose: 40 mg Multivitamins/Minerals/Vitamin C (Tab-A-Vit -) 1 tab PO DAILY [facility] Brimonidine Tartrate [Alphagan P] Opthalmic Drops 0 ml OU BID [facility] Last Admin: 09/23/19 21:40 Dose: 1 ml Pantoprazole Sodium (Protonix -) 40 mg PO DAILY [facility] Last Admin: 09/23/19 08:59 Dose: 40 mg Tiotropium [place] (Spiriva Respimat) 2 puff IH DAILY [facility] Last Admin: 09/23/19 09:16 Dose: 2 puff - Objective Vital Signs: Vital Signs Temperature 97.6 F 09/24/19 06:00 Pulse Rate 70 09/24/19 06:00 Respiratory Rate 20 09/24/19 06:00 Blood Pressure 139/86 09/24/19 06:00 O2 Sat by Pulse Oximetry (%) 98 09/23/19 20:32 Additional Findings/Remarks: Constitutional: Yes: No Distress, Calm, Thin Eyes: Yes: WNL, Conjunctiva Clear HENT: Yes: WNL, Atraumatic, Normocephalic Neck: Yes: WNL, Supple, Trachea Midline Cardiovascular: Yes: WNL, Regular Rate and Rhythm Respiratory: Yes: Regular, CTA Bilaterally, Diminished (at bases) Gastrointestinal: Yes: WNL, Normal Bowel Sounds ...Rectal Exam: Yes: Deferred Genitourinary: Yes: WNL Breast(s): Yes: WNL Musculoskeletal: Yes: WNL Extremities: Yes: WNL Edema: No Peripheral Pulses WNL: Yes Peripheral Pulses: Left Radial: 2+, Right Radial: 2+, Left Doralis Pedis: 2+, Right Dorsalis Pedis: 2+, Left Femoral: 2+, Right Femoral: 2+ Integumentary: Yes: WNL Neurological: Yes: WNL, Alert, Oriented ...Motor Strength: WNL Psychiatric: Yes: WNL Labs: CBC, BMP 09/24/19 05:55 09/24/19 05:55 INR, PTT INR 1.15 (0.83-1.09) H 09/20/19 10:15 - ....Imaging Chest X-ray: Image Reviewed Problem List - Problems (1) Prophylactic measure Assessment/Plan: FEN low sodium diet dietary supplements PO intake improving monitor electrolytes DVT no chemical AC Dispo maintain as inpatient full code discharge planning to home Code(s): Z29.9 - ENCOUNTER FOR PROPHYLACTIC MEASURES, UNSPECIFIED (2) Acute on chronic respiratory failure with hypoxia Assessment/Plan: supplemental O2 to maintain SPo2 > 88% c/w inhaled broncholdilators Last dose of solumedrol 40mg this am-clinically improved. Start PO prednisone 40mg in am c/w ceftrixone Home O2 in place for discharge Code(s): J96.21 - ACUTE AND CHRONIC RESPIRATORY FAILURE WITH HYPOXIA (3) COPD (chronic obstructive pulmonary disease) Assessment/Plan: appreciated pulmonary consultation c/w cruz clarke Code(s): J44.9 - CHRONIC OBSTRUCTIVE PULMONARY DISEASE, UNSPECIFIED (4) Generalized weakness Assessment/Plan: reports weakness at home, and a near fall clinically stronger, ambulating in chaudhry with PT c/w physical therapy Code(s): R53.1 - WEAKNESS (5) PNA (pneumonia) Assessment/Plan: per chest ct, possible pneumonia c/w ceftriaxone duonebs pulmonary following Code(s): J18.9 - PNEUMONIA, UNSPECIFIED ORGANISM (6) Altered mental status Assessment/Plan: mental status back to baseline Code(s): R41.82 - ALTERED MENTAL STATUS, UNSPECIFIED (7) Anemia Assessment/Plan: resolving H/H cont to monitor daily cbc Code(s): D64.9 - ANEMIA, UNSPECIFIED Qualifiers: Anemia type: iron deficiency Iron deficiency anemia type: unspecified iron deficiency Qualified Code(s): D50.9 - Iron deficiency anemia, unspecified (8) Paroxysmal atrial fibrillation Assessment/Plan: per patient and , patient was taken off xarelto and eliquis by her 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 and PCP tele shows periods of AF c/w cardizem 120mg daily c/w lisinopril 10 tele monitoring Code(s): I48.0 - PAROXYSMAL ATRIAL FIBRILLATION (9) Unsteady gait Assessment/Plan: ambulated 120ft with walker c/w PT s/p right hip fracture 2017 Code(s): R26.81 - UNSTEADINESS ON FEET (10) CAD (coronary artery disease) Assessment/Plan: s/p NSTEMI 2017 presently with borderline trops x3, flat trend, not c/w acs c/w asa, statin, CARL per home regimen BB currently on hold secondary to pulm status Code(s): I25.10 - ATHSCL HEART DISEASE OF [place] CORONARY ARTERY W/O ANG PCTRS (11) Systolic CHF Assessment/Plan: acute decompensation 2017, in setting of severe anemia and a.e. copd mild LV dysfunction reported on echo then, however measured EF 36% on MPI. repeat TTE now with nl LV function appears clinically euvolemic here. appreciate card consultation Code(s): I50.20 - UNSPECIFIED SYSTOLIC (CONGESTIVE) HEART FAILURE (12) Severe protein-calorie malnutrition Assessment/Plan: Malnutririon as evidenced by BMI 15, muscle wasting/fat depletion small frequent meals with supplements maintenance engineer consultation appreciated Code(s): E43 - UNSPECIFIED SEVERE PROTEIN-CALORIE MALNUTRITION Visit type - Emergency Visit Emergency Visit: Yes ED Registration Date: 09/20/19 Care time: The patient presented to the Emergency Department on the above date and was hospitalized for further evaluation of their emergent condition. - New Patient This patient is new to me today: No - Critical Care Critical Care patient: No - Discharge Referral Referred to [facility] No
[2019-09-24] MEDS: ALBUTEROL SO4 0.042% IH SOL 1.25 MG/3 ML VIAL.NEB NEB SCH ×4 (07:55→20:45)
[2019-09-24] MEDS ORDERED: DEXTROSE 5%-WATER - 50 ML IVPB ONE (09:09)
[2019-09-24] MEDS ORDERED: cefTRIAXone SODIUM 1 GM VIAL ONE (09:09)
[2019-09-24] MEDS: PANTOPRAZOLE 40 MG TABLET (FP) PO SCH (09:15)
[2019-09-24] MEDS: TIOTROPIUM BROMIDE 2.5 MCG (SPIRIVA) RESPIMAT INHALER IH SCH (09:15)
[2019-09-24] MEDS: LISINOPRIL 5 MG TABLET (FP) PO SCH (09:15)
[2019-09-24] MEDS: MULTIVITAMINS (DAILY MVI) TABLET (FP) PO SCH (09:15)
[2019-09-24] MEDS: BRIMONIDINE TARTRATE OU SCH (09:16)
[2019-09-24] MEDS: CEFTRIAXONE 1 GM in DEXTROSE 5%-WATER - 50 ML IVPB SCH (09:17)
[2019-09-24] MEDS: methylPREDNISolone NA SUCC 40 MG/1 ML VIAL IVPUSH SCH (10:28)
[2019-09-24 10:46] LABS: ANISOCYTOSIS 0; MACROCYTOSIS 0; PLATELET ESTIMATE NORMAL
--- NOTE | 2019-09-24 11:45 | PN ---
Progress Note (short form) - Note Progress Note: s: sob better, no chest pain, palps dizziness Current Medications Acetaminophen (Tylenol -) 650 mg PO Q6H PRN PRN Reason: PAIN LEVEL 1-5 Albuterol Sulfate (Ventolin 0.042trength) -) 1 amp NEB RQID [facility] Last Admin: 09/24/19 07:55 Dose: 1 amp Atorvastatin Calcium (Lipitor -) 10 mg PO HS [facility] Last Admin: 09/24/19 00:09 Dose: 10 mg Diltiazem HCl (Cardizem Cd -) 120 mg PO DAILY [facility] Last Admin: 09/24/19 09:20 Dose: 120 mg Ceftriaxone Sodium 1 gm/ (Dextrose) 50 mls @ 200 mls/hr IVPB DAILY [facility]; Protocol Last Admin: 09/24/19 09:17 Dose: 200 mls/hr Levothyroxine Sodium (Synthroid -) 25 mcg PO DAILY@0700 [facility] Last Admin: 09/24/19 06:21 Dose: 25 mcg Lisinopril (Prinivil) 10 mg PO DAILY [facility] Last Admin: 09/24/19 09:15 Dose: 10 mg Melatonin (Melatonin) 3 mg PO HS [facility] Last Admin: 09/24/19 00:09 Dose: 3 mg Methylprednisolone Sodium Succinate (Solu-Medrol -) 40 mg IVPUSH BID [facility] Last Admin: 09/24/19 10:28 Dose: 40 mg Multivitamins/Minerals/Vitamin C (Tab-A-Vit -) 1 tab PO DAILY [facility] Last Admin: 09/24/19 09:15 Dose: 1 tab Brimonidine Tartrate [Alphagan P] Opthalmic Drops 0 ml OU BID [facility] Last Admin: 09/24/19 09:16 Dose: 2 ml Pantoprazole Sodium (Protonix -) 40 mg PO DAILY [facility] Last Admin: 09/24/19 09:15 Dose: 40 mg Tiotropium [place] (Spiriva Respimat) 2 puff IH DAILY [facility] Last Admin: 09/24/19 09:15 Dose: 2 puff Vital Signs Period Temp Pulse Resp BP Sys/[facility] Pulse Ox Last 24 Hr 97.6 F-98.3 F 70-89 16-20 113-139/66-86 98 Constitutional: Yes: Well Nourished, No Distress, Calm Cardiovascular: Yes: Pulse Irregular, S1, S2. No: Gallop, Murmur Respiratory: Yes: Regular, CTA Bilaterally. No: Accessory Muscle Use, Rales, Wheezes Extremities: No: Cold Edema: No Neurological: Yes: Alert, Oriented Psychiatric: No: Agitated no jaundice, diaphoresis Assessment/Plan Echo 05/2017: Mildly reduced LV function. (No RWMA described). RV not well seen 1+ lae. mod mr, mod tr Echo 2013: nl lv, nl rv, mild mr, mild tr, rvsp 30-40 MPI (pers) 05/24: no STs. large fixed defect lateral wall; lateral wall akinesis with overall sev decr EF (36%). No LV cavity dilation or TID reported ECG: sr, nl intervals no ischemic changes ct chest: copd, pna, no sig chf echo 09/2019 nl LV/RV function, tr MR, mild TR, RVSP 33 mmHg, mild EVAN 1.3 cm2 tele: sinus, PVCs pna, a.e. COPD: -abx, steroids per pulm -BNP 1K (prior range 4K-17K) CAD s/p NSTEMI: -s/p NSTEMI 2017, with low risk nuclear scans suggestive of lateral infarct with no residual ischemia. treated medically given ? benefits of cath, gil in light of hi risk for premature discontinuation of DAPT post PCI -presently with borderline trops x3, flat trend, not c/w acs -no angina -cont asa, statin, CARL per home regimen -BB has been deferred given severity of wheezing on prior presentation with a.e. copd here chronic systolic CHF: -acute decompensation 2017, in setting of severe anemia and a.e. copd -mild LV dysfunction reported on echo then, however measured EF 36% on MPI. -appears clinically euvolemic here. -repeat echo this admission with nl LV function paroxysmal afib: -went into AF here, rates mostly controlled. cont dilt as doing, monitor tele -CHA VASC 4--started on xarelto 20 at that time but was stopped at some point due to anemia and pt has remained on asa, follows with outside cardio dr singleton-- defer continued treatment to him htn: -bp controlled -cont current meds hypercalcemia: -per primary
--- NOTE | 2019-09-24 12:56 | PN ---
Progress Note, Physician History of Present Illness: pulmonary alert,feeling better,less dyspneic - Current Medication List Current Medications: Active Medications Acetaminophen (Tylenol -) 650 mg PO Q6H PRN PRN Reason: PAIN LEVEL 1-5 Albuterol Sulfate (Ventolin 0.042trength) -) 1 amp NEB RQID [facility] Last Admin: 09/24/19 07:55 Dose: 1 amp Atorvastatin Calcium (Lipitor -) 10 mg PO HS [facility] Last Admin: 09/24/19 00:09 Dose: 10 mg Diltiazem HCl (Cardizem Cd -) 120 mg PO DAILY [facility] Last Admin: 09/24/19 09:20 Dose: 120 mg Ceftriaxone Sodium 1 gm/ (Dextrose) 50 mls @ 200 mls/hr IVPB DAILY [facility]; Protocol Last Admin: 09/24/19 09:17 Dose: 200 mls/hr Levothyroxine Sodium (Synthroid -) 25 mcg PO DAILY@0700 [facility] Last Admin: 09/24/19 06:21 Dose: 25 mcg Lisinopril (Prinivil) 10 mg PO DAILY [facility] Last Admin: 09/24/19 09:15 Dose: 10 mg Melatonin (Melatonin) 3 mg PO [facility] Last Admin: 09/24/19 00:09 Dose: 3 mg Multivitamins/Minerals/Vitamin C (Tab-A-Vit -) 1 tab PO DAILY [facility] Last Admin: 09/24/19 09:15 Dose: 1 tab Brimonidine Tartrate [Alphagan P] Opthalmic Drops 0 ml OU BID [facility] Last Admin: 09/24/19 09:16 Dose: 2 ml Pantoprazole Sodium (Protonix -) 40 mg PO DAILY [facility] Last Admin: 09/24/19 09:15 Dose: 40 mg Prednisone (Deltasone -) 40 mg PO DAILY [facility] Tiotropium [place] (Spiriva Respimat) 2 puff IH DAILY [facility] Last Admin: 09/24/19 09:15 Dose: 2 puff - Objective Vital Signs: Vital Signs Temperature 98 F 09/24/19 09:03 Pulse Rate 77 09/24/19 09:03 Respiratory Rate 18 09/24/19 09:03 Blood Pressure 113/66 09/24/19 09:03 O2 Sat by Pulse Oximetry (%) 98 09/23/19 20:32 Constitutional: Yes: Calm, Cachectic Eyes: Yes: WNL HENT: Yes: WNL Neck: Yes: WNL Cardiovascular: Yes: Pulse Irregular, S1, S2 Respiratory: Yes: Rales (few bibasilar crackles) Gastrointestinal: Yes: Normal Bowel Sounds, Soft Extremities: Yes: WNL Edema: No Labs: CBC, BMP 09/24/19 05:55 09/24/19 05:55 INR, PTT INR 1.15 (0.83-1.09) H 09/20/19 10:15 Problem List - Problems (1) Acute on chronic respiratory failure with hypoxia and hypercapnia Code(s): J96.21 - ACUTE AND CHRONIC RESPIRATORY FAILURE WITH HYPOXIA; J96.22 - ACUTE AND CHRONIC RESPIRATORY FAILURE WITH HYPERCAPNIA (2) CAD (coronary artery disease) Code(s): I25.10 - ATHSCL HEART DISEASE OF [place] CORONARY ARTERY W/O ANG PCTRS (3) Severe malnutrition Code(s): E43 - UNSPECIFIED SEVERE PROTEIN-CALORIE MALNUTRITION (4) Systolic CHF Code(s): I50.20 - UNSPECIFIED SYSTOLIC (CONGESTIVE) HEART FAILURE (5) Hypercalcemia Code(s): E83.52 - HYPERCALCEMIA (6) Hyperlipidemia Code(s): E78.5 - HYPERLIPIDEMIA, UNSPECIFIED (7) Hypertension Code(s): I10 - ESSENTIAL (PRIMARY) HYPERTENSION (8) Paroxysmal atrial fibrillation Code(s): I48.0 - PAROXYSMAL ATRIAL FIBRILLATION Assessment/Plan IMP ACUTE ON CHRONIC HYPOXEMIC/HYPERCAPNEIC RESPIRATORY FAILURE DYSPNEA COPD O2 DEPENDENT WITH EXACERBATION BIBASILAR CONSOLIDATIONS ATELECTASIS,?INFECTIOUS ? CHF AFIB HTN HLD ANEMIA WEAKNESS + TROPONINS ? DEMAND ISCHEMIA,? NSTEMI HYPERCALCEMIA IMPROVING PLAN CONTINUE ABX O2 INHALED BRONCHODILATORS PREDNISONE MONITOR LYTES, CA LEVEL DR GUPTA
[2019-09-25] MEDS ORDERED: PT OWN MED DRAWER 7, Y5N ONE (00:23)
[2019-09-25] MEDS: BRIMONIDINE TARTRATE OU SCH ×3 (00:25→21:53)
[2019-09-25] MEDS: ATORVASTATIN CA 10 MG TABLET (FP) PO SCH ×2 (00:26→21:54)
[2019-09-25] MEDS: MELATONIN 1 MG TABLET PO SCH ×2 (00:26→21:54)
[2019-09-25] MEDS: LEVOTHYROXINE NA 25 MCG TABLET (FP) PO SCH (06:04)
[2019-09-25 07:06] LABS: BASO % 0.1 % (0-2.0); HEMATOCRIT 34.7 % (32.4-45.2); HEMOGLOBIN 11.4 GM/dL (10.7-15.3); LYMPH % 5.1 % (8-40); MCH 30.9 pg (25.7-33.7); MCHC 32.8 g/dl (32.0-36.0); MEAN PLT VOLUME 9.1 fl (7.5-11.1); MONO % 7.6 % (3.8-10.2); NEUT % 87.2 % (42.8-82.8); PLATELET COUNT 235 K/MM3 (134-434); RBC 3.69 M/mm3 (3.60-5.2); RDW 14.4 % (11.6-15.6); WHITE BLOOD COUNT 10.3 K/mm3 (4.0-10.0)
[2019-09-25 07:48] LABS: ALBUMIN 2.9 g/dl (3.4-5.0); BILIRUBIN,TOTAL 0.3 mg/dL (0.2-1); BLOOD UREA NITROGEN 22.7 mg/dL (7-18); CALCIUM 10.4 mg/dL (8.5-10.1); CREATININE 0.5 mg/dL (0.55-1.3); MAGNESIUM 2.4 mg/dL (1.8-2.4); TOT PROT 6.2 g/dl (6.4-8.2)
--- NOTE | 2019-09-25 07:55 | PN ---
Progress Note, Physician Chief Complaint: Much improved. 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 She presented to the ED with weakness, poor appetite for 3 days, feeling jittery for 3 days and was found to be in acute on chronic COPD exacerbation with and a chest CT confirmed moderately severe copd with trace bilateral pleural effusion suggestive of pneumonia. - Current Medication List Current Medications: Active Medications Acetaminophen (Tylenol -) 650 mg PO Q6H PRN PRN Reason: PAIN LEVEL 1-5 Albuterol Sulfate (Ventolin 0.042trength) -) 1 amp NEB RQID [facility] Last Admin: 09/24/19 20:45 Dose: 1 amp Atorvastatin Calcium (Lipitor -) 10 mg PO [facility] Last Admin: 09/25/19 00:26 Dose: 10 mg Diltiazem HCl (Cardizem Cd -) 120 mg PO DAILY [facility] Last Admin: 09/24/19 09:20 Dose: 120 mg Ceftriaxone Sodium 1 gm/ (Dextrose) 50 mls @ 200 mls/hr IVPB DAILY [facility]; Protocol Last Admin: 09/24/19 09:17 Dose: 200 mls/hr Levothyroxine Sodium (Synthroid -) 25 mcg PO DAILY@0700 [facility] Last Admin: 09/25/19 06:04 Dose: 25 mcg Lisinopril (Prinivil) 10 mg PO DAILY [facility] Last Admin: 09/24/19 09:15 Dose: 10 mg Melatonin (Melatonin) 3 mg PO [facility] Last Admin: 09/25/19 00:26 Dose: 3 mg Multivitamins/Minerals/Vitamin C (Tab-A-Vit -) 1 tab PO DAILY [facility] Last Admin: 09/24/19 09:15 Dose: 1 tab Brimonidine Tartrate [Alphagan P] Opthalmic Drops 0 ml OU BID [facility] Last Admin: 09/25/19 00:25 Dose: 1 ml Pantoprazole Sodium (Protonix -) 40 mg PO DAILY [facility] Last Admin: 09/24/19 09:15 Dose: 40 mg Prednisone (Deltasone -) 40 mg PO DAILY [facility] Tiotropium [place] (Spiriva Respimat) 2 puff IH DAILY [facility] Last Admin: 09/24/19 09:15 Dose: 2 puff - Objective Vital Signs: Vital Signs Temperature 98.1 F 09/25/19 05:00 Pulse Rate 71 09/25/19 05:00 Respiratory Rate 20 09/25/19 05:00 Blood Pressure 146/79 09/25/19 05:00 O2 Sat by Pulse Oximetry (%) 98 09/24/19 21:00 Additional Findings/Remarks: Constitutional: Yes: No Distress, Calm, Thin Eyes: Yes: WNL, Conjunctiva Clear HENT: Yes: WNL, Atraumatic, Normocephalic Neck: Yes: WNL, Supple, Trachea Midline Cardiovascular: Yes: WNL, Regular Rate and Rhythm Respiratory: Yes: Regular, CTA Bilaterally, Diminished (at bases) Gastrointestinal: Yes: WNL, Normal Bowel Sounds ...Rectal Exam: Yes: Deferred Genitourinary: Yes: WNL Breast(s): Yes: WNL Musculoskeletal: Yes: WNL Extremities: Yes: WNL Edema: No Peripheral Pulses WNL: Yes Peripheral Pulses: Left Radial: 2+, Right Radial: 2+, Left Doralis Pedis: 2+, Right Dorsalis Pedis: 2+, Left Femoral: 2+, Right Femoral: 2+ Integumentary: Yes: WNL Neurological: Yes: WNL, Alert, Oriented ...Motor Strength: WNL Psychiatric: Yes: WNL Labs: CBC, BMP 09/25/19 05:58 09/25/19 05:58 INR, PTT INR 1.15 (0.83-1.09) H 09/20/19 10:15 Problem List - Problems (1) Prophylactic measure Assessment/Plan: FEN low sodium diet dietary supplements PO intake improving monitor electrolytes DVT no chemical AC Dispo maintain as inpatient full code discharge planning to home Code(s): Z29.9 - ENCOUNTER FOR PROPHYLACTIC MEASURES, UNSPECIFIED (2) Acute on chronic respiratory failure with hypoxia Assessment/Plan: supplemental O2 to maintain SPo2 > 88% c/w inhaled broncholdilators Last dose of solumedrol 40mg last night and started PO prednisone 40mg in am. Will continue to taper over 12 days ay home c/w ceftrixone-last does tmrw Home O2 in place for discharge Code(s): J96.21 - ACUTE AND CHRONIC RESPIRATORY FAILURE WITH HYPOXIA (3) COPD (chronic obstructive pulmonary disease) Assessment/Plan: appreciated pulmonary consultation c/w cruz clarke Code(s): J44.9 - CHRONIC OBSTRUCTIVE PULMONARY DISEASE, UNSPECIFIED (4) Generalized weakness Assessment/Plan: reports weakness at home, and a near fall clinically stronger, ambulating in chaudhry with PT c/w physical therapy Code(s): R53.1 - WEAKNESS (5) PNA (pneumonia) Assessment/Plan: completing course of abx tmrw duonebs pulmonary following Code(s): J18.9 - PNEUMONIA, UNSPECIFIED ORGANISM (6) Altered mental status Assessment/Plan: mental status back to baseline Code(s): R41.82 - ALTERED MENTAL STATUS, UNSPECIFIED (7) Anemia Assessment/Plan: resolved Code(s): D64.9 - ANEMIA, UNSPECIFIED Qualifiers: Anemia type: iron deficiency Iron deficiency anemia type: unspecified iron deficiency Qualified Code(s): D50.9 - Iron deficiency anemia, unspecified (8) Paroxysmal atrial fibrillation Assessment/Plan: per patient and , patient was taken off xarelto and eliquis by her 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 instructor and PCP tele shows periods of AF c/w cardizem 120mg daily c/w lisinopril 10 Code(s): I48.0 - PAROXYSMAL ATRIAL FIBRILLATION (9) Unsteady gait Assessment/Plan: ambulated 120ft with walker c/w PT s/p right hip fracture 2017 Code(s): R26.81 - UNSTEADINESS ON FEET (10) CAD (coronary artery disease) Assessment/Plan: s/p NSTEMI 2017 presently with borderline trops x3, flat trend, not c/w acs c/w asa, statin, CARL per home regimen BB currently on hold secondary to pulm status Code(s): I25.10 - ATHSCL HEART DISEASE OF [place] CORONARY ARTERY W/O ANG PCTRS (11) Systolic CHF Assessment/Plan: acute decompensation 2017, in setting of severe anemia and a.e. copd mild LV dysfunction reported on echo then, however measured EF 36% on MPI. repeat TTE now with nl LV function appears clinically euvolemic here. appreciate card consultation Code(s): I50.20 - UNSPECIFIED SYSTOLIC (CONGESTIVE) HEART FAILURE (12) Severe protein-calorie malnutrition Assessment/Plan: Malnutririon as evidenced by BMI 15, muscle wasting/fat depletion small frequent meals with supplements interlocker consultation appreciated Code(s): E43 - UNSPECIFIED SEVERE PROTEIN-CALORIE MALNUTRITION Visit type - Emergency Visit Emergency Visit: Yes ED Registration Date: 09/20/19 Care time: The patient presented to the Emergency Department on the above date and was hospitalized for further evaluation of their emergent condition. - New Patient This patient is new to me today: No - Critical Care Critical Care patient: No - Discharge Referral Referred to [facility] No
[2019-09-25] MEDS: ALBUTEROL SO4 0.042% IH SOL 1.25 MG/3 ML VIAL.NEB NEB SCH ×4 (08:23→21:14)
[2019-09-25] MEDS ORDERED: DEXTROSE 5%-WATER - 50 ML IVPB ONE (09:04)
[2019-09-25] MEDS ORDERED: cefTRIAXone SODIUM 1 GM VIAL ONE (09:04)
[2019-09-25] MEDS: MULTIVITAMINS (DAILY MVI) TABLET (FP) PO SCH (09:10)
[2019-09-25] MEDS: LISINOPRIL 5 MG TABLET (FP) PO SCH (09:10)
[2019-09-25] MEDS: predniSONE 20 MG TABLET (UD) PO SCH (09:10)
[2019-09-25] MEDS: TIOTROPIUM BROMIDE 2.5 MCG (SPIRIVA) RESPIMAT INHALER IH SCH (09:10)
[2019-09-25] MEDS: PANTOPRAZOLE 40 MG TABLET (FP) PO SCH (09:10)
[2019-09-25] MEDS: CEFTRIAXONE 1 GM in DEXTROSE 5%-WATER - 50 ML IVPB SCH (09:11)
--- NOTE | 2019-09-25 11:01 | PN ---
Progress Note (short form) - Note Progress Note: s: sob better, no chest pain, palps dizziness Current Medications Generic Name Dose Route Start Last Admin Trade Name Freq PRN Reason Stop Dose Admin Acetaminophen 650 mg 09/21/19 20:34 Tylenol - PO Q6H PRN PAIN LEVEL 1-5 Albuterol Sulfate 1 amp 09/22/19 16:00 09/25/19 08:23 Ventolin 0.042trength) - NEB 1 amp RQID MAHSA Administration Atorvastatin Calcium 10 mg 09/21/19 22:00 09/25/19 00:26 Lipitor - PO 10 mg HS MAHSA Administration Diltiazem HCl 120 mg 09/21/19 10:00 09/25/19 09:10 Cardizem Cd - PO 120 mg DAILY MA[facility]SA Administration Ceftriaxone Sodium 1 gm/ 50 mls @ 200 mls/hr 09/21/19 10:00 09/25/19 09:11 Dextrose IVPB 200 mls/hr DAILY MAHSA Administration Protocol Levothyroxine Sodium 25 mcg 09/21/19 07:00 09/25/19 06:04 Synthroid - PO 25 mcg DAILY@0700 MA[facility]SA Administration Lisinopril 10 mg 09/21/19 10:00 09/25/19 09:10 Prinivil PO 10 mg DAILY MA[facility]SA Administration Melatonin 3 mg 09/20/19 22:00 09/25/19 00:26 Melatonin PO 3 mg HS MA[facility]SA Administration Multivitamins/Minerals/Vitamin C 1 tab 09/24/19 10:00 09/25/19 09:10 Tab-A-Vit - PO 1 tab DAILY MA[facility]SA Administration Brimonidine Tartrate 0 ml 09/21/19 10:00 09/25/19 09:08 [Alphagan P] OU 1 ml Opthalmic Drops BID MA[facility]SA Administration Pantoprazole Sodium 40 mg 09/20/19 16:30 09/25/19 09:10 Protonix - PO 40 mg DAILY MA[facility] Administration Prednisone 40 mg 09/25/19 10:00 09/25/19 09:10 Deltasone - PO 40 mg DAILY MA[facility] Administration Tiotropium [place] 2 puff 09/20/19 16:00 09/25/19 09:10 Spiriva Respimat IH 2 puff DAILY MA[facility]SA Administration Vital Signs Period Temp Pulse Resp BP Sys/Kaiser Pulse Ox Last 24 Hr 97.6 F-98.5 F 67-78 18-20 119-149/52-79 98 Constitutional: Yes: Well Nourished, No Distress, Calm Cardiovascular: Yes: Pulse Irregular, S1, S2. No: Gallop, Murmur Respiratory: Yes: Regular, CTA Bilaterally. No: Accessory Muscle Use, Rales, Wheezes Extremities: No: Cold Edema: No Neurological: Yes: Alert, Oriented Psychiatric: No: Agitated no jaundice, diaphoresis CBC, BMP 09/25/19 05:58 09/25/19 05:58 Assessment/Plan Echo 05/2017: Mildly reduced LV function. (No RWMA described). RV not well seen 1+ lae. mod mr, mod tr Echo 2013: nl lv, nl rv, mild mr, mild tr, rvsp 30-40 MPI (pers) 05/24: no STs. large fixed defect lateral wall; lateral wall akinesis with overall sev decr EF (36%). No LV cavity dilation or TID reported ECG: sr, nl intervals no ischemic changes ct chest: copd, pna, no sig chf echo 09/2019 nl LV/RV function, tr MR, mild TR, RVSP 33 mmHg, mild EVAN 1.3 cm2 tele: sinus pna, a.e. COPD: -abx, steroids per pulm -BNP 1K (prior range 4K-17K) CAD s/p NSTEMI: -s/p NSTEMI 2016, with low risk nuclear scans suggestive of lateral infarct with no residual ischemia. treated medically given ? benefits of cath, gil in light of hi risk for premature discontinuation of DAPT post PCI -presently with borderline trops x3, flat trend, not c/w acs -no angina -cont asa, statin, CARL per home regimen -BB has been deferred given severity of wheezing on prior presentation with a.e. copd here chronic systolic CHF: -acute decompensation 2017, in setting of severe anemia and a.e. copd -mild LV dysfunction reported on echo then, however measured EF 36% on MPI. -appears clinically euvolemic here. -repeat echo this admission with nl LV function paroxysmal afib: -went into AF here, rates mostly controlled. cont dilt as doing. sr now. -CHADS VASC 4--started on xarelto 20 at that time but was stopped at some point due to anemia and pt has remained on asa, follows with outside cardio dr singleton-- defer continued treatment to him htn: -bp controlled -cont current meds hypercalcemia: -per primary dc tele
--- NOTE | 2019-09-25 13:28 | PN ---
Progress Note (short form) - Note Progress Note: PULMONARY Breathing continues to improve. Less cough and wheezing. Vital Signs Period Temp Pulse Resp BP Sys/Kaiser Pulse Ox Last 24 Hr 97.6 F-98.5 F 67-80 18-20 119-149/52-88 98-98 Gen: NAD at rest Heart: RRR Lung: distant breath sounds Abd: soft, nontender Ext: no edema CBC, BMP 09/25/19 05:58 09/25/19 05:58 Active Medications Acetaminophen (Tylenol -) 650 mg PO Q6H PRN PRN Reason: PAIN LEVEL 1-5 Albuterol Sulfate (Ventolin 0.042trength) -) 1 amp NEB RQID [facility] Last Admin: 09/25/19 12:32 Dose: Not Given Atorvastatin Calcium (Lipitor -) 10 mg PO HS [facility] Last Admin: 09/25/19 00:26 Dose: 10 mg Diltiazem HCl (Cardizem Cd -) 120 mg PO DAILY [facility] Last Admin: 09/25/19 09:10 Dose: 120 mg Ceftriaxone Sodium 1 gm/ (Dextrose) 50 mls @ 200 mls/hr IVPB DAILY [facility]; Protocol Last Admin: 09/25/19 09:11 Dose: 200 mls/hr Levothyroxine Sodium (Synthroid -) 25 mcg PO DAILY@0700 [facility] Last Admin: 09/25/19 06:04 Dose: 25 mcg Lisinopril (Prinivil) 10 mg PO DAILY [facility] Last Admin: 09/25/19 09:10 Dose: 10 mg Melatonin (Melatonin) 3 mg PO [facility] Last Admin: 09/25/19 00:26 Dose: 3 mg Multivitamins/Minerals/Vitamin C (Tab-A-Vit -) 1 tab PO DAILY [facility] Last Admin: 09/25/19 09:10 Dose: 1 tab Brimonidine Tartrate [Alphagan P] Opthalmic Drops 0 ml OU BID [facility] Last Admin: 09/25/19 09:08 Dose: 1 ml Pantoprazole Sodium (Protonix -) 40 mg PO DAILY [facility] Last Admin: 09/25/19 09:10 Dose: 40 mg Prednisone (Deltasone -) 40 mg PO DAILY [facility] Last Admin: 09/25/19 09:10 Dose: 40 mg Tiotropium [place] (Spiriva Respimat) 2 puff IH DAILY [facility] Last Admin: 09/25/19 09:10 Dose: 2 puff A/P Acute on Chronic Hypoxic and Hypercapneic Respiratory Failure improving Acute COPD Exaceration Pneumonia Atrial Fibrillation +Troponins likely [place] Ischemia LV Systolic Dysfunction HTN Hyperlipidemia Hypothyroidism Anemia - prednisone taper - inhaled bronchodilators - O2 to keep SpO2 >90% - complete antibiotics - rate control - DVT prophylaxis - should be able to d/c home in AM after antibiotics completed
[2019-09-25] MEDS: LACTOBACILLUS ACIDOPHILUS 1 TABLET PO SCH (18:44)
[2019-09-25 19:19] VITALS: PULSE 72
[2019-09-26] MEDS: LEVOTHYROXINE NA 25 MCG TABLET (FP) PO SCH (06:07)
[2019-09-26 06:22] LABS: BASO % 0.2 % (0-2.0); EOS % 0.1 % (0-4.5); HEMOGLOBIN 12.4 GM/dL (10.7-15.3); LYMPH % 8.1 % (8-40); MCH 30.8 pg (25.7-33.7); MCHC 32.6 g/dl (32.0-36.0); MEAN CELL VOLUME 94.6 fl (80-96); MEAN PLT VOLUME 8.9 fl (7.5-11.1); MONO % 10.3 % (3.8-10.2); NEUT % 81.3 % (42.8-82.8); PLATELET COUNT 272 K/MM3 (134-434); RBC 4.02 M/mm3 (3.60-5.2); RDW 14.2 % (11.6-15.6); WHITE BLOOD COUNT 10.1 K/mm3 (4.0-10.0)
[2019-09-26 07:00] LABS: ALBUMIN 3.1 g/dl (3.4-5.0); BILIRUBIN,TOTAL 0.4 mg/dL (0.2-1); BLOOD UREA NITROGEN 20.6 mg/dL (7-18); CALCIUM 10.3 mg/dL (8.5-10.1); CREATININE 0.5 mg/dL (0.55-1.3); MAGNESIUM 2.5 mg/dL (1.8-2.4); POTASSIUM 3.9 mmol/L (3.5-5.1); TOT PROT 6.2 g/dl (6.4-8.2)
--- NOTE | 2019-09-26 08:00 | DS ---
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 She presented to the ED with weakness, poor appetite for 3 days, feeling jittery for 3 days and was found to be in acute on chronic COPD exacerbation with and a chest CT confirmed moderately severe copd with trace bilateral pleural effusion suggestive of pneumonia. OBJECTIVE: Vital Signs Period Temp Pulse Resp BP Sys/Kaiser Pulse Ox Last 24 Hr 97.8 F-98.6 F 72-80 18-20 110-135/59-88 98-98 PHYSICAL EXAM Constitutional: Yes: No Distress, Calm, Thin Eyes: Yes: WNL, Conjunctiva Clear HENT: Yes: WNL, Atraumatic, Normocephalic Neck: Yes: WNL, Supple, Trachea Midline Cardiovascular: Yes: WNL, Regular Rate and Rhythm Respiratory: Yes: Regular, CTA Bilaterally, Diminished (at bases) Gastrointestinal: Yes: WNL, Normal Bowel Sounds ...Rectal Exam: Yes: Deferred Genitourinary: Yes: WNL Breast(s): Yes: WNL Musculoskeletal: Yes: WNL Extremities: Yes: WNL Edema: No Peripheral Pulses WNL: Yes Peripheral Pulses: Left Radial: 2+, Right Radial: 2+, Left Doralis Pedis: 2+, Right Dorsalis Pedis: 2+, Left Femoral: 2+, Right Femoral: 2+ Integumentary: Yes: WNL Neurological: Yes: WNL, Alert, Oriented ...Motor Strength: WNL Psychiatric: Yes: WNL. LABS Laboratory Results - last 24 hr 09/26/19 09/26/19 05:50 05:50 WBC 10.1 H RBC 4.02 Hgb 12.4 Hct 38.0 MCV 94.6 MCH 30.8 MCHC 32.6 RDW 14.2 Plt Count 272 MPV 8.9 Absolute Neuts (auto) 8.2 H Neutrophils % 81.3 Lymphocytes % 8.1 D Monocytes % 10.3 H Eosinophils % 0.1 D Basophils % 0.2 Nucleated RBC % 0 Sodium 142 Potassium 3.9 Chloride 103 Carbon Dioxide 34 H Anion Gap 4 L BUN 20.6 H Creatinine 0.5 L Est GFR (CKD-EPI)AfAm 105.94 Est GFR (CKD-EPI)NonAf 91.41 Random Glucose 83 Calcium 10.3 H Magnesium 2.5 H Total Bilirubin 0.4 AST 13 L ALT 43 Alkaline Phosphatase 58 Total Protein 6.2 L Albumin 3.1 L HOSPITAL COURSE: Date of Admission:09/20/19 Date of Discharge: 09/26/19 Problem List - Problems (1) Prophylactic measure Assessment/Plan: FEN continue low sodium diet dietary supplements PO intake adequate DVT no chemical AC Dispo discharge to home with [facility] services Code(s): Z29.9 - ENCOUNTER FOR PROPHYLACTIC MEASURES, UNSPECIFIED (2) Acute on chronic respiratory failure with hypoxia Assessment/Plan: supplemental O2 to maintain SPo2 > 88% c/w inhaled broncholdilators Treated with IV steroids and trasitioned to PO with a 12 day taper completed course ofceftrixone-last does 09/[address] for discharge Code(s): J96.21 - ACUTE AND CHRONIC RESPIRATORY FAILURE WITH HYPOXIA (3) COPD (chronic obstructive pulmonary disease) Assessment/Plan: Followed by pulmonary c/w spiriva, and albuterol MDI Code(s): J44.9 - CHRONIC OBSTRUCTIVE PULMONARY DISEASE, UNSPECIFIED (4) Generalized weakness Assessment/Plan: reports weakness at home, and a near fall clinically stronger, ambulating in chaudhry with PT c/w physical therapy at home Code(s): R53.1 - WEAKNESS (5) PNA (pneumonia) Assessment/Plan: completing course of abx 09/26 duonebs pulmonary following Code(s): J18.9 - PNEUMONIA, UNSPECIFIED ORGANISM (6) Altered mental status Assessment/Plan: mental status back to baseline Code(s): R41.82 - ALTERED MENTAL STATUS, UNSPECIFIED (7) Anemia Assessment/Plan: resolved . No blood transfusion needed Code(s): D64.9 - ANEMIA, UNSPECIFIED Qualifiers: Anemia type: iron deficiency Iron deficiency anemia type: unspecified iron deficiency Qualified Code(s): D50.9 - Iron deficiency anemia, unspecified (8) Paroxysmal atrial fibrillation Assessment/Plan: per patient and , patient was taken off xarelto and eliquis by her fibre optic cable splicer and PCP tele shows periods of AF c/w cardizem 120mg daily c/w lisinopril 10 Code(s): I48.0 - PAROXYSMAL ATRIAL FIBRILLATION (9) Unsteady gait Assessment/Plan: ambulated 120ft with walker c/w PT s/p right hip fracture 2017 Code(s): R26.81 - UNSTEADINESS ON FEET (10) CAD (coronary artery disease) Assessment/Plan: s/p NSTEMI 2017 presently with borderline trops x3, flat trend, not c/w acs c/w asa, statin, CARL per home regimen BB currently on hold secondary to pulm status Code(s): I25.10 - ATHSCL HEART DISEASE OF [place] CORONARY ARTERY W/O ANG PCTRS (11) Systolic CHF Assessment/Plan: acute decompensation 2017, in setting of severe anemia and a.e. copd mild LV dysfunction reported on echo then, however measured EF 36% on MPI. repeat TTE now with nl LV function appears clinically euvolemic here. appreciate card consultation Code(s): I50.20 - UNSPECIFIED SYSTOLIC (CONGESTIVE) HEART FAILURE (12) Severe protein-calorie malnutrition Assessment/Plan: Malnutririon as evidenced by BMI 15, muscle wasting/fat depletion small frequent meals with supplements twill cutter consultation appreciated Code(s): E43 - UNSPECIFIED SEVERE PROTEIN-CALORIE MALNUTRITION medcially stable for discharge to home with VNS services Minutes to complete discharge: 45 Discharge Summary Problems reviewed: Yes Reason For Visit: SOB Current Active Problems Acute on chronic respiratory failure with hypoxia (Acute) Acute on chronic respiratory failure with hypoxia and hypercapnia (Acute) CAD (coronary artery disease) (Acute) COPD (chronic obstructive pulmonary disease) (Acute) Generalized weakness (Acute) PNA (pneumonia) (Acute) Prophylactic measure (Acute) Severe malnutrition (Acute) Severe protein-calorie malnutrition (Acute) Systolic CHF (Acute) Hospital Course: HOSPITAL COURSE: Date of Admission:09/20/19 Date of Discharge: 09/26/19 Problem List - Problems (1) Prophylactic measure Assessment/Plan: FEN continue low sodium diet dietary supplements PO intake adequate DVT no chemical AC Dispo discharge to home with [facility] services Code(s): Z29.9 - ENCOUNTER FOR PROPHYLACTIC MEASURES, UNSPECIFIED (2) Acute on chronic respiratory failure with hypoxia Assessment/Plan: supplemental O2 to maintain SPo2 > 88% c/w inhaled broncholdilators Treated with IV steroids and trasitioned to PO with a 12 day taper completed course ofceftrixone-last does 09/[address] for discharge Code(s): J96.21 - ACUTE AND CHRONIC RESPIRATORY FAILURE WITH HYPOXIA (3) COPD (chronic obstructive pulmonary disease) Assessment/Plan: Followed by pulmonary c/w spiriva, and albuterol MDI Code(s): J44.9 - CHRONIC OBSTRUCTIVE PULMONARY DISEASE, UNSPECIFIED (4) Generalized weakness Assessment/Plan: reports weakness at home, and a near fall clinically stronger, ambulating in chaudhry with PT c/w physical therapy at home Code(s): R53.1 - WEAKNESS (5) PNA (pneumonia) Assessment/Plan: completing course of abx 09/26 duonebs pulmonary following Code(s): J18.9 - PNEUMONIA, UNSPECIFIED ORGANISM (6) Altered mental status Assessment/Plan: mental status back to baseline Code(s): R41.82 - ALTERED MENTAL STATUS, UNSPECIFIED (7) Anemia Assessment/Plan: resolved . No blood transfusion needed Code(s): D64.9 - ANEMIA, UNSPECIFIED Qualifiers: Anemia type: iron deficiency Iron deficiency anemia type: unspecified iron deficiency Qualified Code(s): D50.9 - Iron deficiency anemia, unspecified (8) Paroxysmal atrial fibrillation Assessment/Plan: per patient and , patient was taken off xarelto and eliquis by her fibre optic cable splicer and PCP tele shows periods of AF c/w cardizem 120mg daily c/w lisinopril 10 Code(s): I48.0 - PAROXYSMAL ATRIAL FIBRILLATION (9) Unsteady gait Assessment/Plan: ambulated 120ft with walker c/w PT s/p right hip fracture 2017 Code(s): R26.81 - UNSTEADINESS ON FEET (10) CAD (coronary artery disease) Assessment/Plan: s/p NSTEMI 2017 presently with borderline trops x3, flat trend, not c/w acs c/w asa, statin, CARL per home regimen BB currently on hold secondary to pulm status Code(s): I25.10 - ATHSCL HEART DISEASE OF [place] CORONARY ARTERY W/O ANG PCTRS (11) Systolic CHF Assessment/Plan: acute decompensation 2017, in setting of severe anemia and a.e. copd mild LV dysfunction reported on echo then, however measured EF 36% on MPI. repeat TTE now with nl LV function appears clinically euvolemic here. appreciate card consultation Code(s): I50.20 - UNSPECIFIED SYSTOLIC (CONGESTIVE) HEART FAILURE (12) Severe protein-calorie malnutrition Assessment/Plan: Malnutririon as evidenced by BMI 15, muscle wasting/fat depletion small frequent meals with supplements twill cutter consultation appreciated Code(s): E43 - UNSPECIFIED SEVERE PROTEIN-CALORIE MALNUTRITION medcially stable for discharge to home with VNS services - Instructions Diet, Activity, Other Instructions: DISCHARGE YOUR VISIT You came to the hospital because you were having trouble breathing. You had a COPD exacerbation and pneumonia. You were treated with steroids and antibiotics. you will continue taking prednisone tapering the dose until October 08 MEDICATIONS Please continue to take your home medications as prescribed. There was XXXXX changes PREDNISONE TAPER 09/26 40 mg (4- 10mg tablets) the evening after you are discharged 09/27 40 mg (4- 10mg tablets) 09/28 40 mg (4- 10mg tablets) 09/29 30 mg (3- 10mg tablets) 09/30 30 mg (3- 10mg tablets) 10/01 30 mg (3- 10mg tablets) 10/02 20 mg (2- 10mg tablets) 10/03 20 mg (2- 10mg tablets) 10/04 20 mg (2- 10mg tablets) 10/05 10 mg (1- 10mg tablets) 10/06 10 mg (1- 10mg tablets) 10/07 10 mg (1- 10mg tablets) 1/1 5 mg (1/2- 10mg tablets) 0 DIET Continue your home diet ADDITIONAL CARE Please make an appointment to see your primary care provider, Dr Newsome 2 weeks from today. ADDITIONAL INFORMATION Please call 911 or come directly to the emergency department if you experience unusual headache, vision change, shortness of breath, chest pain, numbness, tingling, loss of alertness/awareness, loss of function, unusual bleeding or any alarming symptoms. Thank you for allowing me to care for you. Otf Howell, ALICIAP, [facility] [phone] Referrals: Lux Littlejohn MD [Primary Care Provider] - Disposition: VNS/HOME HEALTH CARE - Home Medications Comprehensive Discharge Medication List: Ambulatory Orders Diltiazem Cd [Cardizem Cd -] 120 mg PO DAILY 01/19/15 Levothyroxine [Synthroid -] 25 mcg PO DAILY 01/19/15 Pravastatin Sodium [Pravachol -] 20 mg PO HS 01/19/15 Ascorbic Acid [Vitamin C] 500 mg PO BID 08/31/17 Brimonidine Tartrate [Alphagan P] 1 drop OU BID 08/31/17 Iron Ps Complex/B12/Folic Acid [Ferrex 150 Forte Capsule] 1 each PO BID Lisinopril [Prinivil] 10 mg PO DAILY 08/31/17 Sodium Chloride [Vasyl-128] 1 drop OS QID 08/31/17 Albuterol 0.083% Nebulizer Michelle [Ventolin 0.083% Nebulizer Soln -] 1 neb NEB Q6H PRN 09/21/19 Melatonin 3 mg PO HS 09/21/19 Acetaminophen [Tylenol .Regular Strength -] 650 mg PO Q6H PRN tablet 09/26/19 Albuterol Sulfate 0.042% [Ventolin 0.042% (Half-Strength) -] 1 amp NEB RQID #1 amp 09/26/19 Lactobacillus Acidophilus [Bacid -] 1 tab PO DAILY #30 tab 09/26/19 Multivitamins [Multivit ([facility] Formulary)] 1 tab PO DAILY tab 09/26/19 Pantoprazole Sodium [Protonix -] 40 mg PO DAILY tablet.ec 09/26/19 Tiotropium [place] [Spiriva Respimat] 2 puff IH DAILY #1 inhaler 09/26/19 Problem List - Problems (1) Prophylactic measure Code(s): Z29.9 - ENCOUNTER FOR PROPHYLACTIC MEASURES, UNSPECIFIED (2) Acute on chronic respiratory failure with hypoxia Code(s): J96.21 - ACUTE AND CHRONIC RESPIRATORY FAILURE WITH HYPOXIA (3) COPD (chronic obstructive pulmonary disease) Code(s): J44.9 - CHRONIC OBSTRUCTIVE PULMONARY DISEASE, UNSPECIFIED (4) Generalized weakness Code(s): R53.1 - WEAKNESS (5) PNA (pneumonia) Code(s): J18.9 - PNEUMONIA, UNSPECIFIED ORGANISM (6) Altered mental status Code(s): R41.82 - ALTERED MENTAL STATUS, UNSPECIFIED (7) Anemia Code(s): D64.9 - ANEMIA, UNSPECIFIED Qualifiers: Anemia type: iron deficiency Iron deficiency anemia type: unspecified iron deficiency Qualified Code(s): D50.9 - Iron deficiency anemia, unspecified (8) Paroxysmal atrial fibrillation Code(s): I48.0 - PAROXYSMAL ATRIAL FIBRILLATION (9) Unsteady gait Code(s): R26.81 - UNSTEADINESS ON FEET (10) CAD (coronary artery disease) Code(s): I25.10 - ATHSCL HEART DISEASE OF [place] CORONARY ARTERY W/O ANG PCTRS (11) Systolic CHF Code(s): I50.20 - UNSPECIFIED SYSTOLIC (CONGESTIVE) HEART FAILURE (12) Severe protein-calorie malnutrition Code(s): E43 - UNSPECIFIED SEVERE PROTEIN-CALORIE MALNUTRITION This patient is new to me today: Yes Date on this admission: 09/26/19 Emergency Visit: Yes ED Registration Date: 09/20/19 Care time: The patient presented to the Emergency Department on the above date and was hospitalized for further evaluation of their emergent condition. Critical Care patient: No - Discharge Referral Referred to [facility] Med P.C.: No
[2019-09-26] MEDS: ALBUTEROL SO4 0.042% IH SOL 1.25 MG/3 ML VIAL.NEB NEB SCH ×2 (08:30→11:36)
[2019-09-26] MEDS ORDERED: cefTRIAXone SODIUM 1 GM VIAL ONE (09:11)
[2019-09-26] MEDS ORDERED: DEXTROSE 5%-WATER - 50 ML IVPB ONE (09:12)
[2019-09-26] MEDS: CEFTRIAXONE 1 GM in DEXTROSE 5%-WATER - 50 ML IVPB SCH (09:13)
[2019-09-26] MEDS ORDERED: PT OWN MED DRAWER 7, Y5N ONE ×2 (09:16→10:28)
[2019-09-26] MEDS: LISINOPRIL 5 MG TABLET (FP) PO SCH (09:19)
[2019-09-26] MEDS: MULTIVITAMINS (DAILY MVI) TABLET (FP) PO SCH (09:20)
[2019-09-26] MEDS: predniSONE 20 MG TABLET (UD) PO SCH (09:20)
[2019-09-26] MEDS: BRIMONIDINE TARTRATE OU SCH (09:20)
[2019-09-26] MEDS: LACTOBACILLUS ACIDOPHILUS 1 TABLET PO SCH (09:20)
[2019-09-26] MEDS: TIOTROPIUM BROMIDE 2.5 MCG (SPIRIVA) RESPIMAT INHALER IH SCH (09:20)
[2019-09-26] MEDS: PANTOPRAZOLE 40 MG TABLET (FP) PO SCH (09:20)
[2019-09-26 11:00] VITALS: BP 154/90; TEMP 98.2
== END 2019-09-26 12:01 | disposition home health service (06) | DRG 193 ==
LOC: JER 08:59 → JERBED 11:40 → J4S 09-21 01:22
PROVIDERS: ADMIT Internal Medicine; ATTEND Nurse Practitioner Acute Care
DX: J18.9 Pneumonia, unspecified organism (principal); J96.21 Acute and chronic respiratory failure with hypoxia; E43 Unspecified severe protein-calorie malnutrition; J96.22 Acute and chronic respiratory failure with hypercapnia; J44.1 Chronic obstructive pulmonary disease with (acute) exacerbation; I50.22 Chronic systolic (congestive) heart failure; J98.11 Atelectasis; I24.8 Other forms of acute ischemic heart disease; Z68.1 Body mass index [BMI] 19.9 or less, adult; I11.0 Hypertensive heart disease with heart failure; E78.5 Hyperlipidemia, unspecified; E03.9 Hypothyroidism, unspecified; D50.9 Iron deficiency anemia, unspecified; R00.0 Tachycardia, unspecified; R26.81 Unsteadiness on feet; I48.0 Paroxysmal atrial fibrillation; E83.52 Hypercalcemia; I25.10 Atherosclerotic heart disease of native coronary artery without angina pectoris; R41.82 Altered mental status, unspecified; Z88.0 Allergy status to penicillin; Z99.81 Dependence on supplemental oxygen
CPT/HCPCS: 36415; 71045-TC-FY; 71250-TC; 80053; 81003; 82803; 83605; 83735; 83880; 84436; 84443; 84484; 85025; 85610; 85730; 86850; 86900; 86901; 87040; 87081; 87086; 93005; 93010; 93306-TC; 94640; 97116-GP; 97161-GP; 99284-25

== ENCOUNTER 2020-10-21 11:57 | Inpatient (IN) | payer BC, OTHER ==
[2020-10-21 12:32] VITALS: BMI 18.1
[2020-10-21 13:25] LABS: BASO % 0.4 % (0-2.0); EOS % 0.1 % (0-4.5); HEMATOCRIT 39.1 % (32.4-45.2); HEMOGLOBIN 12.9 GM/dL (10.7-15.3); LYMPH % 6.7 % (8-40); MCH 31.5 pg (25.7-33.7); MCHC 33.1 g/dl (32.0-36.0); MEAN PLT VOLUME 8.1 fl (7.5-11.1); MONO % 4.8 % (3.8-10.2); PLATELET COUNT 271 K/MM3 (134-434); RBC 4.11 M/mm3 (3.60-5.2); RDW 13.4 % (11.6-15.6); WHITE BLOOD COUNT 13.6 K/mm3 (4.0-10.0)
[2020-10-21 13:47] LABS: POTASSIUM 3.5 mmol/L (3.5-5.1)
[2020-10-21 13:49] LABS: ALBUMIN 3.2 g/dl (3.4-5.0); BLOOD UREA NITROGEN 13.4 mg/dL (7-18)
[2020-10-21 13:52] LABS: CREATININE 0.4 mg/dL (0.55-1.3)
[2020-10-21 13:54] LABS: BILIRUBIN,TOTAL 0.3 mg/dL (0.2-1); TOT PROT 6.7 g/dl (6.4-8.2)
[2020-10-21] MEDS ORDERED: LACTATED RINGERS SOLUTION 1000 ML INFUS.BAG IV ONE (14:11)
[2020-10-21] MEDS ORDERED: ACETAMINOPHEN 1000 MG/100 ML VIAL (NON FORMULARY) IVPB ONE (14:11)
[2020-10-21] MEDS ORDERED: ACETAMINOPHEN INJECTION 100 ML IVPB ONE (14:51)
[2020-10-21] MEDS ORDERED: metroNIDAZOLE 500 MG TABLET PO ONE (17:19)
[2020-10-21] MEDS ORDERED: ACETAMINOPHEN 325 MG TABLET (FP) PO ONE (17:20)
[2020-10-21] MEDS ORDERED: metroNIDAZOLE 250 MG TABLET ONE (17:42)
[2020-10-21] MEDS ORDERED: DEXTROSE 50%-WATER 25 GM/50 ML DISP.SYRIN ONE (17:57)
[2020-10-21] MEDS ORDERED: RAPID SEQUENCE INTUBATION KIT NR ONE (18:00)
[2020-10-21] MEDS ORDERED: MAGNESIUM SULF 50% (8.12 MEQ/2 ML-1 GM VIAL) ONE (18:04)
[2020-10-21] MEDS ORDERED: AMIODARONE HCL 150 MG/3 ML VIAL ONE (18:10)
[2020-10-21] MEDS ORDERED: ROCURONIUM BROMIDE 100 MG/10 ML VIAL ONE (18:11)
[2020-10-21] MEDS ORDERED: NOREPINEPHRINE BITARTRATE 4 MG/4 ML ML IV ONE (18:12)
[2020-10-21 18:21] LABS: URINE APPEARANCE CLEAR; URINE BILIRUBIN NEGATIVE (NEGATIVE); URINE COLOR YELLOW; URINE GLUCOSE (UA) NEGATIVE (NEGATIVE); URINE KETONE NEGATIVE (NEGATIVE)
[2020-10-21 18:22] LABS: EPI CELLS 16.6 /uL (0-25.1); HYALINE CASTS 1.15 /uL (0-3.1); URINE BACTERIA 175.8 /uL (0-1359); URINE LEUK ESTERASE NEGATIVE (NEGATIVE); URINE NITRITE NEGATIVE (NEGATIVE); URINE PROTEIN NEGATIVE (NEGATIVE); URINE RBC 23.7 /uL (0-23.9); URINE WBC 17.3 /uL (0-25.8)
[2020-10-21 18:38] LABS: BASO % 0.9 % (0-2.0); EOS % 0.2 % (0-4.5); HEMATOCRIT 33.4 % (32.4-45.2); HEMOGLOBIN 10.1 GM/dL (10.7-15.3); LYMPH % 26.3 % (8-40); MCH 30.8 pg (25.7-33.7); MCHC 30.4 g/dl (32.0-36.0); MEAN CELL VOLUME 101.5 fl (80-96); MEAN PLT VOLUME 8.4 fl (7.5-11.1); MONO % 1.4 % (3.8-10.2); NEUT % 71.2 % (42.8-82.8); PLATELET COUNT 160 K/MM3 (134-434); RBC 3.29 M/mm3 (3.60-5.2); RDW 13.9 % (11.6-15.6); WHITE BLOOD COUNT 12.2 K/mm3 (4.0-10.0)
[2020-10-21 18:43] LABS: ARTERIAL BLD GAS O2 SATURATION 99.8 mmHg (95-98); ARTERIAL BLOOD GAS BASE EXCESS -11.8 mmol/L (-2-2); ARTERIAL BLOOD GAS PO2 344.9 mmHg (80-100)
[2020-10-21] MEDS ORDERED: PANTOPRAZOLE SODIUM 40 MG VIAL IVPUSH ONE (18:55)
[2020-10-21 19:03] LABS: POTASSIUM 3.3 mmol/L (3.5-5.1)
[2020-10-21] MEDS ORDERED: AMIODARONE HCL INJECTION 150 MG in DEXTROSE 5%-WATER - 100 ML IVPB ONE (19:03)
[2020-10-21 19:04] LABS: CALCIUM 8.9 mg/dL (8.5-10.1)
[2020-10-21 19:05] LABS: BLOOD UREA NITROGEN 9.4 mg/dL (7-18)
[2020-10-21 19:09] LABS: CREATININE 0.6 mg/dL (0.55-1.3)
[2020-10-21 19:10] LABS: BILIRUBIN,TOTAL 0.2 mg/dL (0.2-1)
[2020-10-21 19:11] LABS: TOT PROT 4.4 g/dl (6.4-8.2)
[2020-10-21] MEDS ORDERED: NOREPINEPHRINE D5W PREMIX 16,000 MCG/500 ML BAG IVPB SCH (19:15)
[2020-10-21] MEDS ORDERED: MEROPENEM 1 GM in DEXTROSE 5%-WATER 100 ML IVPB ONE (19:18)
[2020-10-21] MEDS ORDERED: VANCOMYCIN 1 GM in D5W (PRE-DOCKED) 1,000 MG/250 ML IVPB ONE (19:19)
[2020-10-21] MEDS ORDERED: MIDAZOLAM HCL 2 MG/2 ML SINGLE DOSE VIAL ONE (19:46)
[2020-10-21] MEDS: FENTANYL NS IVPB 500 MCG/100 ML BAG IVPB SCH (20:13)
[2020-10-21] MEDS ORDERED: PANTOPRAZOLE SODIUM 40 MG VIAL ONE (20:21)
[2020-10-21] MEDS ORDERED: VANCOMYCIN 1 GRAM (PRE-DOCKED) 1,000 MG/250 ML BAG IVPB ONE (20:21)
[2020-10-21 20:47] LABS: BASO % 0.3 % (0-2.0); EOS % 0.1 % (0-4.5); HEMATOCRIT 36.5 % (32.4-45.2); HEMOGLOBIN 11.3 GM/dL (10.7-15.3); LYMPH % 3.5 % (8-40); MCH 30.4 pg (25.7-33.7); MEAN PLT VOLUME 8.4 fl (7.5-11.1); MONO % 1.9 % (3.8-10.2); NEUT % 94.2 % (42.8-82.8); PLATELET COUNT 290 K/MM3 (134-434); RBC 3.73 M/mm3 (3.60-5.2); RDW 13.7 % (11.6-15.6)
[2020-10-21 21:00] LABS: INR 1.14 (0.83-1.09)
[2020-10-21 21:02] LABS: ACTIVATED PTT 34.4 SECONDS (25.2-36.5)
[2020-10-21 21:03] LABS: WHITE BLOOD COUNT 30.2 K/mm3 (4.0-10.0)
[2020-10-21 21:10] LABS: CALCIUM 8.6 mg/dL (8.5-10.1)
[2020-10-21 21:12] LABS: ALBUMIN 2.5 g/dl (3.4-5.0); BLOOD UREA NITROGEN 11.9 mg/dL (7-18)
[2020-10-21 21:14] LABS: CREATININE 0.8 mg/dL (0.55-1.3)
[2020-10-21 21:15] LABS: BILIRUBIN,TOTAL 0.4 mg/dL (0.2-1); TOT PROT 5.3 g/dl (6.4-8.2)
[2020-10-21 21:43] LABS: ANISOCYTOSIS 0; MACROCYTOSIS 0; PLATELET ESTIMATE NORMAL
[2020-10-21] MEDS ORDERED: CHLORHEXIDINE GLUCONATE 4% CLEANSER FOR DECOLONIZATION TP SCH (22:00)
[2020-10-21 22:48] LABS: POTASSIUM 2.7 mmol/L (3.5-5.1)
[2020-10-21] MEDS ORDERED: POTASSIUM CHLORIDE 20 MEQ PREMIX IVPB 100 ML IVPB ONE (23:30)
[2020-10-21] MEDS ORDERED: MEROPENEM 1 GM VIAL (RESTRICTED TO ID) IVPB ONE (23:40)
[2020-10-21] MEDS ORDERED: DEXTROSE 5%-WATER 100 ML IVPB ONE (23:40)
[2020-10-21] MEDS: MUPIROCIN 2% TOPICAL OINTMENT FOR DECOLONIZATION NS SCH (23:56)
[2020-10-21] MEDS: INSULIN SLIDING SCALE (NOVOLOG) 1 VIAL SQ SCH (23:57)
[2020-10-22] MEDS ORDERED: LACTATED RINGERS SOLUTION 1,000 ML with POTASSIUM CHLORIDE 40 MEQ IV ONE
[2020-10-22 02:33] LABS: POTASSIUM 3.3 mmol/L (3.5-5.1)
[2020-10-22 02:34] LABS: CALCIUM 8.4 mg/dL (8.5-10.1)
[2020-10-22 02:35] LABS: ALBUMIN 2.4 g/dl (3.4-5.0); BLOOD UREA NITROGEN 13.8 mg/dL (7-18)
[2020-10-22 02:38] LABS: CREATININE 0.7 mg/dL (0.55-1.3)
[2020-10-22 02:40] LABS: BILIRUBIN,TOTAL 0.3 mg/dL (0.2-1)
[2020-10-22] MEDS ORDERED: MEROPENEM 1 GM in DEXTROSE 5%-WATER 100 ML IVPB SCH (03:00)
[2020-10-22] MEDS: MEROPENEM 1 GM in DEXTROSE 5%-WATER 100 ML IVPB SCH ×3 (04:00→10:39)
[2020-10-22] MEDS: INSULIN SLIDING SCALE (NOVOLOG) 1 VIAL SQ SCH ×2 (06:43→10:55)
[2020-10-22 07:31] LABS: BASO % 0.1 % (0-2.0); HEMATOCRIT 33.9 % (32.4-45.2); LYMPH % 3.4 % (8-40); MCHC 32.4 g/dl (32.0-36.0); MEAN CELL VOLUME 95.7 fl (80-96); MEAN PLT VOLUME 8.8 fl (7.5-11.1); MONO % 6.2 % (3.8-10.2); NEUT % 90.3 % (42.8-82.8); PLATELET COUNT 319 K/MM3 (134-434); RBC 3.54 M/mm3 (3.60-5.2); WHITE BLOOD COUNT 28.9 K/mm3 (4.0-10.0)
[2020-10-22 07:38] LABS: POTASSIUM 3.6 mmol/L (3.5-5.1)
[2020-10-22 07:41] LABS: CALCIUM 8.4 mg/dL (8.5-10.1)
[2020-10-22 07:42] LABS: ALBUMIN 2.5 g/dl (3.4-5.0); BLOOD UREA NITROGEN 14.7 mg/dL (7-18); MAGNESIUM 2.7 mg/dL (1.8-2.4)
[2020-10-22 07:45] LABS: BILIRUBIN,TOTAL 0.3 mg/dL (0.2-1); CREATININE 0.5 mg/dL (0.55-1.3); PHOSPHOROUS 1.4 mg/dL (2.5-4.9)
[2020-10-22 07:47] LABS: TOT PROT 5.3 g/dl (6.4-8.2)
[2020-10-22] MEDS: NAPH,MB-DB/K PH,MBDB POWDER PACKET PO ONE ×2 (08:56→13:36)
[2020-10-22] MEDS ORDERED: PANTOPRAZOLE SODIUM 40 MG VIAL IVPUSH SCH (10:00)
[2020-10-22] MEDS ORDERED: MEROPENEM 1 GM VIAL (RESTRICTED TO ID) IVPB ONE (10:27)
[2020-10-22] MEDS: MUPIROCIN 2% TOPICAL OINTMENT FOR DECOLONIZATION NS SCH (10:27)
[2020-10-22] MEDS ORDERED: DEXTROSE 5%-WATER 100 ML IVPB ONE (10:28)
[2020-10-22] MEDS ORDERED: CEFEPIME 1 GM in DEXTROSE 5%-WATER - 1 GM/50 ML IVPB IVPB SCH (10:45)
[2020-10-22] MEDS ORDERED: DEXTROSE 5%-WATER - 50 ML IVPB ONE (10:45)
[2020-10-22] MEDS ORDERED: CEFEPIME HCL 1 GM VIAL (RESTRICTED TO ID) ONE (10:45)
[2020-10-22] MEDS ORDERED: PNEUMOC 13-VAL CONJ-DIP CRM/PF 0.5 ML DISP.SYRIN IM ONE (11:00)
[2020-10-22] MEDS ORDERED: PROPOFOL 1,000,000 MCG/100 ML VIAL IVPB SCH (11:15)
[2020-10-22 11:38] LABS: ANISOCYTOSIS 2+; MACROCYTOSIS 0; PLATELET ESTIMATE NORMAL
[2020-10-22] MEDS ORDERED: LACTATED RINGERS SOLUTION 1,000 ML/1,000 ML INFUS.BAG IV SCH (13:15)
[2020-10-22] MEDS ORDERED: NOREPINEPHRINE BITARTRATE 8,000 MCG/500 ML BAG IVPB ONE (13:47)
[2020-10-22 14:30] VITALS: BP 120/63; PULSE 108; TEMP 97.3
[2020-10-22] MEDS ORDERED: LORazepam 2 MG/ML SDV VIAL IVPUSH SCH (16:45)
[2020-10-22] MEDS ORDERED: MORPHINE SULFATE 2 MG/ML VIAL IVPUSH SCH (17:00)
[2020-10-22] MEDS ORDERED: LORazepam 2 MG/ML SDV VIAL IVPUSH PRN (18:22)
[2020-10-22] MEDS ORDERED: MORPHINE SULFATE 2 MG/ML VIAL IVPUSH PRN (20:23)
[2020-10-22] MEDS: FENTANYL NS IVPB 500 MCG/100 ML BAG IVPB SCH (22:03)
== END 2020-10-23 03:18 | disposition expired | DRG 871 ==
LOC: JER 11:57 → JERBED 19:06 → JICU 21:00
PROVIDERS: ADMIT Internal Medicine Pulmonary Disease; ATTEND Internal Medicine Pulmonary Disease
PROC: 0CHY7BZ Insertion of Airway into Mouth and Throat, Via Natural or Artificial Opening (ICD-10-PCS; principal; 2020-10-21)
PROC: 5A12012 Performance of Cardiac Output, Single, Manual (ICD-10-PCS; 2020-10-21)
PROC: 5A1945Z Respiratory Ventilation, 24-96 Consecutive Hours (ICD-10-PCS; 2020-10-21)
DX: A41.9 Sepsis, unspecified organism (principal); R65.21 Severe sepsis with septic shock; J96.21 Acute and chronic respiratory failure with hypoxia; I47.2 Ventricular tachycardia; J44.9 Chronic obstructive pulmonary disease, unspecified; E03.9 Hypothyroidism, unspecified; I10 Essential (primary) hypertension; E78.5 Hyperlipidemia, unspecified; K52.9 Noninfective gastroenteritis and colitis, unspecified; I46.9 Cardiac arrest, cause unspecified; I49.01 Ventricular fibrillation; I48.0 Paroxysmal atrial fibrillation; D64.9 Anemia, unspecified; I35.0 Nonrheumatic aortic (valve) stenosis
CPT/HCPCS: 36415; 36600; 70450-TC; 71045-TC-FY; 74177-TC; 80053; 81003; 82272; 82550; 82553; 82803; 82962; 83605; 83690; 83735; 84100; 84443; 84484; 85025; 85610; 85730; 86850; 86900; 86901; 87040; 87076; 87086; 87186; 93005; 93010; 94002; 99291; C9803; J0131; Q9967; U0003